=== PATIENT | female | born 1945 | race Caucasian/White ===

== ENCOUNTER → 2018-08-30 10:26 | Outpatient (BNVA) | payer MEDICARE, MEDICAID, SELFPAY | PROVIDERS: PCP Family Medicine; Referring Provider Family Medicine; Visit Provider Orthopaedic Surgery | DX: S92.352A Displaced fracture of fifth metatarsal bone, left foot, initial encounter for closed fracture (principal); X50.1XXA Overexertion from prolonged static or awkward postures, initial encounter | CPT/HCPCS: 99214 ==

== ENCOUNTER 2018-09-27 09:52 | Outpatient (CLI) | payer MEDICARE, MEDICAID, SELFPAY ==
--- NOTE | 2018-09-27 09:49 | DI.RAD_ITS ---
SYMPTOM/DIAGNOSIS: F/U FX LEFT FOOT: No previous images were available for review at the time of this dictation. There is soft tissue swelling over the distal aspect of the foot. There is post traumatic change involving the proximal metaphysis of the fifth metatarsal likely representing the residua of an old injury. There is no evidence of an acute fracture or dislocation. If prior images are extant, then an addendum report will follow if the study can be retrieved.
== END 2018-09-27 10:12 ==
PROVIDERS: PCP Family Medicine; Visit Provider Orthopaedic Surgery
DX: M79.672 Pain in left foot (principal); M79.89 Other specified soft tissue disorders; S92.352D Displaced fracture of fifth metatarsal bone, left foot, subsequent encounter for fracture with routine healing; X50.0XXD Overexertion from strenuous movement or load, subsequent encounter; I10 Essential (primary) hypertension; J44.9 Chronic obstructive pulmonary disease, unspecified
CPT/HCPCS: 99213; 73630

== ENCOUNTER 2019-03-08 13:56 | Outpatient (CLI) | payer MEDICARE, MEDICAID, SELFPAY ==
[2019-03-08 14:19] LABS: Abs Immature Grans 0.02 k/cumm (0.0-0.09); Absolute Basophil Count 0.05 k/cumm (0.0-0.2); Absolute Eosinophil Count 0.14 k/cumm (0.0-0.7); Absolute Lymphocyte Count 2.32 k/cumm (1.2-3.4); Absolute Monocyte Count 0.76 k/cumm (0.11-0.7); Absolute Neutrophil Count 5.12 k/cumm (1.2-6.7); Basophils % 0.6; Eosinophils % 1.7; HCT 40.4 % (36.0-46.0); HGB 12.9 g/dL (12.0-15.5); Immature Grans % 0.2; Lymphocytes % 27.6; Mean Corp. HGB Concentration 31.9 g/dL (32.0-36.0); Mean Corpuscular Hemoglobin 29.3 pg (27.0-33.0); Mean Corpuscular Volume 91.8 fL (80-95); Mean Platelet Volume 10.1 fL (8.0-11.0); Neutrophils % 60.9; Platelet Count 285 x1000/uL (130-400); RBC Distribution Width 13.5 % (11.7-14.6); White Blood Cell Count 8.41 k/cumm (4.4-10.8)
[2019-03-08 15:37] LABS: Iron 40 ug/dL (50-175); Total Iron Binding Capacity 306 ug/dL (250-450); Transferrin Sat 13 % (15-50)
== END 2019-03-08 14:16 ==
PROVIDERS: PCP Family Medicine; Visit Provider Family Medicine
DX: D50.0 Iron deficiency anemia secondary to blood loss (chronic) (principal)
CPT/HCPCS: 36415; 83540; 83550; 85025

== ENCOUNTER 2019-03-09 16:45 | Outpatient (REF) | payer MEDICARE, MEDICAID, SELFPAY | END 2019-03-09 17:05 | LOC: LBN 16:45 | PROVIDERS: PCP Family Medicine; Visit Provider Family Medicine | DX: N39.0 Urinary tract infection, site not specified (principal) | CPT/HCPCS: 87086 ==

== ENCOUNTER 2019-06-08 08:57 | Outpatient (REF) | payer MEDICARE, MEDICAID, SELFPAY ==
[2019-06-08 11:39] LABS: Abs Immature Grans 0.01 k/cumm (0.0-0.09); Absolute Basophil Count 0.07 k/cumm (0.0-0.2); Absolute Eosinophil Count 0.11 k/cumm (0.0-0.7); Absolute Lymphocyte Count 2.17 k/cumm (1.2-3.4); Absolute Monocyte Count 0.75 k/cumm (0.11-0.7); Absolute Neutrophil Count 5.18 k/cumm (1.2-6.7); Basophils % 0.8; Eosinophils % 1.3; HCT 40.6 % (36.0-46.0); HGB 13.5 g/dL (12.0-15.5); Immature Grans % 0.1; Lymphocytes % 26.2; Mean Corp. HGB Concentration 33.3 g/dL (32.0-36.0); Mean Corpuscular Hemoglobin 30.5 pg (27.0-33.0); Mean Corpuscular Volume 91.6 fL (80-95); Mean Platelet Volume 10.9 fL (8.0-11.0); Neutrophils % 62.6; Platelet Count 276 x1000/uL (130-400); RBC 4.43 m/cumm (4.00-5.20); RBC Distribution Width 12.2 % (11.7-14.6); White Blood Cell Count 8.29 k/cumm (4.4-10.8)
== END 2019-06-08 09:17 ==
LOC: LBN 08:57
PROVIDERS: PCP Family Medicine; Visit Provider Family Medicine
DX: N64.89 Other specified disorders of breast (principal); D50.0 Iron deficiency anemia secondary to blood loss (chronic); I10 Essential (primary) hypertension
CPT/HCPCS: 85025

== ENCOUNTER 2019-06-26 00:22 | Outpatient (CLI) | payer MEDICARE, MEDICAID, SELFPAY ==
--- NOTE | 2019-06-26 09:19 | DI.COMBO_ITS ---
SYMPTOM/DIAGNOSIS: DIAGNOSTIC, BRUISE, TEXTURE CHANGES LT BREAST, N64.89, RT BREAST PAIN MAMMOGRAMS AND RIGHT BREAST ULTRASOUND: Mammograms were interpreted according to the usual protocol including computer analysis with CAD system, tomosynthesis and C view imaging. The patient notes a palpable abnormality in the superior right breast. A marker was placed over this area. Comparison is made with mammograms from [id number]. The breasts are composed of scattered fibroglandular densities, breast density, Category B. No suspicious masses or suspicious microcalcifications are seen. No abnormality is seen in the superior right breast. Right breast ultrasound shows no evidence of a cyst or solid mass. IMPRESSION: Category 1, negative mammogram and right breast ultrasound. Yearly screening mammography is recommended. [facility] ASSESSMENT OF FINDINGS: Negative. Category 1. Patient will receive a letter notifying them of these results. BI-RADS category B. There are scattered areas of fibroglandular density.
== END 2019-06-26 00:42 ==
PROVIDERS: PCP Family Medicine; Visit Provider Family Medicine
DX: N64.4 Mastodynia (principal); N63.10 Unspecified lump in the right breast, unspecified quadrant; S20.01XA Contusion of right breast, initial encounter; N64.89 Other specified disorders of breast
CPT/HCPCS: 76642; 77062; 77066; G0279

== ENCOUNTER 2021-03-22 06:55 | Emergency (ER) | payer MEDICARE, MEDICAID, SELFPAY ==
[2021-03-22] VITALS (9 sets, daily range): BP systolic 150–157; BP diastolic 73–80; PULSE 74–96; RESP 14–26; TEMP 36.6; O2SAT 95–98
--- NOTE | 2021-03-22 06:47 | W.ED.GENAD ---
Discharge Plan Disposition Patient Disposition: HOME Condition: Stable Discharge Details Clinical Impression: Seizure, Hand laceration, Contusion of head Primary Care Provider: Ketan Tamez ED Provider: Consuelo Stone Home Meds and New Rx's Prescriptions: Continued melatonin 3 mg capsule 3 mg PO HS RF: 0 Hold Instructions: Home Medication placed on hold at Doctor's office acetaminophen [Tylenol] 325 MG tablet 650 mg PO Q4H PRN RF: 0 (DME) Undergarment Misc 1 ea Miscellaneous Q2H MDD 10 Qty: 300 RF: 12 ascorbic acid (vitamin C) [Vitamin C] 250 mg tablet 250 mg PO BID Qty: 60 RF: 6 calcium carbonate-vitamin D3 600 mg(1,500mg) -200 unit tablet 1 tab PO DAILY Qty: 30 RF: 6 cholestyramine (with sugar) 4 gram powder 8 g PO BID Qty: 378 RF: 11 multivitamin Tablet 2 tab PO DAILY Qty: 200 RF: 3 potassium chloride 10 mEq tablet,ER particles/crystals 20 meq PO DAILY Qty: 180 RF: 3 cholecalciferol (vitamin D3) [Vitamin D3] 50 mcg (2,000 unit) capsule 2,000 unit PO DAILY Qty: 90 RF: 3 levetiracetam [Keppra] 500 mg tablet 500 mg PO BID Qty: 180 RF: 3 mirtazapine 7.5 mg tablet 7.5 mg PO QHS Qty: 90 RF: 3 Discharge Instructions Instructions: Laceration (ED), Recurrent Seizures in Adults (ED) Additional Instructions: Your imaging and labs are reassuring here today. This does appear to be a breakthrough seizure. Please continue with your Keppra as previously prescribed. Please discuss your breakthrough seizure with your primary care this week. Call tomorrow to schedule appointment. You do have a significant wound to your left hand and I am concerned that it may have a risk of complication during healing. Please keep wound clean, dry, covered. Please keep current dressing on for the next 24 to 48 hours. After that time, you may wash with running water and reapply dressing. Please have this evaluated by primary care this week as well. If you develop fever/chills, redness, increased pain, severe headache or other new/worsening symptoms please seek care urgently once again. Referrals: Ketan Tamez DO [Primary Care Provider] - Discharge Data Discharge Date/Time-TO BE ENTERED AT DEPARTURE: 03/22/21 09:54 Medical Decision Making <Emanuel Garcia MD - Last Filed: 03/22/21 07:12> Patient presenting status post seizure at home. History of seizures in the past. Awake and alert now but confused. Significant degloving injury to the dorsum of the hand which will need attention. Fair amount of drug fiber and hair in the wound. IV established and laboratory studies obtained. Urinalysis ordered. CT head and neck as well as x-ray of left hand and left foot ordered. Last tetanus was 2008 and will be updated. <BONI Soto - Last Filed: 03/30/21 18:12> Care transition myself from Dr. Garcia. Please see his initial note regarding history, presentation and exam. In brief, patient is a pleasant 75-year-old female who came in today after having a witnessed seizure. Patient does have past medical history pertinent for seizure and is treated with Keppra. For the first breakthrough seizure per the report for several years. Patient was initially quite disoriented when evaluated by Dr. Garcia, the associated post ictal period. At the time I assume care and reevaluated patient, she just came back from imaging where she had x-rays of left hand, left foot, head and C-spine. Patient is alert and oriented at this time. Imaging reviewed by radiology: FINDINGS: There are bilateral craniotomies with encephalomalacia in the frontal lobes bilaterally and ex vacuo dilatation of the frontal horns bilaterally. There is a stable calcified focus in the midline measuring 2.1 cm and there are bilateral aneurysm clips with streak artifact. There are periventricular white matter lucencies compatible with chronic microvascular ischemic disease. No intracranial hemorrhage. No extra-axial collections. No acute calvarial fracture. There is frontal scalp swelling. IMPRESSION: No intracranial hemorrhage. Stable findings as above. FINDINGS: Normal alignment. No acute fracture or subluxation. There is degenerative disc disease at C6-C7. There is a chronic compression deformity of the superior endplate T3. No spinal stenosis. There are paraseptal emphysematous changes. IMPRESSION: No acute fracture. FINDINGS: Bones/joints: Osteopenia Bandages along the ulnar aspect of the hand and fingers Degenerative changes in the thumb carpometacarpal joint There is no evidence of acute fracture.There is no evidence of malalignment or dislocation. Soft tissues: Normal. IMPRESSION: There is no evidence of acute fracture.There is no evidence of malalignment or dislocation. FINDINGS: Bones/joints: Osteopenia Lucency in the distal aspect the distal phalanx of the great toe may represent healing fracture.. There is no evidence of acute fracture.There is no evidence of malalignment or dislocation. Soft tissues: Normal. IMPRESSION: 1. Lucency in the distal aspect the distal phalanx of the great toe may represent healing fracture.. 2. There is no evidence of acute fracture.There is no evidence of malalignment or dislocation. Patient does not have pain over this area. Evaluated the patient left hand wound. She has a laceration at the base of the third digit on the dorsal side as well as a degloving injury on the dorsal aspect of the hand. Patient does seem quite anxious regarding closure but has exquisite discomfort with gentle manipulation of the hand. Patient has history/benefits to help expected procedural efficacy with closure. She voiced understanding with these. She began anesthesia, lidocaine was dripped into the wound. Please see procedure note. Patient tolerated these well. Wound was explored to base in a bloodless field. There were few dark fibers consistent with rubbing on the carpet they are able to be extracted by myself. No remaining foreign bodies noted. Wound was copiously irrigated. Closed loosely as described. I am concerned regarding wound healing, particularly given how skin will be flap is in the viability of the tissue. I did discuss this with the patient. Also discussed this with the daughter. Spoke with the patient's daughter at length. I also had the daughter speak with her mother to ensure that she is at her baseline as she remained A&O x3 but did seem to have some difficulty with more short-term memory. She reports that her mother is at her baseline and this is unchanged. Discussed that both of them is the importance of good wound care we discussed wound care at length. Strict return precautions were discussed. She will continue on her prescribed medication. We will give her her morning dose of Keppra while here. Advise close follow-up with primary care provider. All other questions and concerns were addressed in agreement this plan. HPI <Emanuel Garcia MD - Last Filed: 03/22/21 07:12> General Mode of arrival: EMS. Date/Time Provider Initiated Documentation: 03/22/21 07:00. Information obtained by: patient and EMS. HPI Narrative: Patient presents to ED with EMS after seizure at home. Per EMS daughter reports that patient fell out of bed having a seizure. Left part of her body was on a rough rug with her arm up under her. Patient does have history of seizures. Patient awake and alert now but appears confused as she states she tripped and fell. She states that her left foot hurts but that everything else feels okay to her. Per EMS sustained significant skin injury to the left hand. IV was established but no medications given. Related Data Home Medications Medication Instructions Recorded Confirmed acetaminophen [Tylenol] 650 mg PO Q4H PRN tab 08/13/15 03/22/21 diaper,brief,adult,disposable #300 ea 04/01/20 03/22/21 ascorbic acid (vitamin C) 250 mg 250 mg PO BID #60 tab 09/11/20 03/22/21 tablet calcium carbonate 600 mg (1,500 1 tab PO DAILY #30 tab 09/11/20 03/22/21 mg)-vitamin D3 200 unit tablet cholestyramine (with sugar) 4 gram 8 g PO BID #378 gm 09/11/20 03/22/21 oral powder multivitamin 2 tab PO DAILY #200 tab 09/11/20 03/22/21 potassium chloride 10 mEq 20 meq PO DAILY #180 tab-cap 09/11/20 03/22/21 tablet,extended release(part/cryst) melatonin 3 mg capsule 3 mg PO HS 10/09/20 03/22/21 cholecalciferol (vitamin D3) 50 2,000 unit PO DAILY #90 cap 10/13/20 03/22/21 mcg (2,000 unit) capsule levetiracetam 500 mg tablet 500 mg PO BID #180 tab 11/10/20 03/22/21 mirtazapine 7.5 mg tablet 7.5 mg PO QHS #90 tab 02/19/21 03/22/21 Previous Rx's Medication Instructions Recorded diaper,brief,adult,disposable #300 ea 04/01/20 ascorbic acid (vitamin C) 250 mg 250 mg PO BID #60 tab 09/11/20 tablet calcium carbonate 600 mg (1,500 1 tab PO DAILY #30 tab 09/11/20 mg)-vitamin D3 200 unit tablet cholestyramine (with sugar) 4 gram 8 g PO BID #378 gm 09/11/20 oral powder multivitamin 2 tab PO DAILY #200 tab 09/11/20 potassium chloride 10 mEq 20 meq PO DAILY #180 tab-cap 09/11/20 tablet,extended release(part/cryst) cholecalciferol (vitamin D3) 50 2,000 unit PO DAILY #90 cap 10/13/20 mcg (2,000 unit) capsule levetiracetam 500 mg tablet 500 mg PO BID #180 tab 11/10/20 mirtazapine 7.5 mg tablet 7.5 mg PO QHS #90 tab 02/19/21 Allergies Allergy/AdvReac Type Severity Reaction Status Date / Time aspirin AdvReac Intermediate GI Bleed Verified 03/23/21 13:59 Review of Systems <Emanuel Garcia MD - Last Filed: 03/22/21 07:12> Narrative: As documented in HPI otherwise negative as below. Const: no fever Resp: no cough, SOB CV: no CP GI: no abdominal pain, nausea, vomiting Neuro: no headache, numbness, focal weakness PFSH <Emanuel Garcia MD - Last Filed: 03/22/21 07:12> Medical History Abnormal weight loss (01/28/14) recurrent; varied 1999 w/u; [id number] 113 to 138 labs; Aneurysm a. Positive for multiple aneurysms. As stated, she has had surgery for these aneurysms. She has been followed quite closely in the past, and now has been able to spread out her appointments with the neurologist as there has been no change in her scan since 1982, according to her and her caregiver. 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 Vague history as she was a previous smoker. Dyspnea on exertion (07/26/17) Essential hypertension (02/24/12) History of seizure a. Due to previous CVA. b. She has not had any in upwards of 13 to 15 years. 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) initial leak/procedure 1971; neurosurg [facility] [place]; elect further watchful waiting Clipping 07/2015 Osteoporosis, unspecified Pos DEXA 08/2003; alendronate therapy through 2010; Vit D def 2005, replaced; Dilantin therapy risk Ovarian cyst, right (07/19/16) on CT, US 07/2016; stable on US [facility] [place] 10/06/16 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 Wyatt Nazario MD. History of Surgical Procedure a. ORIF of the patella of her left knee. b. Appendectomy and tubal ligation in the same surgery, according to her. c. Tonsillectomy and adenoidectomy. d. Aneurysm repair on two occasions, 1971 and 1982. She gets repeat scans every so often for these. e. Bilateral cataract surgery. R nephrectomy & ovary (10/25/16) Dr Fong, [facility] [place], carcinoma kidney Family History Mother , CA at age 75. Neoplasm liver or kidney CA Father , fall at age 63. No problems noted. Brother , LUNG CA No problems noted. Brother , Stomach CA at age 85. No problems noted. Social History Smoking/Tobacco Use Status: Current every day Tobacco Type: cigarettes Smoking risk assessment performed?: Yes Alcohol Intake: never Drug use: Never Substance use type: does not use Caregiver/Support person: Yes Household members: family and other Details: lives with daughter Housing: house Number of Children: 2 Communication Needs: Corrective Lenses current occupation: retired from [employer], [employer], Dispatcher What is your relationship status?: Panel score (0-1 are the most socially isolated patients): 0 What type of physical activity do you participate in: none Seatbelt use: always Drive intox or ride w/intox steam train driver: No Working smoke detector in home: Yes Carbon monox detector in home: Yes Do you feel safe at home: Yes Do you feel safe in your relationship?: Yes Exam <Emanuel Garcia MD - Last Filed: 03/22/21 07:12> Narrative Exam Narrative: Const: Thin elderly female in NAD. HEENT: NC. Large hematoma on forehead. Abrasion to bridge of nose Neck: Supple. Trachea midline. No midline tenderness. Lungs: Normal respiratory effort. Lungs are clear. Cor: RRR without murmur/gallop. GI: Soft. NT/ND. Neuro: Awake and alert but confused. Normal speech. Cranial nerves II - XII grossly intact. No gross motor or sensory deficit. Ext: No deformity. Tenderness to the dorsum of left foot. Degloving involving dorsum of left hand as well as laceration just proximal to the third MCP joint. No obvious deformity. Skin: Warm and dry. <BONI Soto - Last Filed: 03/30/21 18:12> Laceration Laceration 1: Site: hand Side (If applicable): left Size (cm): 1.5 Description: flap and irregular Depth: simple, single layer Local Anesthetic: Lidocaine 1% Amount of anesthesia used (mL): 3 Pre-repair: wound explored, irrigated extensively and deep structures intact Skin layer closed with: nylon Size (cm): 6-0 Number of sutures: 3 Technique: simple, interrupted Laceration 2: Site: hand Side (If applicable): left Size (cm): 8 Description: flap Depth: simple, single layer (thin skin) Local Anesthetic: Lidocaine 1% Amount of anesthesia used (mL): 5 Pre-repair: wound explored, irrigated extensively and deep structures intact Skin layer closed with: nylon Size (cm): 6-0 Number of sutures: 5 Technique: simple, interrupted and horizontal mattress Sign Out <Emanuel Garcia MD - Last Filed: 03/22/21 07:12> Sign Out Data: Sign Out Comment: pending imaging results and laceration/degloving repair Last updated by Emanuel Garcia MD at 03/22/21 08:04
--- NOTE | 2021-03-22 07:00 | DI.RAD_ITS ---
Exam(s) XR FOOT LT COMPLETE EXAM: XR FOOT LT COMPLETE CLINICAL HISTORY: trauma. TECHNIQUE: 2D digital imaging was performed. COMPARISON: CR XR foot LT complete from 09/27/2018 FINDINGS: BONES: No acute fracture is present. No bony destructive lesion is seen. JOINTS: No dislocation present. SOFT TISSUE: Normal. IMPRESSION: No acute fracture or dislocation. DATA REPOSITORY: RADIATION DOSE DELIVERED:
--- NOTE | 2021-03-22 07:00 | DI.RAD_ITS ---
Exam(s) XR HAND LT COMPLETE EXAM: XR HAND LT COMPLETE CLINICAL HISTORY: trauma. TECHNIQUE: 2D digital imaging was performed. COMPARISON: CR LEFT HAND COMPLETE from 11/14/2013 FINDINGS: BONES: No acute fracture is present. No bony destructive lesion is seen. Osteopenia. JOINTS: No dislocation present. Degenerative changes are seen in the hand particularly at the 1st CMC joint. SOFT TISSUE: Normal. IMPRESSION: No acute fracture or dislocation. DATA REPOSITORY: RADIATION DOSE DELIVERED:
--- NOTE | 2021-03-22 07:00 | DI.CT_ITS ---
Exam(s) CT HEAD CERVICAL SPINE WO EXAM: CT HEAD CERVICAL SPINE WO CLINICAL HISTORY: seizure with fall. TECHNIQUE: Imaging Protocol: Axial computed tomography images with coronal and sagittal reformatted images were created and reviewed COMPARISON: CT CTA BRAIN from 06/27/2015 FINDINGS: CT Head: Ventricles and Extra axial spaces: Normal in size and morphology for the patient's age. Hemorrhage: None. Cerebral parenchyma: Encephalomalacia is seen in the frontal lobes bilaterally. No acute territorial infarct is seen. There are areas of decreased attenuation in the white matter most consistent with chronic microvascular ischemic disease. There is a stable calcified focus in the midline measuring 2 .1 cm. Bilateral aneurysm clips are noted again. Midline shift: None. Brainstem/Cerebellum: Normal. Calvarium: No acute fracture. Visualized Paranasal sinuses/Mastoids: Small mucous retention cysts or polyps are seen in the maxilla ry sinuses. There is mild mucosal thickening in the frontal sinus. The remaining visualized paranas al sinuses and mastoid air cells are clear. Soft Tissues: Mild soft tissue swelling of the frontal scalp. CT Cervical Spine: Bones: No acute fracture or subluxation. Degenerative changes are seen in the cervical spine. There is an old compression deformity in the superior endplate of T3. Soft Tissues: Unremarkable. Lung Apices: Paraseptal emphysematous changes are seen in the lung apices. IMPRESSION: 1. No acute intracranial process. 2. No acute fracture or subluxation in the cervical spine. RADIATION DOSE DELIVERED: 1,173.01mGy.cm Total DLP DATA REPOSITORY: All CT scans at this facility are submitted to the National Radiology Data Registry (NRDR) Dose Index Registry (DIR) with the [employer] (ACR). RADIATION OPTIMIZATION: All CT scans at this facility use at least one of these dose optimization te chniques: automated exposure control; mA and/or kV adjustment per patient size (includes targeted exa ms where dose is matched to clinical indication); or iterative reconstruction.
[2021-03-22] MEDS: Normal Saline Flush 10 ML SYR IVP (07:05)
[2021-03-22 07:19] LABS: Abs Immature Grans 0.04 10^3/uL (0.0-0.06); Absolute Basophil Count 0.06 10^3/uL (0.0-0.2); Absolute Eosinophil Count 0.15 10^3/uL (0.0-0.7); Absolute Lymphocyte Count 1.47 10^3/uL (1.2-3.4); Absolute Monocyte Count 0.52 10^3/uL (0.1-0.8); Absolute Neutrophil Count 6.44 10^3/uL (1.2-6.7); Basophils % 0.7; Eosinophils % 1.7; HCT 39.8 % (36.0-46.0); Immature Grans % 0.5; Lymphocytes % 16.9; MCHC 32.7 % (32.0-36.0); MCV 91.9 fL (80-95); MPV 10.8 fL (8.0-11.0); Neutrophils % 74.2; Nucleated RBC 0 %; Platelet Count 250 10^3/uL (130-400); RBC 4.33 10^6/uL (3.93-5.22); RDW 13.3 % (11.7-14.6); RDW-SD 45.4 fL; WBC 8.68 10^3/uL (4.4-10.8)
[2021-03-22 07:22] LABS: Anion Gap 9.3 mmol/L (3-11); BUN 18 mg/dL (7-18); CO2 27.7 mmol/L (21.0-32.0); CREATININE 1.1 mg/dL (0.55-1.02); Calcium 9.3 mg/dL (8.5-10.1); Chloride 108 mmol/L (98-107); Estimated GFR 48.29 (mL/min/1.73m2); Glucose 100 mg/dL (74-106); Magnesium 1.7 mg/dL (1.8-2.4); Potassium 3.8 mmol/L (3.5-5.1); Sodium 145 mmol/L (136-145)
[2021-03-22] MEDS: Tetanus & Diphtheria Tox,ADULT 0.5 ML VIAL IM (08:05)
[2021-03-22 08:11] LABS: Bilirubin Negative (Negative); Blood Negative (Negative); Clarity Clear (Clear); Glucose Negative (Negative); Ketones Negative (Negative); Leukocyte Esterase Negative (Negative); Nitrite Negative (Negative); Specific Gravity >= 1.030 (1.005-1.025); Urobilinogen 0.2 EU/dL (Up TO 0.2); pH 5.5 (5-8)
--- NOTE | 2021-03-22 08:14 | NUR.NOTE ---
seizure pads applied to bed rails
--- NOTE | 2021-03-22 08:31 | DI.VRAD_ITS ---
PROCEDURE INFORMATION: Exam: XR Left Hand Exam date and time: 03/22/2021 7:37 AM Age: 75 years old Clinical indication: Injury or trauma; Fall; Sprain or strain; Hand; Left TECHNIQUE: Imaging protocol: XR Left hand. Views: 3 or more views. COMPARISON: No relevant prior studies available. FINDINGS: Bones/joints: Osteopenia Bandages along the ulnar aspect of the hand and fingers Degenerative changes in the thumb carpometacarpal joint There is no evidence of acute fracture.There is no evidence of malalignment or dislocation. Soft tissues: Normal. IMPRESSION: There is no evidence of acute fracture.There is no evidence of malalignment or dislocation. Dictated and Authenticated by: Lynette Villasenor MD. Ordering:DUSTY Castellanos MD
--- NOTE | 2021-03-22 08:33 | DI.VRAD_ITS ---
PROCEDURE INFORMATION: Exam: XR Left Foot Exam date and time: 03/22/2021 7:37 AM Age: 75 years old Clinical indication: Injury or trauma; Fall; Sprain or strain; Foot; Left TECHNIQUE: Imaging protocol: XR Left foot. Views: 3 or more views. COMPARISON: No relevant prior studies available. FINDINGS: Bones/joints: Osteopenia Lucency in the distal aspect the distal phalanx of the great toe may represent healing fracture.. There is no evidence of acute fracture.There is no evidence of malalignment or dislocation. Soft tissues: Normal. IMPRESSION: 1. Lucency in the distal aspect the distal phalanx of the great toe may represent healing fracture.. 2. There is no evidence of acute fracture.There is no evidence of malalignment or dislocation. Dictated and Authenticated by: Lynette Villasenor MD. Ordering:DUSTY Castellanos MD
--- NOTE | 2021-03-22 08:45 | DI.VRAD_ITS ---
PROCEDURE INFORMATION: Exam: CT Head Without Contrast Exam date and time: 03/22/2021 7:43 AM Age: 75 years old Clinical indication: Injury or trauma; Fall; Swelling (edema); Sprain or strain, cervical ligaments TECHNIQUE: Imaging protocol: Computed tomography of the head without contrast. Radiation optimization: All CT scans at this facility use at least one of these dose optimization techniques: automated exposure control; mA and/or kV adjustment per patient size (includes targeted exams where dose is matched to clinical indication); or iterative reconstruction. COMPARISON: CT HEAD WITHOUT CONTRAST 06/27/2015 3:27 PM FINDINGS: There are bilateral craniotomies with encephalomalacia in the frontal lobes bilaterally and ex vacuo dilatation of the frontal horns bilaterally. There is a stable calcified focus in the midline measuring 2.1 cm and there are bilateral aneurysm clips with streak artifact. There are periventricular white matter lucencies compatible with chronic microvascular ischemic disease. No intracranial hemorrhage. No extra-axial collections. No acute calvarial fracture. There is frontal scalp swelling. IMPRESSION: No intracranial hemorrhage. Stable findings as above. PROCEDURE INFORMATION: Exam: CT Cervical Spine Without Contrast Exam date and time: 03/22/2021 7:43 AM Age: 75 years old Clinical indication: Injury or trauma; Fall; Swelling (edema); Sprain or strain, cervical ligaments TECHNIQUE: Imaging protocol: Computed tomography images of the cervical spine without contrast. COMPARISON: CT HEAD WITHOUT CONTRAST 06/27/2015 3:27 PM FINDINGS: Normal alignment. No acute fracture or subluxation. There is degenerative disc disease at C6-C7. There is a chronic compression deformity of the superior endplate T3. No spinal stenosis. There are paraseptal emphysematous changes. IMPRESSION: No acute fracture. Dictated and Authenticated by: Klever Hernandez MD. Ordering:DUSTY Castellanos MD
== END 2021-03-22 09:54 | disposition home or self-care (01) ==
PROVIDERS: Emergency Medicine; Emergency Provider Physician Assistant; PCP Family Medicine
DX: G40.409 Other generalized epilepsy and epileptic syndromes, not intractable, without status epilepticus (principal); S61.422A Laceration with foreign body of left hand, initial encounter; S00.83XA Contusion of other part of head, initial encounter; W08.XXXA Fall from other furniture, initial encounter
CPT/HCPCS: 12004; 36416; 80048; 82962; 90471; 99285; 70450; 72125; 73130; 73630; 81003; 83735; 85025; 99284

== ENCOUNTER 2021-05-13 11:41 | Outpatient (CLI) | payer MEDICARE, MEDICAID, SELFPAY ==
--- NOTE | 2021-05-13 10:30 | DI.RAD_ITS ---
Exam(s) XR ANKLE RT COMPLETE EXAM: XR ANKLE RT COMPLETE CLINICAL HISTORY: Pain, swelling and bruising after a fall, r/o frx,M25.571. TECHNIQUE: 2D digital imaging was performed. COMPARISON: CR XR foot LT complete from 09/27/2018 CR XR foot LT complete from 09/27/2018 FINDINGS: There is a transverse fracture at base of the 5th metatarsal. There is also a nondisplaced transverse fracture in the lateral malleolus. There is no widening of t he mortise. Medial malleolus and posterior malleoli are intact. IMPRESSION: Fractures as described above. DATA REPOSITORY: RADIATION DOSE DELIVERED:
== END 2021-05-13 12:01 ==
PROVIDERS: PCP Family Medicine; Visit Provider Family Medicine
DX: S82.64XA Nondisplaced fracture of lateral malleolus of right fibula, initial encounter for closed fracture (principal); S92.351A Displaced fracture of fifth metatarsal bone, right foot, initial encounter for closed fracture; W19.XXXA Unspecified fall, initial encounter
CPT/HCPCS: 73610

== ENCOUNTER → 2021-05-14 13:29 | Outpatient (BNVA) | payer MEDICARE, MEDICAID, SELFPAY | PROVIDERS: PCP Family Medicine; Referring Provider Family Medicine; Visit Provider Student in an Organized Health Care Education/Training Program | DX: S92.351A Displaced fracture of fifth metatarsal bone, right foot, initial encounter for closed fracture (principal); X50.9XXA Other and unspecified overexertion or strenuous movements or postures, initial encounter | CPT/HCPCS: 99213 ==

== ENCOUNTER 2021-06-18 11:21 | Outpatient (CLI) | payer MEDICARE, MEDICAID, SELFPAY ==
--- NOTE | 2021-06-18 09:45 | DI.RAD_ITS ---
Exam(s) XR FOOT RT COMPLETE EXAM: XR FOOT RT COMPLETE CLINICAL HISTORY: R foot fx. TECHNIQUE: 2D digital imaging was performed. COMPARISON: CR,XR XR FOOT LT COMPLETE from 03/22/2021 FINDINGS: No evidence of fracture nor diastasis of the Lisfranc joint. No osseous lesions. No radiopaque fore ign body. No significant degenerative changes. IMPRESSION: DATA REPOSITORY: RADIATION DOSE DELIVERED:
== END 2021-06-18 11:22 | disposition home or self-care (01) ==
LOC: DIORS 11:21
PROVIDERS: PCP Family Medicine; Referring Provider Family Medicine; Visit Provider Student in an Organized Health Care Education/Training Program
DX: S92.351D Displaced fracture of fifth metatarsal bone, right foot, subsequent encounter for fracture with routine healing; X58.XXXD Exposure to other specified factors, subsequent encounter
CPT/HCPCS: 99213; 73630

== ENCOUNTER 2022-06-17 15:27 | Emergency (ER) | payer MEDICARE, MEDICAID, SELFPAY ==
[2022-06-17 15:31] VITALS: BP 136/68; PULSE 98; RESP 20; TEMP 36.4; O2SAT 94
--- NOTE | 2022-06-17 16:00 | DI.RAD_ITS ---
Exam(s) XR FOREARM RT EXAM: XR FOREARM RT CLINICAL HISTORY: cat bite, cellulitis. TECHNIQUE: 2D digital imaging was performed of the left forearm. Two views were obtained. AP and l ateral views were obtained. COMPARISON: CR XR HAND RT COMPLETE from 06/17/2022 FINDINGS: BONES: No acute fracture is present. No bony destructive lesion is seen. Visualized portion of elbow and wrist joints are unremarkable. SOFT TISSUE: No radiopaque foreign bodies. IMPRESSION: No acute fracture, dislocation or radiopaque foreign body. DATA REPOSITORY: RADIATION DOSE DELIVERED:
--- NOTE | 2022-06-17 16:00 | DI.RAD_ITS ---
Exam(s) XR HAND RT COMPLETE EXAM: XR HAND RT COMPLETE CLINICAL HISTORY: cat bite, cellulitis. TECHNIQUE: 2D digital imaging was performed of the right hand. Three images were obtained. AP, late ral and oblique views were obtained. COMPARISON: No exams were available for comparison FINDINGS: BONES: No acute fracture is present. No bony destructive lesion is seen. JOINTS: No dislocation present. SOFT TISSUE: Normal. No radiopaque foreign bodies are identified. IMPRESSION: Unremarkable radiographs of the right hand. DATA REPOSITORY: RADIATION DOSE DELIVERED:
--- NOTE | 2022-06-17 16:04 | W.ED.GENAD ---
Discharge Plan Disposition Patient Disposition: HOME Condition: Stable Discharge Details Clinical Impression: Cat bite of right forearm, Cellulitis Primary Care Provider: Ketan Tamez ED Provider: Luke Marie Home Meds and New Rx's Prescriptions: New amoxicillin-pot clavulanate 875-125 mg tablet 1 tab PO BID Qty: 20 0RF Continued (DME) Undergarment Misc 1 ea Miscellaneous Q2H MDD 10 Qty: 300 12RF Rx Instructions: for hygiene and safety; Size S/M Dx: K52.9 ferrous gluconate 324 mg (37.5 mg iron) tablet 324 mg PO BID Qty: 180 3RF mirtazapine 7.5 mg tablet 7.5 mg PO QHS Qty: 90 3RF cholecalciferol (vitamin D3) 50 mcg (2,000 unit) capsule 50 mcg PO DAILY Qty: 90 3RF omeprazole 20 mg capsule,delayed release(DR/EC) 20 mg PO DAILY Qty: 90 3RF acetaminophen [Tylenol] 325 MG tablet 650 mg PO Q4H PRN cholestyramine (with sugar) 4 gram powder 8 g PO BID Qty: 378 11RF Rx Instructions: two scoops up to twice daily FOR CHRONIC DIARRHEA; multivitamin Tablet 2 tab PO DAILY Qty: 200 3RF potassium chloride 10 mEq tablet,ER particles/crystals 20 meq PO DAILY Qty: 180 3RF Rx Instructions: replace low potassium levetiracetam [Keppra] 500 mg tablet 500 mg PO BID Qty: 180 3RF Discharge Instructions Instructions: Cellulitis (ED), Animal Bite (ED) Additional Instructions: Augmentin as directed. Rest, elevate, warm compresses or soaks every 2 hours for 20 minutes. You may change the antibiotic dressing daily. Please watch for new or worsening symptoms and return immediately to the ER. Otherwise I recommend follow-up with your primary care provider in the next 24-36 hours for cellulitis recheck as this may expand rapidly, as we discussed this may worsen and require hospitalization and IV antibiotics. Medical Decision Making This is a 76-year-old female, past medical history that includes COPD, seizures, who is right-hand dominant and tetanus status is up-to-date presenting to the ER of a cat scratch and potential bite that occurred yesterday in a neighbor's house. Patient is unsure of the cat immunization status. We will remove the rings from her hand, file a cat bite report, at this time the cat is known and there is no clear indication to initiate rabies prophylaxis however this may change if animal control cannot identify the cat. Will obtain x-ray of the forearm and hand as well as routine screening laboratory values and initiate p.o. Augmentin. Laboratory values reveal leukocytosis of 17.47, will obtain blood cultures prior to oral Augmentin. X-ray is unremarkable. The wounds were cleaned and appropriately dressed. Discussed work-up with patient and family, localized noncircumferential cellulitis of the right forearm no foreign body or abscess. No evidence of lymphangitic streaking. We discussed how quickly this can decompensate and the importance of proper treatment. At this time I do not believe that she requires inpatient hospitalization but I do recommend that she return immediately for new or worsening symptoms otherwise get follow-up with her PCP in the next 24-36 hours. Strict discharge and return precautions were provided. Patient understands, is agreeable to this plan, and has no additional questions or concerns upon discharge. This documentation was generated using [employer] system, please disregard any oddities of phrase or misspellings. Medical Records Medical records reviewed: Yes I reviewed the patient's medical records. Imaging Data Radiologic Study: Attestation: I personally reviewed and interpreted this imaging study as follows: Imaging: X-Ray Radiologist's impression: Exam(s) XR FOREARM RT EXAM: XR FOREARM RT CLINICAL HISTORY: cat bite, cellulitis. TECHNIQUE: 2D digital imaging was performed of the left forearm. Two views were obtained. AP and lateral views were obtained. COMPARISON: CR XR HAND RT COMPLETE from 06/17/2022 FINDINGS: BONES: No acute fracture is present. No bony destructive lesion is seen. Visualized portion of elbow and wrist joints are unremarkable. SOFT TISSUE: No radiopaque foreign bodies. IMPRESSION: No acute fracture, dislocation or radiopaque foreign body. Radiologic Study #2: Attestation: I personally reviewed and interpreted this imaging study as follows: Imaging: X-Ray Radiologist's impression: Exam(s) XR HAND RT COMPLETE EXAM: XR HAND RT COMPLETE CLINICAL HISTORY: cat bite, cellulitis. TECHNIQUE: 2D digital imaging was performed of the right hand. Three images were obtained. AP, lateral and oblique views were obtained. COMPARISON: No exams were available for comparison FINDINGS: BONES: No acute fracture is present. No bony destructive lesion is seen. JOINTS: No dislocation present. SOFT TISSUE: Normal. No radiopaque foreign bodies are identified. IMPRESSION: Unremarkable radiographs of the right hand. Lab Data Lab results reviewed: Yes I reviewed the patient's lab results. Labs: 06/17/22 16:35 Blood Blood Culture - Pending 06/17/22 16:35 Blood Blood Culture - Pending Laboratory Tests Range/Units 06/17/22 06/17/22 16:10 16:10 WBC (4.4-10.8) 10^3/uL 17.47 H RBC (3.93-5.22) 10^6/uL 4.20 Hgb (11.2-15.7) g/dL 12.2 Hct (36.0-46.0) % 36.9 MCV (80-95) fL 88 MCH (27.0-33.0) pg 29.0 MCHC (32.0-36.0) % 33.1 RDW (11.7-14.6) % 13.5 Plt Count (130-400) 10^3/uL 258 MPV (8.0-11.0) fL 9.9 Immature Gran % 0.3 Neutrophils % 77.5 Lymphocytes % 13.0 Monocytes % 8.8 Eosinophils % 0.1 Basophils % 0.3 Nucleated RBC % (0.0-0.3) % 0.0 Absolute Neutrophils (1.2-6.7) 10^3/uL 13.54 H Absolute Lymphocytes (1.2-3.4) 10^3/uL 2.27 Absolute Monocytes (0.1-0.8) 10^3/uL 1.54 H Absolute Eosinophils (0.0-0.7) 10^3/uL 0.02 Absolute Basophils (0.0-0.2) 10^3/uL 0.05 RBC Morphology Normal Sodium (136-145) mmol/L 139 Potassium (3.5-5.1) mmol/L 3.6 Chloride (98-107) mmol/L 108 H Carbon Dioxide (21.0-32.0) mmol/L 24.0 Anion Gap (3-11) mmol/L 7.0 BUN (7-18) mg/dL 25 H Creatinine (0.55-1.02) mg/dL 1.0 Estimated GFR/1.73 m2 (mL/min/1.73m2) 53.76 Glucose (74-106) mg/dL 140 H Calcium (8.5-10.1) mg/dL 8.8 Total Bilirubin (0.2-1.0) mg/dL 0.2 AST (15-37) U/L 19 ALT (14-59) U/L 21 Alkaline Phosphatase (46-116) U/L 83 Total Protein (6.4-8.2) g/dL 7.0 Albumin (3.4-5.0) g/dL 3.3 L HPI General Mode of arrival: ambulatory. Date/Time Provider Initiated Documentation: 06/17/22 15:28. Limitations to Documentation: no limitations. Information obtained by: patient and family. History of Present Illness 76 year old F presents to the emergency department with the chief complaint of R arm cat bite/scratch, described as mild, with intensity rated at 3. Quality is described as aching, and is localized to the right and upper extremity. Patient reports no radiation. Patient started experiencing this day(s) (1) and it has been constant. No relieving factors improve symptom(s), Movement worsens symptoms . Patient notes no other symptoms.. Patient did receive the following treatments prior to arrival, none Related Data Home Medications Medication Instructions Recorded Confirmed acetaminophen 325 mg tablet 650 mg PO Q4H PRN 08/13/15 06/17/22 (Tylenol) cholestyramine (with sugar) 4 gram 8 g PO BID #378 grams 09/24/21 06/17/22 oral powder cholecalciferol (vitamin D3) 50 50 mcg PO DAILY #90 caps 03/02/22 06/17/22 mcg (2,000 unit) capsule diaper,brief,adult,disposable #300 ea 03/02/22 03/02/22 (Undergarment misc) ferrous gluconate 324 mg (37.5 mg 324 mg PO BID #180 tabs 03/02/22 06/17/22 iron) tablet mirtazapine 7.5 mg tablet 7.5 mg PO QHS #90 tabs 03/02/22 06/17/22 omeprazole 20 mg capsule,delayed 20 mg PO DAILY #90 caps 03/02/22 06/17/22 release multivitamin 2 tab PO DAILY #200 tabs 04/25/22 07/28/22 potassium chloride 10 mEq 20 meq PO DAILY #180 tab-caps 03/15/22 06/17/22 tablet,extended release(part/cryst) levetiracetam 500 mg tablet 500 mg PO BID #180 tabs 04/05/22 06/17/22 (Keppra) amoxicillin 875 mg-potassium 1 tab PO BID #20 tabs 06/17/22 clavulanate 125 mg tablet Previous Rx's Medication Instructions Recorded cholestyramine (with sugar) 4 gram 8 g PO BID #378 grams 09/24/21 oral powder cholecalciferol (vitamin D3) 50 50 mcg PO DAILY #90 caps 03/02/22 mcg (2,000 unit) capsule diaper,brief,adult,disposable #300 ea 03/02/22 (Undergarment misc) ferrous gluconate 324 mg (37.5 mg 324 mg PO BID #180 tabs 03/02/22 iron) tablet mirtazapine 7.5 mg tablet 7.5 mg PO QHS #90 tabs 03/02/22 omeprazole 20 mg capsule,delayed 20 mg PO DAILY #90 caps 03/02/22 release multivitamin 2 tab PO DAILY #200 tabs 03/15/22 potassium chloride 10 mEq 20 meq PO DAILY #180 tab-caps 03/15/22 tablet,extended release(part/cryst) levetiracetam 500 mg tablet 500 mg PO BID #180 tabs 04/05/22 (Keppra) amoxicillin 875 mg-potassium 1 tab PO BID #20 tabs 06/17/22 clavulanate 125 mg tablet Allergies Allergy/AdvReac Type Severity Reaction Status Date / Time aspirin AdvReac Intermediate GI Bleed Verified 06/17/22 15:37 General Stated Complaint: Cellulitis DANAY: 3 Review of Systems Constitutional Constitutional: Denies fever(s) and Denies weakness Cardiovascular Cardiovascular: Denies chest pain and Denies dyspnea Respiratory Respiratory: Denies dyspnea Musculoskeletal Musculoskeletal: Denies arthralgias, Denies numbness, Denies stiffness and Denies tingling Integumentary/Breasts Skin/Breast: Reports erythema Neurologic Neurologic: Denies numbness, Denies tingling and Denies weakness PFSH All Active Problems (Updated 06/17/22 @ 17:33 by [facility]) Cat bite of right forearm (Acute) Cellulitis (Acute) Urinary incontinence (Acute) Venous insufficiency (Acute) Fracture of base of fifth metatarsal bone of right foot (Acute) Right ankle pain (Acute) Seizure (Acute) Hand laceration (Acute) Contusion of head (Acute) Abnormal auditory perception (Acute) Bilateral sensorineural hearing loss (Acute) Vitamin D deficiency (Chronic) low level 2005; replacement, still marginal 08/2014 Seizure disorder (Chronic) most recent seizure 01/2015 Osteoporosis, unspecified (Chronic) Pos DEXA 08/2003; alendronate therapy through 2010; Vit D def 2005, replaced; Dilantin therapy risk 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 ORIF of the patella of her left knee. b. Appendectomy and tubal ligation in the same surgery, according to her. c. Tonsillectomy and adenoidectomy. d. Aneurysm repair on two occasions, 1971 and 1982. She gets repeat scans every so often for these. e. Bilateral cataract surgery. Aneurysm (Chronic) a. Positive for multiple aneurysms. As stated, she has had surgery for these aneurysms. She has been followed quite closely in the past, and now has been able to spread out her appointments with the neurologist as there has been no change in her scan since 1982, according to her and her caregiver. History of seizure (Chronic) a. Due to previous CVA. b. She has not had any in upwards of 13 to 15 years. COPD (chronic obstructive pulmonary disease) (Chronic) a. Vague history as she was a previous smoker. Surgical History cerebral aneurysm clipping (08/11/15) [facility] EGD and Colonoscopy (09/28/16) Extraction of cataract (12/18/15) Cataract extraction with lens implant, left eye. Wyatt Nazario MD. 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 Neoplasm liver or kidney CA Father , fall at age 63. No problems noted. Brother , LUNG CA No problems noted. Brother , Stomach CA at age 85. No problems noted. Social History Smoking/Tobacco Use Status: Former Tobacco Use Smoking risk assessment performed?: Yes Alcohol Intake: never Drug use: Never Substance use type: does not use Caregiver/Support person: Yes Household members: family and other Details: lives with daughter Housing: house Number of Children: 2 Communication Needs: Corrective Lenses current occupation: retired from [employer], [employer], Dispatcher What is your relationship status?: Panel score (0-1 are the most socially isolated patients): 0 What type of physical activity do you participate in: none Seatbelt use: always Drive intox or ride w/intox frontload driver: No Working smoke detector in home: Yes Carbon monox detector in home: Yes Do you feel safe at home: Yes Do you feel safe in your relationship?: Yes Additional Social history: lives with daughter Exam Const General: cooperative, healthy appearing, comfortable and no acute distress Orientation: alert and awake [facility] Head: normal to inspection, normocephalic and atraumatic Eyes Conjunctivae: conjunctivae normal Neck Neck: normal visual inspection, full ROM, trachea midline and supple Resp Effort & Inspection: normal respiratory effort and able to speak in complete sentences Auscultation: clear to auscultation bilaterally Cardio Rate: regular rate Rhythm: regular rhythm Back/Spine/Pelvis Back: No back tenderness Skin General skin exam: erythema Neuro General: patient alert, patient awake, moves all extremities and no focal motor deficits Cognition: normal cognition Speech: speech normal Gait: normal gait Motor: muscle tone normal throughout Sensory Exam: no sensory deficits noted Extrem General: full ROM and capillary refill normal Elbow/forearm/wrist images: 1. None circumferential erythema, warmth, swelling, with multiple abrasions between the wrist and elbow, does not extend proximally or distally. There are a couple of superficial abrasions to the hand but no erythema. Normal radial pulse. No fluctuance or pointing abscess. Neuro, vascular, tendon intact. Full range of motion, 5-5 strength, normal capillary refill and radial pulse. There is no lymphangitic streaking or axillary lymphadenopathy Psych Appearance: grossly normal Mental Status: mental status grossly normal Course Vital Signs Vital signs: Vital Signs Temperature 36.4 C L 06/17/22 15:31 Pulse 98 H 06/17/22 15:31 Respiratory Rate 20 06/17/22 15:31 Blood Pressure 136/68 06/17/22 15:31 Pulse Oximetry 94 06/17/22 15:31 Temperature 36.4 C L 06/17/22 15:31 Temperature Source Skin 06/17/22 15:31 Pulse 98 H 06/17/22 15:31 Respiratory Rate 20 06/17/22 15:31 Respiratory Effort 06/17/22 15:43 Blood Pressure 136/68 06/17/22 15:31 Blood Pressure Position Sitting 06/17/22 15:31 Pulse Oximetry 94 06/17/22 15:31 Oxygen Delivery Method Room Air 06/17/22 15:31 Oxygen Flow Rate 0 06/17/22 15:31 Comment 06/17/22 15:31
[2022-06-17 16:18] LABS: Abs Immature Grans 0.06 10^3/uL (0.0-0.06); Absolute Basophil Count 0.05 10^3/uL (0.0-0.2); Absolute Eosinophil Count 0.02 10^3/uL (0.0-0.7); Absolute Lymphocyte Count 2.27 10^3/uL (1.2-3.4); Absolute Monocyte Count 1.54 10^3/uL (0.1-0.8); Absolute Neutrophil Count 13.54 10^3/uL (1.2-6.7); Basophils % 0.3; Eosinophils % 0.1; HCT 36.9 % (36.0-46.0); HGB 12.2 g/dL (11.2-15.7); Immature Grans % 0.3; MCHC 33.1 % (32.0-36.0); MCV 88 fL (80-95); MPV 9.9 fL (8.0-11.0); Monocytes % 8.8; Neutrophils % 77.5; Platelet Count 258 10^3/uL (130-400); RDW 13.5 % (11.7-14.6); RDW-SD 42.5 fL; WBC 17.47 10^3/uL (4.4-10.8)
--- NOTE | 2022-06-17 16:22 | NUR.NOTE ---
Nursing Note:Pt to DI via w/c for ordered exam.
[2022-06-17 16:33] LABS: ALT 21 U/L (14-59); AST 19 U/L (15-37); Albumin 3.3 g/dL (3.4-5.0); Alkaline Phosphatase 83 U/L (46-116); BUN 25 mg/dL (7-18); Bilirubin, Total 0.2 mg/dL (0.2-1.0); Calcium 8.8 mg/dL (8.5-10.1); Chloride 108 mmol/L (98-107); Estimated GFR 53.76 (mL/min/1.73m2); Glucose 140 mg/dL (74-106); Potassium 3.6 mmol/L (3.5-5.1); Sodium 139 mmol/L (136-145)
--- NOTE | 2022-06-17 16:40 | NUR.NOTE ---
Nursing Note: Pt return from DI, BC drawn x2 as ordered, PO abx administered, pt tolerated w/o complaints.
[2022-06-17] MEDS: Amoxicillin 875/Clav. 125 TAB PO (16:41)
[2022-06-17 16:49] LABS: Diff Comment Agrees w/ Instrument; RBC Morphology Normal
== END 2022-06-17 17:43 | disposition home or self-care (01) ==
PROVIDERS: Emergency Provider Physician Assistant; PCP Family Medicine
DX: S51.851A Open bite of right forearm, initial encounter (principal); L03.113 Cellulitis of right upper limb; J44.9 Chronic obstructive pulmonary disease, unspecified; S60.511A Abrasion of right hand, initial encounter; D72.829 Elevated white blood cell count, unspecified; Z87.891 Personal history of nicotine dependence; W55.01XA Bitten by cat, initial encounter; Y92.009 Unspecified place in unspecified non-institutional (private) residence as the place of occurrence of the external cause
CPT/HCPCS: 80053; 87040; 99283; 73090; 73130; 85025; 99284

== ENCOUNTER 2023-07-20 01:49 | Outpatient (CLI) | payer MEDICARE, MEDICAID, SELFPAY ==
[2023-07-22 09:00] LABS: Prealbumin 18 mg/dL (20-40)
== END 2023-07-20 01:50 | disposition home or self-care (01) ==
LOC: LBO 01:49
PROVIDERS: PCP Family Medicine; Visit Provider Family Medicine
DX: R63.4 Abnormal weight loss (principal)
CPT/HCPCS: 36415; 84134

== ENCOUNTER 2023-08-05 09:47 | Emergency (ER) | payer MEDICARE, MEDICAID, SELFPAY ==
[2023-08-05 09:53] VITALS: BP 151/71; PULSE 70; RESP 18; TEMP 37; O2SAT 96
--- NOTE | 2023-08-05 10:00 | DI.RAD_ITS ---
Exam(s) XR LUMBAR SPINE COMPLETE EXAM: XR LUMBAR SPINE COMPLETE CLINICAL HISTORY: pain s/p fall. TECHNIQUE: 2D digital imaging was performed of the lumbar spine. Five images were obtained. AP, la teral, right oblique, left oblique and L5-S1 spot views were obtained. COMPARISON: CR CHEST 2 VIEWS PA,LAT from 07/14/2016 FINDINGS: BONES: There is a depression of the superior endplate of L1 which was not present on the most recent examination of this area which was in 2016. The acuity of this is indeterminate. No definite acute fracture or subluxation is seen in the lumbar spine. No facet hypertrophy identified. DISKS: There is mild narrowing of the T12-L1 disc space. ALIGNMENT: Lumbar spinal alignment is within normal limits. No spondylolysis or spondylolisthesis. SOFT TISSUE: Atherosclerosis is present. IMPRESSION: 1. Depression of the superior endplate of L1 of indeterminate age. 2. Atherosclerosis. DATA REPOSITORY: RADIATION DOSE DELIVERED:
--- NOTE | 2023-08-05 10:04 | ED.GENADUL_ITS ---
Discharge Plan Disposition Patient Disposition: Home Condition: Stable Discharge Details Clinical Impression: Closed L1 vertebral fracture Primary Care Provider: Ketan Tamez ED Provider: Juan Carlos Bethea Home Meds and New Rx's Prescriptions: Continued levetiracetam [Keppra] 500 mg tablet 500 mg PO BID Qty: 180 3RF (DME) Undergarment Misc 1 ea Miscellaneous Q2H MDD 10 Qty: 300 12RF Rx Instructions: for hygiene and safety; Size S/M Dx: K52.9 acetaminophen [Tylenol] 325 MG tablet 650 mg PO Q4H PRN cholestyramine (with sugar) 4 gram powder 8 g PO BID Qty: 378 11RF Rx Instructions: two scoops up to twice daily FOR CHRONIC DIARRHEA; ferrous gluconate 324 mg (37.5 mg iron) tablet 324 mg PO BID Qty: 180 3RF potassium chloride 10 mEq tablet,ER particles/crystals 20 meq PO DAILY Qty: 180 3RF Rx Instructions: replace low potassium cholecalciferol (vitamin D3) 50 mcg (2,000 unit) capsule 50 mcg PO DAILY Qty: 90 3RF omeprazole 20 mg capsule,delayed release(DR/EC) 20 mg PO DAILY Qty: 90 3RF multivitamin Tablet 2 tab PO DAILY Qty: 180 3RF mirtazapine 15 mg tablet 15 mg PO QHS Qty: 90 3RF Discharge Instructions Instructions: Thoracolumbar Fracture (ED) Additional Instructions: You have an age indeterminate broken bone in your lumbar spine that will heal with time follow up with your primary care provider within 1-2 weeks you can take tylenol, follow dosing instructions on packaging you can also use lidocaine patches which are over the counter if you feel more ill, have severe worsening pain or new pain such as chest pain return to the emergency department Medical Decision Making 77 yo female with hx of memory loss, copd, seizure, who comes in with her daughter who cares for her with lower back pain. On Tuesday she was walking and her pant leg got caught on a dog kennel door causing the patient to fall. No loc, has had lower back pain since so came here. No headache, neck pain, upper back, chest or abdomen pain. She is alert and oriented to name and place on arrival, not sure of the year. She has no signs of trauma to the head, no midline c or t spine tenderness, no chest or abdomen tenderness, moving all extremities with no pain. She has tenderness without palpable or visible deformity of L4/l5. Suspect contusion but will obtain xrays to evaluate for fracture. xray shows age indeterminate superior endplate fracture of L1, she is sitting up and states pain is now gone. Will d/c and have her f/u with pcp, return pre cautions given Differential Diagnosis Differential Diagnosis: contusion, fracture Imaging Data Radiologic Study: Attestation: I personally reviewed and interpreted this imaging study as follows: Imaging: X-Ray Radiologist's impression: Exam(s) XR LUMBAR SPINE COMPLETE EXAM:? XR LUMBAR SPINE COMPLETE CLINICAL HISTORY: ? pain s/p fall.? TECHNIQUE:? 2D digital imaging was performed of the lumbar spine.? Five images were obtained.? AP, lateral, right oblique, left oblique and L5-S1 spot views were obtained. COMPARISON:? CR CHEST 2 VIEWS PA,LAT from 07/14/2016 FINDINGS: BONES: There is a depression of the superior endplate of L1 which was not present on the most recent examination of this area which was in 2016.? The acuity of this is indeterminate.? No definite acute fracture or subluxation is seen in the lumbar spine.? No facet hypertrophy identified. DISKS: There is mild narrowing of the T12-L1 disc space.? ALIGNMENT: Lumbar spinal alignment is within normal limits. No spondylolysis or spondylolisthesis. SOFT TISSUE: Atherosclerosis is present.? IMPRESSION: 1. Depression of the superior endplate of L1 of indeterminate age. 2. Atherosclerosis.? HPI General Date/Time Provider Initiated Documentation: 08/05/23 09:55 . Information obtained by: patient and family . History of Present Illness 77 year old F presents to the emergency department with the chief complaint of lower back pain, described as moderate, Quality is described as aching, and is localized to the back. Patient reports no radiation. Patient started experiencing this day(s) (5) and it has been constant. No relieving factors improve symptom(s), No exacerbating factors reported . Patient notes no other symptoms.. Patient did receive the following treatments prior to arrival, none Related Data Home Medications Medication Instructions Recorded Confirmed acetaminophen 325 mg tablet 650 mg PO Q4H PRN 08/13/15 08/05/23 (Tylenol) cholestyramine (with sugar) 4 gram 8 g PO BID #378 grams 10/15/22 08/05/23 oral powder cholecalciferol (vitamin D3) 50 50 mcg PO DAILY #90 caps 03/11/23 08/05/23 mcg (2,000 unit) capsule ferrous gluconate 324 mg (37.5 mg 324 mg PO BID #180 tabs 03/11/23 08/05/23 iron) tablet omeprazole 20 mg capsule,delayed 20 mg PO DAILY #90 caps 03/11/23 08/05/23 release potassium chloride 10 mEq 20 meq PO DAILY #180 tab-caps 03/11/23 08/05/23 tablet,extended release(part/cryst) multivitamin 2 tab PO DAILY #180 tabs 03/25/23 08/05/23 diaper,brief,adult,disposable #300 ea 04/01/23 08/05/23 (Undergarment misc) levetiracetam 500 mg tablet 500 mg PO BID #180 tabs 04/01/23 08/05/23 (Keppra) mirtazapine 15 mg tablet 15 mg PO QHS #90 tabs 04/15/23 08/05/23 Previous Rx's Medication Instructions Recorded cholestyramine (with sugar) 4 gram 8 g PO BID #378 grams 10/15/22 oral powder cholecalciferol (vitamin D3) 50 50 mcg PO DAILY #90 caps 03/11/23 mcg (2,000 unit) capsule ferrous gluconate 324 mg (37.5 mg 324 mg PO BID #180 tabs 03/11/23 iron) tablet omeprazole 20 mg capsule,delayed 20 mg PO DAILY #90 caps 03/11/23 release potassium chloride 10 mEq 20 meq PO DAILY #180 tab-caps 03/11/23 tablet,extended release(part/cryst) multivitamin 2 tab PO DAILY #180 tabs 03/25/23 diaper,brief,adult,disposable #300 ea 04/01/23 (Undergarment misc) levetiracetam 500 mg tablet 500 mg PO BID #180 tabs 04/01/23 (Keppra) mirtazapine 15 mg tablet 15 mg PO QHS #90 tabs 04/15/23 Allergies Allergy/AdvReac Type Severity Reaction Status Date / Time aspirin AdvReac Intermediate GI Bleed Verified 04/01/23 10:46 General Stated Complaint: Fall/Non TraumaCriteria DANAY: 3 Review of Systems All systems reviewed & are unremarkable except as noted in HPI and below Constitutional Constitutional: Denies chills, Denies fever(s) and Denies weakness Eyes Eyes: Denies loss of vision Cardiovascular Cardiovascular: Denies chest pain and Denies dyspnea Respiratory Respiratory: Denies cough and Denies dyspnea Gastrointestinal Gastrointestinal: Denies abdominal pain, Denies nausea and Denies vomiting Genitourinary Genitourinary: Denies dysuria Musculoskeletal Musculoskeletal: Denies joint swelling Integumentary/Breasts Skin/Breast: Denies rash Neurologic Neurologic: Denies loss of vision and Denies weakness PFS All Active Problems (Updated 08/05/23 @ 11:23 by Juan Carlos Bethea MD) Closed L1 vertebral fracture (Acute) Sundowning (Acute) Pain, foot (Acute) Nail dystrophy (Acute) Urinary incontinence (Acute) Venous insufficiency (Acute) Fracture of base of fifth metatarsal bone of right foot (Acute) Right ankle pain (Acute) Seizure (Acute) Hand laceration (Acute) Contusion of head (Acute) Abnormal auditory perception (Acute) Bilateral sensorineural hearing loss (Acute) Vitamin D deficiency (Chronic) low level 2005; replacement, still marginal 08/2014 Seizure disorder (Chronic) most recent seizure 01/2015 Osteoporosis, unspecified (Chronic) Pos DEXA 08/2003; alendronate therapy through 2010; Vit D def 2005, replaced; Dilantin therapy risk 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 ORIF of the patella of her left knee. b. Appendectomy and tubal ligation in the same surgery, according to her. c. Tonsillectomy and adenoidectomy. d. Aneurysm repair on two occasions, 1971 and 1982. She gets repeat scans every so often for these. e. Bilateral cataract surgery. Aneurysm (Chronic) a. Positive for multiple aneurysms. As stated, she has had surgery for these aneurysms. She has been followed quite closely in the past, and now has been able to spread out her appointments with the neurologist as there has been no change in her scan since 1982, according to her and her caregiver. History of seizure (Chronic) a. Due to previous CVA. b. She has not had any in upwards of 13 to 15 years. COPD (chronic obstructive pulmonary disease) (Chronic) a. Vague history as she was a previous smoker. Surgical History cerebral aneurysm clipping (08/11/15) [facility] [place] EGD and Colonoscopy (09/28/16) Extraction of cataract (12/18/15) Cataract extraction with lens implant, left eye. Wyatt Nazario MD. 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 Neoplasm liver or kidney CA Father , fall at age 63. No problems noted. Brother , LUNG CA No problems noted. Brother , Stomach CA at age 85. No problems noted. Social History Smoking/Tobacco Use Status: Former Tobacco Use Smoking risk assessment performed?: Yes Alcohol Intake: never Drug use: Never Substance use type: does not use Caregiver/Support person: Yes Household members: family and other Details: lives with daughter Housing: house Number of Children: 2 Communication Needs: Corrective Lenses current occupation: retired from [employer], [employer] What is your relationship status?: Panel score (0-1 are the most socially isolated patients): 0 What type of physical activity do you participate in: none Seatbelt use: always Drive intox or ride w/intox after school driver: No Working smoke detector in home: Yes Carbon monox detector in home: Yes Do you feel safe at home: Yes Do you feel safe in your relationship?: Yes Additional Social history: lives with daughter Exam Const General: no acute distress Orientation: alert HENMT Head: normal to inspection Ears: external ears normal General nose exam: external nose normal Mouth: moist mucous membranes Eyes General: appearance normal, both eyes and all related structures Neck Neck: normal visual inspection, full ROM and nontender Chest Chest: no tenderness Resp Effort & Inspection: normal respiratory effort and able to speak in complete sentences Cardio Rate: regular rate GI Palpation: soft and nontender Back/Spine/Pelvis Back: no CVA tenderness Thoracic/Lumbar Spine: No thoracic spinal tenderness and lumbar spinal tenderness Skin General skin exam: no rashes or lesions noted Neuro General: patient alert and patient oriented x3 Extrem General: normal to inspection Psych Mental Status: mental status grossly normal Course Vital Signs Vital signs: Vital Signs Temperature 37 C 08/05/23 09:53 Pulse 70 08/05/23 09:53 Respiratory Rate 18 08/05/23 09:53 Blood Pressure 151/71 H 08/05/23 09:53 Pulse Oximetry 96 08/05/23 09:53 Temperature 37 C 08/05/23 09:53 Pulse 70 08/05/23 09:53 Respiratory Rate 18 08/05/23 09:53 Respiratory Effort Normal, Non-Labored 08/05/23 10:00 Blood Pressure 151/71 H 08/05/23 09:53 Blood Pressure Position Sitting 08/05/23 09:53 Pulse Oximetry 96 08/05/23 09:53 Oxygen Delivery Method Room Air 08/05/23 09:53 Oxygen Flow Rate 0 08/05/23 09:53 Pain Level 7 08/05/23 09:53
[2023-08-05] MEDS: Lidocaine 5% Patch 1 PATCH TP (10:20)
[2023-08-05] MEDS: Acetaminophen 500 MG TAB 1000 MG PO (10:20)
== END 2023-08-05 11:30 | disposition home or self-care (01) ==
PROVIDERS: Emergency Provider Emergency Medicine; PCP Family Medicine
DX: S32.019A Unspecified fracture of first lumbar vertebra, initial encounter for closed fracture (principal); Z87.891 Personal history of nicotine dependence; W01.0XXA Fall on same level from slipping, tripping and stumbling without subsequent striking against object, initial encounter; Y93.01 Activity, walking, marching and hiking; Y99.9 Unspecified external cause status
CPT/HCPCS: 99283; 72110

== ENCOUNTER 2023-12-08 11:46 | Emergency (ER) | payer MEDICARE, MEDICAID, SELFPAY ==
[2023-12-08 11:51] VITALS: BP 164/95; PULSE 76; RESP 14; TEMP 36.8; O2SAT 96
[2023-12-08 12:21] VITALS: BP 153/65
--- NOTE | 2023-12-08 12:30 | DI.RAD_ITS ---
Exam(s) XR PELVIS AP XR FEMUR LT EXAM: XR FEMUR LT CLINICAL HISTORY: Fall, thigh pain. TECHNIQUE: 2D digital imaging was performed. AP pelvis. AP and lateral views of the femur. COMPARISON: None. FINDINGS: BONES: Acute fracture left superior pubic ramus. Sacrum is mostly obscured by overlying stool, vascu lar calcifications and bowel gas. No fractures identified in the femur. Hardware noted in patella r elated to old fracture. No bony destructive lesion is seen. JOINTS: No dislocation present. Joint spaces are maintained. The SI joints and pubic symphysis are not widened. SOFT TISSUE: Vascular calcifications. IMPRESSION: Nondisplaced fracture left superior pubic ramus. No additional fractures are identified. DATA REPOSITORY: RADIATION DOSE DELIVERED:
--- NOTE | 2023-12-08 12:59 | ED.GENADUL_ITS ---
HPI General Mode of arrival: ambulatory . Date/Time Provider Initiated Documentation: 12/08/23 12:26 . Limitations to Documentation: no limitations . Information obtained by: patient, family (Son and Daughter in law), RN notes re viewed and old records reviewed . HPI Narrative: 78-year-old female presents to the ER coming by her family with a chief complaint of left thigh pain status post a mechanical fall yesterday around 1 PM. Reports posterior upper thigh pain. She does use bear weight with assistance. Did not take any medications prior to arrival. Denies any chest pain shortness of breath dizziness prior to fall. She is not on any blood thinners, did not hit her head denies any neck or back pain. She does have a past medical history of cerebral aneurysm, On exam she has no shortening rotation, distal pulses intact distal CMS intact. Pelvis is stable to compression no obvious deformity. She is alert and oriented x 3. No focal neurodeficits noted. Related Data Home Medications Medication Instructions Recorded Confirmed acetaminophen 325 mg tablet 650 mg PO Q4H PRN 08/13/15 12/08/23 (Tylenol) cholestyramine (with sugar) 4 gram 8 g PO BID #378 grams 10/15/22 12/08/23 oral powder cholecalciferol (vitamin D3) 50 50 mcg PO DAILY #90 caps 03/11/23 12/08/23 mcg (2,000 unit) capsule ferrous gluconate 324 mg (37.5 mg 324 mg PO BID #180 tabs 03/11/23 12/08/23 iron) tablet omeprazole 20 mg capsule,delayed 20 mg PO DAILY #90 caps 03/11/23 12/08/23 release potassium chloride 10 mEq 20 meq (2 x 10 mEq) PO DAILY #180 03/11/23 12/08/23 tablet,extended release(part/cryst) tab-caps multivitamin 2 tab PO DAILY #180 tabs 03/25/23 12/08/23 diaper,brief,adult,disposable #300 ea 04/01/23 12/08/23 (Undergarment misc) levetiracetam 500 mg tablet 500 mg PO BID #180 tabs 04/01/23 12/08/23 (Keppra) mirtazapine 15 mg tablet 15 mg PO QHS #90 tabs 04/15/23 12/08/23 Previous Rx's Medication Instructions Recorded cholestyramine (with sugar) 4 gram 8 g PO BID #378 grams 10/15/22 oral powder cholecalciferol (vitamin D3) 50 50 mcg PO DAILY #90 caps 03/11/23 mcg (2,000 unit) capsule ferrous gluconate 324 mg (37.5 mg 324 mg PO BID #180 tabs 03/11/23 iron) tablet omeprazole 20 mg capsule,delayed 20 mg PO DAILY #90 caps 03/11/23 release potassium chloride 10 mEq 20 meq (2 x 10 mEq) PO DAILY #180 03/11/23 tablet,extended release(part/cryst) tab-caps multivitamin 2 tab PO DAILY #180 tabs 03/25/23 diaper,brief,adult,disposable #300 ea 04/01/23 (Undergarment misc) levetiracetam 500 mg tablet 500 mg PO BID #180 tabs 04/01/23 (Keppra) mirtazapine 15 mg tablet 15 mg PO QHS #90 tabs 04/15/23 Allergies Allergy/AdvReac Type Severity Reaction Status Date / Time aspirin AdvReac Intermediate GI Bleed Verified 12/08/23 12:20 General Stated Complaint: Orthopedic DANAY: 4 Review of Systems ENT Ears, Nose, Mouth, and Throat: Denies neck pain Musculoskeletal Musculoskeletal: Reports as per HPI, Reports abnormal gait, Denies back pain, Reports arthralgias, Reports limited range of motion and Denies neck pain Neurologic Neurologic: Reports abnormal gait Exam Narrative Exam Narrative: General: Well Developed, Awake and Alert, conversant. Skin: Warm and Dry HEENT: Head: No palpable deformities, Normocephalic Eyes: Pupils PERRLA, EOM's intact. No periorbital eccymosis or step off Ears: Canal patent. Tympanic membranes are clear . No sutherland's sign, no hemptympanum. Nose/Face: Atraumatic. Facial bones nontender to palpation and stable with manipulation. Mouth/Throat: No intraoral trauma. Teeth and mandible are intact. Neck: No midline tenderness, no step off, no deformity to palpation of C-spine. Trachea midline. Chest: No surface trauma. Nontender without crepitus or deformity. Lungs clear to ausculatation bilaterally. Heart: RRR, no rubs, murmurs or gallop. Abdomen: No abrasions, ecchymosis, or surface trauma. Nondistended. Nontender to palpation no guarding, rebound, or rigidity. Pelvis: Nontender to palpation and stable to compression. Femoral pulses strong and equal patient does have tenderness with passive movement and active movement of bending her knee. Extremities: no surface trauma. Sensation intact. Peripheral pulses intact and equal. Neuro: ANO x4, GCS 15, cranial nerves II through XII intact. Motor and sensory exam nonfocal. Reflexes are symmetric. Course Vital Signs Vital signs: Vital Signs Temperature 36.8 C 12/08/23 11:51 Pulse 76 12/08/23 11:51 Respiratory Rate 14 12/08/23 11:51 Blood Pressure 164/95 H 12/08/23 11:51 Pulse Oximetry 96 12/08/23 11:51 Temperature 36.8 C 12/08/23 11:51 Temperature Source Skin 12/08/23 11:51 Pulse 76 12/08/23 11:51 Respiratory Rate 14 12/08/23 11:51 Respiratory Effort Normal, Non-Labored 12/08/23 12:14 Blood Pressure 153/65 H 12/08/23 12:21 Blood Pressure Position Sitting 12/08/23 11:51 Pulse Oximetry 96 12/08/23 11:51 Oxygen Delivery Method Room Air 12/08/23 11:51 Oxygen Flow Rate 0 12/08/23 11:51 Pain Level 5 12/08/23 12:15 Medical Decision Making 78-year-old female presents to the ER coming by her family with a chief complaint of left thigh pain status post a mechanical fall yesterday around 1 PM. Reports posterior upper thigh pain. She does use bear weight with assistance. Did not take any medications prior to arrival. Denies any chest pain shortness of breath dizziness prior to fall. She is not on any blood thinners, did not hit her head denies any neck or back pain. She does have a past medical history of cerebral aneurysm, On exam she has no shortening rotation, distal pulses intact distal CMS intact. Pelvis is stable to compression no obvious deformity. She is alert and oriented x 3. No focal neurodeficits noted. X-ray pelvis and femur ordered. Differential diagnoses include but not limited to occult fracture, hip fracture, femur fracture. 1441: Informed by intensive care unit nurse that patient was seen with her family placed in a wheelchair and escorted out of the department prior to my giving them the results of the x-ray images. Call made to the daughterRebecca Gould who is listed as her emergency contact. I did get in contact with her daughter and relayed the x-ray results and home care with follow-up care she verbalized understanding. They are going to get the patient a walker. I did instruct her to follow-up with PCP and/or orthopedics. She was placed on the care management list to follow-up with Ortho. I discussed pain control including [id number] lidocaine patches and/or Tylenol every 4-6 hours as needed. Patient eloped from the department prior to discharge instructions. However as noted in progress note and follow-up I did call the daughter and inform her of the x-ray results she verbalized understanding she was placed on orthopedic follow-up list. I did consult with orthopedics who recommended pain control, that this is a nonsurgical fracture. I did discuss strict return instructions with daughter on the phone. This text was generated using [employer] dictation system, please disregard any oddities of phrase or misspellings. Imaging Data Radiologic Study: Imaging: X-Ray Radiologist's impression: EXAM: XR FEMUR LT CLINICAL HISTORY: Fall, thigh pain. TECHNIQUE: 2D digital imaging was performed. AP pelvis. AP and lateral views of the femur. COMPARISON: None. FINDINGS: BONES: Acute fracture left superior pubic ramus. Sacrum is mostly obscured by overlying stool, vascular calcifications and bowel gas. No fractures identified in the femur. Hardware noted in patella related to old fracture. No bony destructive lesion is seen. JOINTS: No dislocation present. Joint spaces are maintained. The SI joints and pubic symphysis are not widened. SOFT TISSUE: Vascular calcifications. IMPRESSION: Nondisplaced fracture left superior pubic ramus. No additional fractures are identified. Lab Data Lab results reviewed: No I reviewed the patient's lab results. Quality:SDOH Health Related Social Needs: No Data to Display PFSH All Active Problems (Updated 12/08/23 @ 14:47 by Dorothy Haney NP) Fracture of left superior pubic ramus (Acute) Hearing loss (Acute) Sundowning (Acute) Pain, foot (Acute) Nail dystrophy (Acute) Urinary incontinence (Acute) Venous insufficiency (Acute) Fracture of base of fifth metatarsal bone of right foot (Acute) Right ankle pain (Acute) Seizure (Acute) Hand laceration (Acute) Contusion of head (Acute) Abnormal auditory perception (Acute) Bilateral sensorineural hearing loss (Acute) Vitamin D deficiency (Chronic) low level 2005; replacement, still marginal 08/2014 Seizure disorder (Chronic) most recent seizure 01/2015 Osteoporosis, unspecified (Chronic) Pos DEXA 08/2003; alendronate therapy through 2010; Vit D def 2005, replaced; Dilantin therapy risk 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 ORIF of the patella of her left knee. b. Appendectomy and tubal ligation in the same surgery, according to her. c. Tonsillectomy and adenoidectomy. d. Aneurysm repair on two occasions, 1971 and 1982. She gets repeat scans every so often for these. e. Bilateral cataract surgery. Aneurysm (Chronic) a. Positive for multiple aneurysms. As stated, she has had surgery for these aneurysms. She has been followed quite closely in the past, and now has been able to spread out her appointments with the neurologist as there has been no change in her scan since 1982, according to her and her caregiver. History of seizure (Chronic) a. Due to previous CVA. b. She has not had any in upwards of 13 to 15 years. COPD (chronic obstructive pulmonary disease) (Chronic) a. Vague history as she was a previous smoker. Surgical History cerebral aneurysm clipping (08/11/15) [facility] [place]rectomy & ovary (10/25/16) Dr Fong, [facility] [place], carcinoma kidney EGD and Colonoscopy (09/28/16) Extraction of cataract (12/18/15) Cataract extraction with lens implant, left eye. Wyatt Nazario MD. Family History Mother , CA at age 75. Neoplasm liver or kidney CA Father , fall at age 63. No problems noted. Brother , LUNG CA No problems noted. Brother , Stomach CA at age 85. No problems noted. Social History Smoking/Tobacco Use Status: Former Tobacco Use Smoking risk assessment performed?: Yes Alcohol Intake: never Drug use: Never Substance use type: does not use Caregiver/Support person: Yes Household members: family and other Details: lives with daughter Housing: house Number of Children: 2 Communication Needs: Corrective Lenses current occupation: retired from [employer], [employer], remoceaner What is your relationship status?: Panel score (0-1 are the most socially isolated patients): 0 What type of physical activity do you participate in: none Seatbelt use: always Drive intox or ride w/intox certified driver examiner: No Working smoke detector in home: Yes Carbon monox detector in home: Yes Do you feel safe at home: Yes Do you feel safe in your relationship?: Yes Additional Social history: lives with daughter Discharge Plan Disposition Patient Disposition: Eloped Condition: Stable Discharge Details Clinical Impression: Fracture of left superior pubic ramus Primary Care Provider: Ketan Tamez ED Provider: Dorothy Haney [place] Meds and New Rx's Prescriptions: No Action levetiracetam [Keppra] 500 mg tablet 500 mg PO BID Qty: 180 3RF (DME) Undergarment Misc 1 ea Miscellaneous Q2H MDD 10 Qty: 300 12RF Rx Instructions: for hygiene and safety; Size S/M Dx: K52.9 acetaminophen [Tylenol] 325 MG tablet 650 mg PO Q4H PRN cholestyramine (with sugar) 4 gram powder 8 g PO BID Qty: 378 11RF Rx Instructions: two scoops up to twice daily FOR CHRONIC DIARRHEA; ferrous gluconate 324 mg (37.5 mg iron) tablet 324 mg PO BID Qty: 180 3RF potassium chloride 10 mEq tablet,ER particles/crystals 20 meq PO DAILY Qty: 180 3RF Rx Instructions: replace low potassium cholecalciferol (vitamin D3) 50 mcg (2,000 unit) capsule 50 mcg PO DAILY Qty: 90 3RF omeprazole 20 mg capsule,delayed release(DR/EC) 20 mg PO DAILY Qty: 90 3RF multivitamin Tablet 2 tab PO DAILY Qty: 180 3RF mirtazapine 15 mg tablet 15 mg PO QHS Qty: 90 3RF Discharge Data Discharge Date/Time-TO BE ENTERED AT DEPARTURE: 12/08/23 14:56
[2023-12-08] MEDS: Acetaminophen 500 MG TAB PO (13:40)
== END 2023-12-08 14:56 | disposition left against medical advice (07) ==
PROVIDERS: Emergency Provider Registered Nurse Emergency; PCP Family Medicine
DX: S32.592A Other specified fracture of left pubis, initial encounter for closed fracture (principal); Z87.891 Personal history of nicotine dependence; Z53.20 Procedure and treatment not carried out because of patient's decision for unspecified reasons; W18.30XA Fall on same level, unspecified, initial encounter
CPT/HCPCS: 73552; 99283; 72170

== ENCOUNTER 2023-12-19 12:31 | Outpatient (CLI) | payer MEDICARE, MEDICAID, SELFPAY ==
--- NOTE | 2023-12-19 11:45 | DI.RAD_ITS ---
Exam(s) XR PELVIS AP EXAM: XR PELVIS AP CLINICAL HISTORY: F/U FRACTURE. TECHNIQUE: 2D digital imaging was performed.One images were obtained. COMPARISON: CR XR PELVIS AP from 12/08/2023 FINDINGS: BONES: There has been no change in alignment of the fracture seen in the superior pubic ramus on the left. There is some callus formation about the fracture consistent with interval healing. There is also now seen a healing nondisplaced left inferior pubic ramus fracture. No bony destructive lesion is seen. JOINTS: No dislocation present. There are degenerative changes seen at the sacroiliac joints. SOFT TISSUE: Normal. IMPRESSION: Stable healing left inferior and superior pubic rami fractures. DATA REPOSITORY: RADIATION DOSE DELIVERED:
== END 2023-12-19 12:32 | disposition home or self-care (01) ==
LOC: DIORS 12:32
PROVIDERS: PCP Family Medicine; Referring Provider Family Medicine; Visit Provider Student in an Organized Health Care Education/Training Program
DX: S32.512D Fracture of superior rim of left pubis, subsequent encounter for fracture with routine healing; W01.0XXD Fall on same level from slipping, tripping and stumbling without subsequent striking against object, subsequent encounter
CPT/HCPCS: 99213; 72170

== ENCOUNTER 2023-12-21 07:12 | Emergency (ER) | payer MEDICARE, MEDICAID, SELFPAY ==
[2023-12-21 07:14] VITALS: BP 159/108; PULSE 102; RESP 17; TEMP 36.5; O2SAT 97
--- NOTE | 2023-12-21 07:15 | DI.CT_ITS ---
Exam(s) CT HEAD CERV SPINE FACIAL WO EXAM: CT HEAD CERV SPINE FACIAL WO CLINICAL HISTORY: fall, hit face, hx brain bleed in distant past. TECHNIQUE: Imaging Protocol: Axial computed tomography images with coronal and sagittal reformatted images were created and reviewed COMPARISON: CT CTA BRAIN from 06/27/[address] HEAD CERVICAL SPINE WO from 03/22/2021 FINDINGS: CT Head: There has been no change in the appearance of the intracranial structures of the brain. There areas of encephalomalacia involving the frontal lobes bilaterally. There are areas of decreased attenuatio n in the white matter consistent with small vessel ischemic disease. Bilateral aneurysm clips are st ill again noted. There is a stable peripherally calcified midline mass anteriorly. There are postsu rgical changes of a right temporal craniotomy. No acute calvarial fracture is seen. The mastoid air cells are clear. CT Face: Facial Bones: In the right maxillary sinus, there are fractures involving the anterior medial and la teral jensen. There is depression of the anterior wall fracture. Hemorrhage is seen within the right maxillary sinus. In the left maxillary sinus, there is a nondisplaced fracture of the anterior wall and mildly depressed fracture of the medial wall. There is hemorrhage seen within the left maxillar y sinus. There are bilateral nasal bone deformities suspicious for fractures. There is fluid seen i n several ethmoid air cells. There is a small fluid level seen in the right sphenoid sinus. The fro ntal sinuses are clear. There is a deformity of the septum suspicious for fracture. There is angula tion of the septum to the right. Sinuses and Mastoids: Please see the above section under facial bones. Globes, extraocular muscles, optic nerves and retrobulbar fat: Normal. Upper aerodigestive tract: Normal. Mandible and bilateral temporomandibular joints: There are degenerative changes seen at the temporom andibular joints bilaterally. Soft tissues: There is marked soft tissue swelling over the right cheek. Subcutaneous air is seen in the infratemporal fossa and in the soft tissues of the cheek. There is soft tissue swelling around the nasal bones. CT Cervical Spine: Bones: No acute fracture or subluxation. Age-appropriate degenerative changes are present. Soft Tissues: Unremarkable. Lung Apices: Emphysematous changes are seen in the lung apices. IMPRESSION: 1. No acute intracranial process. 2. No acute fracture or subluxation in the cervical spine. 3. Facial fractures predominantly involving the maxillary sinuses bilaterally with associated right c heek soft tissue swelling and subcutaneous air. Findings also suggestive of nasal bone and nasal sep sharri fractures. 4. Findings were discussed with Dr. Wilhelm at 8:23 a.m. on 12/21/2023. RADIATION DOSE DELIVERED: 1,391.82mGy.cm Total DLP DATA REPOSITORY: All CT scans at this facility are submitted to the National Radiology Data Registry (NRDR) Dose Index Registry (DIR) with the [employer] (A[employer]). RADIATION OPTIMIZATION: All CT scans at this facility use at least one of these dose optimization te chniques: automated exposure control; mA and/or kV adjustment per patient size (includes targeted exa ms where dose is matched to clinical indication); or iterative reconstruction.
--- NOTE | 2023-12-21 07:15 | DI.RAD_ITS ---
Exam(s) XR HUMERUS RT EXAM: XR HUMERUS RT CLINICAL HISTORY: fall, midshaft humerus pain. TECHNIQUE: 2D digital imaging was performed of the right humerus. Two images were obtained. AP and lateral views were obtained. COMPARISON: CR XR FOREARM RT from 06/17/2022 FINDINGS: BONES: There is an acute transverse fracture through the surgical neck of the humerus. 2-3 mm latera l displacement of the distal fracture is noted. No bony destructive lesion is seen. Visualized porti on of elbow and shoulder joints are unremarkable. SOFT TISSUE: Normal. IMPRESSION: Minimally displaced fracture through the surgical neck of the right humerus. DATA REPOSITORY: RADIATION DOSE DELIVERED:
--- NOTE | 2023-12-21 07:23 | ED.GENADUL_ITS ---
HPI General Date/Time Provider Initiated Documentation: 12/21/23 07:14 . HPI Narrative: 78-year-old female with a past medical history of Alzheimer's dementia, hypertension, seizure disorder, previous brain aneurysm with brain bleed, previous craniotomy secondary to brain bleed (occurred over 55 years ago), who was just here this past week and sustained a mild pelvic fracture, who presents today for follow-up. Patient states that she was ambulating this morning when she tripped and fell forward into a wall which she had multiple objects on her. She hit her face and fell to the ground. Aside for pain in her face she also admits to pain in her right humerus. She denies any pain anywhere else. She denies any loss of consciousness and recalls the entire event. No other complaints at this time. No new hip or pelvic pain. No other complaints at this time. She denies any vision changes, new dizziness, chest pain, abdominal pain, numbness tingling or weakness. Related Data Home Medications Medication Instructions Recorded Confirmed acetaminophen 325 mg tablet 650 mg PO Q4H PRN 08/13/15 12/21/23 (Tylenol) cholestyramine (with sugar) 4 gram 8 g PO BID #378 grams 10/15/22 12/21/23 oral powder cholecalciferol (vitamin D3) 50 50 mcg PO DAILY #90 caps 03/11/23 12/21/23 mcg (2,000 unit) capsule ferrous gluconate 324 mg (37.5 mg 324 mg PO BID #180 tabs 03/11/23 12/21/23 iron) tablet omeprazole 20 mg capsule,delayed 20 mg PO DAILY #90 caps 03/11/23 12/21/23 release potassium chloride 10 mEq 20 meq (2 x 10 mEq) PO DAILY #180 03/11/23 12/21/23 tablet,extended release(part/cryst) tab-caps multivitamin 2 tab PO DAILY #180 tabs 03/25/23 12/21/23 diaper,brief,adult,disposable #300 ea 04/01/23 12/19/23 (Undergarment misc) levetiracetam 500 mg tablet 500 mg PO BID #180 tabs 04/01/23 12/21/23 (Keppra) mirtazapine 15 mg tablet 15 mg PO QHS #90 tabs 04/15/23 12/21/23 amoxicillin 875 mg-potassium 1 tab PO BID 10 days #20 tabs 12/21/23 clavulanate 125 mg tablet Previous Rx's Medication Instructions Recorded cholestyramine (with sugar) 4 gram 8 g PO BID #378 grams 10/15/22 oral powder cholecalciferol (vitamin D3) 50 50 mcg PO DAILY #90 caps 03/11/23 mcg (2,000 unit) capsule ferrous gluconate 324 mg (37.5 mg 324 mg PO BID #180 tabs 03/11/23 iron) tablet omeprazole 20 mg capsule,delayed 20 mg PO DAILY #90 caps 03/11/23 release potassium chloride 10 mEq 20 meq (2 x 10 mEq) PO DAILY #180 03/11/23 tablet,extended release(part/cryst) tab-caps multivitamin 2 tab PO DAILY #180 tabs 03/25/23 diaper,brief,adult,disposable #300 ea 04/01/23 (Undergarment misc) levetiracetam 500 mg tablet 500 mg PO BID #180 tabs 04/01/23 (Keppra) mirtazapine 15 mg tablet 15 mg PO QHS #90 tabs 04/15/23 amoxicillin 875 mg-potassium 1 tab PO BID 10 days #20 tabs 12/21/23 clavulanate 125 mg tablet Allergies Allergy/AdvReac Type Severity Reaction Status Date / Time aspirin AdvReac Intermediate GI Bleed Verified 12/19/23 11:40 General Stated Complaint: Fall/Non TraumaCriteria DANAY: 3 Review of Systems All systems reviewed & are unremarkable except as noted in HPI and below Exam Narrative Exam Narrative: 1.Const: Well-nourished, Well-developed, appearing stated age 2.Eyes: PERRL, no conjunctival injection, and symmetrical lids. 3.ENT: Patient does have bleeding from the nares bilaterally, no nasal septal hematoma, but there does appear to be slight deviation of the nasal septum towards the right. No active bleeding or hemorrhage. Patient has dentures, no baseline dentition. Mild tenderness around the face around the nose, no evidence of significant instability. No evidence of hemotympanums, raccoon eyes, mastoid tenderness, or other abnormalities. Pupils are equal round and reactive to light with no evidence of exophthalmos or hyphema or hemotympanums. Mild hematoma over the right temporal region. No large laceration or active bleeding. 4.CVS: +S1/S2, No murmurs or gallops. Peripheral pulses 2+ and equal in all extremities. Brisk capillary refill in all extremities. 5.RESP: Unlabored respiratory effort. Clear to auscultation bilaterally. No wheezes rales or rhonchi 6.GI: Soft, Nontender/Nondistended, No hepatosplenomegaly. No guarding or rebound. 7.MSK: Normocephalic/Atraumatic, Extremities w/o deformity or ttp No cyanosis or clubbing, Normal movement of all extremities. Patient does have minimal tenderness on palpation of the midshaft of the right humerus. Pelvis is stable to compression, no tenderness, no new tenderness either. Normal movements of the upper and lower extremities bilaterally. No midline tenderness to palpation over the CTLS spine. Normal ROM in flexion, extension, side bend, and rotation. Patient has +5 out of 5 strength in the lower extremities in dorsiflexion and plantarflexion, knee flexion and extension, hip flexion and extension. Normal strength for dorsiflexion and plantar flexion of the great toe bilaterally. There is +2 over 2 dorsalis pedis pulses bilaterally. There is normal sensation to the skin with light touch at the foot, knee, and hip. Normal saddle sensation. Good sensation over the deep sural nerve area bilaterally. Rectal exam demonstrates good rectal tone with excellent dexter-rectal sensation. Reflexes are +2 over 4 in the patellar reflex bilaterally. +5 out of 5 strength in the medial, ulnar, radial nerve distribution bilaterally in the hands as well as intact light touch sensation to these dermatomes on the hands 8.Skin: Warm, Dry. No rashes or lesions. 9.Neuro: underwriting analyst II-XII grossly intact. Sensation grossly intact, no focal neurologic deficits. 10.Psych: (AAO) x3. Appropriate mood and affect Course Vital Signs Vital signs: Vital Signs Temperature 36.5 C 12/21/23 07:14 Pulse 102 H 12/21/23 07:14 Respiratory Rate 17 12/21/23 07:14 Blood Pressure 159/108 H 12/21/23 07:14 Pulse Oximetry 97 12/21/23 07:14 Temperature 36.5 C 12/21/23 07:14 Temperature Source Temporal Artery Scan 12/21/23 07:14 Pulse 102 H 12/21/23 07:14 Respiratory Rate 17 12/21/23 07:14 Blood Pressure 159/108 H 12/21/23 07:14 Blood Pressure Position Supine 12/21/23 07:14 Pulse Oximetry 97 12/21/23 07:14 Oxygen Delivery Method Room Air 12/21/23 07:14 Oxygen Flow Rate 0 12/21/23 07:14 Medical Decision Making 78-year-old female with a past medical history of Alzheimer's dementia, hypertension, seizure disorder, previous brain aneurysm with brain bleed, previous craniotomy secondary to brain bleed (occurred over 55 years ago), who was just here this past week and sustained a mild pelvic fracture, who presents today for follow-up. Patient states that she was ambulating this m orning when she tripped and fell forward into a wall which she had multiple objects on her. She hit her face and fell to the ground. Aside for pain in her face she also admits to pain in her right humerus. She denies any pain anywhere else. She denies any loss of consciousness and recalls the entire event. No other complaints at this time. No new hip or pelvic pain. No other complaints at this time. She denies any vision changes, new dizziness, chest pain, abdominal pain, numbness tingling or weakness. Exam demonstrates mild bleeding from the nose, slight deviation of the nasal septum to the right, bleeding has been stabilized. Critical scar, but no evidence of significant new trauma. A small hematoma is noted over the right temporal region, but no large laceration or active bleeding. Minimal tenderness in the midshaft of the right humerus. Neurologic assessment otherwise unremarkable. She appears to be at baseline. She moves all extremities well otherwise, she has a stable pelvis. No other evidence of trauma acutely. Will get a CT scan of the head neck and face. Will get an x-ray of the right humerus. Will monitor closely and reassess. 8:34 AM X-ray shows evidence of a minimally displaced fracture through the surgical neck of the right humerus, although surprisingly she does not have significant tenderness here. Additionally patient does demonstrate facial fractures involving the maxillary sinuses bilaterally as well as a nasal fracture. Patient will be started on Augmentin for this. She will be given a dose here. She will be given a sling for mild humeral fracture. Physical therapy is already seeing the patient, as well as orthopedic referral. Patient otherwise appears well. Patient will be discharged home. Additional care services will be organized for patient through case management. I have extensively reviewed the treatment plan and discharge instructions with the patient and their family. I have addressed all patient concerns at this time. The patient and family was made aware of what symptoms to monitor for that would warrant a return to the emergency department. Discussed the plan with the patient and family, they demonstrate verbal understanding and agreement with our assessment and plan at this time. The documentation in this chart was dictated using [employer] dictation software. Please excuse any dictation errors. FINDINGS: BONES: There is an acute transverse fracture through the surgical neck of the humerus. 2-3 mm lateral displacement of the distal fracture is noted. No bony destructive lesion is seen. Visualized portion of elbow and shoulder joints are unremarkable. SOFT TISSUE: Normal. IMPRESSION: Minimally displaced fracture through the surgical neck of the right humerus. FINDINGS: CT Head: There has been no change in the appearance of the intracranial structures of the brain. There areas of encephalomalacia involving the frontal lobes bilaterally. There are areas of decreased attenuation in the white matter consistent with small vessel ischemic disease. Bilateral aneurysm clips are still again noted. There is a stable peripherally calcified midline mass anteriorly. There are postsurgical changes of a right temporal craniotomy. No acute calvarial fracture is seen. The mastoid air cells are clear. CT Face: Facial Bones: In the right maxillary sinus, there are fractures involving the anterior medial and lateral jensen. There is depression of the anterior wall fracture. Hemorrhage is seen within the right maxillary sinus. In the left maxillary sinus, there is a nondisplaced fracture of the anterior wall and mildly depressed fracture of the medial wall. There is hemorrhage seen within the left maxillary sinus. There are bilateral nasal bone deformities suspicious for fractures. There is fluid seen in several ethmoid air cells. There is a small fluid level seen in the right sphenoid sinus. The frontal sinuses are clear. There is a deformity of the septum suspicious for fracture. There is angulation of the septum to the right. Sinuses and Mastoids: Please see the above section under facial bones. Globes, extraocular muscles, optic nerves and retrobulbar fat: Normal. Upper aerodigestive tract: Normal. Mandible and bilateral temporomandibular joints: There are degenerative changes seen at the temporomandibular joints bilaterally. Soft tissues: There is marked soft tissue swelling over the right cheek. Subcutaneous air is seen in the infratemporal fossa and in the soft tissues of the cheek. There is soft tissue swelling around the nasal bones. CT Cervical Spine: Bones: No acute fracture or subluxation. Age-appropriate degenerative changes are present. Soft Tissues: Unremarkable. Lung Apices: Emphysematous changes are seen in the lung apices. IMPRESSION: 1. No acute intracranial process. 2. No acute fracture or subluxation in the cervical spine. 3. Facial fractures predominantly involving the maxillary sinuses bilaterally with associated right cheek soft tissue swelling and subcutaneous air. Findings also suggestive of nasal bone and nasal septal fractures. 4. Findings were discussed with Dr. Wilhelm at 8:23 a.m. on 12/21/2023. Quality:SDOH Health Related Social Needs: No Data to Display PFSH All Active Problems (Updated 12/21/23 @ 08:41 by Gustavo Wilhelm, DO) Closed right humeral fracture (Acute) Fracture of maxillary sinus (Acute) Fracture of nasal bone (Acute) Fracture of left superior pubic ramus (Acute 12/08/23) Hearing loss (Acute) Sundowning (Acute) Pain, foot (Acute) Nail dystrophy (Acute) Urinary incontinence (Acute) Venous insufficiency (Acute) Fracture of base of fifth metatarsal bone of right foot (Acute) Right ankle pain (Acute) Seizure (Acute) Hand laceration (Acute) Contusion of head (Acute) Abnormal auditory perception (Acute) Bilateral sensorineural hearing loss (Acute) Vitamin D deficiency (Chronic) low level 2005; replacement, still marginal 08/2014 Seizure disorder (Chronic) most recent seizure 01/2015 Osteoporosis, unspecified (Chronic) Pos DEXA 08/2003; alendronate therapy through 2010; Vit D def 2005, replaced; Dilantin therapy risk Nonruptured cerebral aneurysm (Chronic 11/22/71) initial leak/procedure 1971; [place] [facility] elect further watchful waiting Clipping 07/2015 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 ORIF of the patella of her left knee. b. Appendectomy and tubal ligation in the same surgery, according to her. c. Tonsillectomy and adenoidectomy. d. Aneurysm repair on two occasions, 1971 and 1982. She gets repeat scans every so often for these. e. Bilateral cataract surgery. Aneurysm (Chronic) a. Positive for multiple aneurysms. As stated, she has had surgery for these aneurysms. She has been followed quite closely in the past, and now has been able to spread out her appointments with the neurologist as there has been no change in her scan since 1982, according to her and her caregiver. History of seizure (Chronic) a. Due to previous CVA. b. She has not had any in upwards of 13 to 15 years. COPD (chronic obstructive pulmonary disease) (Chronic) a. Vague history as she was a previous smoker. Surgical History cerebral aneurysm clipping (08/11/15[place] [facility] [place] (10/25/16) Dr Fong, [facility] carcinoma kidney EGD and Colonoscopy (09/28/16) Extraction of cataract (12/18/15) Cataract extraction with lens implant, left eye. Wyatt Nazario MD. Family History Mother , CA at age 75. Neoplasm liver or kidney CA Father , fall at age 63. No problems noted. Brother , LUNG CA No problems noted. Brother , Stomach CA at age 85. No problems noted. Social History Smoking/Tobacco Use Status: Former Tobacco Use Smoking risk assessment performed?: Yes Alcohol Intake: never Drug use: Never Substance use type: does not use Caregiver/Support person: Yes Household members: family and other Details: lives with daughter Housing: house Number of Children: 2 Communication Needs: [employer]enses current occupation: retired from [employer], [employer], Dispatcher What is your relationship status?: Panel score (0-1 are the most socially isolated patients): 0 What type of physical activity do you participate in: none Seatbelt use: always Drive intox or ride w/intox contract driver: No Working smoke detector in home: Yes Carbon monox detector in home: Yes Do you feel safe at home: Yes Do you feel safe in your relationship?: Yes Additional Social history: lives with daughter Discharge Plan Disposition Patient Disposition: Home Discharge Details Clinical Impression: Fracture of nasal bone, Fracture of maxillary sinus, Closed right humeral fracture Primary Care Provider: Ketan Tamez ED Provider: Gustavo Wilhelm Home Meds and New Rx's Prescriptions: New amoxicillin-pot clavulanate 875-125 mg tablet 1 tab PO BID 10 Days Qty: 20 0RF No Action levetiracetam [Keppra] 500 mg tablet 500 mg PO BID Qty: 180 3RF (DME) Undergarment Misc 1 ea Miscellaneous Q2H MDD 10 Qty: 300 12RF Rx Instructions: for hygiene and safety; Size S/M Dx: K52.9 acetaminophen [Tylenol] 325 MG tablet 650 mg PO Q4H PRN cholestyramine (with sugar) 4 gram powder 8 g PO BID Qty: 378 11RF Rx Instructions: two scoops up to twice daily FOR CHRONIC DIARRHEA; ferrous gluconate 324 mg (37.5 mg iron) tablet 324 mg PO BID Qty: 180 3RF potassium chloride 10 mEq tablet,ER particles/crystals 20 meq PO DAILY Qty: 180 3RF Rx Instructions: replace low potassium cholecalciferol (vitamin D3) 50 mcg (2,000 unit) capsule 50 mcg PO DAILY Qty: 90 3RF omeprazole 20 mg capsule,delayed release(DR/EC) 20 mg PO DAILY Qty: 90 3RF multivitamin Tablet 2 tab PO DAILY Qty: 180 3RF mirtazapine 15 mg tablet 15 mg PO QHS Qty: 90 3RF Discharge Instructions Instructions: Arm Fracture in Adults (ED), Facial Fracture (ED) Additional Instructions: At this time you have fractured your nose and the maxillary sinus area. Please take the antibiotic Augmentin to prevent any infection. You do have a small scrape on the right side of your head, but thankfully this does not need any sutures at this time. Please keep the sling on to help your humeral fracture to heal. We have placed a referral with orthopedics. Our onsite case manager will follow-up with you for additional home assistance. Please continue to utilize assistance with any ambulation or transferring. If you notice any worsening of your symptoms, or any new symptoms such as vomiting, diarrhea, fever, chills, shortness of breath, chest pain, numbness, weakness, or fainting , please return immediately to the emergency department for reevaluation. Please follow up with your primary care provider as soon as possible for reassessment and reevaluation. As always, it was a pleasure participating in your medical care today. Referrals: Ketan Tamez DO [Primary Care Provider] - Micky Sampson MD [ [facility] STAFF PHYSICIAN] -
[2023-12-21] MEDS: Acetaminophen 500 MG TAB 1000 MG PO (07:34)
--- NOTE | 2023-12-21 08:43 | NUR.NOTE ---
Referral given to Care Management for them to call daughter Bryanna Phelps to talk to them about more resources. Home Health Face to Face signed by Dr. Wilhelm with the referral. Nursing Note:
[2023-12-21] MEDS: Amoxicillin 875/Clav. 125 TAB PO (08:51)
[2023-12-21 09:02] VITALS: BP 132/80; PULSE 85; RESP 17; TEMP 36.8; O2SAT 99
== END 2023-12-21 09:03 | disposition home or self-care (01) ==
PROVIDERS: Emergency Provider Student in an Organized Health Care Education/Training Program; PCP Family Medicine
DX: S02.40DA Maxillary fracture, left side, initial encounter for closed fracture (principal); S42.221A 2-part displaced fracture of surgical neck of right humerus, initial encounter for closed fracture; S02.2XXA Fracture of nasal bones, initial encounter for closed fracture; J44.9 Chronic obstructive pulmonary disease, unspecified; W22.01XA Walked into wall, initial encounter; Y93.89 Activity, other specified; Y92.018 Other place in single-family (private) house as the place of occurrence of the external cause
CPT/HCPCS: 99284; 70450; 70486; 72125; 73060

== ENCOUNTER 2024-01-06 09:12 | Outpatient (CLI) | payer MEDICARE, MEDICAID, SELFPAY ==
--- NOTE | 2024-01-06 09:02 | DI.RAD_ITS ---
Exam(s) XR SHOULDER RT COMPLETE 2+V EXAM: XR SHOULDER RT COMPLETE 2+V CLINICAL HISTORY: RIGHT HUMERUS FX. TECHNIQUE: 2D digital imaging was performed of the right shoulder. Two images were obtained. Grash ey and Y views were obtained. COMPARISON: CR XR HUMERUS RT from 12/21/2023 FINDINGS: BONES: There is again seen a fracture through the surgical neck of the proximal right humerus. Since the prior examination there has been increased impaction of the fracture. No new fracture is seen. No bony destructive lesion is seen. JOINTS: On the Y-view there is mild inferior subluxation of the humeral head relative to the glenoid. SOFT TISSUE: The visualized lungs are clear. IMPRESSION: 1. Further impaction of the surgical neck fracture of the right humerus. 2. On the Y-view there is inferior subluxation of the humeral head relative to the glenoid. DATA REPOSITORY: RADIATION DOSE DELIVERED:
== END 2024-01-06 09:13 | disposition home or self-care (01) ==
LOC: DIORS 09:12
PROVIDERS: PCP Family Medicine; Referring Provider Family Medicine; Visit Provider Physician Assistant
DX: S42.301A Unspecified fracture of shaft of humerus, right arm, initial encounter for closed fracture (principal); W19.XXXA Unspecified fall, initial encounter
CPT/HCPCS: 99213; 73030

== ENCOUNTER 2024-01-11 14:57 | Outpatient (REF) | payer MEDICARE, MEDICAID, SELFPAY ==
[2024-01-11 17:03] LABS: Abs Immature Grans 0.17 10^3/uL (0.0-0.06); Absolute Basophil Count 0.09 10^3/uL (0.0-0.2); Absolute Lymphocyte Count 1.61 10^3/uL (1.2-3.4); Absolute Monocyte Count 0.86 10^3/uL (0.1-0.8); Basophils % 0.8; Eosinophils % 0.8; HCT 37.9 % (36.0-46.0); HGB 12.1 g/dL (11.2-15.7); Immature Grans % 1.4; Lymphocytes % 13.7; MCH 30.2 pg (27.0-33.0); MCHC 31.9 % (32.0-36.0); MCV 95 fL (80-95); MPV 10.5 fL (8.0-11.0); Monocytes % 7.3; Platelet Count 341 10^3/uL (130-400); RBC 4.01 10^6/uL (3.93-5.22); RDW 14.1 % (11.7-14.6); WBC 11.77 10^3/uL (4.4-10.8)
[2024-01-11 17:04] LABS: Absolute Eosinophil Count 0.09 10^3/uL (0.0-0.7); Absolute Neutrophil Count 8.95 10^3/uL (1.2-6.7)
[2024-01-11 17:11] LABS: Iron 26 ug/dL (50-170); Total Iron Binding Capacity 209 ug/dL (250-450); Transferrin Sat 12 % (15-50)
[2024-01-11 17:15] LABS: Hemoglobin A1C 5.3 % (<5.7)
[2024-01-11 17:37] LABS: ALT 25 U/L (14-59); AST 20 U/L (15-37); Albumin 2.7 g/dL (3.4-5.0); Alkaline Phosphatase 164 U/L (46-116); Anion Gap 12.5 mmol/L (3-11); BUN 11 mg/dL (7-18); Bilirubin, Total 0.3 mg/dL (0.2-1.0); CO2 21.5 mmol/L (21.0-32.0); CREATININE 0.8 mg/dL (0.55-1.02); Calcium 9.1 mg/dL (8.5-10.1); Chloride 110 mmol/L (98-107); Ferritin 739 ng/mL (8-252); Folate 18.4 ng/mL (8.6-20.0); Glucose 84 mg/dL (74-106); Magnesium 1.8 mg/dL (1.8-2.4); Potassium 3.9 mmol/L (3.5-5.1); Sodium 144 mmol/L (136-145); TSH (W/Ref FT4) 1.15 uIU/mL (0.36-3.74); Total Protein 6.6 g/dL (6.4-8.2); Vitamin B12 593 pg/mL (193-986); Vitamin D 25 Total 54.8 ng/mL (30-100)
[2024-01-14 12:08] LABS: Levetiracetam 29.4 mcg/mL
== END 2024-01-11 14:58 | disposition home or self-care (01) ==
LOC: LBN 14:57
PROVIDERS: PCP Family Medicine; Visit Provider Nurse Practitioner Gerontology
DX: Z00.00 Encounter for general adult medical examination without abnormal findings (principal); R51.9 Headache, unspecified
CPT/HCPCS: 80053; 82306; 80177; 82607; 82728; 82746; 83036; 83540; 83550; 83735; 84443; 85025

== ENCOUNTER 2024-01-23 10:36 | Emergency (ER) | payer MEDICARE, MEDICAID, SELFPAY ==
[2024-01-23] VITALS (33 sets, daily range): BP systolic 113–150; BP diastolic 50–120; PULSE 85–107; RESP 15–17; TEMP 36.3; O2SAT 94–99
--- NOTE | 2024-01-23 11:00 | DI.US_ITS ---
Exam(s) US LOWER EXTREMITY VENOUS LT EXAM: US LOWER EXTREMITY VENOUS LT CLINICAL HISTORY: swelling to L leg, h/o frequent falls. TECHNIQUE: Lower extremity venous ultrasound performed using grayscale, color-flow, and spectral Do ppler analysis. COMPARISON: No exams were available for comparison FINDINGS: Stents occlusive thrombus is visible from the visualized portions of the external iliac vein through the femoral vein into the popliteal vein and calf veins. Thrombus also noted in profundus femoral ve in and saphenous veins. Edema noted in the subcutaneous tissue from the the distal thigh through the ankles. IMPRESSION: Extensive left lower extremity deep venous thrombosis. DATA REPOSITORY:
--- NOTE | 2024-01-23 11:14 | W.ED.GENAD ---
Discharge Plan Disposition Patient Disposition: Home Condition: Stable Discharge Details Clinical Impression: Deep vein thrombosis (DVT) of left lower extremity Primary Care Provider: Ketan Tamez ED Provider: Luz Conte Home Meds and New Rx's Prescriptions: New Winnie DVT-PE Treat 30D Start 5 mg (74 tabs) tablets,dose pack See Rx Instructions .ROUTE .COMPLEX Qty: 74 0RF Rx Instructions: orally per package directions Continued levetiracetam [Keppra] 500 mg tablet 500 mg PO BID Qty: 180 3RF (DME) Undergarment Misc 1 ea Miscellaneous Q2H MDD 10 Qty: 300 12RF Rx Instructions: for hygiene and safety; Size S/M Dx: K52.9 acetaminophen [Tylenol] 325 MG tablet 650 mg PO Q4H PRN cholestyramine (with sugar) 4 gram powder 8 g PO BID Qty: 378 11RF Rx Instructions: two scoops up to twice daily FOR CHRONIC DIARRHEA; ferrous gluconate 324 mg (37.5 mg iron) tablet 324 mg PO BID Qty: 180 3RF potassium chloride 10 mEq tablet,ER particles/crystals 20 meq PO DAILY Qty: 180 3RF Rx Instructions: replace low potassium cholecalciferol (vitamin D3) 50 mcg (2,000 unit) capsule 50 mcg PO DAILY Qty: 90 3RF omeprazole 20 mg capsule,delayed release(DR/EC) 20 mg PO DAILY Qty: 90 3RF mirtazapine 15 mg tablet 15 mg PO QHS Qty: 90 3RF Ensure Original Liquid 237 ml PO DAILY Qty: 7110 6RF multivitamin Tablet 1 tab PO DAILY Discharge Instructions Additional Instructions: [facility] will reach out to you for scheduling an appointment for to discuss options for treating the blood clots in the leg. I encourage you to follow-up with your primary care provider to schedule follow-up appointment for further evaluation into possible causes of your blood clot. Return to emergency care if develop any chest pains, dizziness, shortness of breath, or if you are very worried and need to be rechecked again immediately Please use great caution, if you fall on this anticoagulation, this past year dramatically increased risk of bleeding in your brain we have discussed risk benefit of this medication Referrals: Ketan Tamez DO [Primary Care Provider] - Discharge Data Discharge Date/Time-TO BE ENTERED AT DEPARTURE: 01/23/24 18:00 HPI <Christelle Lorenzo - Last Filed: 01/23/24 15:36> General Date/Time Provider Initiated Documentation: 01/23/24 11:13. 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 According to daughter, she was found sitting on the ground yesterday morning by staff at the [facility] where she is being treated for weakness/physical therapy. She was not found to have any injuries at that time, was not brought to the emergency department for evaluation. This morning they noticed that her left leg was swollen with pitting edema from the hip down to the foot. According to daughter patient has otherwise been well. Related Data Home Medications Medication Instructions Recorded Confirmed acetaminophen 325 mg tablet 650 mg PO Q4H PRN 08/13/15 01/23/24 (Tylenol) cholestyramine (with sugar) 4 gram 8 g PO BID #378 grams 10/15/22 01/23/24 oral powder cholecalciferol (vitamin D3) 50 50 mcg PO DAILY #90 caps 03/11/23 01/23/24 mcg (2,000 unit) capsule ferrous gluconate 324 mg (37.5 mg 324 mg PO BID #180 tabs 03/11/23 01/23/24 iron) tablet omeprazole 20 mg capsule,delayed 20 mg PO DAILY #90 caps 03/11/23 01/23/24 release potassium chloride 10 mEq 20 meq (2 x 10 mEq) PO DAILY #180 03/11/23 01/23/24 tablet,extended release(part/cryst) tab-caps diaper,brief,adult,disposable #300 ea 04/01/23 01/23/24 (Undergarment misc) levetiracetam 500 mg tablet 500 mg PO BID #180 tabs 04/01/23 01/23/24 (Keppra) mirtazapine 15 mg tablet 15 mg PO QHS #90 tabs 04/15/23 01/23/24 food supplemt, lactose-reduced 237 ml PO DAILY #7,110 mL 01/02/24 01/23/24 (Ensure Original oral liquid) apixaban 5 mg (74 tabs) tablets in See Rx Instructions PO .COMPLEX 01/23/24 a dose pack (Eliquis DVT-PE Treat #74 dose pk 30D Start) multivitamin 1 tab PO DAILY 01/23/24 01/23/24 Previous Rx's Medication Instructions Recorded cholestyramine (with sugar) 4 gram 8 g PO BID #378 grams 10/15/22 oral powder cholecalciferol (vitamin D3) 50 50 mcg PO DAILY #90 caps 03/11/23 mcg (2,000 unit) capsule ferrous gluconate 324 mg (37.5 mg 324 mg PO BID #180 tabs 03/11/23 iron) tablet omeprazole 20 mg capsule,delayed 20 mg PO DAILY #90 caps 03/11/23 release potassium chloride 10 mEq 20 meq (2 x 10 mEq) PO DAILY #180 03/11/23 tablet,extended release(part/cryst) tab-caps diaper,brief,adult,disposable #300 ea 04/01/23 (Undergarment misc) levetiracetam 500 mg tablet 500 mg PO BID #180 tabs 04/01/23 (Keppra) mirtazapine 15 mg tablet 15 mg PO QHS #90 tabs 04/15/23 food supplemt, lactose-reduced 237 ml PO DAILY #7,110 mL 01/02/24 (Ensure Original oral liquid) apixaban 5 mg (74 tabs) tablets in See Rx Instructions PO .COMPLEX 01/23/24 a dose pack (Eliquis DVT-PE Treat #74 dose pk 30D Start) Allergies Allergy/AdvReac Type Severity Reaction Status Date / Time aspirin AdvReac Intermediate GI Bleed Verified 01/06/24 08:49 General Stated Complaint: Fall/Non TraumaCriteria DANAY: 3 Review of Systems <Christelle M Adan Lorenzo - Last Filed: 01/23/24 15:36> Narrative: see HPI Exam <Christelle Lorenzo - Last Filed: 01/23/24 15:36> Const General: cooperative, healthy appearing, comfortable and no acute distress Orientation: alert and awake HENAK Head: normal to inspection and no palpable skull fracture Resp Effort & Inspection: normal respiratory effort and able to speak in complete sentences Back/Spine/Pelvis Cervical Spine: normal cervical lordosis Thoracic/Lumbar Spine: thoracic and lumbar spine normal to inspection Skin General skin exam: no rashes or lesions noted Extrem Left lower extremity: full ROM, edema Details: pitting and no joint enlargement Course <Christelle Lorenzo - Last Filed: 01/23/24 15:36> Vital Signs Vital signs: Vital Signs Temperature 36.3 C L 01/23/24 10:31 Pulse 105 H 01/23/24 10:31 Respiratory Rate 17 01/23/24 10:31 Blood Pressure 142/54 H 01/23/24 10:31 Pulse Oximetry 99 01/23/24 10:31 Temperature 36.3 C L 01/23/24 10:31 Temperature Source Temporal Artery Scan 01/23/24 10:31 Pulse 105 H 01/23/24 10:31 Respiratory Rate 17 01/23/24 10:31 Respiratory Effort Normal 01/23/24 10:52 Blood Pressure 142/54 H 01/23/24 10:31 Blood Pressure Position Supine 01/23/24 10:31 Pulse Oximetry 99 01/23/24 10:31 Oxygen Delivery Method Room Air 01/23/24 10:31 Oxygen Flow Rate 0 01/23/24 10:31 Lab/Test Results Lab/Test Results: Laboratory Tests Range/Units 01/23/24 11:24 WBC (4.4-10.8) 10^3/uL 10.25 RBC (3.93-5.22) 10^6/uL 3.83 L Hgb (11.2-15.7) g/dL 11.3 Hct (36.0-46.0) % 36.8 MCV (80-95) fL 96 H MCH (27.0-33.0) pg 29.5 MCHC (32.0-36.0) % 30.7 L RDW (11.7-14.6) % 14.8 H Plt Count (130-400) 10^3/uL 490 H MPV (8.0-11.0) fL 8.7 Sodium (136-145) mmol/L 145 Potassium (3.5-5.1) mmol/L 3.3 L Chloride (98-107) mmol/L 108 H Carbon Dioxide (21.0-32.0) mmol/L 28.8 Anion Gap (3-11) mmol/L 8.2 BUN (7-18) mg/dL 14 Creatinine (0.55-1.02) mg/dL 0.8 Est GFR (CKD-EPI 2020) (mL/min/1.73m2) 74.90 Glucose (74-106) mg/dL 98 Calcium (8.5-10.1) mg/dL 8.9 Total Bilirubin (0.2-1.0) mg/dL 0.2 AST (15-37) U/L 18 ALT (14-59) U/L 19 Alkaline Phosphatase (46-116) U/L 123 H Total Protein (6.4-8.2) g/dL 6.8 Albumin (3.4-5.0) g/dL 2.5 L Medical Decision Making <Christelle Lorenzo - Last Filed: 01/23/24 15:36> Mei is a 78-year-old female with 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 According to daughter, she was found sitting on the ground yesterday morning by staff at the [facility] where she is being treated for weakness/physical therapy. She was not found to have any injuries at that time, was not brought to the emergency department for evaluation. This morning they noticed that her left leg was swollen with pitting edema from the hip down to the foot. According to daughter patient has otherwise been well. I spoke with Rudolph, nurse at the [facility]. She reports that Mei had a fall around 6:30 am. She was found sitting beside her toilet, no concern for head injury at that time. Pt had no acute complaints, no change in behavior or change in ambulation (with PT; is nonweighthearing to R arm). Eating and drinking. Normal BM and urine output. Physical exam remarkable for pitting edema to left leg, worse in the foot. She does have some tenderness to palpation along posterior distal thigh. No obvious swelling to popliteal fossa. No change in color compared to contralateral leg. No overlying erythema or rashes/skin tears/abrasions noted. 5 out of 5 muscle strength to lower extremities. Sensation intact. No C-spine/T-spine/L-spine tenderness/step-off/deformity. No scalp bogginess/deformity/tenderness noted. DDx includes but is not limited to: DVT, Serrano's cyst, venous insufficiency, lymphangitis/lymph obstruction, muscle strain/tear, cellulitis less likely I independently interpreted the following tests: CBC, CMP both reassuring. Only mild hypokalemia noted, potassium 3.3. Patient is currently taking potassium supplementation daily. Ultrasound of left lower extremity performed, significant for extensive DVT of left lower leg. As patient has history of cerebral aneurysm and frequent falls, I do have significant concern about appropriate treatment for DVT. Discussed case with heme-onc at [facility], Dr. Krueger. She recommends outpatient workup to assess for hypercoagulability such as active malignancy, as well as weighing from vascular surgery and neurosurgery. I did speak with Dr. Rangel at vascular surgery at [facility]; as patient has extensive thrombus, she may be eligible for targeted thrombolysis. He has clinic available on , he will have his team reach out to patient and her daughter for scheduling. End of report given to IZABELA Campos. Awaiting neurosurgery consult. Imaging Data Radiologic Study: Radiologist's impression: Exam(s) US LOWER EXTREMITY VENOUS LT EXAM: US LOWER EXTREMITY VENOUS LT CLINICAL HISTORY: swelling to L leg, h/o frequent falls. TECHNIQUE: Lower extremity venous ultrasound performed using grayscale, color-flow, and spectral Doppler analysis. COMPARISON: No exams were available for comparison FINDINGS: Stents occlusive thrombus is visible from the visualized portions of the external iliac vein through the femoral vein into the popliteal vein and calf veins. Thrombus also noted in profundus femoral vein and saphenous veins. Edema noted in the subcutaneous tissue from the the distal thigh through the ankles. IMPRESSION: Extensive left lower extremity deep venous thrombosis. 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 According to daughter, she was found sitting on the ground yesterday morning by staff at the [facility] where she is being treated for weakness/physical therapy. She was not found to have any injuries at that time, was not brought to the emergency department for evaluation. This morning they noticed that her left leg was swollen with pitting edema from the hip down to the foot. According to daughter patient has otherwise been well. I spoke with Rudolph, nurse at the [facility]. She reports that Mei had a fall around 6:30 am. She was found sitting beside her toilet, no concern for head injury at that time. Pt had no acute complaints, no change in behavior or change in ambulation (with PT; is nonweighthearing to R arm). Eating and drinking. Normal BM and urine output. Physical exam remarkable for pitting edema to left leg, worse in the foot. She does have some tenderness to palpation along posterior distal thigh. No obvious swelling to popliteal fossa. No change in color compared to contralateral leg. No overlying erythema or rashes/skin tears/abrasions noted. 5 out of 5 muscle strength to lower extremities. Sensation intact. No C-spine/T-spine/L-spine tenderness/step-off/deformity. No scalp bogginess/deformity/tenderness noted. DDx includes but is not limited to: DVT, Serrano's cyst, venous insufficiency, lymphangitis/lymph obstruction, muscle strain/tear, cellulitis less likely I independently interpreted the following tests: CBC, CMP both reassuring. Only mild hypokalemia noted, potassium 3.3. Patient is currently taking potassium supplementation daily. Ultrasound of left lower extremity performed, significant for extensive DVT of left lower leg. As patient has history of cerebral aneurysm and frequent falls, I do have significant concern about appropriate treatment for DVT. Discussed case with heme-onc at [facility], Dr. Krueger. She recommends outpatient workup to assess for hypercoagulability such as active malignancy, as well as weighing from vascular surgery and neurosurgery. I did speak with Dr. Rangel at vascular surgery at [facility]; as patient has extensive thrombus, she may be eligible for targeted thrombolysis. He has clinic available on , he will have his team reach out to patient and her daughter for scheduling. End of report given to Luz Conte, IZABELA. Awaiting neurosurgery consult. Care accepted from [facility] pending neurosurgery consultation, Dr. Price who recommends risk benefit discussion, she states that her recommendation would be to anticoagulate for the DVT, however if patient were to injure her head, she is at great risk for bleeding with the aneurysm history while anticoagulation alone does not pose a risk is more traumatic event associated. I had a long discussion with daughter and patient regarding risk benefit of anticoagulation and we talked about potential of a Johnny filter, it sounds like patient does have consultation set up with vascular surgery for options, in the interim, family and patient prefer to initiate anticoagulation and understands the risks associated with this decision, both are alert, oriented, of decisional capacity and are discharged home with an Eliquis starter pack CT of brain does not show evidence of acute abnormality per radiology interpretation my review, patient remains at her neurological baseline per daughter PFSH <Christelle Lorenzo - Last Filed: 01/23/24 15:36> All Active Problems (Updated 01/23/24 @ 14:01 by Christelle Lorenzo) Deep vein thrombosis (DVT) of left lower extremity (Acute) Malnutrition, calorie (Acute) Hearing loss (Acute) Sundowning (Acute) Pain, foot (Acute) Nail dystrophy (Acute) Urinary incontinence (Acute) Venous insufficiency (Acute) Fracture of base of fifth metatarsal bone of right foot (Acute) Right ankle pain (Acute) Seizure (Acute) Hand laceration (Acute) Contusion of head (Acute) Abnormal auditory perception (Acute) Bilateral sensorineural hearing loss (Acute) Vitamin D deficiency (Chronic) low level 2005; replacement, still marginal 08/2014 Seizure disorder (Chronic) most recent seizure 01/2015 Osteoporosis, unspecified (Chronic) Pos DEXA 08/2003; alendronate therapy through 2010; Vit D def 2005, replaced; Dilantin therapy risk Nonruptured cerebral aneurysm (Chronic 11/22/71) initial leak/procedure 1971; neurosurg [facility]; elect further watchful waiting Clipping 07/2015 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 ORIF of the patella of her left knee. b. Appendectomy and tubal ligation in the same surgery, according to her. c. Tonsillectomy and adenoidectomy. d. Aneurysm repair on two occasions, 1971 and 1982. She gets repeat scans every so often for these. e. Bilateral cataract surgery. Aneurysm (Chronic) a. Positive for multiple aneurysms. As stated, she has had surgery for these aneurysms. She has been followed quite closely in the past, and now has been able to spread out her appointments with the neurologist as there has been no change in her scan since 1982, according to her and her caregiver. History of seizure (Chronic) a. Due to previous CVA. b. She has not had any in upwards of 13 to 15 years. COPD (chronic obstructive pulmonary disease) (Chronic) a. Vague history as she was a previous smoker. Surgical History cerebral aneurysm clipping (08/11/15) [facility] R nephrectomy & ovary (10/25/16) Dr Fong, [facility], carcinoma kidney EGD and Colonoscopy (09/28/16) Extraction of cataract (12/18/15) Cataract extraction with lens implant, left eye. Wyatt Nazario MD. Family History Mother , CA at age 75. Neoplasm liver or kidney CA Father , fall at age 63. No problems noted. Brother , LUNG CA No problems noted. Brother , Stomach CA at age 85. No problems noted. Social History Smoking/Tobacco Use Status: Former Tobacco Use Smoking risk assessment performed?: Yes Alcohol Intake: never Drug use: Never Substance use type: does not use Caregiver/Support person: Yes Household members: family and other Details: lives with daughter Housing: house Number of Children: 2 Communication Needs: Corrective Lenses current occupation: retired from [email or web address], [employer] Dispatcher What is your relationship status?: Panel score (0-1 are the most socially isolated patients): 0 What type of physical activity do you participate in: none Seatbelt use: always Drive intox or ride w/intox form setter/driver: No Working smoke detector in home: Yes Carbon monox detector in home: Yes Do you feel safe at home: Yes Do you feel safe in your relationship?: Yes Additional Social history: Lives at the [facility] temporarily Sign Out <Christelle Lorenzo - Last Filed: 01/23/24 15:36> Sign Out Data: Sign Out Comment: 78-year-old female with history of cerebral aneurysm diagnosed today with extensive DVT to left lower extremity. I have consulted with heme-onc and vascular surgery, currently awaiting neurosurgery consult for guidance on anticoagulation with patient's known history of aneurysm with bleed. Daughter Andreina has been at bedside. Last updated by Christelle Beyer at 01/23/24 15:35
[2024-01-23 11:30] LABS: HCT 36.8 % (36.0-46.0); HGB 11.3 g/dL (11.2-15.7); MCH 29.5 pg (27.0-33.0); MCHC 30.7 % (32.0-36.0); MCV 96 fL (80-95); MPV 8.7 fL (8.0-11.0); Platelet Count 490 10^3/uL (130-400); RBC 3.83 10^6/uL (3.93-5.22); RDW 14.8 % (11.7-14.6); RDW-SD 50.4 fL; WBC 10.25 10^3/uL (4.4-10.8)
[2024-01-23 12:05] LABS: ALT 19 U/L (14-59); AST 18 U/L (15-37); Albumin 2.5 g/dL (3.4-5.0); Alkaline Phosphatase 123 U/L (46-116); Anion Gap 8.2 mmol/L (3-11); BUN 14 mg/dL (7-18); Bilirubin, Total 0.2 mg/dL (0.2-1.0); CO2 28.8 mmol/L (21.0-32.0); CREATININE 0.8 mg/dL (0.55-1.02); Calcium 8.9 mg/dL (8.5-10.1); Chloride 108 mmol/L (98-107); Glucose 98 mg/dL (74-106); Potassium 3.3 mmol/L (3.5-5.1); Sodium 145 mmol/L (136-145); Total Protein 6.8 g/dL (6.4-8.2)
--- NOTE | 2024-01-23 14:02 | NUR.NOTE ---
Referral given to Care Management for [facility] to help her set up an appointment for follow up with DVT in the Left Leg as soon as possible
--- NOTE | 2024-01-23 15:30 | DI.CT_ITS ---
Exam(s) CT HEAD WO EXAM: CT HEAD WO CLINICAL HISTORY: evaluate known aneurysms prior to anticoag. TECHNIQUE: Imaging Protocol: Axial computed tomography images with coronal and sagittal reformatted images were created and reviewed COMPARISON: CT CT HEAD CERVICAL SPINE WO from 03/22/[address] HEAD CERV SPINE FACIAL WO from 12/21/2023 FINDINGS: Ventricles and Extra axial spaces: Normal in size and morphology for the patient's age. Hemorrhage: None. Cerebral parenchyma: There are large areas of encephalomalacia involving the frontal lobes bilaterall y. There are areas of decreased attenuation in the white matter consistent with small vessel ischemi c disease. There are several aneurysm clips again seen. There is a stable peripherally calcified mi dline mass anteriorly. Midline shift: None. Brainstem/Cerebellum: Normal. Calvarium: Prior craniotomy and right temporal craniectomy. Visualized Paranasal sinuses/Mastoids: Mucosal thickening in the maxillary sinuses. The remaining vi sualized paranasal sinuses are clear. Soft Tissues: Unremarkable. IMPRESSION: 1. No acute intracranial process. 2. Findings of prior aneurysm clippings, large areas of encephalomalacia in the frontal lobes bilater ally and chronic microvascular ischemic disease. 3. No acute intracranial hemorrhage. RADIATION DOSE DELIVERED: 591.1mGy.cm Total DLP DATA REPOSITORY: All CT scans at this facility are submitted to the National Radiology Data Registry (NRDR) Dose Index Registry (DIR) with the [employer] (ACR). RADIATION OPTIMIZATION: All CT scans at this facility use at least one of these dose optimization te chniques: automated exposure control; mA and/or kV adjustment per patient size (includes targeted exa ms where dose is matched to clinical indication); or iterative reconstruction.
[2024-01-23] MEDS: Apixaban 5 MG TAB 10 MG PO (17:48)
== END 2024-01-23 18:00 | disposition home or self-care (01) ==
PROVIDERS: Nurse Practitioner Family; Emergency Provider Physician Assistant; PCP Family Medicine
DX: I82.422 Acute embolism and thrombosis of left iliac vein (principal); I82.412 Acute embolism and thrombosis of left femoral vein; I82.432 Acute embolism and thrombosis of left popliteal vein; I82.4Z2 Acute embolism and thrombosis of unspecified deep veins of left distal lower extremity; E87.6 Hypokalemia; Z87.891 Personal history of nicotine dependence
CPT/HCPCS: 80053; 85027; 99285; 70450; 93971; 99284

== ENCOUNTER 2024-01-30 01:39 | Inpatient (IN) | payer MEDICARE, MEDICAID, SELFPAY ==
[2024-01-30] VITALS (18 sets, daily range): BP systolic 105–178; BP diastolic 45–82; PULSE 84–101; RESP 14–18; TEMP 35.1–36.9; O2SAT 92–98; BMI 19.8
--- NOTE | 2024-01-30 01:30 | DI.RAD_ITS ---
Exam(s) XR PELVIS AP XR FEMUR LT XR FEMUR RT EXAM: XR PELVIS AP CLINICAL HISTORY: fall, left hip pain, ext rotated shortened. TECHNIQUE: 2D digital imaging was performed.Ten images were obtained. COMPARISON: CR XR PELVIS AP from 12/08/2023 CR XR PELVIS AP from 12/19/2023 FINDINGS: BONES: There again seen healing left inferior superior pubic rami fractures. There is a new acute co mminuted intertrochanteric fracture with angulation. No bony destructive lesion is seen. There is in ternal fixation of an old healed left patellar fracture. No evidence of a right femoral fracture. JOINTS: No dislocation present. The hip joints are well maintained. Mild degenerative changes are se en at the sacroiliac joints. The symphysis pubis is intact. SOFT TISSUE: Vascular calcifications are present. IMPRESSION: 1. Acute angulated intertrochanteric fracture of the proximal left femur. 2. No evidence of a right femoral fracture. 3. Healing left superior and inferior pubic rami fractures. DATA REPOSITORY: RADIATION DOSE DELIVERED:
--- NOTE | 2024-01-30 01:30 | RT.EKG_ITS ---
APPROVED REPORT Exam: Resting ECG Reason for Exam: fall Patient Location: E HR:94 bpm ECG Measurements Heart Rate 94 AXIS IA 158 P 58 QRSd 114 QRS -55 QT 384 T 34 QTc 473 Conclusion Sinus rhythm...normal P axis, V-rate 60- 99 Atrial premature complexes...SV complexes w/ short R-R intvls Probable left atrial enlargement...P >50mS, <-0.10mV V1 no ST segment or T wave abnormalities to suggest occlusive AR Incomplete RBBB and LAFB...axis(240,-40), S>R II III aVF
--- NOTE | 2024-01-30 01:49 | ED.GENADUL_ITS ---
Discharge Plan Discharge Details Chief Complaint: Fall/Non TraumaCriteria Primary Care Provider: Ketan Tamez ED Provider: Nan Villavicencio Home Meds and New Rx's Prescriptions: No Action levetiracetam [Keppra] 500 mg tablet 500 mg PO BID Qty: 180 3RF (DME) Undergarment Misc 1 ea Miscellaneous Q2H MDD 10 Qty: 300 12RF Rx Instructions: for hygiene and safety; Size S/M Dx: K52.9 acetaminophen [Tylenol] 325 MG tablet 650 mg PO Q4H PRN cholestyramine (with sugar) 4 gram powder 8 g PO BID Qty: 378 11RF Rx Instructions: two scoops up to twice daily FOR CHRONIC DIARRHEA; ferrous gluconate 324 mg (37.5 mg iron) tablet 324 mg PO BID Qty: 180 3RF potassium chloride 10 mEq tablet,ER particles/crystals 20 meq PO DAILY Qty: 180 3RF Rx Instructions: replace low potassium cholecalciferol (vitamin D3) 50 mcg (2,000 unit) capsule 50 mcg PO DAILY Qty: 90 3RF omeprazole 20 mg capsule,delayed release(DR/EC) 20 mg PO DAILY Qty: 90 3RF mirtazapine 15 mg tablet 15 mg PO QHS Qty: 90 3RF Ensure Original Liquid 237 ml PO DAILY Qty: 7110 6RF multivitamin Tablet 1 tab PO DAILY Eliquis DVT-PE Treat 30D Start 5 mg (74 tabs) tablets,dose pack See Rx Instructions .ROUTE .COMPLEX Qty: 74 0RF Rx Instructions: orally per package directions HPI General Mode of arrival: EMS . Date/Time Provider Initiated Documentation: 01/30/24 01:44 . Limitations to Documentation: altered mental status . Information obtained by: patient, EMS and old records reviewed . HPI Narrative: 78yo F with hx frequent falls, cerebral aneurysm with leak ~50 years ago with subsequent memory difficulties, presenting after unwitnessed fall. Found on the ground by nursing facility staff on her left side, complaining of left hip pain. Seen in this ED on 01/20 for left leg swelling, found to have DVT at that time and started on eliquis. Patient does not recall the fall. Has not ambulated since the event. Denies pain elsewhere. No numbness or tingling in her left leg or foot. She is otherwise in her usual state of health with no fevers, chills, rash, headache, nausea, vomiting, chest pain, difficulty breathing, neck pain, abdominal pain, or other concerns. Related Data Home Medications Medication Instructions Recorded Confirmed acetaminophen 325 mg tablet 650 mg PO Q4H PRN 08/13/15 01/30/24 (Tylenol) cholestyramine (with sugar) 4 gram 8 g PO BID #378 grams 10/15/22 01/30/24 oral powder cholecalciferol (vitamin D3) 50 50 mcg PO DAILY #90 caps 03/11/23 01/30/24 mcg (2,000 unit) capsule ferrous gluconate 324 mg (37.5 mg 324 mg PO BID #180 tabs 03/11/23 01/30/24 iron) tablet omeprazole 20 mg capsule,delayed 20 mg PO DAILY #90 caps 03/11/23 01/30/24 release potassium chloride 10 mEq 20 meq (2 x 10 mEq) PO DAILY #180 03/11/23 01/30/24 tablet,extended release(part/cryst) tab-caps diaper,brief,adult,disposable #300 ea 04/01/23 01/30/24 (Undergarment misc) levetiracetam 500 mg tablet 500 mg PO BID #180 tabs 04/01/23 01/30/24 (Keppra) mirtazapine 15 mg tablet 15 mg PO QHS #90 tabs 04/15/23 01/30/24 food supplemt, lactose-reduced 237 ml PO DAILY #7,110 mL 01/02/24 01/30/24 (Ensure Original oral liquid) apixaban 5 mg (74 tabs) tablets in See Rx Instructions PO .COMPLEX 01/23/24 01/30/24 a dose pack (Alverix DVT-PE Treat #74 dose pk 30D Start) multivitamin 1 tab PO DAILY 01/23/24 01/30/24 Previous Rx's Medication Instructions Recorded cholestyramine (with sugar) 4 gram 8 g PO BID #378 grams 10/15/22 oral powder cholecalciferol (vitamin D3) 50 50 mcg PO DAILY #90 caps 03/11/23 mcg (2,000 unit) capsule ferrous gluconate 324 mg (37.5 mg 324 mg PO BID #180 tabs 03/11/23 iron) tablet omeprazole 20 mg capsule,delayed 20 mg PO DAILY #90 caps 03/11/23 release potassium chloride 10 mEq 20 meq (2 x 10 mEq) PO DAILY #180 03/11/23 tablet,extended release(part/cryst) tab-caps diaper,brief,adult,disposable #300 ea 04/01/23 (Undergarment misc) levetiracetam 500 mg tablet 500 mg PO BID #180 tabs 04/01/23 (Keppra) mirtazapine 15 mg tablet 15 mg PO QHS #90 tabs 04/15/23 food supplemt, lactose-reduced 237 ml PO DAILY #7,110 mL 01/02/24 (Ensure Original oral liquid) apixaban 5 mg (74 tabs) tablets in See Rx Instructions PO .COMPLEX 01/23/24 a dose pack (EliAvatrip DVT-PE Treat #74 dose pk 30D Start) Allergies Allergy/AdvReac Type Severity Reaction Status Date / Time aspirin AdvReac Intermediate GI Bleed Verified 01/30/24 01:34 General Stated Complaint: Fall/Non TraumaCriteria DANAY: 3 Review of Systems Narrative: see HPI Exam Narrative Exam Narrative: GENERAL: Alert, no acute distress. SKIN: Warm and well perfused. HEAD: Atraumatic, normocephalic without edema, discoloration or evidence of trauma. EYES: PERRL. No scleral icterus or conjunctival injection. Extraocular muscles intact without nystagmus or diplopia. No proptosis or enophthalmos. EARS: Normal appearing pinnae. No hemotympanum. NOSE: No discharge, tenderness, laxity. MOUTH: No malocclusion or trismus. Moist mucus membranes without blood. NECK: Trachea midline. No discolorations or edema. . CV: Regular rate and rhythm, Normal s1 and s2. No murmurs, rubs, or gallops. PV: Radial pulses 2+ bilaterally and symmetric. Dorsalis pedis pulses 2+ bilaterally and symmetric. 2+ capillary refill. CHEST: No abrasions or ecchymosis. Chest symmetric with respirations. No chest wall tenderness. Lungs are clear to auscultation bilaterally. ABDOMEN: No ecchymosis or abrasions. Soft, nondistended, nontender. BACK: No abrasions, skin openings, or ecchymosis. Spine without bony tenderness, no step offs. PELVIC: Pelvis stable, nontender to lateral compression. Pain with palpation of left hip. MSK: Left leg externally rotated, slightly foreshortened. No knee tenderness. Swelling, and warmth throughout left leg from thigh to foot. Distal pulses, sensation, and motion intact. Extremities otherwise nontender with no deformity, no pain with ROM. NEURO: Alert. PERRL. EOMI. Sensation intact and symmetric multiple dermatomes upper and lower extremities. 5/5 strength bilateral UE and RLE; LLE not fully tested 2/t to pain Course Vital Signs Vital signs: Vital Signs Temperature 36.9 C 01/30/24 01:25 Pulse 89 01/30/24 01:25 Respiratory Rate 16 01/30/24 01:25 Blood Pressure 160/82 H 01/30/24 01:25 Pulse Oximetry 92 01/30/24 01:25 Temperature 36.9 C 01/30/24 01:25 Temperature Source Oral 01/30/24 01:25 Pulse 89 01/30/24 01:25 Respiratory Rate 16 01/30/24 01:25 Respiratory Effort Normal, Non-Labored 01/30/24 01:39 Blood Pressure 160/82 H 01/30/24 01:25 Blood Pressure Position Supine 01/30/24 01:25 Pulse Oximetry 92 01/30/24 01:25 Oxygen Delivery Method Room Air 01/30/24 01:25 Oxygen Flow Rate 0 01/30/24 01:25 Pain Level 7 01/30/24 01:41 Medical Decision Making 78yo F with hx frequent falls, cerebral aneurysm with leak ~50 years ago with subsequent memory difficulties, presenting after unwitnessed fall. Found on the ground by nursing facility staff on her left side, complaining of left hip pain. Seen in this ED on 01/20 for left leg swelling, found to have DVT at that time and started on eliquis. Patient cannot describe the fall; does not think she hit her head. Has left hip pain, otherwise denies pain. Hypertensive on arrival, vital signs otherwise reassuring. Physical exam with external rotated, possibly slightly foreshortened LLE. LLE with warmth and swelling from thigh down consistent with known DVT. Sensation, pulse, and movement intact throughout LLE and patient denies any numbness or tingling. Not concerning for acute neurovascular injury. Trauma and neurologic exam otherwise reassuring however given unwitnessed fall and unreliable historian on anticoagulation, will get head CT to evaluate for acute bleed, as well as plain films pelvis/femurs. Tylenol/toradol for initial pain treatment. EKG on arrival sinus, no ST segment or T wave abnormalities to suggest occlusive [place]. CT head independently reviewed, interp limited 2/t to scatter (presumed from coi ls/clips) however no large intracranial bleed on my view, does have large ventricles which are grossly unchanged from prior CT 01/21/24. Agree with radiology read below. Plain films pelvis and femurs independently reviewed, left proximal femoral fracture on my view, agree with radiology reads below. Preop labs reviewed as below, no intervenable abnormalities. DVT study on 01/22 showed LLE DVT from external iliac down into calf veins. Case discussed with orthopedist monument stonecutter Dr. Sampson including presence of large DVT; okay to care for her at [facility], plan for likely operative intervention at [place] [facility] [place]. Discussed with hospitalist Dr. Arreola and accepted to medicine service; awaiting transfer to the floor. Medical Records Medical records reviewed: Yes I reviewed the patient's medical records. Medical records narrative: ED visit note 01/20 Imaging Data Radiologic Study: Imaging: CT Scan Radiologist's impression: IMPRESSION: 1. No acute hemorrhage, mass effect, or depressed skull fracture.. 2. Regions of encephalomalacia redemonstrated in the frontal lobes bilaterally. 3. Multiple bilateral craniotomy defects. Multiple aneurysm clips at the skull base. 10 mm peripherally calcified aneurysm at the left base redemonstrated, apparently clipped. 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 4. Additional findings, as above. Radiologic Study #2: Imaging: X-Ray Radiologist's impression: Pelvis: IMPRESSION: 1. Acute intertrochanteric fracture through the proximal left femur. 2. Left superior and inferior pubic ramus fractures, apparently subacute Left Femur: IMPRESSION: 1. Acute intertrochanteric fracture through the proximal left femur. 2. Left superior and inferior pubic ramus fractures, apparently subacute Right Femur: IMPRESSION: No acute fracture seen in the right femur Lab Data Lab results reviewed: Yes I reviewed the patient's lab results. Quality:SDOH Health Related Social Needs: No Data to Display PFSH All Active Problems (Updated 01/23/24 @ 14:01 by Christelle Lorenzo) Deep vein thrombosis (DVT) of left lower extremity (Acute) Malnutrition, calorie (Acute) Hearing loss (Acute) Sundowning (Acute) Pain, foot (Acute) Nail dystrophy (Acute) Urinary incontinence (Acute) Venous insufficiency (Acute) Fracture of base of fifth metatarsal bone of right foot (Acute) Right ankle pain (Acute) Seizure (Acute) Hand laceration (Acute) Contusion of head (Acute) Abnormal auditory perception (Acute) Bilateral sensorineural hearing loss (Acute) Vitamin D deficiency (Chronic) low level 2005; replacement, still marginal 08/2014 Seizure disorder (Chronic) most recent seizure 01/2015 Osteoporosis, unspecified (Chronic) Pos DEXA 08/2003; alendronate therapy through 2010; Vit D def 2005, replaced; Dilantin therapy risk 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 ORIF of the patella of her left knee. b. Appendectomy and tubal ligation in the same surgery, according to her. c. Tonsillectomy and adenoidectomy. d. Aneurysm repair on two occasions, 1971 and 1982. She gets repeat scans every so often for these. e. Bilateral cataract surgery. Aneurysm (Chronic) a. Positive for multiple aneurysms. As stated, she has had surgery for these aneurysms. She has been followed quite closely in the past, and now has been able to spread out her appointments with the neurologist as there has been no change in her scan since 1982, according to her and her caregiver. History of seizure (Chronic) a. Due to previous CVA. b. She has not had any in upwards of 13 to 15 years. COPD (chronic obstructive pulmonary disease) (Chronic) a. Vague history as she was a previous smoker. Surgical History cerebral aneurysm clipping (08/11/15) [facility] R nephrectomy & ovary (10/25/16) Dr Fong, [facility], carcinoma kidney EGD and Colonoscopy (09/28/16) Extraction of cataract (12/18/15) Cataract extraction with lens implant, left eye. Wyatt Nazario MD. Family History Mother , CA at age 75. Neoplasm liver or kidney CA Father , fall at age 63. No problems noted. Brother , LUNG CA No problems noted. Brother , Stomach CA at age 85. No problems noted. Social History Smoking/Tobacco Use Status: Former Tobacco Use Smoking risk assessment performed?: Yes Alcohol Intake: never Drug use: Never Substance use type: does not use Caregiver/Support person: Yes Household members: family and other Details: lives with daughter Housing: house Number of Children: 2 Communication Needs: Corrective Lenses current occupation: retired from [employer], [employer], Dispatcher What is your relationship status?: Panel score (0-1 are the most socially isolated patients): 0 What type of physical activity do you participate in: none Seatbelt use: always Drive intox or ride w/intox experienced truck driver: No Working smoke detector in home: Yes Carbon monox detector in home: Yes Do you feel safe at home: Yes Do you feel safe in your relationship?: Yes Additional Social history: Lives at the [facility] temporarily
[2024-01-30] MEDS: Ketorolac 15 MG/ML VIAL IVP (01:55)
[2024-01-30] MEDS: Acetaminophen 500 MG TAB 1000 MG PO (01:55)
--- NOTE | 2024-01-30 03:01 | DI.CT_ITS ---
Exam(s) CT HEAD WO EXAM: CT HEAD WO CLINICAL HISTORY: fall on eliquis, dementia, neurointact. TECHNIQUE: Imaging Protocol: Axial computed tomography images with coronal and sagittal reformatted images were created and reviewed COMPARISON: CT CT HEAD CERVICAL SPINE WO from 03/22/[address] HEAD CERV SPINE FACIAL WO from 12/21/[address] HEAD WO from 01/23/2024 FINDINGS: Ventricles and Extra axial spaces: There is stable ventriculomegaly particularly involving the fronta l horns of the lateral ventricles bilaterally. Hemorrhage: None. Cerebral parenchyma: There are stable areas of encephalomalacia involving the frontal lobes bilateral ly. There again seen findings of prior aneurysm clipping. There is a stable midline peripherally ca lcified lesion. This may represent a non clipped aneurysm. There are areas of decreased attenuation in the white matter consistent with chronic microvascular ischemic disease. Midline shift: None. Brainstem/Cerebellum: Normal. Calvarium: There are findings consistent with prior craniotomies. Visualized Paranasal sinuses/Mastoids: There is mucosal thickening again seen in the left maxillary s inus. The remaining visualized paranasal sinuses are clear as are the mastoid air cells. Soft Tissues: Unremarkable. IMPRESSION: 1. No acute intracranial process. 2. Stable intracranial findings as described above. RADIATION DOSE DELIVERED: Total DLP DATA REPOSITORY: All CT scans at this facility are submitted to the National Radiology Data Registry (NRDR) Dose Index Registry (DIR) with the [employer] (ACR). RADIATION OPTIMIZATION: All CT scans at this facility use at least one of these dose optimization te chniques: automated exposure control; mA and/or kV adjustment per patient size (includes targeted exa ms where dose is matched to clinical indication); or iterative reconstruction.
[2024-01-30 03:10] LABS: Abs Immature Grans 0.25 10^3/uL (0.0-0.06); Absolute Basophil Count 0.11 10^3/uL (0.0-0.2); Absolute Lymphocyte Count 2.01 10^3/uL (1.2-3.4); Basophils % 0.7; Eosinophils % 0.6; HCT 36.5 % (36.0-46.0); HGB 11.4 g/dL (11.2-15.7); Immature Grans % 1.6; MCH 30.4 pg (27.0-33.0); MCHC 31.2 % (32.0-36.0); MCV 97 fL (80-95); MPV 9.9 fL (8.0-11.0); Monocytes % 5.7; Neutrophils % 78.4; Platelet Count 489 10^3/uL (130-400); RBC 3.75 10^6/uL (3.93-5.22); RDW 14.8 % (11.7-14.6); RDW-SD 52.2 fL; WBC 15.48 10^3/uL (4.4-10.8)
--- NOTE | 2024-01-30 03:10 | DI.VRAD_ITS ---
PROCEDURE INFORMATION: Exam: CT Head Without Contrast Exam date and time: 01/30/2024 2:00 AM Age: 78 years old Clinical indication: Injury or trauma; Blunt trauma (contusions or hematomas); Consciousness not specified; Injury date: 01/30/24; Prior surgery; Surgery date: 6+ months; Patient HX: Fall on eqliquis, dementia, neurointact TECHNIQUE: Imaging protocol: Computed tomography of the head without contrast. Radiation optimization: All CT scans at this facility use at least one of these dose optimization techniques: automated exposure control; mA and/or kV adjustment per patient size (includes targeted exams where dose is matched to clinical indication); or iterative reconstruction. COMPARISON: CT HEAD WO 01/23/2024 4:42 PM FINDINGS: Brain: There are regions of bilateral frontal encephalomalacia. Otherwise, the west-white matter differentiation appears preserved. There is global parenchymal volume loss. Cerebral ventricles: There is ex vacuo dilatation of the anterior horns of the lateral ventricles bilaterally, as seen on the prior exam. There is no hydrocephalus. Paranasal sinuses: There is thick mucoperiosteal thickening in the left maxillary sinus. Otherwise, the paranasal sinuses appear clear. Mastoid air cells: The mastoid air cells appear well-aerated. Auditory system: The middle ear cavities appear clear. Orbital cavities: The globes and intraorbital structures appear grossly intact. Bones/joints: There are multiple old bilateral craniotomy defects. There is a craniectomy defect in the right temporal region. No acute skull fracture is seen. There are multiple aneurysm clips at the skull base which generate considerable streak artifact which obscures the adjacent brain. There is a 10 mm peripherally calcified aneurysm on the left on images 18-19 of series 2, apparently clipped. There is a 2.0 cm x 1.4 cm peripherally calcified mass in the midline at the level of the lateral ventricles, suspicious for a giant aneurysm but not well evaluated by the unenhanced CT exam. No acute intracranial hemorrhage, mass effect, midline shift, or extra-axial collection is seen. Soft tissues: No gross focal scalp hematoma is seen. IMPRESSION: 1. No acute hemorrhage, mass effect, or depressed skull fracture.. 2. Regions of encephalomalacia redemonstrated in the frontal lobes bilaterally. 3. Multiple bilateral craniotomy defects. Multiple aneurysm clips at the skull base. 10 mm peripherally calcified aneurysm at the left base redemonstrated, apparently clipped. 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 4. Additional findings, as above. Dictated and Authenticated by: Jarrett Guevara MD. Ordering:GREGOR Montana MD
[2024-01-30 03:11] LABS: Absolute Eosinophil Count 0.09 10^3/uL (0.0-0.7); Absolute Monocyte Count 0.88 10^3/uL (0.1-0.8); Absolute Neutrophil Count 12.14 10^3/uL (1.2-6.7)
[2024-01-30 03:16] LABS: PTT Activated 28.1 sec (23.6-32.8); Prothrombin Time 10.3 sec (9.1-11.1)
[2024-01-30 03:18] LABS: ALT 22 U/L (14-59); AST 22 U/L (15-37); Albumin 2.6 g/dL (3.4-5.0); Alkaline Phosphatase 113 U/L (46-116); Anion Gap 8.6 mmol/L (3-11); BUN 18 mg/dL (7-18); Bilirubin, Total 0.2 mg/dL (0.2-1.0); CO2 29.4 mmol/L (21.0-32.0); CREATININE 0.9 mg/dL (0.55-1.02); Calcium 8.9 mg/dL (8.5-10.1); Chloride 108 mmol/L (98-107); Estimated GFR 65.03 (mL/min/1.73m2); Glucose 120 mg/dL (74-106); Sodium 146 mmol/L (136-145); Total Protein 6.8 g/dL (6.4-8.2)
--- NOTE | 2024-01-30 03:18 | DI.VRAD_ITS ---
PROCEDURE INFORMATION: Exam: XR Left Femur Exam date and time: 01/30/2024 2:11 AM Age: 78 years old Clinical indication: Injury or trauma; Blunt trauma; Bilateral; Injury date: 01/30/24; Patient HX: Fall, left hip pain, ext rotated shortened TECHNIQUE: Imaging protocol: Radiologic exam of the left femur. Views: 2 views. COMPARISON: CR XR FEMUR LT 12/08/2023 1:21 PM FINDINGS: Bones/joints: There is an acute intertrochanteric fracture through the proximal left femur. There are fractures through the left superior and inferior pubic rami which appear subacute. These are also seen on a comparison exam from December 19, 2023. The superior pubic ramus fracture is seen on the comparison exam from December 08, 2023. The inferior pubic ramus fracture is less well demonstrated on that exam but possibly also present at that time. There is orthopedic hardware associated with the left patella. Soft tissues: No gross focal soft tissue abnormality is demonstrated. Vasculature: There is atherosclerotic calcification in the left superficial femoral artery. IMPRESSION: 1. Acute intertrochanteric fracture through the proximal left femur. 2. Left superior and inferior pubic ramus fractures, apparently subacute. Dictated and Authenticated by: Jarrett Guevara MD. Ordering:GREGOR Montana MD
--- NOTE | 2024-01-30 03:20 | DI.VRAD_ITS ---
PROCEDURE INFORMATION: Exam: XR Pelvis Exam date and time: 01/30/2024 2:10 AM Age: 78 years old Clinical indication: Injury or trauma; Blunt trauma (contusions or hematomas); Injury date: 01/30/24; Patient HX: Fall, left hip pain, ext rotated shortened TECHNIQUE: Imaging protocol: Radiologic exam of the pelvis. Views: 1 or 2 view. COMPARISON: CR XR PELVIS AP 12/19/2023 12:05 PM FINDINGS: Bones/joints: A single frontal view of the pelvis is submitted. There is an acute intertrochanteric fracture through the proximal left femur. There are fractures through the left superior and inferior pubic rami which appear subacute, also seen on the comparison exam from December 19, 2023. Soft tissues: No gross focal soft tissue abnormality is demonstrated. Gastrointestinal tract: There is moderate retained fecal material in the rectum. Vasculature: Atherosclerotic calcification is seen in the right common femoral and proximal right superficial femoral artery. IMPRESSION: 1. Acute intertrochanteric fracture through the proximal left femur. 2. Subacute superior and inferior pubic ramus fractures on the left. Dictated and Authenticated by: Jarrett Guevara MD. Ordering:GREGOR Montana MD
--- NOTE | 2024-01-30 03:22 | DI.VRAD_ITS ---
PROCEDURE INFORMATION: Exam: XR Right Femur Exam date and time: 01/30/2024 2:14 AM Age: 78 years old Clinical indication: Injury or trauma; Blunt trauma; Bilateral; Injury date: 01/30/24; Patient HX: Fall, left hip pain, ext rotated shortened TECHNIQUE: Imaging protocol: Radiologic exam of the right femur. Views: 2 views. COMPARISON: CR XR PELVIS AP 01/30/2024 2:10 AM FINDINGS: Bones/joints: Within the limits of the exam, no acute fracture is seen in the right femur. There is no dislocation at the right hip joint. Soft tissues: No gross focal soft tissue abnormality is seen. Vasculature: There is atherosclerotic calcification in the right common femoral and superficial femoral arteries. IMPRESSION: No acute fracture seen in the right femur. Dictated and Authenticated by: Jarrett Guevara MD. Ordering:GREGOR Montana MD
--- NOTE | 2024-01-30 04:10 | HPE_ITS ---
Date of service: 01/30/24 Time of Service: 04:10 Assessment and Plan Assessment and plan (1) Femur fracture, left: Status: Acute Assessment and plan: Likely to require operative repair per orthopedics. Perioperative anticoagulation will be a challenge and given the acuity of VTE, goal will be to minimize interruptions to anticoagulation. This will need to be discussed with anesthesiology as it may affect their approach, particularly if spinal anesthesia is considered. Placing on IV heparin as below. Would consider placing retrievable IVC filter, particularly if anticoagulation is to be interrupted for more than 24 hours in view of her extensive thrombus burden and high risk of thromboembolism. Continue with analgesic regimen, IV fluids while n.p.o., requested UA given leukocytosis. (2) Deep vein thrombosis (DVT) of left lower extremity: Status: Acute Assessment and plan: Appears that she has been on apixaban 5 mg twice daily since diagnosis about 6 days ago. Last dose was more than 8 hours ago and we will transition to IV heparin pending surgical plans. (3) Seizure disorder: Status: Chronic Assessment and plan: No recent seizure activity noted and will continue her usual Keppra. History of Present Illness History of Present Illness Chief Complaint: Fall Narrative: Nursing facility records indicate this patient had an unwitnessed fall earlier tonight and reported pain which prompted her evaluation at the hospital. She has been evaluated with imaging and laboratory studies as well as pain medication and currently has no complaints. She does not recall what caused her to fall and does not believe she lost consciousness. She has had multiple fractures in the past both operative and nonoperative. She currently denies any bleeding, chest pain, shortness of breath, or lower extremity discomfort after receiving morphine. She was seen here within the past 6 days with lower extremity edema. Imaging confirmed extensive left lower extremity DVT and she was placed on apixaban. She has a complex neurological history including cerebral aneurysm and seizure disorder. Nursing facility indicated that she has been on apixaban 5 mg twice daily with last dose at 8 PM yesterday. Review of Systems All systems reviewed & are unremarkable except as noted in HPI and below PFSH All Active Problems (Updated 01/30/24 @ 04:21 by Fredrick Arreola MD) Femur fracture, left (Acute) Deep vein thrombosis (DVT) of left lower extremity (Acute) Malnutrition, calorie (Acute) Hearing loss (Acute) own (Acute) Pain, foot (Acute) Nail dystrophy (Acute) Urinary incontinence (Acute) Venous insufficiency (Acute) Fracture of base of fifth metatarsal bone of right foot (Acute) Right ankle pain (Acute) Seizure (Acute) Hand laceration (Acute) Contusion of head (Acute) Abnormal auditory perception (Acute) Bilateral sensorineural hearing loss (Acute) Vitamin D deficiency (Chronic) low level 2005; replacement, still marginal 08/2014 Seizure disorder (Chronic) most recent seizure 01/2015 Osteoporosis, unspecified (Chronic) Pos DEXA 08/2003; alendronate therapy through 2010; Vit D def 2005, replaced; Dilantin therapy risk 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 ORIF of the patella of her left knee. b. Appendectomy and tubal ligation in the same surgery, according to her. c. Tonsillectomy and adenoidectomy. d. Aneurysm repair on two occasions, 1971 and 1982. She gets repeat scans every so often for these. e. Bilateral cataract surgery. Aneurysm (Chronic) a. Positive for multiple aneurysms. As stated, she has had surgery for these aneurysms. She has been followed quite closely in the past, and now has been able to spread out her appointments with the neurologist as there has been no change in her scan since 1982, according to her and her caregiver. History of seizure (Chronic) a. Due to previous CVA. b. She has not had any in upwards of 13 to 15 years. COPD (chronic obstructive pulmonary disease) (Chronic) a. Vague history as she was a previous smoker. Surgical History cerebral aneurysm clipping (08/11/15) [facility] [place] R nephrectomy & ovary (10/25/16) Dr Fong, [facility] [place], carcinoma kidney EGD and Colonoscopy (09/28/16) Extraction of cataract (12/18/15) Cataract extraction with lens implant, left eye. Wyatt Nazario MD. Family History Mother , CA at age 75. Neoplasm liver or kidney CA Father , fall at age 63. No problems noted. Brother , LUNG [place] No problems noted. Brother , Stomach CA at age 85. No problems noted. 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 Working smoke detector in home: Yes Carbon monox detector in home: Yes Do you feel safe at home: Yes Do you feel safe in your relationship?: Yes Additional Social history: Lives at the [facility] temporarily Meds Allergies and Home Medications Allergies Allergy/AdvReac Type Severity Reaction Status Date / Time aspirin AdvReac Intermediate GI Bleed Verified 01/30/24 01:34 Home Medications Medication Instructions Recorded Confirmed Type acetaminophen 325 mg tablet 650 mg PO Q4H PRN 08/13/15 01/30/24 History (Tylenol) cholestyramine (with sugar) 4 gram 8 g PO BID #378 grams 10/15/22 01/30/24 Rx oral powder cholecalciferol (vitamin D3) 50 50 mcg PO DAILY #90 caps 03/11/23 01/30/24 Rx mcg (2,000 unit) capsule ferrous gluconate 324 mg (37.5 mg 324 mg PO BID #180 tabs 03/11/23 01/30/24 Rx iron) tablet omeprazole 20 mg capsule,delayed 20 mg PO DAILY #90 caps 03/11/23 01/30/24 Rx release potassium chloride 10 mEq 20 meq (2 x 10 mEq) PO DAILY #180 03/11/23 01/30/24 Rx tablet,extended release(part/cryst) tab-caps diaper,brief,adult,disposable #300 ea 04/01/23 01/30/24 Rx (Undergarment misc) levetiracetam 500 mg tablet 500 mg PO BID #180 tabs 04/01/23 01/30/24 Rx (Keppra) mirtazapine 15 mg tablet 15 mg PO QHS #90 tabs 04/15/23 01/30/24 Rx food supplemt, lactose-reduced 237 ml PO DAILY #7,110 mL 01/02/24 01/30/24 Rx (Ensure Original oral liquid) apixaban 5 mg (74 tabs) tablets in See Rx Instructions PO .COMPLEX 01/23/24 01/30/24 Rx a dose pack (EliEbook Glue DVT-PE Treat #74 dose pk 30D Start) multivitamin 1 tab PO DAILY 01/23/24 01/30/24 History Exam Narrative Exam Narrative: General pleasant female, appears comfortable and in no acute distress HEENT no visible sequelae of trauma, pupils equal and reactive, no conjunctival pallor or scleral icterus, oral mucosa moist Neck supple, no lymphadenopathy or thyromegaly, carotid pulses normal CV regular, no murmur or gallop, no JVD Lungs clear Abdomen soft, nontender, bowel sounds present, no organomegaly or masses Extremities pitting edema noted to the left lower extremity with internal rotation noted, distal pulses are palpable, no discomfort with passive motion throughout the right lower extremity but there is discomfort with internal and external rotation at the left hip as well as with palpation over the proximal thigh Skin normal turgor, no rash Neurologic no resting tremor, does move all 4 extremities spontaneously although more limited LLE Results Imaging Imaging Studies: Reviewed EKG which shows sinus rhythm with PACs, no acute ST segment or T wave abnormalities, normal IL and QTc, incomplete RBBB Reviewed x-rays which confirm proximal left femur fracture CT head showed chronic changes but no acute hemorrhage Pertinent labs include sodium of 146 and white count of 15 Labs 01/30/24 02:35 01/30/24 02:35 Labs: Laboratory Results - last 24 hr 01/30/24 02:35 WBC 15.48 H RBC 3.75 L Hgb 11.4 Hct 36.5 MCV 97 H MCH 30.4 MCHC 31.2 L RDW 14.8 H Plt Count 489 H MPV 9.9 Immature Gran % 1.6 Neutrophils % 78.4 Lymphocytes % 13.0 Monocytes % 5.7 Eosinophils % 0.6 Basophils % 0.7 Nucleated RBC % 0.0 Absolute Neutrophils 12.14 H Absolute Lymphocytes 2.01 Absolute Monocytes 0.88 H Absolute Eosinophils 0.09 Absolute Basophils 0.11 PT 10.3 INR 1.0 APTT 28.1 Sodium 146 H Potassium 4.0 Chloride 108 H Carbon Dioxide 29.4 Anion Gap 8.6 BUN 18 Creatinine 0.9 Est GFR (CKD-EPI 2020) 65.03 Glucose 120 H Calcium 8.9 Total Bilirubin 0.2 AST 22 ALT 22 Alkaline Phosphatase 113 Total Protein 6.8 Albumin 2.6 L Last Vital Signs Temp 36.9 C 01/30/24 01:25 Pulse 100 H 01/30/24 03:45 Resp 16 01/30/24 01:25 BP 132/77 01/30/24 03:45 Pulse Ox 92 01/30/24 01:25 Time Spent Time spent with Patient: 55-74 minutes Time was spent: preparing to see the patient(eg.review tests), obtaining and/or reviewing separately otained hiistory, ordering medications,tests, procedures, referring, communicating with other health care transitions nurse, indepentently interpreting results, counseling the patient and care coordination
[2024-01-30] MEDS: MORPHine 4 MG/ML SYR 2 MG IVP (05:00)
[2024-01-30 05:36] LABS: MRSA PCR Positive (Negative)
[2024-01-30] MEDS: Heparin in 0.45% NaCl 25,000 UNIT/250 ML BAG 18 UNIT IV (06:15)
[2024-01-30 07:50] LABS: PTT Activated > 155.0 sec (23.6-32.8)
--- NOTE | 2024-01-30 07:53 | W.ORTHOCONSU ---
Date of service: 01/30/24 Time of Service: 07:53 History of Present Illness History of Present Illness Chief Complaint: Left Hip Pain Narrative: Mei is a 78-year-old female who unfortunately is been falling quite frequently. I seen her once in the office for the ramus fractures and she is subsequently had fractures of her proximal humerus due to falling. She is now residing at the [facility]. 6 days ago she was diagnosed with acute DVT about the left leg involving the external iliac through the femoral-popliteal vein system. She was started on Eliquis, although per report, at the subtherapeutic dose of only 5 mg twice daily. Unfortunately, last night she had an unwitnessed fall. She was found down. She had pain of left hip. She was seen in the emergency department and diagnosed with a comminuted and displaced intertrochanteric fracture about the left femur. She complains of pain within the entire left leg. She has swelling with the left leg. She has not been able to weight-bear since the injury. Consults Consult date: 01/30/24 Requesting physician: Nan Villavicencio Consult Reason Left intertrochanteric hip fracture Assessment and Plan Assessment and plan (1) Fracture, intertrochanteric, left femur: Status: Acute Assessment and plan: Mei is a 78-year-old who has had frequent falls. Unfortunately she has suffered another fracture, left intertrochanteric hip fracture. Given the displaced nature of the fracture and the fracture itself I do recommend proceeding with operative fixation. This would help stabilize the fracture, limit blood loss from the fracture, and allow mobilization which would be important to her overall outcome. Unfortunately, this is complicated by her recent, extensive blood clot within the left leg. This is a symptomatic clot involving the majority of the venous system of the left leg. Given that this fracture itself can be fixed with slightly percutaneous means with a short femoral nail, I do not think we need to fully delay any anticoagulation. She has been off Eliquis now for 2 full doses. She has been receiving therapeutic heparin. In discussion with orthopedic colleagues they agree to move forward with minimal pause in anticoagulation. Dr. Haley discussed this case also with colleagues at [facility] who also agreed with minimizing any pause in anticoagulation and proceed with surgery assuming he can be done in a quick and efficient method, despite being ipsilaterally located. I discussed the case with Mei and her daughter, PORTER. I reviewed the risk of the procedure to include bleeding, infection, pain, stiffness, malunion, nonunion, hardware prominence, however failure, clot propagation, cardiopulmonary demise. Despite these risk, they like to proceed. They both expressed understanding that this is a high risk situation given her clot. It is also likely that she may require transfusion given the need for continuation of anticoagulation in the setting of fracture and surgery. (2) Deep vein thrombosis (DVT) of left lower extremity: Status: Acute Assessment and plan: Continue with therapeutic heparin, stopping at 2 PM for a 2-hour pause prior to initiation of surgery at 4 PM. Resume following surgery without restriction. (3) Closed fracture of right proximal humerus: Status: Acute Assessment and plan: History of right proximal humerus fracture which she was to see him in the office for today. Will follow-up with x-ray after the hip fracture has been repaired. Review of Systems All systems reviewed & are unremarkable except as noted in HPI and below PFSH All Active Problems (Updated 01/30/24 @ 12:42 by Micky Sampson MD) Closed fracture of right proximal humerus (Acute) Fracture, intertrochanteric, left femur (Acute) Deep vein thrombosis (DVT) of left lower extremity (Acute) Malnutrition, calorie (Acute) Hearing loss (Acute) Sundowning (Acute) Pain, foot (Acute) Nail dystrophy (Acute) Urinary incontinence (Acute) Venous insufficiency (Acute) Fracture of base of fifth metatarsal bone of right foot (Acute) Right ankle pain (Acute) Seizure (Acute) Hand laceration (Acute) Contusion of head (Acute) Abnormal auditory perception (Acute) Bilateral sensorineural hearing loss (Acute) Vitamin D deficiency (Chronic) low level 2005; replacement, still marginal 08/2014 Seizure disorder (Chronic) most recent seizure 01/2015 Osteoporosis, unspecified (Chronic) Pos DEXA 08/2003; alendronate therapy through 2010; Vit D def 2005, replaced; Dilantin therapy risk Nonruptured cerebral aneurysm (Chronic 11/22/71) initial leak/procedure 1971[place] [facility] [place] elect further watchful waiting Clipping 07/2015 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 ORIF of the patella of her left knee. b. Appendectomy and tubal ligation in the same surgery, according to her. c. Tonsillectomy and adenoidectomy. d. Aneurysm repair on two occasions, 1971 and 1982. She gets repeat scans every so often for these. e. Bilateral cataract surgery. Aneurysm (Chronic) a. Positive for multiple aneurysms. As stated, she has had surgery for these aneurysms. She has been followed quite closely in the past, and now has been able to spread out her appointments with the neurologist as there has been no change in her scan since 1982, according to her and her caregiver. History of seizure (Chronic) a. Due to previous CVA. b. She has not had any in upwards of 13 to 15 years. COPD (chronic obstructive pulmonary disease) (Chronic) a. Vague history as she was a previous smoker. Surgical History cerebral aneurysm [place] (08/11/15[place] [facility] [place]10/25/16) [place] Fong[place] [facility] [place] kidney EGD and Colonoscopy (09/28/16) Extraction of cataract (12/18/15) Cataract extraction with lens implant, left eye. Wyatt Nazario MD. Family History Mother , CA at age 75. Neoplasm liver or kidney CA Father , fall at age 63. No problems noted. Brother , LUNG [place] No problems noted. Brother , Stomach CA at age 85. No problems noted. Social History Smoking/Tobacco Use Status: Former Tobacco Use Smoking risk assessment performed?: Yes Alcohol Intake: never Drug use: Never Substance use type: does not use Caregiver/Support person: Yes Household members: family and other Details: lives with daughter Housing: retirement Number of Children: 2 Communication Needs: Corrective Lenses current occupation: retired from [employer], [place], Dispatcher What is your relationship status?: Panel score (0-1 are the most socially isolated patients): 0 What type of physical activity do you participate in: none Seatbelt use: always Drive intox 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 No acute distress. Alert to person and place. Head is normocephalic and atraumatic. Breathing comfort without audible wheezing or distress. Evaluation left lower extremity shows a shortened externally rotated left leg. There is notable edema throughout the entirety of the left leg. No significant changes to the skin itself to suggest infection. There is tenderness to palpation throughout the leg, mostly over the posterior aspect of the thigh and throughout the lower leg from the knee down. She is able demonstrate some active ankle dorsiflexion and plantarflexion as well as great toe extension and flexion. Sensation intact to light touch over the deep and superficial peroneal nerve and tibial nerve. Pain with any manipulation of the left leg. No pain with manipulation of the right lower extremity. Brief evaluation of the right shoulder also shows no significant pain. She tolerates flexion of about 80 degrees, abduction of 60 degrees and external rotation of 45 degrees. Further range of motion was not pushed given the known fracture about the right upper extremity. Results Last Vital Signs Temp 35.1 C L 01/30/24 07:49 Pulse 87 01/30/24 07:49 Resp 18 01/30/24 07:49 BP 134/77 01/30/24 07:49 Pulse Ox 92 01/30/24 07:49 Labs 01/30/24 02:35 01/30/24 02:35 Labs: Laboratory Results - last 24 hr 01/30/24 01/30/24 01/30/24 02:35 04:18 06:50 WBC 15.48 H RBC 3.75 L Hgb 11.4 Hct 36.5 MCV 97 H MCH 30.4 MCHC 31.2 L RDW 14.8 H Plt Count 489 H MPV 9.9 Immature Gran % 1.6 Neutrophils % 78.4 Lymphocytes % 13.0 Monocytes % 5.7 Eosinophils % 0.6 Basophils % 0.7 Nucleated RBC % 0.0 Absolute Neutrophils 12.14 H Absolute Lymphocytes 2.01 Absolute Monocytes 0.88 H Absolute Eosinophils 0.09 Absolute Basophils 0.11 PT 10.3 INR 1.0 APTT 28.1 > 155.0 H* Sodium 146 H Potassium 4.0 Chloride 108 H Carbon Dioxide 29.4 Anion Gap 8.6 BUN 18 Creatinine 0.9 Est GFR (CKD-EPI 2020) 65.03 Glucose 120 H Calcium 8.9 Total Bilirubin 0.2 AST 22 ALT 22 Alkaline Phosphatase 113 Total Protein 6.8 Albumin 2.6 L MRSA (TEM-PCR) Positive A Imaging Imaging Studies: X-ray of the left hip and femur demonstrates a comminuted and displaced intertrochanteric fracture about the left hip. There is no distal propagation. Previous hardware fixation of the patella fracture is also seen with good alignment. Subacute fractures about the inferior and superior pubic ramus on the left side are also visualized show signs of healing. No significant signs of arthritis. No other suspicious lesions.
[2024-01-30] MEDS: levETIRAcetam 500 MG TAB PO ×2 (08:33→20:36)
[2024-01-30] MEDS: Omeprazole 20 MG CAPCR PO (08:33)
[2024-01-30 08:34] LABS: Bilirubin Negative (Negative); Blood Negative (Negative); Clarity Clear (Clear); Glucose Negative (Negative); Ketones Negative (Negative); Leukocyte Esterase Negative (Negative); Nitrite Negative (Negative); Urobilinogen 0.2 mg/dL (Up to 0.2); pH 5.5 (5-8)
[2024-01-30] MEDS: DEXTROSE 5%-LACTATED RINGERS 1,000 ML 75 ML IV ×2 (10:35→18:39)
--- NOTE | 2024-01-30 11:31 | PDOC.CMIN ---
Date of service: 01/30/24 Time of Service: 11:31 Care Management Initial Assmt Initial Assessment REASON FOR HOSPITALIZATION:: femur fracture, subacute DVT PREVIOUS FUNCTIONAL STATUS/SOCIAL/FAMILY SUPPORTS:: Mei is currently residing at [facility] in [place] for short term rehab, which may transition to mcc care. Mei's daughter, Bryanna has been her primary caregiver at Bryanna's home in the past, until she was recently placed at [facility] in December 2023. Bryanna has been Mei's state appointed guardian since 2002, per staff at the [facility]. Mei also has a son, Theo, who lives locally and is also supportive. Mei requires support with ADL's at baseline. CURRENT FUNCTIONAL STATUS:: Mei was lying in bed when CM met with her. Her daughter, Bryanna was in the room visiting. Mei stated that she is doing ok, and confirmed that her plan is to go to the OR later this afternoon to fix her hip fracture. Bryanna stated that she isn't too happy with [facility], as her mother has only been there for about a month and she has been to the ED twice, and fallen, which resulted in this hospital admission. Per chart review, Mei had been falling at home as well, which is why she went to [facility] for short term rehab. Bryanna asked that referrals are sent to [facility] and [facility]; CM agreed to send the referrals once PT has evaluated her and made a recommendation for short term rehab. CM also explained that if Mei does not have a bed offer once she is ready for discharge, she will return to the [facility] for continued short term rehab. Bryanna stated that she plans to bring her mother home after her rehab, as she has been her time recorder caregiver for many years. CM will continue to follow. ADVANCE DIRECTIVES:: On file; Bryanna listed as HCA; Theo listed as alternate HCA. Has patient been provided with info about the portal/API?: Yes Did the patient sign up for the portal?: Yes (active) CODE STATUS:: Full Code INSURANCE COVERAGE / FINANCIAL ISSUES:: MCR. termite control servicer KAUSHAL; [employer]. CURRENT HOME/COMMUNITY SERVICES/EQUIPMENT:: Mei currently resides at [facility], where she is receiving short term rehab. PRIMARY CARE PHYSICIAN:: Ketan Tamez POTENTIAL DISCHARGE NEEDS:: Coordinated return to [facility], follow up appointments. PATIENT/FAMILY EDUCATION NEEDS:: Review discharge instructions and limitations, discussion of self care needs including ask me three. ANTICIPATED BARRIERS TO DISCHARGE:: None identified. TRANSPORTATION:: To be determined by mobility; RCT w/c van vs private vehicle. PLAN:: Mei is scheduled to go to the OR this afternoon. PT will evaluate her to help determine her level of care post surgically. Once she is medically cleared, she will return to [facility] for continued rehab. Transportation will be determined by her mobility at the time of discharge; likely w/c van vs private vehicle. She will follow up with her PCP and discharge plan of care. CM will continue to follow. PFSH All Active Problems (Updated 01/30/24 @ 14:24 by Luke Haley MD) Closed fracture of right proximal humerus (Acute) Fracture, intertrochanteric, left femur (Acute) Deep vein thrombosis (DVT) of left lower extremity (Acute) Malnutrition, calorie (Acute) Hearing loss (Acute) Sundowning (Acute) Pain, foot (Acute) Nail dystrophy (Acute) Urinary incontinence (Acute) Venous insufficiency (Acute) Fracture of base of fifth metatarsal bone of right foot (Acute) Right ankle pain (Acute) Seizure (Acute) Hand laceration (Acute) Contusion of head (Acute) Abnormal auditory perception (Acute) Bilateral sensorineural hearing loss (Acute) Vitamin D deficiency (Chronic) low level 2005; replacement, still marginal 08/2014 Seizure disorder (Chronic) most recent seizure 01/2015 Osteoporosis, unspecified (Chronic) Pos DEXA 08/2003; alendronate therapy through 2010; Vit D def 2005, replaced; Dilantin therapy risk 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 ORIF of the patella of her left knee. b. Appendectomy and tubal ligation in the same surgery, according to her. c. Tonsillectomy and adenoidectomy. d. Aneurysm repair on two occasions, 1971 and 1982. She gets repeat scans every so often for these. e. Bilateral cataract surgery. Aneurysm (Chronic) a. Positive for multiple aneurysms. As stated, she has had surgery for these aneurysms. She has been followed quite closely in the past, and now has been able to spread out her appointments with the neurologist as there has been no change in her scan since 1982, according to her and her caregiver. History of seizure (Chronic) a. Due to previous CVA. b. She has not had any in upwards of 13 to 15 years. COPD (chronic obstructive pulmonary disease) (Chronic) a. Vague history as she was a previous smoker. Surgical History cerebral aneurysm clipping (08/11/15) [facility] R nephrectomy & ovary (10/25/16) Dr Fong, [facility], carcinoma kidney EGD and Colonoscopy (09/28/16) Extraction of cataract (12/18/15) Cataract extraction with lens implant, left eye. Wyatt Nazario MD. Family History Mother , CA at age 75. Neoplasm liver or kidney CA Father , fall at age 63. No problems noted. Brother , LUNG CA No problems noted. Brother , Stomach CA at age 85. No problems noted. Social History Smoking/Tobacco Use Status: Former Tobacco Use Smoking risk assessment performed?: Yes Alcohol Intake: never Drug use: Never Substance use type: does not use Caregiver/Support person: Yes Household members: family and other Details: lives with daughter Housing: group home Number of Children: 2 Communication Needs: Corrective Lenses current occupation: retired from [employer], Dispatcher What is your relationship status?: Panel score (0-1 are the most socially isolated patients): 0 What type of physical activity do you participate in: none Seatbelt use: always Drive intox or ride w/intox driver examiner: No Working smoke detector in home: Yes Carbon monox detector in home: Yes Do you feel safe at home: Yes Do you feel safe in your relationship?: Yes Additional Social history: Lives at the [facility] temporarily SDOH(Care Management) Screening Will the Patient Participate in the Screening?: Unable to obtain Social Determinants of Health Comments(SDOH Details): came from [facility].
--- NOTE | 2024-01-30 13:01 | ANES.PREOP_ITS ---
General Info Date of Service Date Performed: 01/30/24 Height: 5 ft Weight: 46.04 kg Body Mass Index (BMI): 19.8 Surgical Procedure: Operation Date: 01/30/24 16:30 Proposed Procedure Side Surgeon p Hip TFNA Left Micky Sampson MD Meds Allergies and Home Medications Allergies Allergy/AdvReac Type Severity Reaction Status Date / Time aspirin AdvReac Intermediate GI Bleed Verified 01/30/24 01:34 Home Medication Medication Instructions Recorded acetaminophen 325 mg tablet 650 mg PO Q4H PRN 08/13/15 (Tylenol) cholestyramine (with sugar) 4 gram 8 g PO BID #378 grams 10/15/22 oral powder cholecalciferol (vitamin D3) 50 50 mcg PO DAILY #90 caps 03/11/23 mcg (2,000 unit) capsule ferrous gluconate 324 mg (37.5 mg 324 mg PO BID #180 tabs 03/11/23 iron) tablet omeprazole 20 mg capsule,delayed 20 mg PO DAILY #90 caps 03/11/23 release potassium chloride 10 mEq 20 meq (2 x 10 mEq) PO DAILY #180 03/11/23 tablet,extended release(part/cryst) tab-caps diaper,brief,adult,disposable #300 ea 04/01/23 (Undergarment misc) levetiracetam 500 mg tablet 500 mg PO BID #180 tabs 04/01/23 (Keppra) mirtazapine 15 mg tablet 15 mg PO QHS #90 tabs 04/15/23 food supplemt, lactose-reduced 237 ml PO DAILY #7,110 mL 01/02/24 (Ensure Original oral liquid) apixaban 5 mg (74 tabs) tablets in See Rx Instructions PO .COMPLEX 01/23/24 a dose pack (Eliquis DVT-PE Treat #74 dose pk 30D Start) multivitamin 1 tab PO DAILY 01/23/24 Current Visit Medications: Current Medications Generic Name Dose Route Start Last Admin Trade Name Freq PRN Reason Stop Dose Admin Acetaminophen 0 mg 01/30/24 04:01 Acetaminophen 325 Mg Tab PO Q4H PRN PRN Heparin Sodium/Sodium Chloride 25,000 unit in 250 mls @ 0 mls/hr 01/30/24 04:00 01/30/24 06:15 IV 18 mls/hr INFUSION LINCOLN Administration Per Protocol Dextrose/Lactated Ringer's 1,000 mls @ 75 mls/hr 01/30/24 04:15 01/30/24 10:35 Dextrose 5%-Lr IV 75 mls/hr INFUSION LINCOLN Administration Vancomycin HCl 1,000 mg/ 250 mls @ 166.6666 mls/hr 01/30/24 15:00 Sodium Chloride IVPB 01/30/24 16:29 PREOP ONE Levetiracetam 500 mg 01/30/24 08:30 01/30/24 08:33 Levetiracetam 500 Mg Tab PO 500 mg BID LINCOLN Administration Mirtazapine 15 mg 01/30/24 22:00 Mirtazapine 15 Mg Tab PO HS LINCOLN Morphine Sulfate 2 mg 01/30/24 02:54 01/30/24 05:00 Morphine 4 Mg/Ml Syr IVP 2 mg Q1H PRN PRN Administration Mupirocin 0 gm 01/30/24 14:00 Mupirocin 2% Oint. 22 Gm Tube TP TID LINCOLN Omeprazole 20 mg 01/31/24 07:30 Omeprazole 20 Mg Capcr PO DAILY@0730 [facility] Ondansetron HCl 4 mg 01/30/24 04:06 Ondansetron 4 Mg/2 Ml Vial IVP Q6H PRN PRN Polyethylene Glycol 17 gm 01/30/24 04:01 Polyethylene Glycol 3350 17 Gm Packet PO DAILY PRN PRN Constipation Sodium Chloride 0 ml 01/30/24 10:50 Normal Saline Flush 10 Ml Syr IVP PRN PRN PFSH Active Problems Active Problems: Problem Status Onset Code Closed fracture of right proximal humerus S42.201A Fracture, intertrochanteric, left femur S72.142A Deep vein thrombosis (DVT) of left lower extremity I82.402 Malnutrition, calorie E46 Hearing loss H91.90 Sundowning F05 Pain, foot M79.673 Nail dystrophy L60.3 Urinary incontinence R32 Venous insufficiency I87.2 Fracture of base of fifth metatarsal bone of right foot S92.351A Right ankle pain M25.571 Seizure R56.9 Hand laceration S61.419A Contusion of head S00.93XA Abnormal auditory perception H93.299 Bilateral sensorineural hearing loss H90.3 Vitamin D deficiency E55.9 Tremor 03/22/14 R25.1 Seizure disorder G40.909 Renal mass, right 07/19/16 N28.89 Renal cell carcinoma of right kidney 08/30/16 C64.1 Ovarian cyst, right 07/19/16 N83.201 Osteoporosis, unspecified M81.0 Nonruptured cerebral aneurysm 11/22/71 I67.1 Memory loss due to medical condition 11/22/71 R41.3 Iron deficiency anemia due to chronic blood loss 10/19/16 D50.0 Essential hypertension 02/24/12 I10 Chronic diarrhea 02/24/12 K52.9 Abnormal weight loss 01/28/14 R63.4 History of Surgical Procedure Z98.89 Aneurysm I72.9 History of seizure Z87.898 COPD (chronic obstructive pulmonary disease) J44.9 Surgical History Surgical History cerebral aneurysm clipping (08/11/15) [facility] R nephrectomy & ovary (10/25/16) Dr Fong, [facility], carcinoma kidney EGD and Colonoscopy (09/28/16) Extraction of cataract (12/18/15) Cataract extraction with lens implant, left eye. Wyatt Nazario MD. Tobacco Smoking/Tobacco Use Status: Former Tobacco Use Alcohol Alcohol Intake: never Substance Use Substance use: Never Substance use type: does not use Vital Signs and Lab Results Vital Signs Most Recent Vital Signs in EMR: Most Recent Vital Signs Temp Pulse Resp BP Pulse Ox 35.1 C L 87 18 134/77 92 01/30/24 07:49 01/30/24 07:49 01/30/24 07:49 01/30/24 07:49 01/30/24 07:49 Lab Results 01/30/24 02:35 01/30/24 02:35 Blood Type / Crossmatch: 2 No Data to Display Complete Blood Count: 2 White Blood Count 15.48 10^3/uL (4.4-10.8) H 01/30/24 02:35 Red Blood Count 3.75 10^6/uL (3.93-5.22) L 01/30/24 02:35 Hemoglobin 11.4 g/dL (11.2-15.7) 01/30/24 02:35 Hematocrit 36.5 % (36.0-46.0) 01/30/24 02:35 Platelet Count 489 10^3/uL (130-400) H 01/30/24 02:35 Complete Metabolic Panel: 2 Sodium 146 mmol/L (136-145) H 01/30/24 02:35 Potassium 4.0 mmol/L (3.5-5.1) 01/30/24 02:35 Chloride 108 mmol/L (98-107) H 01/30/24 02:35 Carbon Dioxide 29.4 mmol/L (21.0-32.0) 01/30/24 02:35 BUN 18 mg/dL (7-18) 01/30/24 02:35 Creatinine 0.9 mg/dL (0.55-1.02) 01/30/24 02:35 Est GFR (CKD-EPI 2020) 65.03 (mL/min/1.73m2) 01/30/24 02:35 Magnesium 1.8 mg/dL (1.8-2.4) 01/11/24 09:45 Calcium 8.9 mg/dL (8.5-10.1) 01/30/24 02:35 Albumin 2.6 g/dL (3.4-5.0) L 01/30/24 02:35 Glucose 120 mg/dL (74-106) H 01/30/24 02:35 Hemoglobin A1c 5.3 % (<5.7) 01/11/24 09:45 Liver Function Panel: 2 Alanine Aminotransferase (ALT/SGPT) 22 U/L (14-59) 01/30/24 02: 35 Aspartate Amino Transf (AST/SGOT) 22 U/L (15-37) 01/30/24 02:35 Coagulation Panel: 2 INR International Normalized Ratio 1.0 (0.9-1.1) 01/30/24 02:3 5 Prothrombin Time 10.3 sec (9.1-11.1) 01/30/24 02:35 Activated Partial Thromboplast Time > 155.0 sec (23.6-32.8) H* 01/30/24 12:00 Cardiac Panel: 2 No Data to Display Arterial Blood Gas: 2 No Data to Display Venous Blood Gas: 2 No Data to Display Pancreas Panel: 2 No Data to Display Thyroid Panel: 2 Thyroid Stimulating Hormone (TSH) 1.15 uIU/mL (0.36-3.74) 01/11 09:45 Infectious Disease: 2 No Data to Display Blood Cultures: 2 No Data to Display Toxicology Panel: 2 No Data to Display Imaging and Studies Imaging and Studies Study information below may be from another EMR and interpreted by another provider. Please see original notes in EMR for more complete details. EKG Summary: 01/30/24 Conclusion Sinus rhythm...normal P axis, V-rate 60- 99 Atrial premature complexes...SV complexes w/ short R-R intvls Probable left atrial enlargement...P >50mS, <-0.10mV V1 no ST segment or T wave abnormalities to suggest occlusive [place] Incomplete RBBB and LAFB...axis(240,-40), S>R II III aVF Echocardiogram Summary: Date of study: 08/19/2017 Transthoracic Echocardiography M-mode, complete 2D, complete spectral Doppler, and color Doppler *STUDY CONCLUSIONS* Impressions: No cardiac source of emboli was identified. Summary: 1. Left ventricle: The cavity size was normal. Wall thickness was normal. Systolic function was at the lower limits of normal. The estimated ejection fraction was 50-55%. Wall motion was normal; there were no regional wall motion abnormalities. 2. Mitral valve: Systolic bowing without prolapse. 3. Right ventricle: The cavity size was normal. Wall thickness was normal. Systolic function was normal. Pulmonary Function Summary: DATE OF SERVICE: July 13, 2016 PRIMARY CARE PROVIDER: Nola Nguyen N.P. INTERPRETATION OF STUDY: Spirometry shows no evidence of obstructive airways disease. No bronchodilator response. LUNG VOLUMES: Lung volumes moderate restriction. DIFFUSION CAPACITY: Severe reduced, which is mildly reduced when corrected to alveolar volume and represents a somewhat suboptimal patient effort. AIRWAY RESISTANCE: Elevated. IMPRESSION: Moderately severe restrictive lung disease. This is associated with significant diffusion defect. The true extent of the diffusion defect is difficult to characterize as the efforts for diffusion capacity maneuver was somewhat poor therefore clinical correlation recommended. Anesthesia Assessment and Plan Anesthesia History Personal History: No History of Anesthesia Complications Family History: No Family History of Anesthesia Complications Exercise Tolerance Exercise Tolerance: Metabolic Equivalents<4 Pertinent Negatives Pertinent Negatives: No Symptoms of GERD, No Major Cardiovascular Symptoms or Complaints and No Major Pulmonary Symptoms or Complaints Cardiac & Pulmonary Exam Cardiac Exam: Normal S1/S2 Heart Sounds Pulmonary Exam: Clear Bilateral Breath Sounds Implantable Cardiac Device Does patient have a Pacemaker or an ICD?: No Airway Exam Known Difficult Airway: No Mallampati Class: 3 Mouth Opening: Normal (> 3cm) Thyromental Distance: Greater than 3 cm Neck Range of Motion: Full ROM Neck Circumference: Normal Teeth Condition: Edentulous ASA Classification ASA Score: ASA 3 Emergency Case?: No NPO Status NPO Status: NPO Clears >2 hours, Solids >8 hours Anesthesia Plan Resuscitation Status: Full Code Anesthesia Technique: General Anesthesia Airway Planned: Endotracheal Tube Monitors Used: Standard Monitors
--- NOTE | 2024-01-30 13:43 | W.PM.PROGNOT ---
Date of Service Date of service: 01/30/24 Time of Service: 13:43 Assessment and Plan Assessment and plan (1) Femur fracture, left: Status: Deleted Assessment and plan: s/p mechanical fall unwitnessed but w/out LOC . She is high risk for surgery d/t recent DVT, unknown as to whether or not she had concommittant P.E. at the time of her DVT, however, clinically she is not behaving as if she has a P.E. i.e. no tachyardia, dyspnea or hypoxemia. I do not think that preop investigating as to the presence or abscence of a P.E. would alter our treatment. She needs opeartive hip repair if she is to avoid the attending complications of unrepaired fracture, i.e. increased mortality, morbidity. We will hold her heparin for 2 hours preoperatively, and then resume her heparin immediately postoperatively checking her activated PTT immediately postoperatively and bolusing her heparin if needed. She will go back on her apixaban 12h after her surgery. She will need to go back on 10 mg bid x 7 days as she has had an interruption in her treatment. Of course this will increase her risks of perioperative bleeding but this can be treated w/ transfusion as needed. Professional time spent interviewing and examining patient, discussion of goals of care with hospital team (care management, nursing and consulting professionals) was 60 minutes. Qualifiers: Encounter type: initial encounter Femur location: intertrochanteric Fracture alignment: displaced Fracture type: closed Qualified Code(s): S72.142A - Displaced intertrochanteric fracture of left femur, initial encounter for closed fracture (2) Deep vein thrombosis (DVT) of left lower extremity: Status: Acute Assessment and plan: as above Qualifiers: Affected thrombotic vein of extremity: iliac Chronicity: acute Qualified Code(s): I82.422 - Acute embolism and thrombosis of left iliac vein (3) Seizure disorder: Status: Chronic Assessment and plan: No recent seizure activity noted and will continue her usual Keppra. Subjective Subjective Interval history since last seen: Patient presented to the hospital w/ displaced left IT femur fracture. This is the same leg she has an extensive DVT which was just diagnosed 3/ and put on apixaban. I have discussed her case extensively w/ both Dr. Sampson, orthopedic surgeon and Ermias Bal, nurse product manager medical device, both before and after I had discussed her case w/ the PERT team, specifically, Dr. Henrry Broussard, cardiology at [facility] who also spoke w/ vascular surgery. In summary, the risks of delaying her repair of her IT fracture out weigh the risks of brief temporary hold on her heparin drip for her DVT. I have explained this to her daughter and she agrees w/ proceeding w/ the hip repair. Apparently the patient has had hx of multiple falls at home as well as at [facility]. Exam Narrative Exam Narrative: Elderly white female lying in bed on the right side she is alert oriented to person and circumstance. Lungs are clear to auscultation Heart is regular rate and rhythm without appreciable murmur rub or gallop Abdomen soft nontender nondistended Lower extremities marked edema of her left leg from her hip down to her ankle when compared to her right leg which is not edematous. She has intact pedal pulses. Left leg is foreshortened and internally rotated. Objective Last Vital Signs Temp 35.1 C L 01/30/24 07:49 Pulse 87 01/30/24 07:49 Resp 18 01/30/24 07:49 BP 134/77 01/30/24 07:49 Pulse Ox 92 01/30/24 07:49 Laboratory Results - last 24 hr 01/30/24 01/30/24 01/30/24 02:35 04:18 06:50 WBC 15.48 H RBC 3.75 L Hgb 11.4 Hct 36.5 MCV 97 H MCH 30.4 MCHC 31.2 L RDW 14.8 H Plt Count 489 H MPV 9.9 Immature Gran % 1.6 Neutrophils % 78.4 Lymphocytes % 13.0 Monocytes % 5.7 Eosinophils % 0.6 Basophils % 0.7 Nucleated RBC % 0.0 Absolute Neutrophils 12.14 H Absolute Lymphocytes 2.01 Absolute Monocytes 0.88 H Absolute Eosinophils 0.09 Absolute Basophils 0.11 PT 10.3 INR 1.0 APTT 28.1 > 155.0 H* Sodium 146 H Potassium 4.0 Chloride 108 H Carbon Dioxide 29.4 Anion Gap 8.6 BUN 18 Creatinine 0.9 Est GFR (CKD-EPI 2020) 65.03 Glucose 120 H Calcium 8.9 Total Bilirubin 0.2 AST 22 ALT 22 Alkaline Phosphatase 113 Total Protein 6.8 Albumin 2.6 L Urine Color Urine Clarity Urine pH Ur Specific [place] Urine Protein Urine Ketones Urine Blood Urine Nitrite Urine Bilirubin Urine Urobilinogen Ur Leukocyte Esterase Urine Glucose MRSA (TEM-PCR) Positive A 01/30/24 07:10 WBC RBC Hgb Hct MCV MCH MCHC RDW Plt Count MPV Immature Gran % Neutrophils % Lymphocytes % Monocytes % Eosinophils % Basophils % Nucleated RBC % Absolute Neutrophils Absolute Lymphocytes Absolute Monocytes Absolute Eosinophils Absolute Basophils PT INR APTT Sodium Potassium Chloride Carbon Dioxide Anion Gap BUN Creatinine Est GFR (CKD-EPI 2020) Glucose Calcium Total Bilirubin AST ALT Alkaline Phosphatase Total Protein Albumin Urine Color Yellow Urine Clarity Clear Urine pH 5.5 Ur Specific [place] 1.020 Urine Protein Negative Urine Ketones Negative Urine Blood Negative Urine Nitrite Negative Urine Bilirubin Negative Urine Urobilinogen 0.2 Ur Leukocyte Esterase Negative Urine Glucose Negative MRSA (TEM-PCR) Time Spent with Patient Time Spent with Patient: >50 minutes Time was spent: preparing to see the patient(eg.review tests), ordering medications,tests, procedures, referring, communicating with other health home care liaison, indepentently interpreting results, counseling the patient and care coordination
[2024-01-30 14:33] LABS: PTT Activated > 155.0 sec (23.6-32.8)
[2024-01-30] MEDS: VANCOMYCIN/WATER (PEG) 1 GM/200 ML BAG IV (14:55)
[2024-01-30] MEDS: Normal Saline Flush 10 ML SYR IVP (14:56)
--- NOTE | 2024-01-30 16:00 | DI.RAD_ITS ---
Exam(s) XR HIP LT IN OR EXAM: XR HIP LT IN OR CLINICAL HISTORY: LEFT HIP FRACTURE. TECHNIQUE: 2D digital imaging was performed. COMPARISON: No exams were available for comparison FINDINGS: Fluoroscopy provided during ORIF left hip fracture. See procedure report for details Total fluoroscopy time 38.9 seconds IMPRESSION: Radiation exposure index/cumulative dose: richard Borja= 2.78 mGy DATA REPOSITORY: RADIATION DOSE DELIVERED:
[2024-01-30] MEDS: Mupirocin 2% Oint. 22 GM TUBE TP ×2 (16:05→20:36)
[2024-01-30] MEDS: Lactated Ringers 1,000 ML 30 ML IV (16:45)
--- NOTE | 2024-01-30 18:00 | W.ANESPOSTOP ---
Postoperative Evaluation Date, Time and Location Date Performed: 01/30/24 Time Performed: 17:25 Patient Location: PACU Vital Signs Most Recent Imported Vital Signs: Most Recent Vital Signs Temp Pulse Resp BP Pulse Ox 36.6 C 94 H 17 106/45 L 93 01/30/24 17:20 01/30/24 17:20 01/30/24 17:20 01/30/24 17:20 01/30/24 17:20 Pain Score Most Recent Pain Score: Most Recent Pain Score Pain Level [Generalized] 0 01/30/24 16:21 Pain Level [Left Hip] 7 01/30/24 01:41 Pain Level 0 01/30/24 17:20 Assessment Mental Status: Awake (Alert & Oriented to Patient Baseline) Airway and Respiratory Function: Patent airway with normal (patient baseline) respiratory exam Cardiovascular Function: Hemodynamically Stable Hydration Status: Adequately Hydrated Nausea & Vomiting: No Nausea or Vomiting Pain: Pt. Denies Any Pain Peripheral Nerve Block: Patient did not receive a nerve block
[2024-01-30 18:57] LABS: PTT Activated 44.2 sec (23.6-32.8)
[2024-01-30] MEDS: Heparin in 0.45% NaCl 25,000 UNIT/250 ML BAG 19 UNIT IV (19:23)
--- NOTE | 2024-01-30 20:59 | W.PM.OP ---
Date of service: 01/30/24 Time of Service: 16:00 Operative Note Operative Note DATE OF PROCEDURE: 01/30/24 PRE-OP DIAGNOSIS: Left Intertrochanteric Femur Fracture POST-OP DIAGNOSIS: same PROCEDURE: Intramedullary Fixation of Proximal Left Femur Fracture SURGEON: Micky Sampson ANESTHESIA TYPE: General LMA/ETT Refer to Anesthesia Record ESTIMATED BLOOD LOSS: 300 PATHOLOGY: none sent COMPLICATIONS: None Patient was transported to: PACU Patient's condition: stable Implants: Depuy-Synthes TFNA 11mm x 170mm Indications: Mei who presented to the Emergency Department after a fall. X-rays confirmed the diagnosis of a intertrochanteric fracture of the proximal femur. I reviewed the possible treatment options and given the fracture of the femur, I recommened operative fixation. I discussed the technical details of the surgery. I reviewed the risks such as bleeding, infection, pain, stiffness, malunion, nonunion, hardware prominence, hardware faiilure, malrotation, avascular necrosis, blood clot. Despite these risks, she and her daughter, power of contracts attorney, agreed to proceed. This case is complicated by a recently diagnosed and extensive clot about the left, ipsilateral, leg. After discussion with the medicine team and anesthesia as well as consultation with [facility], it was agreed that we would continue anticoagulation with only brief pause in her heparin and is quick restart of the Eliquis to minimize any downtime. Therefore, surgery was planned to start exactly 2 hours after cessation of the heparin drip. Findings: There was a fracture of the proximal femur which was able to be reduced with traction and internal rotation and external manipulation. Procedure Description: Mei was taken back to the operating room. A general anesthetic was administered. The feet were wrapped with cast padding and Coban and then placed into the boot liners and then into the boots. Care was taken to protect the skin and make sure the heels were fully down and the boots were stable. The patient was then positioned onto the HANA table. Both legs were held in a neutral position. SCDs were applied. The patient was then slid down onto a perineal post. The arm of the operative side was then placed across the chest and secured. The nonoperative leg was scissored. A gentle reduction was then performed with traction and internal rotation and gentle external manipulation. Prophylactic antibiotics in the form of Cefazolin were administered. The left leg was then prepped with Chloraprep and draped in a standard fashion with shower-curtain type drape with Iodine impregnated skin protection. A timeout to confirm correct identity, side and site, procedure, allergies, anesthesia, and medical concerns was performed. Using fluoroscopy, the starting point was marked over the lateral hip, proximal to the tip of the greater trochanter. A 3cm incision was made through skin and the fascia of the gluteus musculature until the tip of the trochanter was palpable. The starting wire was placed onto the tip, just slightly on the media aspect, and centered in the AP plane. Using a nicole, the starting guide wire was buried into the bone. A lateral x-ray confirmed appropriate position and the guidewire was advanced to the level of the lesser trochanter. With a tissue protector, the proximal femur was opened with the opening reamer. The short TFNA was chosen for this case and a Synthes TFNA [id number] nail was selected and opened on the back table. The nail was assembled to the aiming arm on the back table and confirmed to be aligned with the triple sleeve for blade insertion. Using manual force the nail was advanced into the femur. A few light mallet blows advanced the nail to its appropriate position. The triple sleeve was inserted through the targeting arm and the skin, soft tissue, and IT band was then incised. The triple sleeve was advanced down to the lateral femur. A guidewire was advanced into the femoral head where it was noted to be centered. A lateral x-ray was used to confirm centered positioning on the lateral. Happy with the length of the guidewire, this was measured. A 85mm helical blade was opened. The lateral cortex was opened and the path of the blade was reamed with a tapered reamer to appropriate depth. The helical blade was malletted into position and confirmed to be appropriately located on fluoroscopy. The set screw was advanced to a half turn shy of fully tightened, allowing for the helical blade to slide. The targeting device was removed. AP and lateral x-rays of the hip confirmed appropriate positioning within the femur and with good alignment of the fracture. Using the targeting arm, the skin was incised for placement of the distal locking screw. The trochar was inserted through the skin and IT band down onto the lateral cortex of the femur. The 4.2mm drill was advanced across the femur and through the nail. This was measured and an appropriately sized 5.0mm screw was placed. The targeting arm was removed. Final x-rays were obtained. The wounds were thoroughly irrigated. A cocktail consisting of 123mg of Ropivacaine, 0.25mg of Epinephrine, 0.04mg of Clonidine, and 15mg of Ketorolac, diluted to 50cc was injected throughout the wounds both deep and superficially. The deep fascia of the proximal two wounds was reapproximated with a 0 Vicryl. The deep tissues were closed with a 2-0 Vicryl and the skin was closed with a running subcuticular Monocryl. The wounds were dressed with a Mepilex silver dressing. At the end of the case, all counts were correct. Mei tolerated the procedure well without known complication and was taken to the PACU for recovery. Physical therapy will start post-operatively, weigh-bearing as tolerated with assistive devices. Anticoagulation will start within 12-24 hours. 3 doses of post-operative antibiotics for prophylaxis will be administered.
[2024-01-30] MEDS: ceFAZolin 1 GM/50 ML BAG IVPB (23:29)
[2024-01-31] VITALS (20 sets, daily range): BP systolic 92–127; BP diastolic 50–76; PULSE 76–115; RESP 12–20; TEMP 35.8–36.9; O2SAT 92–97
[2024-01-31 02:22] LABS: PTT Activated > 155.0 sec (23.6-32.8)
[2024-01-31 04:38] LABS: PTT Activated > 155.0 sec (23.6-32.8)
[2024-01-31 06:47] LABS: MCH 30.1 pg (27.0-33.0); MCHC 31.6 % (32.0-36.0); MCV 95 fL (80-95); MPV 9.8 fL (8.0-11.0); Platelet Count 386 10^3/uL (130-400); RBC 2.16 10^6/uL (3.93-5.22); RDW 15.1 % (11.7-14.6); RDW-SD 52.2 fL; WBC 20.63 10^3/uL (4.4-10.8)
[2024-01-31 06:56] LABS: HCT 20.6 % (36.0-46.0); HGB 6.5 g/dL (11.2-15.7)
[2024-01-31 06:58] LABS: PTT Activated 63.8 sec (23.6-32.8)
--- NOTE | 2024-01-31 07:00 | DI.RAD_ITS ---
Exam(s) XR SHOULDER RT COMPLETE 2+V EXAM: XR SHOULDER RT COMPLETE 2+V CLINICAL HISTORY: eval R proximal humerus fracture. TECHNIQUE: 2D digital imaging was performed. COMPARISON: CR XR SHOULDER RT COMPLETE 2+V from 01/06/2024 FINDINGS: There is relatively stable appearance of the humeral head-neck fracture site which is again noted be somewhat impacted. There is no dislocation of the glenohumeral joint. No osseous lesions. IMPRESSION: Relatively stable appearance at the femoral head-neck fracture site DATA REPOSITORY: RADIATION DOSE DELIVERED:
[2024-01-31] MEDS: levETIRAcetam 500 MG TAB PO ×2 (08:33→20:11)
[2024-01-31] MEDS: Omeprazole 20 MG CAPCR PO ×2 (08:34→20:11)
[2024-01-31] MEDS: Apixaban 5 MG TAB 10 MG PO ×2 (08:35→20:11)
--- NOTE | 2024-01-31 08:36 | PGE_ITS ---
Date of Service Date of service: 01/31/24 Time of Service: 08:36 Assessment and Plan Assessment and plan (1) Femur fracture, left: Status: Deleted Assessment and plan: Postop day #1 left IT intramedullary fixation of the proximal left femur fracture Encourage use of I-S, mobilization, physical therapy, leave Graham out as she is more likely to continue pulling this out. Transfuse 2 units of packed red cells with a goal of hemoglobin greater than 8 g. I have increased her Prilosec to 20 mg twice a day for increased GI protection. Check stool for occult blood however likely source of acute blood loss is combination of dilution and bleeding from the hip fracture. Should now stabilize now that IT fracture has been fixated with IM nailing. Discontinue heparin restart apixaban. As the patient had an interruption in her therapy and was never originally placed on starting dose of apixaban 10 mg twice daily x 7 days will restart her initial dose of 10 mg twice daily after 1 week dropped down to 5 mg twice daily. Professional time spent interviewing and examining patient, discussion of goals of care with hospital team (care management, nursing and consulting pro fessionals) was 45 minutes. Case discussed with Dr. Sampson as well as primary nursing Qualifiers: Encounter type: initial encounter Femur location: intertrochanteric Fracture type: closed Fracture alignment: displaced Qualified Code(s): S72.142A - Displaced intertrochanteric fracture of left femur, initial encounter for closed fracture (2) Acute blood loss anemia (ABLA): Status: Acute (3) Deep vein thrombosis (DVT) of left lower extremity: Status: Acute Qualifiers: Affected thrombotic vein of extremity: iliac Chronicity: acute Qualified Code(s): I82.422 - Acute embolism and thrombosis of left iliac vein (4) Seizure disorder: Status: Chronic Assessment and plan: No recent seizure activity noted and will continue her usual Keppra. Subjective Subjective Interval history since last seen: Patient denies any pain this morning. She did well w/ her surgery however, she is more anemic this morning Hb dropped to 6.5 gm. I suspect some bleeding from the hip w/ being on heparin right up to two hours before her surgery. Some may be dilutional as she did get some fluid boluses in the OR yesterday. Patient did pull out her Graham catheter during the night. She still has her midline in place. We will leave her Graham catheter out and place a pure wick. Exam Narrative Exam Narrative: Elderly female lying in bed no acute distress she is alert and oriented to person denies any current pain. Neck no JVD Lungs clear to auscultation Heart is regular rate and rhythm with a harsh grade 3 systolic murmur over the apex consistent with MR no thrill or heave Abdomen soft nondistended nontender normal bowel sounds Extremities left thigh is edematous although may down to her calf and ankle although it is less so than it was yesterday. Denies any bruising around the surgical site. Hip is nontender to palpation. Intact pedal pulses in both feet. Right leg is without edema. Neuroexam no focal motor or sensory deficits no focal cranial nerve deficits. Cognition appears to be at baseline with moderate dementia. She is alert and pleasant and conversant. Objective Last Vital Signs Temp 36.5 C 01/31/24 07:44 Pulse 109 H 01/31/24 07:44 Resp 20 01/31/24 07:44 BP 92/64 L 01/31/24 07:44 Pulse Ox 94 01/31/24 07:44 Laboratory Results - last 24 hr 01/30/24 01/30/24 01/30/24 07:10 12:00 17:50 WBC RBC Hgb Hct MCV MCH MCHC RDW Plt Count MPV APTT > 155.0 H* 44.2 H Urine Color Yellow Urine Clarity Clear Urine pH 5.5 Ur Specific Neola 1.020 Urine Protein Negative Urine Ketones Negative Urine Blood Negative Urine Nitrite Negative Urine Bilirubin Negative Urine Urobilinogen 0.2 Ur Leukocyte Esterase Negative Urine Glucose Negative Crossmatch 01/31/24 01/31/24 01/31/24 01:27 03:35 06:30 WBC 20.63 H RBC 2.16 L Hgb 6.5 L* D Hct 20.6 L* MCV 95 MCH 30.1 MCHC 31.6 L RDW 15.1 H Plt Count 386 MPV 9.8 APTT > 155.0 H* > 155.0 H* 63.8 H Urine Color Urine Clarity Urine pH Ur Specific Neola Urine Protein Urine Ketones Urine Blood Urine Nitrite Urine Bilirubin Urine Urobilinogen Ur Leukocyte Esterase Urine Glucose Crossmatch 01/31/24 08:20 WBC RBC Hgb Hct MCV MCH MCHC RDW Plt Count MPV APTT Urine Color Urine Clarity Urine pH Ur Specific Neola Urine Protein Urine Ketones Urine Blood Urine Nitrite Urine Bilirubin Urine Urobilinogen Ur Leukocyte Esterase Urine Glucose Crossmatch See Detail Time Spent with Patient Time Spent with Patient: 35-49 minutes Time was spent: preparing to see the patient(eg.review tests), ordering medications,tests, procedures, referring, communicating with other health nursing care attendant (Dr. Sampson and primary nursing), indepentently interpreting results and care coordination
[2024-01-31] MEDS: Normal Saline Flush 10 ML SYR IVP (08:37)
[2024-01-31] MEDS: DEXTROSE 5%-LACTATED RINGERS 1,000 ML 75 ML IV (08:38)
[2024-01-31] MEDS: ceFAZolin 1 GM/50 ML BAG IVPB ×2 (08:44→15:43)
[2024-01-31] MEDS: Mupirocin 2% Oint. 22 GM TUBE TP ×3 (10:50→20:22)
[2024-01-31] MEDS: Acetaminophen 325 MG TAB PO ×2 (11:49→20:10)
[2024-01-31] MEDS: Ondansetron 4 MG/2 ML VIAL IVP (11:50)
--- NOTE | 2024-01-31 11:59 | PDOC.CMPRO ---
Date of service: 01/31/24 Time of Service: 11:59 Care Management Progress Note Progress Note Text Progress Note Text: S/O: Mei was sitting up in bed when CM met with her. She stated that she is feeling better today. She was pleasantly confused, and did not recall going to the OR yesterday. Her RN was in the room, as she was receiving a unit of blood, due to her Hgb dropping to 6.5 this morning. CM reviewed her discharge plan, although she is not medically cleared for discharge today. She stated that she is happy to return to the [facility], as she enjoys it there. Her daughter requested that referrals are sent to [facility] and [facility]. Mei also stated that this would be ok, and agreed to have the referrals sent after she is evaluated by PT. CM will send referrals to [facility] and [facility], at her request, once the PT evaluation is available. CM will continue to follow. A: Mei is a 78 year old female admitted to [facility] on 01/30/24 with a left femur fracture. P: Mei will be evaluated by PT today to help determine her level of care post surgically. Once she is medically cleared, she will likely return to [facility] for continued rehab. Transportation will be determined by her mobility at the time of discharge; likely w/c van vs private vehicle. She will follow up with her PCP and discharge plan of care. CM will continue to follow. SDOH(Care Management) Screening Will the Patient Participate in the Screening?: Unable to obtain Social Determinants of Health Comments(SDOH Details): [facility]
--- NOTE | 2024-01-31 14:03 | IN_ITS ---
PT Notes Visit Reasons: femur fracture, subacute DVT Physical Therapy Inpatient Initial Evaluation Date: 01/31/2024 Referring Doctor: Micky Sampson MD PT Orders: PT CONSULT: S/P Ortho Surgery Precautions: Fall. Standard. WBAT on the L LE with AD. Patient Profile/Admitting Diagnosis: Mei is a 78-year-old female who presented to the ED on 01/30/2024 due to worsening report of left hip pain related to unwitnessed fall at the SNF where she has been residing. Patient is admitted for management of DVT of left LE, seizure disorder, and left intertrochanteric fracture and is status post intramedullary fixation on postoperative day . PMHX: All Active Problems (Updated 01/30/24 @ 04:21 by Fredrick Arreola MD) Femur fracture, left (Acute) Deep vein thrombosis (DVT) of left lower extremity (Acute) Malnutrition, calorie (Acute) Hearing loss (Acute) Sundowning (Acute) Pain, foot (Acute) Nail dystrophy (Acute) Urinary incontinence (Acute) Venous insufficiency (Acute) Fracture of base of fifth metatarsal bone of right foot (Acute) Right ankle pain (Acute) Seizure (Acute) Hand laceration (Acute) Contusion of head (Acute) Abnormal auditory perception (Acute) Bilateral sensorineural hearing loss (Acute) Vitamin D deficiency (Chronic) low level 2005; replacement, still marginal 08/2014 Seizure disorder (Chronic) most recent seizure 01/2015 Osteoporosis, unspecified (Chronic) Pos DEXA 08/2003; alendronate therapy through 2010; Vit D def 2005, replaced; Dilantin therapy risk 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 ORIF of the patella of her left knee. b. Appendectomy and tubal ligation in the same surgery, according to her. c. Tonsillectomy and adenoidectomy. d. Aneurysm repair on two occasions, 1971 and 1982. She gets repeat scans every so often for these. e. Bilateral cataract surgery. Aneurysm (Chronic) a. Positive for multiple aneurysms. As stated, she has had surgery for these aneurysms. She has been followed quite closely in the past, and now has been able to spread out her appointments with the neurologist as there has been no change in her scan since 1982, according to her and her caregiver. History of seizure (Chronic) a. Due to previous CVA. b. She has not had any in upwards of 13 to 15 years. COPD (chronic obstructive pulmonary disease) (Chronic) a. Vague history as she was a previous smoker. Surgical History Cerebral aneurysm [place] (08/11/15[place] [facility] [place] [place] (10/25/16) Dr Fong, [facility] [place], carcinoma kidney EGD and Colonoscopy (09/28/16) Extraction of cataract (12/18/15) Cataract extraction with lens implant, left eye. Wyatt Nazario MD. Social History/Home Situation: Impaired historian due to pre-existing pre-existing cognitive issue. SNF resident. Per NAY Schaffer's notes: Mei is currently residing at [facility] in [place] for short term rehab, which may transition to senior living care. Mei's daughter, Bryanna has been her primary caregiver at [facility] home in the past, until she was recently placed at [facility] in December 2023. Bryanna has been Mei's state appointed guardian since 2002, per staff at the [facility]. Mei also has a son, Theo, who lives locally and is also supportive. Mei requires support with ADL's at baseline. Equipment Owned/DME: SNF resident Subjective: What time do you get up? Is it the day after [place]. Stated that she feels better and agreeable to sit up at edge of bed. reported mild dizziness with about 3-4 minutes of standing at bedside. Objective: General Observation: IV through L UE, currently receiving one PRBC. Swelling in L LE, grade 1 pitting in leg area. Mepilex Ag over surgical incision. Mental Status: Alert and oriented only to self but not place and time. Able to follow single step commands. Pain: Minimal to moderate pain through R LE with weight bearing and movement Vital Signs: BP in sitting at 117/70s mmHg and in standing 108/47 mmHg ROM: Right Upper Extremity: Grossly WFL Left Upper Extremity: Grossly WFL Right Lower Extremity: Unwilling to fully and actively move L LE towards edge of bed, grossly lacks about 75% of active ROM due to pain Left Lower Extremity: Hip flexion WFL. Hip abduction WFL. Knee flexion WFL. Ankle dorsiflexion WFL. Ankle plantarflexion WFL. Strength: Right Upper Extremity: Grossly 3/5 Left Upper Extremity: Grossly 3/5 Right Lower Extremity: Grossly 2-/5 Left Lower Extremity: Grossly 4-/5 Bed Mobility/Transfers: Moderate to maximal verbal, tactile and visual cueing provided for use of B hands as needed for support, movement sequence, AD management, and posture to reduce fall risk and minimize pain report. Rolling moderate assist of 2 Supine to sit moderate assist of 2 Sit to supine moderate assist of 2 Sit to stand moderate assist of 2 Stand to sit minimal assist of 2 Gait: Deferred due to decreasing BP and report of beginning lightheadedness after statically standing for about 4 minutes. Did do a partial side step onto her right but needed to sit down immediately after. Student Nurse jessica assisted for safety. Balance: Static Sitting:Fair Dynamic Sitting: Fair Static Standing: Poor Dynamic Standing: Unable Special Tests: Mobility Limitations Standardized Measure [facility] AM-PAC 6 clicks Basic Mobility Inpatient Short Form: Raw Score: 9 CMS Score: 81% deficit Informed Consent/Education: Patient was instructed in purpose of PT consult and plan of care. Agreeable sitting up and standing up for this session. ASSESSENT: Assist of 2 for all stand pivot transfers using FWW. Ambulation with physical therapy only. Patient presents with clinical signs and symptoms consistent with current/admitting diagnoses that have resulted to mobility limitations, gait instability, generalized weakness, and overall ADL decline as demonstrated by the following impairment level findings: 1. Decreased strength to B UE/LE major muscle groups. L LE most affective due to post op pain status 2. Impaired sitting/standing balance 3. Impaired activity tolerance 4. Limitation of joint range of motion in L LE 5. Impaired cognition 6. Impaired safety awareness Impairments are contributing to the following functional limitations: 1. Decline in bed mobility skills 2. Decline in transfer skills 3. Difficulty with ambulation without assistive device and physical assistance 4. Increased completion time for mobility ADL performance 5. Increased risk for falls 6. Difficulty with managing steps alone safely Patient is assessed as a 39202 high complexity based on the following: History: 78-year-old female with past medical history as indicated above Examination: Demonstrable impairment in strength, balance, and mobility level with underlying impairments and functional limitations as exhibited above as well as deficit score of 81% utilizing the [facility] Mobility Inpatient Short Form Presentation: Evolving Decision Makin low complexity Goals: Goals X1 week 1. Supine-Sit CGA 2. Sit-Supine CGA 3. Sit-Stand CGA 4. Stand-Sit CGA with FWW 5. Bed-Chair CGA with FWW 6. Chair-Bed CGA with FWW 7. Min A gait on level surface with use of [] for at least [] feet without report of pain nor dyspnea 8. Fair static and dynamic standing balance/tolerance Plan of Care/Treatment Plan: 1-2x/day, 7 days/week x 1 week. Plan of care has been reviewed with the BEAM WORKER providing the service under Physical Therapy direction. Initiate Physical Therapy intervention for pain management as needed, strengthening, bed mobility, transfers, gait, stairs, balance training, and use of assistive device. PREMEDICATE for pain. DISCHARGE RECOMMENDATIONS: [] Home with no services [] [] Home with services [specify] [] Home with outpatient PT [] [X] SNF for continued rehabilitation. Patient will benefit from group home facility placement for continued skilled physical therapy services in order to progress mobility level, strength, and balance to reduce fall risk and minimiaze pain. [] Retirement Care [] [] SNF versus LTC based on ability to participate and progress [] TREATMENT CODE/TIME: 9716 2 x 25 minutes for 1 unit, 9753 0 x 13 minutes for 1 unit (14:03-14:41). Thank you for the opportunity to participate in the care of this patient. Arleen Lopez PT, DPT, CLT [facility] [place], [place]
[2024-01-31 16:09] LABS: HCT 29.6 % (36.0-46.0)
[2024-01-31 16:10] LABS: HGB 9.4 g/dL (11.2-15.7)
[2024-01-31 16:21] LABS: Anion Gap 7.5 mmol/L (3-11); BUN 22 mg/dL (7-18); CO2 26.5 mmol/L (21.0-32.0); CREATININE 0.9 mg/dL (0.55-1.02); Calcium 7.9 mg/dL (8.5-10.1); Chloride 107 mmol/L (98-107); Estimated GFR 65.03 (mL/min/1.73m2); Glucose 107 mg/dL (74-106); Potassium 4.1 mmol/L (3.5-5.1); Sodium 141 mmol/L (136-145)
[2024-01-31] MEDS: DEXTROSE 5%-LACTATED RINGERS 1,000 ML 125 ML IV (18:31)
[2024-01-31] MEDS: Mirtazapine 15 MG TAB PO (20:11)
--- NOTE | 2024-01-31 22:08 | PGE_ITS ---
Date of Service Date of service: 01/31/24 Time of Service: 07:10 Assessment and Plan Assessment and plan (1) Closed fracture of right proximal humerus: Status: Acute Assessment and plan: Subacute fracture of the right proximal humerus. This is an impacted fracture with some varus angulation. At this point this is a stable injury and nothing more needs to be done. However, she may use the arm for transfers and mobilization. Gentle motion at her side and up to shoulder height is acceptable and PT can start working with her on this right shoulder in addition to the left leg. Any reported acute pain with range of motion exercises should be used as a guide to acceptable range of motion. (2) Fracture, intertrochanteric, left femur: Status: Acute Assessment and plan: Postop day #1 status post intramedullary nail fixation of the left proximal femur. In general, she is doing well. There is been no signs of clot propagation with stable vital signs. Transition off the heparin to apixaban today. Begin physical therapy. She is weightbearing as tolerated. Reinforce or change dressings as needed although currently they appear to be not saturated or soiled at all Subjective Subjective Interval history since last seen: Mei reports to be doing okay. She was confused last night and pulled out her Graham catheter. Her vital signs have been stable. She denies any significant pain. Exam Narrative Exam Narrative: Resting in the hospital bed. No acute distress. Confused this morning. Left lower extremity has clean dry and intact dressings. Notable swelling about the whole left leg although subjectively seems to be slightly less than that has been. No significant ecchymosis. She is able to tolerate internal and external rotation of the left hip although resting the bed she had a flexed and internally rotated posture. She does not follow commands completely but does demonstrate active ankle dorsiflexion and plantarflexion as well as great toe extension and flexion on the left side. Objective Last Vital Signs Temp 36.6 C 01/31/24 20:23 Pulse 76 01/31/24 20:23 Resp 19 01/31/24 20:23 BP 127/71 01/31/24 20:23 Pulse Ox 97 01/31/24 20:23 Laboratory Results - last 24 hr 01/31/24 01/31/24 01/31/24 01:27 03:35 06:30 WBC 20.63 H RBC 2.16 L Hgb 6.5 L* D Hct 20.6 L* MCV 95 MCH 30.1 MCHC 31.6 L RDW 15.1 H Plt Count 386 MPV 9.8 APTT > 155.0 H* > 155.0 H* 63.8 H Sodium Potassium Chloride Carbon Dioxide Anion Gap BUN Creatinine Est GFR (CKD-EPI 2020) Glucose Calcium Patient ABO/Rh Antibody Screen Crossmatch 01/31/24 01/31/24 08:20 16:00 WBC RBC Hgb 9.4 L D Hct 29.6 L MCV MCH MCHC RDW Plt Count MPV APTT Sodium 141 Potassium 4.1 Chloride 107 Carbon Dioxide 26.5 Anion Gap 7.5 BUN 22 H Creatinine 0.9 Est GFR (CKD-EPI 2020) 65.03 Glucose 107 H Calcium 7.9 L Patient ABO/Rh O Positive Antibody Screen NEGATIVE Crossmatch See Detail Objective Narrative Objective Narrative: X-ray of the right humerus was performed which does show a impacted and varus deformed surgical neck fracture of the right proximal humerus. This is largely unchanged from the previous x-rays in December. Time Spent with Patient Time Spent with Patient: <25 minutes Time was spent: preparing to see the patient(eg.review tests), obtaining and/or reviewing separately otained hiistory, referring, communicating with other health laboratory animal care veterinarian and indepentently interpreting results
[2024-02-01] MEDS: DEXTROSE 5%-LACTATED RINGERS 1,000 ML 125 ML IV (03:00)
[2024-02-01 07:05] LABS: Abs Immature Grans 0.19 10^3/uL (0.0-0.06); Absolute Basophil Count 0.08 10^3/uL (0.0-0.2); Absolute Lymphocyte Count 2.39 10^3/uL (1.2-3.4); Absolute Neutrophil Count 7.26 10^3/uL (1.2-6.7); Basophils % 0.7; Eosinophils % 6.5; HCT 25.8 % (36.0-46.0); HGB 8.7 g/dL (11.2-15.7); Immature Grans % 1.6; Lymphocytes % 20.3; MCH 30.1 pg (27.0-33.0); MCHC 33.7 % (32.0-36.0); MCV 89 fL (80-95); MPV 9.9 fL (8.0-11.0); Monocytes % 9.3; Neutrophils % 61.6; Platelet Count 230 10^3/uL (130-400); RBC 2.89 10^6/uL (3.93-5.22); RDW 16.9 % (11.7-14.6); RDW-SD 54.3 fL; WBC 11.78 10^3/uL (4.4-10.8)
[2024-02-01 07:10] LABS: Absolute Eosinophil Count 0.77 10^3/uL (0.0-0.7)
[2024-02-01 07:47] LABS: Anion Gap 7.3 mmol/L (3-11); BUN 18 mg/dL (7-18); CO2 26.7 mmol/L (21.0-32.0); CREATININE 0.7 mg/dL (0.55-1.02); Calcium 7.8 mg/dL (8.5-10.1); Chloride 108 mmol/L (98-107); Estimated GFR 87.92 (mL/min/1.73m2); Glucose 117 mg/dL (74-106); Potassium 3.9 mmol/L (3.5-5.1); Sodium 142 mmol/L (136-145)
[2024-02-01] MEDS: Apixaban 5 MG TAB 10 MG PO ×2 (09:08→20:20)
[2024-02-01] MEDS: levETIRAcetam 500 MG TAB PO ×2 (09:09→20:20)
[2024-02-01] MEDS: Omeprazole 20 MG CAPCR PO (09:09)
[2024-02-01] MEDS: Mupirocin 2% Oint. 22 GM TUBE TP ×3 (09:09→20:21)
--- NOTE | 2024-02-01 09:45 | NUR.NOTE ---
Nursing Note: Left leg noted to be swollen, weeping serous fluid around surgical incision. Incision is well approximated. Mepilex was changed this am by night nurse and has saturated since change. CC notified.
--- NOTE | 2024-02-01 10:26 | PDOC.CMPRO ---
Date of service: 02/01/24 Care Management Progress Note Progress Note Text Progress Note Text: S/O: Mei was sitting up in her chair when meeting with CM. She says she is feeling good. There is a bed offer for Mei at [facility], to be discussed closer to discharge. Per request from the [facility] CM coordinated with MD to a run panel for hypercoagulability concerns such as Factor V leiden ?(hypercoagulable state or thrombophilia). CM following. A: Mei is a 78 year old female admitted to [facility] on 01/30/24 with a left femur fracture. P: Mei will be evaluated by PT today to help determine her level of care post surgically. Once she is medically cleared, she will likely return to a SNF. Transportation will be determined by her mobility at the time of discharge; likely w/c van vs private vehicle. She will follow up with her PCP and discharge plan of care. CM will continue to follow. SDOH(Care Management) Screening Will the Patient Participate in the Screening?: Unable to obtain Social Determinants of Health Comments(SDOH Details): came from [facility].
--- NOTE | 2024-02-01 10:39 | PTTR_ITS ---
PT Notes Visit Reasons: femur fracture, subacute DVT Physical Therapy Inpatient Treatment Note Date: 02/01/2024 Precautions: Fall. Standard. WBAT on the L LE with AD. Subjective: Agreeable to getting out of bed. Neede to use the toilet when PT came in. Objective: General Observation: Swelling in L LE, grade 1 pitting in leg area. Mepilex Ag over surgical incision. Daughter Bryanna present in room for this session. Mental Status: Alert and oriented only to self but not place and time. Able to follow single step commands. Pain: Minimal to moderate pain through R LE with weight bearing and movement Vital Signs: Closely monitored by nursing staff Bed Mobility/Transfers: Moderate to maximal verbal, tactile and visual cueing provided for use of B hands as needed for support, movement sequence, AD management, and posture to reduce fall risk and minimize pain report. Supine to sit minimal assist of 2 with HOB at 45 degrees Sit to supine moderate assist of 2 Sit to stand moderate assist of 2 Stand to sit minimal assist of 2 Gait: Tolerated slow and guided pivot from edge of bed to the bedside commode and then from bedside commode onto bedside chair. Heavy assistance was given moving L LE as patient was very anxious about weight bearing and about advancing either leg. Nurse student Kary and MYESHA Araujo assisted for safety and pericare after use of commode. Balance: Static Sitting:Fair Dynamic Sitting: Fair Static Standing: Poor Dynamic Standing: Unable ASSESSENT: No report of dizziness for this session. Required moderate to maximal cueing during transfer activities. Standing tolerance and weight bearing continue to be limited by pain. Assist of 2 for all stand pivot transfers using FWW. Ambulation with physical therapy only. Patient presents with clinical signs and symptoms consistent with current/admitting Plan of Care/Treatment Plan: 1-2x/day, 7 days/week x 1 week. Plan of care has been reviewed with the PACKAGE LINER providing the service under Physical Therapy direction. Initiate Physical Therapy intervention for pain management as needed, strengthening, bed mobility, transfers, gait, stairs, balance training, and use of assistive device. PREMEDICATE for pain. DISCHARGE RECOMMENDATIONS: [] Home with no services [] [] Home with services [specify] [] Home with outpatient PT [] [X] SNF for continued rehabilitation. Patient will benefit from long term facility placement for continued skilled physical therapy services in order to progress mobility level, strength, and balance to reduce fall risk and minimize pain. [] [facility] [] [] SNF versus LTC based on ability to participate and progress [] TREATMENT CODE/TIME: 34070 x 27 minutes for 2 units (10:39-11:06).
[2024-02-01] MEDS: Furosemide 20 MG/2 ML VIAL IVP (12:01)
[2024-02-01] MEDS: Normal Saline Flush 10 ML SYR IVP ×2 (12:02→22:15)
--- NOTE | 2024-02-01 13:00 | PGE_ITS ---
Date of Service Date of service: 02/01/24 Time of Service: 13:00 Assessment and Plan Assessment and plan (1) Femur fracture, left: Status: Deleted Assessment and plan: POD#2 left IT fracture IM nailing; pain is well controlled although I have put her on scheduled Tylenol since she does not always ask for her meds. TEDS applied to help w/ leg edema but SCD were avoided since she has extensive clot in left leg and I have already put her back on her apixaban at 10 mg bid. Professional time spent interviewing and examining patient, discussion of goals of care with hospital team (care management, nursing and consulting professionals) was 60 minutes. Qualifiers: Encounter type: initial encounter Femur location: intertrochanteric Fracture type: closed Fracture alignment: displaced Qualified Code(s): S72.142A - Displaced intertrochanteric fracture of left femur, initial encounter for closed fracture (2) Sinus tachycardia: Status: Acute Assessment and plan: unclear etiology. EKG did not show acute ischemic event, awaiting troponin I level, awaiting CTA chest. When I examined her while her daughter was in the room she did not seem that tachycardic on my exam but after I left her room to see other patient's nursing reported her HR was up to 119 bpm, and then it went to 132, I then began workup for ischemia, worsening anemia and PE. Pain does not seem to be an issue. Her tachycardia was not associated w/ exertion. She was sitting in her chair when her HR went to 119 bpm. (3) Acute blood loss anemia (ABLA): Status: Acute Assessment and plan: stable. I checked her iron levels and her finding are consistent w/ anemia of chronic disease rather than iron deficiency (low serum iron (low/borderline normal), low TIBC, high ferritin. Patient is s/p transfusion of 2 units of PRBC yesterday. She is on omeprazole 20 mg daily at home which I increased to bid yesterday but I have changed this to protonix 40 mg bid. I discussed this w/ her daughter. Her daughter does not recall patient ever having any PUD (4) Deep vein thrombosis (DVT) of left lower extremity: Status: Acute Assessment and plan: patient was on heparin perioperatively (except for about 3 hours around the time of her surgery; two hours preop and 1 hour during the surgery and in PACU). I then restarted her apixaban yesterday morning despite her having anemia needing transfusions. If she has a P.E. despite this then I will discuss further management w/ [facility] team. Qualifiers: Affected thrombotic vein of extremity: iliac Chronicity: acute Qualified Code(s): I82.422 - Acute embolism and thrombosis of left iliac vein (5) Seizure disorder: Status: Chronic Assessment and plan: No recent seizure activity noted and will continue her usual Keppra. Subjective Subjective Interval history since last seen: Patient states she has no pain. Patient is tolerating her diet well. She did not do well w/ breakfast according to her daughter but ate all of her lunch. She denies any dyspnea or chest pain Exam Narrative Exam Narrative: alert, oriented to self, pleasant, no distress, talkative Lungs: clear Heart: regular to slightly tachycardia Abdomen: soft, nontender Extremities: left thigh/calf still very swollen, she has compression stocking on her legs now but I was able to examine her left thigh, no bruising and nontender to palpation Good pedal pulses; no edema in right leg. Objective Last Vital Signs Temp 36.0 C L 01/31/24 22:46 Pulse 95 H 01/31/24 22:46 Resp 19 01/31/24 22:46 BP 124/72 01/31/24 22:46 Pulse Ox 94 01/31/24 22:46 Laboratory Results - last 24 hr 01/31/24 01/31/24 02/01/24 08:20 16:00 05:56 WBC 11.78 H RBC 2.89 L Hgb 9.4 L D 8.7 L Hct 29.6 L 25.8 L MCV 89 D MCH 30.1 MCHC 33.7 D RDW 16.9 H Plt Count 230 MPV 9.9 Immature Gran % 1.6 Neutrophils % 61.6 Lymphocytes % 20.3 Monocytes % 9.3 Eosinophils % 6.5 Basophils % 0.7 Nucleated RBC % 0.0 Absolute Neutrophils 7.26 H Absolute Lymphocytes 2.39 Absolute Monocytes 1.10 H Absolute Eosinophils 0.77 H Absolute Basophils 0.08 APTT 29.0 Sodium 141 142 Potassium 4.1 3.9 Chloride 107 108 H Carbon Dioxide 26.5 26.7 Anion Gap 7.5 7.3 BUN 22 H 18 Creatinine 0.9 0.7 Est GFR (CKD-EPI 2020) 65.03 87.92 Glucose 107 H 117 H Calcium 7.9 L 7.8 L Crossmatch See Detail Time Spent with Patient Time Spent with Patient: >50 minutes Time was spent: preparing to see the patient(eg.review tests), ordering medications,tests, procedures, referring, communicating with other health rn coronary care unit, indepentently interpreting results, counseling the patient and care coordination
--- NOTE | 2024-02-01 13:00 | W.PM.PROGNOT ---
Date of Service Date of service: 02/01/24 Time of Service: 13:00 Assessment and Plan Assessment and plan (1) Fracture, intertrochanteric, left femur: Status: Acute Assessment and plan: Postop day #2 status post interventional nail fixation of left proximal femur fracture. Overall doing well considering. She does have some serous drainage from the incision sites which is to be expected given the amount of swelling within the left leg from her clot. She has been able to mobilize with physical therapy and this is encouraging. She does have pain with mobilization although I think this is mostly related to the activation of the muscles in the setting of a leg with significant edema from her clot. No restrictions on anticoagulation. Weightbearing as tolerated. (2) Closed fracture of right proximal humerus: Status: Acute Assessment and plan: X-rays show a impacted, varus displaced proximal ramus fracture which is unchanged. At this point she may utilize the right arm as she so desires for activities. I would avoid any excessive passive range of motion but otherwise she may work with physical therapy to regain functional range of motion and strength. Subjective Subjective Interval history since last seen: Mei is doing well status post IM nail fixation of a left hip fracture. She does have pain in the left leg unfortunately mostly related to the swelling and the extensive DVT. She has been able to mobilize with physical therapy although with notable assistance. She did receive 2 units of blood yesterday and has responded appropriately. Her vital signs been stable. She has been breathing on room air. Exam Narrative Exam Narrative: She is currently sitting up in the chair. There is some serous discharge on the wounds of the left hip. There is notable swelling with the left thigh, leg and foot. Compression stockings are in place. She holds the leg slightly internally rotated. When she relaxes I am able to flex the left hip as well as internally and externally rotate with minimal pain. She is able to actively extend and flex the ankle and toes. Objective Last Vital Signs Temp 36.0 C L 01/31/24 22:46 Pulse 95 H 01/31/24 22:46 Resp 19 01/31/24 22:46 BP 124/72 01/31/24 22:46 Pulse Ox 94 01/31/24 22:46 Laboratory Results - last 24 hr 01/31/24 01/31/24 02/01/24 08:20 16:00 05:56 WBC 11.78 H RBC 2.89 L Hgb 9.4 L D 8.7 L Hct 29.6 L 25.8 L MCV 89 D MCH 30.1 MCHC 33.7 D RDW 16.9 H Plt Count 230 MPV 9.9 Immature Gran % 1.6 Neutrophils % 61.6 Lymphocytes % 20.3 Monocytes % 9.3 Eosinophils % 6.5 Basophils % 0.7 Nucleated RBC % 0.0 Absolute Neutrophils 7.26 H Absolute Lymphocytes 2.39 Absolute Monocytes 1.10 H Absolute Eosinophils 0.77 H Absolute Basophils 0.08 APTT 29.0 Sodium 141 142 Potassium 4.1 3.9 Chloride 107 108 H Carbon Dioxide 26.5 26.7 Anion Gap 7.5 7.3 BUN 22 H 18 Creatinine 0.9 0.7 Est GFR (CKD-EPI 2020) 65.03 87.92 Glucose 107 H 117 H Calcium 7.9 L 7.8 L Crossmatch See Detail Time Spent with Patient Time Spent with Patient: <25 minutes Time was spent: obtaining and/or reviewing separately otained hiistory, indepentently interpreting results, counseling the patient and care coordination
[2024-02-01 13:20] LABS: Lab Add On Test DONE
[2024-02-01] MEDS: Pantoprazole 40 MG TABCR PO ×2 (13:35→20:21)
[2024-02-01 13:58] VITALS: BP 119/70; PULSE 119; RESP 22; TEMP 36.7; O2SAT 98
--- NOTE | 2024-02-01 14:00 | RT.EKG_ITS ---
APPROVED REPORT Exam: Resting ECG Reason for Exam: tachycardia Patient Location: I HR:122 bpm ECG Measurements Heart Rate [address] 141 P 57 QRSd 118 QRS -72 QT 340 T 29 QTc 485 Conclusion Sinus tachycardia...rate> 99 Atrial premature complexes...SV complexes w/ short R-R intvls Probable left atrial enlargement...P >50mS, <-0.10mV V1 Right bundle branch block...QRSd>120, terminal axis(90,270) Inferior infarct, old...Q >35mS, II III aVF
--- NOTE | 2024-02-01 14:02 | PT.INNT ---
PT Notes Visit Reasons: femur fracture, subacute DVT Nursing was with pt and needed 15 min. Spoke with nursing again and her resting HR was 122 resting and he was going to speak with the doctor so I did not see pt this afternoon.
[2024-02-01 14:06] LABS: Iron 47 ug/dL (50-170); Total Iron Binding Capacity 197 ug/dL (250-450); Transferrin Sat 24 % (15-50)
[2024-02-01 14:34] LABS: HGB 8.8 g/dL (11.2-15.7)
--- NOTE | 2024-02-01 15:00 | DI.CT_ITS ---
Exam(s) CT CHEST PE CTA EXAM: CT CHEST PE CTA CLINICAL HISTORY: large DVT, acute tachycardia. TECHNIQUE: Imaging Protocol: CT angiography of the chest was performed using pulmonary embolus anette col. Multi planar reconstructions were performed. CONTRAST MATERIAL: Intravenous: Omnipaque 350 Contrast volume: 100 cc COMPARISON: CT ABD PELVIS WITH CONTRAST from 07/08/2016 FINDINGS: CHEST: PULMONARY ARTERIES: There are no central intraluminal filling defects to suggest acute central pulmon vignesh emboli.In the right lower lobe there are intraluminal filling defects noted within segmental vess els consistent with pulmonary emboli, age indeterminate. These may not be acute. There are no intralu ghulam filling defects on the left side. LUNGS: There are no infiltrates nor evidence of pulmonary infarction.. There are no pleural effusions . MEDIASTINUM: There is no hilar nor mediastinal adenopathy. Visualized thyroid unremarkable.Large retr ocardiac hiatal hernia is noted. Most of the stomach is in the chest. CARDIAC: Heart size is upper normal. There is no pericardial effusion.Caliber of the thoracic aorta is within normal limits. No evidence of dissection. There is no significant shift of the interventri cular septum. PARTIALLY VISUALIZED UPPERMOST ABDOMEN: No obvious findings OSSEOUS: No significant osseous lesions.Chronic appearing T7 wedge compression fracture noted-mild mo derate. IMPRESSION: 1. There is subtle intraluminal filling defects in segmental arteries in the right lower lobe which m ay represent pulmonary emboli. These may or may not be acute.Similar findings are not seen on the opp osite-left side. 2. No evidence of pulmonary infarction nor pleural effusions. No confluent infiltrates. No ominous pu lmonary nodules. 3. No evidence of aortic dissection nor pericardial effusion Report called by myself to the hospitalist. RADIATION DOSE DELIVERED: Total DLP DATA REPOSITORY: All CT scans at this facility are submitted to the National Radiology Data Registry (NRDR) Dose Index Registry (DIR) with the [employer] (ACR). RADIATION OPTIMIZATION: All CT scans at this facility use at least one of these dose optimization te chniques: automated exposure control; mA and/or kV adjustment per patient size (includes targeted exa ms where dose is matched to clinical indication); or iterative reconstruction.
[2024-02-01 15:09] LABS: Ferritin 1333 ng/mL (8-252)
[2024-02-01 15:27] VITALS: BP 117/73; PULSE 126; RESP 24; TEMP 36.8; O2SAT 98
[2024-02-01] MEDS: Acetaminophen 500 MG TAB 1000 MG PO ×2 (15:46→20:21)
[2024-02-01 16:37] LABS: Troponin I < 50 ng/L (< or =60)
[2024-02-01] MEDS: Normal Saline - Diluent 50 ML VIAL IJ (16:42)
[2024-02-01] MEDS: Omnipaque 350 MG/ML 100 ML BTL IJ (16:43)
--- NOTE | 2024-02-01 17:29 | NUR.NOTE ---
Dr. Stas Sadler called to give results of a study on this patient to the ED. I looked her to transfer him to the correct unit. Nursing Note:
[2024-02-01 19:31] VITALS: BP 105/63; PULSE 128; RESP 17; TEMP 36.8; O2SAT 96
[2024-02-01 19:51] LABS: HCT 24.4 % (36.0-46.0); HGB 8.1 g/dL (11.2-15.7)
[2024-02-01 20:16] LABS: Troponin I < 50 ng/L (< or =60)
[2024-02-01] MEDS: Mirtazapine 15 MG TAB PO (22:12)
[2024-02-02] VITALS (7 sets, daily range): BP systolic 105–142; BP diastolic 63–84; PULSE 113–126; RESP 15–18; TEMP 36–37.5; O2SAT 91–97
--- NOTE | 2024-02-02 00:02 | DI.RAD_ITS ---
Exam(s) XR FOREARM LT EXAM: XR FOREARM LT CLINICAL HISTORY: previous fall, hematoma, ? fx. TECHNIQUE: 2D digital imaging was performed. COMPARISON: CR XR HUMERUS RT from 12/21/2023 FINDINGS: Two views. There is prominent soft tissue swelling in the proximal and mid forearm, more so laterally than media lly. There is no gas in the soft tissues. No radiopaque foreign body. No fractures evident. IMPRESSION: Prominent soft tissue swelling which is probably hematoma given the trauma history here. No fracture s evident in the forearm bones. DATA REPOSITORY: RADIATION DOSE DELIVERED:
--- NOTE | 2024-02-02 01:52 | DI.VRAD_ITS ---
PROCEDURE INFORMATION: Exam: XR Left Forearm Exam date and time: 02/02/2024 12:16 AM Age: 78 years old Clinical indication: Injury or trauma; Blunt trauma (contusions or hematomas); Arm, lower; Left; Injury details: Previous fall, hematoma, ? FX TECHNIQUE: Imaging protocol: Radiologic exam of the left forearm. Views: 2 views. COMPARISON: CR XR HAND LT COMPLETE 03/22/2021 8:37 AM FINDINGS: Bones/joints: Bones appear osteopenic. Osseous alignment is normal. No acute fracture. Soft tissues: Significant soft tissue swelling of the mid to proximal forearm. IMPRESSION: No acute fracture. Prominent soft tissue swelling, likely hematoma. Dictated and Authenticated by: Julio Kang MD. Ordering:ZHEN Myers MD
[2024-02-02] MEDS: Normal Saline Flush 10 ML SYR IVP ×2 (06:00→20:19)
[2024-02-02] MEDS: Polyethylene Glycol 3350 17 GM PACKET PO (06:00)
[2024-02-02] MEDS: Apixaban 5 MG TAB 10 MG PO ×2 (07:45→20:18)
[2024-02-02] MEDS: Acetaminophen 500 MG TAB 1000 MG PO ×3 (07:45→20:19)
[2024-02-02] MEDS: levETIRAcetam 500 MG TAB PO ×2 (07:45→20:19)
[2024-02-02] MEDS: Pantoprazole 40 MG TABCR PO ×2 (07:45→20:19)
[2024-02-02] MEDS: Mupirocin 2% Oint. 22 GM TUBE TP ×3 (07:45→20:15)
[2024-02-02 08:47] LABS: Transferrin 144 mg/dL (201-352)
[2024-02-02 09:32] LABS: ALT 17 U/L (14-59); AST 24 U/L (15-37); Albumin 1.8 g/dL (3.4-5.0); Alkaline Phosphatase 75 U/L (46-116); BUN 19 mg/dL (7-18); Bilirubin, Total 0.6 mg/dL (0.2-1.0); CREATININE 0.8 mg/dL (0.55-1.02); Calcium 7.8 mg/dL (8.5-10.1); Chloride 109 mmol/L (98-107); Glucose 97 mg/dL (74-106); Magnesium 1.7 mg/dL (1.8-2.4); PHOSPHORUS 2.7 mg/dL (2.6-4.7); Potassium 3.8 mmol/L (3.5-5.1); Sodium 143 mmol/L (136-145); Total Protein 4.7 g/dL (6.4-8.2)
[2024-02-02 09:52] LABS: PTT Activated 31.1 sec (23.6-32.8)
[2024-02-02 10:11] LABS: HCT 29.6 % (36.0-46.0); HGB 9.8 g/dL (11.2-15.7); MCH 29.7 pg (27.0-33.0); MCHC 33.1 % (32.0-36.0); MCV 90 fL (80-95); MPV 10.3 fL (8.0-11.0); Platelet Count 186 10^3/uL (130-400); RDW 16.9 % (11.7-14.6); RDW-SD 53.7 fL
[2024-02-02 10:12] LABS: Abs Immature Grans 0.17 10^3/uL (0.0-0.06); Absolute Basophil Count 0.08 10^3/uL (0.0-0.2); Absolute Eosinophil Count 0.42 10^3/uL (0.0-0.7); Absolute Lymphocyte Count 2.49 10^3/uL (1.2-3.4); Absolute Monocyte Count 0.94 10^3/uL (0.1-0.8); Basophils % 0.7; Eosinophils % 3.9; Immature Grans % 1.6; Lymphocytes % 23.1; Monocytes % 8.7
--- NOTE | 2024-02-02 10:13 | PDOC.CMPRO ---
Date of service: 02/02/24 Care Management Progress Note Progress Note Text Progress Note Text: S/O: Mei was sitting up in her chair when meeting with CM. CM discussed discharge options of returning to the [facility] or going to [facility] and Mei said she would like to go to [facility]. CM let Hospitalist know as well as [facility]. CM following. A: Mei is a 78 year old female admitted to [facility] on 01/30/24 with a left femur fracture. P: Mei will be evaluated by PT today to help determine her level of care post surgically. Once she is medically cleared, she will likely return to a SNF. Transportation will be determined by her mobility at the time of discharge; likely w/c van.vs The facility will manage her further care needs. CM will continue to follow. SDOH(Care Management) Screening Will the Patient Participate in the Screening?: Unable to obtain Social Determinants of Health Comments(SDOH Details[facility]
--- NOTE | 2024-02-02 10:21 | PT.INTREAT ---
PT Notes Visit Reasons: femur fracture, subacute DVT Date: 02/02/24 PRECAUTIONS: Fall. Standard. WBAT on the L LE with AD. SUBJECTIVE: Pt in bed awake when approached for therapy this morning, pt able to appropriately response verbally, pleasantly confused but is easily redirected. Pt agreed to participating for the second time later in the morning, OBJECTIVE: ? PAIN: denies pain VITALS: monitored by nursing Therapeutic Activities [id number]: Direct one-on-one instruction in dynamic activities to improve functional performance. ?? BED MOBILITY/TRANSFERS? Rolling L/R: mod A Supine-sit: ?mod A? Sit-supine: ?mod A? Sit-stand: ? mod A? Stand-sit: ??mod A ? Bed-Chair:? ?max A ? Chair-bed: max A Provided skilled cues and instruction on performance and technique throughout. ? Therapeutic Exercises [id number]: Direct one-on-one instruction in therapeutic exercises to develop strength, endurance, range of motion and flexibility. Exercises ? Seated marching AROM RLE, AAROM LLE [id number] Seated SAQ AROM RLE, AAROM LLE [id number] Seated LAQ AROM RLE, AAROM LLE [id number] Seated hip Abduction AROM RLE, AAROM LLE [id number] Seated Knee flexion extension AROM RLE, AAROM LLE [id number] Seated heel [id number] Seated toe raise [id number]? Sit to stand mod A 5x1set? Provided skilled instruction in proper exercise performance Provided skilled manual cues to facilitate proper muscle recruitment and/or form: ASSESSMENT:?Pt able to participate with static weight shifting activity, dynamic standing activity doing stand pivot transfer going from EOB to recliner and vice versa, pt denies pain but is very apprehensive and was not able to take a step forward. pt able to perform all seated activity with pt denying pain during movement. PLAN: Continue with balance training, global strengthening and general conditioning for improved safety, mobility and activity tolerance until pt is ready for DC. TREATMENT CODE/TIME: 1st [id number] 20mins (8:50-9:10am) 2nd [id number] 15mins (10:42-10:57am)
--- NOTE | 2024-02-02 13:45 | RT.EKG_ITS ---
APPROVED REPORT Exam: Resting ECG Reason for Exam: tachycardia Patient Location: I HR:122 bpm ECG Measurements Heart Rate 122 AXIS CA 143 P 56 QRSd 113 QRS 246 QT 333 T 10 QTc 475 Conclusion Sinus tachycardia...rate> 99 LAD, consider left anterior fascicular block...axis(240,-40), S>R II III aVF Low voltage, precordial leads...precordial leads <1.0mV
--- NOTE | 2024-02-02 13:50 | PGE_ITS ---
Date of Service Date of service: 02/02/24 Time of Service: 13:50 Assessment and Plan Assessment and plan (1) Femur fracture, left: Status: Deleted Assessment and plan: POD#3 left IT fracture IM nailing; pain is well controlled. Continue scheduled Tylenol 1000 mg p.o. 3 times daily. I have added low-dose oxycodone 2.5 mg p.o. every 6 hours and have discontinued her IV morphine. Professional time spent interviewing and examining patient, discussion of goals of care with hospital team (care management, nursing and consulting professionals) was 30 minutes. Qualifiers: Encounter type: initial encounter Femur location: intertrochanteric Fracture alignment: displaced Fracture type: closed Qualified Code(s): S72.142A - Displaced intertrochanteric fracture of left femur, initial encounter for closed fracture (2) Sinus tachycardia: Status: Acute Assessment and plan: Workup for tachycardia revealed probable cause was new development of a pulmonary embolus. However the pulm embolus does not appear to be hemodynamically significant and not causing her any respiratory embarrassment or hypotension. Been waiting for this to resolve. We did follow-up with repeat H&H's and troponin levels. There is been no rise in her troponin and no evidence of acute bleeding. For now she will continue with apixaban. She seems to be relatively asymptomatic from the tachycardia although it does seem to be more concerning for the nurses. I did review some of her rhythm strips there are periods where her tachycardia gets up into the 130s and almost looks like PSVT. I will start her on low-dose diltiazem 30 mg TID for better rate control. I am rechecking an EKG today. (3) Pulmonary embolus, right: Status: Acute Assessment and plan: RLL segmental luminal filling defects on CTA c/w pulmonary emboli, no central filling defects. Continue apixaban 10 mg bid x 7 days then 5 mg bid. (4) Acute blood loss anemia (ABLA): Status: Acute Assessment and plan: Repeat H&H today is improved hemoglobin is up to 9.8 g hematocrit 29%. Continue GI protection with Protonix. Begin iron sulfate. (5) Deep vein thrombosis (DVT) of left lower extremity: Status: Acute Assessment and plan: patient now back on apixaban 10 mg bid x 1 week then decrease t o 5 mg bid Qualifiers: Affected thrombotic vein of extremity: iliac Chronicity: acute Qualified Code(s): I82.422 - Acute embolism and thrombosis of left iliac vein (6) Seizure disorder: Status: Chronic Assessment and plan: No recent seizure activity noted and will continue her usual Keppra. Subjective Subjective Interval history since last seen: Mei denies any chest pain or pressure or palpitations. This in spite of the fact that she has sinus tachycardia. We did a workup for this and found that she did have a PE associated with her left leg DVT. However she has no symptoms of dyspnea and no hypoxemia. CT of the chest did in fact show subtle intraluminal filling defect in segmental arteries in the right lower lower lobe suggestive of pulmonary emboli. Exam Narrative Exam Narrative: Mei is sitting up in a chair no acute distress denies any pain does not appear to be dyspneic Lungs are clear to auscultation Heart is regular but tachycardic Abdomen soft nondistended nontender normal bowel sounds Left hip is nontender to palpation she has marked edema of her left thigh and lower leg although the left leg has improved since application of her PARVEZ stockings Objective Last Vital Signs Temp 36.0 C L 02/02/24 11:11 Pulse 113 H 02/02/24 11:11 Resp 16 02/02/24 11:11 BP 105/63 02/02/24 11:11 Pulse Ox 96 02/02/24 11:11 Laboratory Results - last 24 hr 02/01/24 02/01/24 02/01/24 05:56 14:24 16:13 WBC RBC Hgb 8.8 L Hct 27.0 L MCV MCH MCHC RDW Plt Count MPV Immature Gran % Neutrophils % Lymphocytes % Monocytes % Eosinophils % Basophils % Nucleated RBC % Absolute Neutrophils Absolute Lymphocytes Absolute Monocytes Absolute Eosinophils Absolute Basophils APTT Sodium Potassium Chloride Carbon Dioxide Anion Gap BUN Creatinine Est GFR (CKD-EPI 2020) Glucose Calcium Phosphorus Magnesium Iron 47 L TIBC 197 L Transferrin 144 L Transferrin % Sat 24 Ferritin 1333 H Total Bilirubin AST ALT Alkaline Phosphatase Troponin I < 50 Total Protein Albumin Stl Occult Bld Clinic 02/01/24 02/01/24 02/02/24 19:38 22:46 06:05 WBC 10.80 RBC 3.30 L Hgb 8.1 L 9.8 L Hct 24.4 L 29.6 L MCV 90 MCH 29.7 MCHC 33.1 RDW 16.9 H Plt Count 186 MPV 10.3 Immature Gran % 1.6 Neutrophils % 62.0 Lymphocytes % 23.1 Monocytes % 8.7 Eosinophils % 3.9 Basophils % 0.7 Nucleated RBC % 0.0 Absolute Neutrophils 6.70 Absolute Lymphocytes 2.49 Absolute Monocytes 0.94 H Absolute Eosinophils 0.42 Absolute Basophils 0.08 APTT Sodium 143 Potassium 3.8 Chloride 109 H Carbon Dioxide 29.0 Anion Gap 5.0 BUN 19 H Creatinine 0.8 Est GFR (CKD-EPI 2020) 74.90 Glucose 97 Calcium 7.8 L Phosphorus 2.7 Magnesium 1.7 L Iron TIBC Transferrin Transferrin % Sat Ferritin Total Bilirubin 0.6 AST 24 ALT 17 Alkaline Phosphatase 75 Troponin I < 50 Total Protein 4.7 L Albumin 1.8 L Stl Occult Bld Clinic Cancelled 02/02/24 06:31 WBC RBC Hgb Hct MCV MCH MCHC RDW Plt Count MPV Immature Gran % Neutrophils % Lymphocytes % Monocytes % Eosinophils % Basophils % Nucleated RBC % Absolute Neutrophils Absolute Lymphocytes Absolute Monocytes Absolute Eosinophils Absolute Basophils APTT 31.1 Sodium Potassium Chloride Carbon Dioxide Anion Gap BUN Creatinine Est GFR (CKD-EPI 2020) Glucose Calcium Phosphorus Magnesium Iron TIBC Transferrin Transferrin % Sat Ferritin Total Bilirubin AST ALT Alkaline Phosphatase Troponin I Total Protein Albumin Stl Occult Bld Clinic Time Spent with Patient Time Spent with Patient: 25-34 minutes Time was spent: preparing to see the patient(eg.review tests), ordering medications,tests, procedures, referring, communicating with other health critical care nurse practitioner, indepentently interpreting results and care coordination
[2024-02-02] MEDS: dilTIAZem 30 MG TAB PO ×2 (14:08→20:18)
[2024-02-02] MEDS: Ferrous Sulfate 325 MG TAB PO (15:49)
[2024-02-02] MEDS: Bisacodyl 10 MG SUPP PR (17:40)
[2024-02-02] MEDS: Magnesium Chloride 64 MG TABCR PO (20:19)
[2024-02-02] MEDS: Mirtazapine 15 MG TAB PO (20:19)
[2024-02-03] VITALS (16 sets, daily range): BP systolic 95–131; BP diastolic 52–74; PULSE 92–125; RESP 16–20; TEMP 36.3–37.5; O2SAT 93–98
[2024-02-03 06:25] LABS: HCT 22.2 % (36.0-46.0); HGB 7.1 g/dL (11.2-15.7); MCH 30.1 pg (27.0-33.0); MCV 94 fL (80-95); MPV 10.2 fL (8.0-11.0); Platelet Count 229 10^3/uL (130-400); RBC 2.36 10^6/uL (3.93-5.22); RDW 17.1 % (11.7-14.6); RDW-SD 54.8 fL; WBC 12.05 10^3/uL (4.4-10.8)
[2024-02-03 06:45] LABS: PTT Activated 32.5 sec (23.6-32.8)
[2024-02-03] MEDS: Acetaminophen 500 MG TAB 1000 MG PO ×3 (07:49→19:40)
[2024-02-03] MEDS: Ferrous Sulfate 325 MG TAB PO (07:50)
[2024-02-03] MEDS: dilTIAZem 30 MG TAB PO ×3 (07:50→19:40)
[2024-02-03] MEDS: Magnesium Chloride 64 MG TABCR PO ×2 (07:50→19:40)
[2024-02-03] MEDS: levETIRAcetam 500 MG TAB PO ×2 (07:50→19:39)
[2024-02-03] MEDS: Pantoprazole 40 MG TABCR PO ×2 (07:50→19:39)
[2024-02-03] MEDS: Mupirocin 2% Oint. 22 GM TUBE TP ×3 (07:51→19:49)
[2024-02-03] MEDS: Normal Saline Flush 10 ML SYR IVP ×3 (08:40→19:41)
[2024-02-03] MEDS: Apixaban 5 MG TAB 10 MG PO ×2 (08:53→19:40)
--- NOTE | 2024-02-03 09:10 | PGE_ITS ---
Date of Service Date of service: 02/03/24 Time of Service: 09:10 Assessment and Plan Assessment and plan (1) Femur fracture, left: Status: Deleted Assessment and plan: POD#4 left IT fracture IM nailing; pain is well controlled. Continue scheduled Tylenol 1000 mg p.o. 3 times daily. Oxycodone 2.5 mg po q6h prn pain not controlled by the Tylenol Professional time spent interviewing and examining patient, discussion of goals of care with hospital team (care management, nursing and consulting professionals) was 40 minutes. Qualifiers: Encounter type: initial encounter Femur location: intertrochanteric Fracture type: closed Fracture alignment: displaced Qualified Code(s): S72.142A - Displaced intertrochanteric fracture of left femur, initial encounter for closed fracture (2) Sinus tachycardia: Status: Acute Assessment and plan: Likely combination from her PE and her anemia. Will transfuse 2 units of PRBC but continue her apixaban as she has recent large dvt left leg and now has recent P.E. (3) Pulmonary embolus, right: Status: Acute Assessment and plan: RLL segmental luminal filling defects on CTA c/w pulmonary emboli, no central filling defects. Continue apixaban 10 mg bid x 7 days (day #4), then 5 mg bid. (4) Acute blood loss anemia (ABLA): Status: Acute Assessment and plan: Hb down to 7.1 gm today. will transfuse 2 units of PRBC today. (5) Deep vein thrombosis (DVT) of left lower extremity: Status: Acute Assessment and plan: patient now back on apixaban 10 mg bid x 1 week then decrease t o 5 mg bid Qualifiers: Affected thrombotic vein of extremity: iliac Chronicity: acute Qualifi ed Code(s): I82.422 - Acute embolism and thrombosis of left iliac vein (6) Seizure disorder: Status: Chronic Assessment and plan: No recent seizure activity noted and will continue her usual Keppra. (7) Urinary retention: Status: Acute Assessment and plan: patient had to have flaherty placed last night d/t high urinary residuals. I will send UA and urine cultures off. continue flaherty as long as she will leave this in for now but can try voiding trial before discharge to SNF. Subjective Subjective Interval history since last seen: Patient denies any pain. Her Hb dropped overnight to 7.1 gm from 9.8 gm. Stool is negative for occult blood per nursing report. She has a good appetite and ate all of her breakfast. Exam Narrative Exam Narrative: Mei is sitting up in bed finishing her breakfast. She is not any distress She is conversant, she is a little confused but oriented to person Lungs: clear Heart: regular but tachycardica (tele shows sinus tachycardia_ Abdomen: soft, nontender, nondistended Left hip edematous, nursing reports the proximal site dressing draining just serous fluid but the distal dressing more serosanguinous Left forearm w/ spreading echymosis but I do not think the hematoma is any larger Objective Last Vital Signs Temp 37.5 C 02/03/24 08:42 Pulse 109 H 02/03/24 08:42 Resp 20 02/03/24 08:42 BP 115/71 02/03/24 08:42 Pulse Ox 96 02/03/24 08:42 Laboratory Results - last 24 hr 01/31/24 02/01/24 02/02/24 08:20 05:56 06:05 WBC 10.80 RBC 3.30 L Hgb 9.8 L Hct 29.6 L MCV 90 MCH 29.7 MCHC 33.1 RDW 16.9 H Plt Count 186 MPV 10.3 Immature Gran % 1.6 Neutrophils % 62.0 Lymphocytes % 23.1 Monocytes % 8.7 Eosinophils % 3.9 Basophils % 0.7 Nucleated RBC % 0.0 Absolute Neutrophils 6.70 Absolute Lymphocytes 2.49 Absolute Monocytes 0.94 H Absolute Eosinophils 0.42 Absolute Basophils 0.08 APTT Sodium 143 Potassium 3.8 Chloride 109 H Carbon Dioxide 29.0 Anion Gap 5.0 BUN 19 H Creatinine 0.8 Est GFR (CKD-EPI 2020) 74.90 Glucose 97 Calcium 7.8 L Phosphorus 2.7 Magnesium 1.7 L Transferrin 144 L Total Bilirubin 0.6 AST 24 ALT 17 Alkaline Phosphatase 75 Total Protein 4.7 L Albumin 1.8 L Crossmatch See Detail 02/02/24 02/03/24 06:31 05:55 WBC 12.05 H RBC 2.36 L Hgb 7.1 L D Hct 22.2 L MCV 94 D MCH 30.1 MCHC 32.0 RDW 17.1 H Plt Count 229 MPV 10.2 Immature Gran % Neutrophils % Lymphocytes % Monocytes % Eosinophils % Basophils % Nucleated RBC % Absolute Neutrophils Absolute Lymphocytes Absolute Monocytes Absolute Eosinophils Absolute Basophils APTT 31.1 32.5 Sodium Potassium Chloride Carbon Dioxide Anion Gap BUN Creatinine Est GFR (CKD-EPI 2020) Glucose Calcium Phosphorus Magnesium Transferrin Total Bilirubin AST ALT Alkaline Phosphatase Total Protein Albumin Crossmatch Time Spent with Patient Time Spent with Patient: 35-49 minutes Time was spent: preparing to see the patient(eg.review tests), ordering medications,tests, procedures, referring, communicating with other health childcare center administrator, indepentently interpreting results, counseling the patient (Daughter) and care coordination
--- NOTE | 2024-02-03 10:42 | NUR.NOTE ---
Warm moist compress applied to left arm and elevated on pillow. Nursing Note:
--- NOTE | 2024-02-03 11:00 | DI.US_ITS ---
APPROVED REPORT EXAM: Comprehensive 2D, Doppler, and color-flow Echocardiogram Patient Location: In-Patient Room/Bed: 225 Advisor Consultant: Nette Oshea RDCS (AE) Indications: PE, evaluate LV and RV Other Information Study Quality: Fair. Technically limited study due to body habitus, inability to position patient exa m done bedside supine. Conclusion Normal left ventricular wall thickness and chamber size. Ejection fraction is 60 to 70%. Wall motio n is hyperdynamic Normal right ventricular size and function Both atria are normal in size There are no structural or hemodynamically significant valvular abnormalities Estimated right ventricular systolic pressure is 33 mmHg Wall motion Left Ventricle The left ventricle is normal size. Left ventricle is hyperdynamic Echo findings are consistent with a left ventricular outflow tract obstruction. There is normal LV segmental wall motion. There is no ve ntricular septal defect visualized. LVEF is 60% biplane. Visually appears greater than 70%. Right Ventricle The right ventricle is normal size. The right ventricular systolic function is normal.d. Atria The left atrium size is normal. The right atrium size is normal. Aortic Valve The aortic valve is normal in structure. Aortic valve is trileaflet. No hemodynamically significant v alvular aortic stenosis. No aortic regurgitation is present. Mitral Valve The mitral valve is normal in structure. No evidence of mitral valve stenosis. Trace to mild mitral regurgitation. Tricuspid Valve The tricuspid valve is normal in structure. There is no tricuspid valve stenosis. Trace tricuspid reg urgitation. The RVSP is 33.4 mmHg. Pulmonic Valve The pulmonary valve is normal in structure. There is no pulmonic valvular stenosis. Trace pulmonic re gurgitation. Great Vessels The aortic root is normal in size. The ascending aorta is normal in size. Aortic arch is normal in ca liber. IVC is normal in size and collapses >50% with inspiration. Pericardium Mild circumferential pericardial effusion. 2D Dimensions IVSD d PLAX 0.99 cm F: 0.6-1.0 Ao Root d 2.60 cm F: 2.7 - 3.3 LVPW d PLAX 0.99 cm F: 0.6 - 1.0 Ao Asc Diam d 2.70 cm F: 2.3 - 3.1 LVID d PLAX 3.65 cm F: 3.8 - 5.2 LVDs 2.58 cm F: 2.2 - 3.5 LV EF Teichholz 57.3 % FS 29.45 % LV EDV (Teich) 56.3 mL LV ESV (Teich) 24.0 mL M-Mode TAPSE 2.04 cm (M/F) >1.7 Auto EF LV EDV A4C 55.9 mL LV EDV A2C 53.0 mL LV EDV BP 53.8 mL LV ESV A4C 22.3 mL LV ESV A2C 21.6 mL LV ESV BP 21.9 mL LVEF(%) A4C 60.0 % LVEF(%) A2C 59.3 % LVEF(%) BP 59.3 % LV SV A4C 33.6 ml LV SV A2C 31.5 ml LV SV BP 31.9 ml LV CO A4C 4.0 L/min LV CO A2C 3.7 L/min LV CO BP 3.9 L/min HR A4C 119.21 BPM HR A2C 119.21 BPM LV EDV Index (BP) LA Volume LA Length A4C 5.2 cm LA Length A2C 4.5 cm LA Area A4C s 16.27 cm2 LA Area A2C s 11.71 cm2 LA Vol A4C A-L 43.08 mL LA Vol A2C A-L 25.79 mL LA Vol Biplane A-L 35.9 mL LA Vol/BSA A4C A-L LA Vol/BSA A2C A-L LA Vol/BSA BP A-L 25.6 mL/m2 LA Vol A4C MOD 40.5 mL LA Vol A2C MOD 23.5 mL LA Vol BP MOD 33.1 mL RA Volume RA Area A4C 9.3 cm2 RA ESV A4C (A-L) 18.1mL RA Vol/BSA A4C A-L RA Length A4C 4.0 cm RA ESV A4C (MOD) 17.5mL Aortic Valve AoV Vmax 2.29 m/s LVOT Diam s 1.95 cm AoV Peak Grad 20.9 mmHg AoV VTI 0.403 m AoV Mean Sang. 1.79 m/s AoV Mean Grad 14.3 mmHg Pulmonary Valve PV Vmax 1.28 (0.5-1.5 m/s) RVOT Vmax 1.15 m/s PV Peak Grad 6.6 mmHg RVOT Peak Gr. 5.3 mmHg PV Mean Sang 1.09 m/s RVOT VTI 0.167 m PV Mean Grad 5.0 mmHg RVOT Mean Gr. 2.9 mmHg Tricuspid Valve RA Pressure 3.00 mmHg TR Vmax 2.76 m/s TV S' 0.19 m/s TR Peak Grad 30.4 mmHg RVSP (TR) 33.4 mmHg
--- NOTE | 2024-02-03 11:39 | PT.INNT ---
PT Notes Visit Reasons: femur fracture, subacute DVT pt in testing when approached for therapy this morning, 11:37am
--- NOTE | 2024-02-03 12:37 | PHA.REVIEW2 ---
Pharmacy Admission Review Admission Clinical Review Admission Pharmacy Review: Urinary retention (Acute) Pulmonary embolus, right (Acute) Sinus tachycardia (Acute) Acute blood loss anemia (ABLA) (Acute) Closed fracture of right proximal humerus (Acute) Fracture, intertrochanteric, left femur (Acute) Deep vein thrombosis (DVT) of left lower extremity (Acute) aspirin Adverse Reaction (Intermediate, Verified 01/30/24 01:34) GI Bleed Resuscitation Status Full Code Height 5 ft Weight 46.04 kg Pharmacy Admission Review Renal Dosing Renal Dosing: BUN 19 mg/dL (7-18) H 02/02/24 06:05 Creatinine 0.8 mg/dL (0.55-1.02) 02/02/24 06:05 Medications needing adjustments: Reviewed (CrCl 33.15 mL/min) List of meds needing interventions: Current medications okay Anticoagulation Anticoagulation: Hgb 7.1 g/dL (11.2-15.7) L D 02/03/24 05:55 Hct 22.2 % (36.0-46.0) L 02/03/24 05:55 Plt Count 229 10^3/uL (130-400) 02/03/24 05:55 INR 1.0 (0.9-1.1) 01/30/24 02:35 Creatinine 0.8 mg/dL (0.55-1.02) 02/02/24 06:05 Therapeutic Anticoagulation: Reviewed Medications: Apixaban (10mg PO BID for PE) Opiate Usage Evaluate Pain Scale/Pains Meds: Reviewed (Oxycodone PRN) Scheduled Bowel Reg ordered if on Opiates?: No (PRN Miralax/bisacodyl) Relevant Labs Relevant Labs: Sodium 143 mmol/L (136-145) 02/02/24 06:05 Potassium 3.8 mmol/L (3.5-5.1) 02/02/24 06:05 Chloride 109 mmol/L (98-107) H 02/02/24 06:05 Phosphorus 2.7 mg/dL (2.6-4.7) 02/02/24 06:05 Magnesium 1.7 mg/dL (1.8-2.4) L 02/02/24 06:05 Electrolytes, C-Reactive P, ESR: Reviewed (WBC increased from 10.8 to 12.05, Hgb decreased from 9.8 to 7.1 (received a couple units of blood today - MD would like to continue the Eliquis)) Cardiac Review Cardiac Review: Troponin I < 50 ng/L (< or =60) 02/01/24 19:38 BP, HR, EF%: Reviewed (BP WNL and HR 109) QTc Review QTc: Reviewed (475 from 02/02/24) IV to PO Switch IV Medications: Reviewed Home Meds Home Med List reviewed: Reviewed Relevent Home Meds Not ordered & why?: Vitamin D3, cholestyramine, multivitamin and omeprazole (has order for pantoprazole) Current Meds Current Medication Order Review: Reviewed Comments: Patients Hgb decreased to 7.1 today and patient received a few units of blood. Per morning meeting provider would like to continue the Eliquis for PE treatment and to monitor the patient over the weekend.
--- NOTE | 2024-02-03 13:10 | W.PM.PROGNOT ---
Date of Service Date of service: 02/03/24 Time of Service: 13:10 Assessment and Plan Assessment and plan (1) Fracture, intertrochanteric, left femur: Status: Acute Assessment and plan: Mei is doing well postop day #4 of IM nail fixation of a left hip fracture. No further drainage from the incision on most recent dressing. She seems to be in less pain today than previously. She does relate that she is weightbearing some with physical therapy. She may continue to weight-bear as tolerated. Subjective Subjective Interval history since last seen: Mei is doing well postoperative day 4 from an IM nail fixation of a left hip fracture. She is sitting comfortably in bed and states that she was able to ambulate a short distance with her walker. She does not have any complaints about the hip today. She seems good spirits. Denies any issues with her dressing or drainage from the incision. Exam Narrative Exam Narrative: She is currently sitting up in bed eating lunch. There is no discharge noted on the dressings over the incisions. There is swelling throughout the left leg. Gentle flexion, internal and external rotation of the hip elicits no pain. She actively dorsiflexes and plantar flexes her ankle and flexes and extends her toes. Objective Last Vital Signs Temp 98.8 F 02/03/24 12:51 Pulse 118 H 02/03/24 12:51 Resp 17 02/03/24 12:51 BP 116/62 02/03/24 12:51 Pulse Ox 96 02/03/24 12:51 Laboratory Results - last 24 hr 01/31/24 02/03/24 02/03/24 08:20 05:55 09:50 WBC 12.05 H RBC 2.36 L Hgb 7.1 L D Hct 22.2 L MCV 94 D MCH 30.1 MCHC 32.0 RDW 17.1 H Plt Count 229 MPV 10.2 APTT 32.5 Patient ABO/Rh O Positive Antibody Screen NEGATIVE Crossmatch See Detail See Detail Time Spent with Patient Time Spent with Patient: <25 minutes Time was spent: preparing to see the patient(eg.review tests) and counseling the patient
--- NOTE | 2024-02-03 13:35 | PT.INTREAT ---
PT Notes Visit Reasons: femur fracture, subacute DVT Date: 02/03/24 PRECAUTIONS: Fall. Standard. WBAT on the L LE with AD. SUBJECTIVE: Pt in bed receiving blood transfusion to address Low Hemoglobin count, pt agreeable to participating with bed level activity. OBJECTIVE: ? Blood transfusion left antecubital line, left arm swelling? PAIN: denies pain VITALS: monitored by nursing ? Therapeutic Exercises [id number] 15mins: Direct one-on-one instruction in therapeutic exercises to develop strength, endurance, range of motion and flexibility. Exercises ? Supine left LE AAROM all planes [id number] each Supine right LE AROM all planes [id number] each ? Provided skilled instruction in proper exercise performance Provided skilled manual cues to facilitate proper muscle recruitment and/or form: ASSESSMENT:?Pt denied pain on all movement performed today, will resume previous level of activity as soon as blood levels are WNL. PLAN: Continue with balance training, global strengthening and general conditioning for improved safety, mobility and activity tolerance until pt is ready for DC. TREATMENT CODE/TIME: [id number] 15mins (1:15-1:30pm)
[2024-02-03 14:11] LABS: Bilirubin Negative (Negative); Blood Trace-intact (Negative); Clarity Sl Cloudy (Clear); Glucose Negative (Negative); Ketones Negative (Negative); Leukocyte Esterase Negative (Negative); Nitrite Negative (Negative); Urobilinogen 0.2 mg/dL (Up to 0.2); pH 6.5 (5-8)
[2024-02-03 14:20] LABS: Bacteria Rare HPF (Negative); C & S Indicated? No; Casts Negative LPF (Negative); Crystals Negative HPF (Negative); Epithelial Cells Rare HPF (Negative); Mucus Negative (Negative); WBC 0-2 HPF (0-5)
--- NOTE | 2024-02-03 14:23 | CMPROGNOTE_ITS ---
Date of service: 02/03/24 Time of Service: 14:23 Care Management Progress Note Progress Note Text Progress Note Text: S/O: Mei was lying in bed when CM met with her. She stated that things are going well and she is feeling better today. She was receiving a unit of blood due to a drop in her Hgb from 9.8 to 7.1 overnight. CM reviewed her discharge plan, which will be for her to go to [facility] once she is medically cleared. She agreed and is looking forward to this plan. CM provided an update to admissions at [facility], stating that she will continue to be monitored over the weekend, with a plan to transition her to rehab early next week. CM will continue to follow. A: Mei is a 78 year old female admitted to [facility] on 01/30/24 with a left femur fracture. P: Mei will transfer to SNF once she is medically cleared. She has accepted a bed offer at [facility], and will likely transport via facility w/c van, depending on her mobility at the time of discharge. The facility will manage her further care needs. CM will continue to follow. SDOH(Care Management) Screening Will the Patient Participate in the Screening?: Unable to obtain Social Determinants of Health Comments(SDOH Details): came from [facility].
[2024-02-03] MEDS: Mirtazapine 15 MG TAB PO (19:40)
[2024-02-03 22:01] LABS: HCT 33.2 % (36.0-46.0); HGB 10.9 g/dL (11.2-15.7)
[2024-02-04 04:21] VITALS: BP 162/85; PULSE 89; RESP 20; TEMP 36; O2SAT 98
[2024-02-04 06:30] LABS: Abs Immature Grans 0.22 10^3/uL (0.0-0.06); Absolute Eosinophil Count 0.59 10^3/uL (0.0-0.7); Absolute Lymphocyte Count 2.46 10^3/uL (1.2-3.4); Absolute Monocyte Count 1.18 10^3/uL (0.1-0.8); Basophils % 0.8; HCT 33.9 % (36.0-46.0); Immature Grans % 1.9; Lymphocytes % 20.8; MCH 30.3 pg (27.0-33.0); MCHC 32.4 % (32.0-36.0); MCV 93 fL (80-95); MPV 9.8 fL (8.0-11.0); Neutrophils % 61.5; Nucleated RBC 0.2 % (0.0-0.3); Platelet Count 239 10^3/uL (130-400); RBC 3.63 10^6/uL (3.93-5.22); RDW 16.3 % (11.7-14.6); RDW-SD 51.3 fL; WBC 11.84 10^3/uL (4.4-10.8)
[2024-02-04 06:32] LABS: Absolute Basophil Count 0.09 10^3/uL (0.0-0.2); Absolute Neutrophil Count 7.28 10^3/uL (1.2-6.7)
[2024-02-04 06:41] LABS: Anion Gap 5.4 mmol/L (3-11); BUN 18 mg/dL (7-18); CO2 30.6 mmol/L (21.0-32.0); CREATININE 0.9 mg/dL (0.55-1.02); Calcium 8.2 mg/dL (8.5-10.1); Chloride 110 mmol/L (98-107); Estimated GFR 65.03 (mL/min/1.73m2); Glucose 92 mg/dL (74-106); Potassium 3.8 mmol/L (3.5-5.1); Sodium 146 mmol/L (136-145)
[2024-02-04 06:42] LABS: Magnesium 2.1 mg/dL (1.8-2.4)
[2024-02-04 06:46] LABS: PTT Activated 30.6 sec (23.6-32.8)
[2024-02-04 07:43] VITALS: BP 155/76; PULSE 100; RESP 18; TEMP 36.8; O2SAT 93
[2024-02-04] MEDS: Magnesium Chloride 64 MG TABCR PO ×2 (08:00→19:43)
[2024-02-04] MEDS: Apixaban 5 MG TAB 10 MG PO ×2 (08:01→19:43)
[2024-02-04] MEDS: Ferrous Sulfate 325 MG TAB PO (08:01)
[2024-02-04] MEDS: Acetaminophen 500 MG TAB 1000 MG PO ×3 (08:01→19:42)
[2024-02-04] MEDS: dilTIAZem 30 MG TAB PO ×3 (08:01→19:43)
[2024-02-04] MEDS: levETIRAcetam 500 MG TAB PO ×2 (08:01→19:43)
[2024-02-04] MEDS: Normal Saline Flush 10 ML SYR IVP (08:02)
[2024-02-04] MEDS: Mupirocin 2% Oint. 22 GM TUBE TP ×3 (08:03→21:17)
[2024-02-04] MEDS: Pantoprazole 40 MG TABCR PO ×2 (08:09→19:43)
--- NOTE | 2024-02-04 08:48 | PT.INTREAT ---
PT Notes Visit Reasons: femur fracture, subacute DVT Date: 02/04/24 PRECAUTIONS: Fall. Standard. WBAT on the L LE with AD. SUBJECTIVE: Pt in bed when approached for therapy this morning, no updates yet for blood levels, pt denies pain gestures zero with fingers when ask is she is in pain. OBJECTIVE: ? PAIN: denies pain VITALS: monitored by nursing ? Therapeutic Exercises [id number] 15mins: Direct one-on-one instruction in therapeutic exercises to develop strength, endurance, range of motion and flexibility. Exercises ? Supine left LE AAROM all planes [id number] each Supine right LE AROM all planes [id number] each ? Provided skilled instruction in proper exercise performance Provided skilled manual cues to facilitate proper muscle recruitment and/or form: ASSESSMENT:?Pt denied pain on all movement performed today, stuck with bed level exercise until blood result confirms increased hemoglobin levels. PLAN: Continue with balance training, global strengthening and general conditioning for improved safety, mobility and activity tolerance until pt is ready for DC. TREATMENT CODE/TIME: [id number] 15mins (8:30-8:45am)
[2024-02-04 11:13] VITALS: BP 155/76; PULSE 103; RESP 18; TEMP 37.3; O2SAT 95
--- NOTE | 2024-02-04 13:15 | PGE_ITS ---
Date of Service Date of service: 02/04/24 Time of Service: 13:15 Assessment and Plan Assessment and plan (1) Femur fracture, left: Status: Deleted Assessment and plan: POD#5 left IT fracture IM nailing; pain is well controlled. Continue scheduled Tylenol 1000 mg p.o. 3 times daily. Oxycodone 2.5 mg po q6h prn pain not controlled by the Tylenol Professional time spent interviewing and examining patient, discussion of goals of care with hospital team (care management, nursing and consulting professionals) was 30 minutes. Qualifiers: Encounter type: initial encounter Femur location: intertrochanteric Fracture type: closed Fracture alignment: displaced Qualified Code(s): S72.142A - Displaced intertrochanteric fracture of left femur, initial encounter for closed fracture (2) Sinus tachycardia: Status: Acute Assessment and plan: Likely combination from her PE and her anemia. repeat Hb now up to 11 gm. Her echocardiogram demonstrated hyperdynamic LV wall, LVEF 60 to 70% w/ normal LV size and thickness and normal RV size and thickness, no significant valvular abnormalities however she has LVOT obstruction. As the tachycardia can worsen her LVOT obstruction, I will add lopressor to her regimen; goal is resting HR under 90 bpm. (3) Pulmonary embolus, right: Status: Acute Assessment and plan: RLL segmental luminal filling defects on CTA c/w pulmonary emboli, no central filling defects. Continue apixaban 10 mg bid x 7 days (day #5), then 5 mg bid. (4) Acute blood loss anemia (ABLA): Status: Acute Assessment and plan: improved to 11 gm, monitor, stool negative for occult blood. likely source is bleeding into left hip from fracture and being on anticoagulants. (5) Deep vein thrombosis (DVT) of left lower extremity: Status: Acute Assessment and plan: patient now back on apixaban 10 mg bid x 1 week then decrease t o 5 mg bid Qualifiers: Affected thrombotic vein of extremity: iliac Chronicity: acute Qualified Code(s): I82.422 - Acute embolism and thrombosis of left iliac vein (6) Seizure disorder: Status: Chronic Assessment and plan: No recent seizure activity noted and will continue her usual Keppra. (7) Urinary retention: Status: Acute Assessment and plan: flaherty replaced two nights ago. urine appears somewhat concentrated but urine culture no growth. consider voiding trial before going to correction but if unable to then will send w/ flaherty and urology follow up. Subjective Subjective Interval history since last seen: Mei states that she has no pain. Eating is fair to good at times. Nursing reports serosanguinous fluid drainage from her left hip surgical wounds, enough to soak a 5x5 mepilex. Exam Narrative Exam Narrative: Mei is alert, oriented to self and others, no acute distress, answers questions appropriately Lungs: clear Heart: tachycardia, regular, soft systolic murmur Abdomen: soft, nontender, nondistended Extremities: marked edema of her left thigh, some bruising over posterior aspect but she seems to be nontender to palpation over the surgical site Objective Last Vital Signs Temp 37.3 C 02/04/24 11:13 Pulse 103 H 02/04/24 11:13 Resp 18 02/04/24 11:13 BP 155/76 H 02/04/24 11:13 Pulse Ox 95 02/04/24 11:13 Laboratory Results - last 24 hr 02/03/24 02/03/24 02/03/24 09:50 13:56 21:53 WBC RBC Hgb 10.9 L D Hct 33.2 L MCV MCH MCHC RDW Plt Count MPV Immature Gran % Neutrophils % Lymphocytes % Monocytes % Eosinophils % Basophils % Nucleated RBC % Absolute Neutrophils Absolute Lymphocytes Absolute Monocytes Absolute Eosinophils Absolute Basophils APTT Sodium Potassium Chloride Carbon Dioxide Anion Gap BUN Creatinine Est GFR (CKD-EPI 2020) Glucose Calcium Magnesium Urine Color Yellow Urine Clarity Sl Cloudy Urine pH 6.5 Ur Specific [place] 1.010 Urine Protein Negative Urine Ketones Negative Urine Blood Trace-intact H Urine Nitrite Negative Urine Bilirubin Negative Urine Urobilinogen 0.2 Ur Leukocyte Esterase Negative Urine RBC 3-5 H Urine WBC 0-2 Ur Epithelial Cells Rare Urine Crystals Negative Urine Bacteria Rare Urine Casts Negative Urine Mucus Negative Ur Culture Indicated? No Urine Glucose Negative Patient ABO/Rh O Positive Antibody Screen NEGATIVE Crossmatch See Detail 02/04/24 06:00 WBC 11.84 H RBC 3.63 L Hgb 11.0 L Hct 33.9 L MCV 93 MCH 30.3 MCHC 32.4 RDW 16.3 H Plt Count 239 MPV 9.8 Immature Gran % 1.9 Neutrophils % 61.5 Lymphocytes % 20.8 Monocytes % 10.0 Eosinophils % 5.0 Basophils % 0.8 Nucleated RBC % 0.2 Absolute Neutrophils 7.28 H Absolute Lymphocytes 2.46 Absolute Monocytes 1.18 H Absolute Eosinophils 0.59 Absolute Basophils 0.09 APTT 30.6 Sodium 146 H Potassium 3.8 Chloride 110 H Carbon Dioxide 30.6 Anion Gap 5.4 BUN 18 Creatinine 0.9 Est GFR (CKD-EPI 2020) 65.03 Glucose 92 Calcium 8.2 L Magnesium 2.1 Urine Color Urine Clarity Urine pH Ur Specific [place] Urine Protein Urine Ketones Urine Blood Urine Nitrite Urine Bilirubin Urine Urobilinogen Ur Leukocyte Esterase Urine RBC Urine WBC Ur Epithelial Cells Urine Crystals Urine Bacteria Urine Casts Urine Mucus Ur Culture Indicated? Urine Glucose Patient ABO/Rh Antibody Screen Crossmatch Time Spent with Patient Time Spent with Patient: 25-34 minutes Time was spent: preparing to see the patient(eg.review tests), ordering medications,tests, procedures, referring, communicating with other health child care supervisor, indepentently interpreting results and care coordination
[2024-02-04] MEDS: Metoprolol 12.5 MG TAB PO ×2 (14:19→21:17)
[2024-02-04 15:29] VITALS: BP 145/71; PULSE 115; RESP 19; TEMP 36.7; O2SAT 95
[2024-02-04] MEDS: Mirtazapine 15 MG TAB PO (19:43)
[2024-02-04 19:45] VITALS: BP 130/81; PULSE 95; RESP 19; TEMP 36; O2SAT 95
[2024-02-04] MEDS: Tamsulosin 0.4 MG CAPCR PO (21:17)
[2024-02-04 23:31] VITALS: BP 133/75; PULSE 89; RESP 19; TEMP 36; O2SAT 93
[2024-02-05 04:21] VITALS: BP 163/71; PULSE 103; RESP 19; TEMP 35.9; O2SAT 97
[2024-02-05] MEDS: Normal Saline Flush 10 ML SYR IVP ×3 (06:06→19:39)
[2024-02-05] MEDS: Metoprolol 12.5 MG TAB PO ×2 (06:06→07:50)
[2024-02-05 06:21] LABS: Abs Immature Grans 0.26 10^3/uL (0.0-0.06); Absolute Basophil Count 0.11 10^3/uL (0.0-0.2); Absolute Eosinophil Count 0.65 10^3/uL (0.0-0.7); Absolute Monocyte Count 1.25 10^3/uL (0.1-0.8); Basophils % 0.8; Eosinophils % 4.9; HCT 34.3 % (36.0-46.0); HGB 11.1 g/dL (11.2-15.7); Lymphocytes % 15.9; MCH 30.8 pg (27.0-33.0); MCHC 32.4 % (32.0-36.0); MCV 95 fL (80-95); MPV 9.6 fL (8.0-11.0); Monocytes % 9.4; Platelet Count 282 10^3/uL (130-400); RDW 17.1 % (11.7-14.6); RDW-SD 54.1 fL; WBC 13.31 10^3/uL (4.4-10.8)
[2024-02-05 06:24] LABS: Absolute Lymphocyte Count 2.12 10^3/uL (1.2-3.4); Absolute Neutrophil Count 8.92 10^3/uL (1.2-6.7)
[2024-02-05 06:59] LABS: Anion Gap 6.1 mmol/L (3-11); BUN 21 mg/dL (7-18); CO2 28.9 mmol/L (21.0-32.0); CREATININE 0.8 mg/dL (0.55-1.02); Calcium 8.2 mg/dL (8.5-10.1); Chloride 109 mmol/L (98-107); Glucose 105 mg/dL (74-106); Potassium 3.9 mmol/L (3.5-5.1); Sodium 144 mmol/L (136-145)
[2024-02-05] MEDS: Magnesium Chloride 64 MG TABCR PO ×2 (07:49→19:37)
[2024-02-05] MEDS: Acetaminophen 500 MG TAB 1000 MG PO ×3 (07:49→19:37)
[2024-02-05] MEDS: Apixaban 5 MG TAB 10 MG PO ×2 (07:50→19:37)
[2024-02-05] MEDS: Pantoprazole 40 MG TABCR PO ×2 (07:53→19:38)
[2024-02-05] MEDS: Ferrous Sulfate 325 MG TAB PO (07:53)
[2024-02-05] MEDS: levETIRAcetam 500 MG TAB PO ×2 (07:53→19:38)
[2024-02-05] MEDS: Mupirocin 2% Oint. 22 GM TUBE TP ×3 (07:54→19:39)
[2024-02-05 08:00] VITALS: BP 149/83; PULSE 92; RESP 18; TEMP 36; O2SAT 95
[2024-02-05 08:20] LABS: Bilirubin Negative (Negative); Blood Moderate (Negative); Clarity Clear (Clear); Glucose Negative (Negative); Ketones Negative (Negative); Leukocyte Esterase Negative (Negative); Nitrite Negative (Negative)
[2024-02-05 08:27] LABS: Bacteria Negative HPF (Negative); C & S Indicated? No; Casts Negative LPF (Negative); Crystals Negative HPF (Negative); Epithelial Cells Rare HPF (Negative); Mucus Negative (Negative); RBC 20-50 HPF (0-2); WBC 0-2 HPF (0-5)
[2024-02-05] MEDS: oxyCODONE 5 MG TAB 2.5 MG PO ×2 (09:10→19:38)
--- NOTE | 2024-02-05 10:19 | PT.INTREAT ---
PT Notes Visit Reasons: femur fracture, subacute DVT Date: 02/05/24 PRECAUTIONS: Fall. Standard. WBAT on the L LE with AD. SUBJECTIVE: Pt in recliner when approached for therapy this morning, received update from nurse Diaz that pt hemoglobin levels are WNL, pt agreed to participating with standing activity. OBJECTIVE: ? PAIN: yes unable to grade VITALS: closely monitored by nursing Therapeutic Activities [id number]: Direct one-on-one instruction in dynamic activities to improve functional performance. ?? BED MOBILITY/TRANSFERS? Rolling L/R: not performed Supine-sit: ?not performed? Sit-supine: ? not performed? Sit-stand: ?CGA ? Stand-sit: ??CGA ? Bed-Chair:? ?CGA ? Chair-bed: CGA Provided skilled cues and instruction on performance and technique throughout. Gait Training: Direct one-on-one instruction and skilled instruction in: Employing an assistive device Modified weight-bearing status Movement sequencing Turning and movement with proper form Provided verbal cues for equipment management and technique Provided instruction in gait pattern Patient education regarding pacing and breathing techniques to maximize activity tolerance? GAIT? Assistive Device: ??FWW ? Weight bearing: WBAT for the LLE Assist: ? mod A? Distance:?? 40' with standing rest break at 20' ? Deviation: antalgic gait? ASSESSMENT:?Pt with hesitation with RLE advancement requiring tactile cue to progress, pt able to tolerate activity without signs of distress, pt denies dizziness and pain post session. PLAN: Continue with balance training, global strengthening and general conditioning for improved safety, mobility and activity tolerance until pt is ready for DC. TREATMENT CODE/TIME: 57394a5 20mins (10:05-10:25am)
--- NOTE | 2024-02-05 11:22 | PGE_ITS ---
Date of Service Date of service: 02/05/24 Time of Service: 11:23 Assessment and Plan Assessment and plan (1) Femur fracture, left: Status: Deleted Assessment and plan: POD#6 left IT fracture IM nailing (01/30/24); pain is well controlled. Continue scheduled Tylenol 1000 mg p.o. 3 times daily. Oxycodone 2.5 mg po q6h prn pain not controlled by the Tylenol; continue P.T., probably will discharge tomorrow as long as hemoglobin level is stable. Professional time spent interviewing and examining patient, discussion of goals of care with hospital team (care management, nursing and consulting professionals) was 30 minutes. Qualifiers: Encounter type: initial encounter Femur location: intertrochanteric Fracture type: closed Fracture alignment: displaced Qualified Code(s): S72.142A - Displaced intertrochanteric fracture of left femur, initial encounter for closed fracture (2) Sinus tachycardia: Status: Acute Assessment and plan: likely combo of her anemia and recent P.E., improving although w/ her elevated bp and tachycardia I have had to add metoprolol and increase the dose. She has not had any afib. Will dc her tele as she has been pulling it off.. (3) Pulmonary embolus, right: Status: Acute Assessment and plan: RLL segmental luminal filling defects on CTA c/w pulmonary emboli, no central filling defects. Continue apixaban 10 mg bid x 7 days (day #6), then 5 mg bid. (4) Acute blood loss anemia (ABLA): Status: Acute Assessment and plan: improved post transfusions (4 units total: 2 units 01/30 after her surgery for Hb 6.5 gm of and 2 units on 02/02 for Hb 7.1 gm. She is currently at 11.1 gm and was at 11 gm yesterday. continue to montor daily, continue iron supplements. (5) Deep vein thrombosis (DVT) of left lower extremity: Status: Acute Assessment and plan: patient now back on apixaban 10 mg bid x 1 week then decrease to 5 mg bid beginning on 02/06 Qualifiers: Affected thrombotic vein of extremity: iliac Chronicity: acute Qualified Code(s): I82.422 - Acute embolism and thrombosis of left iliac vein (6) Seizure disorder: Status: Chronic Assessment and plan: No recent seizure activity noted and will continue her usual Keppra. (7) Urinary retention: Status: Acute Assessment and plan: flaherty replaced two nights ago. urine appears somewhat concentrated but urine culture no growth. consider voiding trial before going to long term but if unable to then will send w/ flaherty and urology follow up. trial of voiding today. flaherty removed. will ask nursing to monitor w/ post void bladder scanning. (8) Discharge planning issues: Status: Acute Assessment and plan: patient will likely discharge to [facility] tomorrow (a switch from [facility] where she had been). Subjective Subjective Interval history since last seen: Mei denies any pain. She seems to be eating well. She is not dyspneic despite her P.E. Tachycardia seem to be improving. Exam Narrative Exam Narrative: Mei is alert, oriented to self and others, no acute distress, answers questions appropriately Lungs: clear Heart: tachycardia, regular, soft systolic murmur Abdomen: soft, nontender, nondistended Extremities: marked edema of her left thigh, some bruising over posterior aspect but she seems to be nontender to palpation over the surgical site, pedal pulses intact Objective Last Vital Signs Temp 36.0 C L 02/05/24 08:00 Pulse 92 H 02/05/24 08:00 Resp 18 02/05/24 08:00 BP 149/83 H 02/05/24 08:00 Pulse Ox 95 02/05/24 08:00 Laboratory Results - last 24 hr 02/05/24 02/05/24 05:45 08:07 WBC 13.31 H RBC 3.60 L Hgb 11.1 L Hct 34.3 L MCV 95 MCH 30.8 MCHC 32.4 RDW 17.1 H Plt Count 282 MPV 9.6 Immature Gran % 2.0 Neutrophils % 67.0 Lymphocytes % 15.9 Monocytes % 9.4 Eosinophils % 4.9 Basophils % 0.8 Nucleated RBC % 0.0 Absolute Neutrophils 8.92 H Absolute Lymphocytes 2.12 Absolute Monocytes 1.25 H Absolute Eosinophils 0.65 Absolute Basophils 0.11 Sodium 144 Potassium 3.9 Chloride 109 H Carbon Dioxide 28.9 Anion Gap 6.1 BUN 21 H Creatinine 0.8 Est GFR (CKD-EPI 2020) 74.90 Glucose 105 Calcium 8.2 L Urine Color Yellow Urine Clarity Clear Urine pH 8.0 Ur Specific [place] 1.020 Urine Protein Negative Urine Ketones Negative Urine Blood Moderate H Urine Nitrite Negative Urine Bilirubin Negative Urine Urobilinogen 1.0 H Ur Leukocyte Esterase Negative Urine RBC 20-50 H Urine WBC 0-2 Ur Epithelial Cells Rare Urine Crystals Negative Urine Bacteria Negative Urine Casts Negative Urine Mucus Negative Ur Culture Indicated? No Urine Glucose Negative Time Spent with Patient Time Spent with Patient: 25-34 minutes Time was spent: preparing to see the patient(eg.review tests), ordering medications,tests, procedures, referring, communicating with other health farm or ranch animal caretaker, counseling the patient and care coordination
[2024-02-05] MEDS: Metoprolol 25 MG TAB PO ×2 (14:09→21:58)
[2024-02-05 16:02] VITALS: BP 135/85; PULSE 102; RESP 18; TEMP 35.7; O2SAT 96
[2024-02-05 19:30] VITALS: BP 132/79; PULSE 99; RESP 16; TEMP 35.9; O2SAT 98
[2024-02-05] MEDS: Tamsulosin 0.4 MG CAPCR PO (21:58)
[2024-02-05] MEDS: Mirtazapine 15 MG TAB PO (21:59)
[2024-02-05 22:00] VITALS: BP 132/74; PULSE 89; RESP 16; O2SAT 95
[2024-02-06 05:32] VITALS: BP 152/76; PULSE 96; RESP 16; TEMP 36.2; O2SAT 92
[2024-02-06] MEDS: Metoprolol 25 MG TAB PO ×2 (05:48→13:12)
[2024-02-06] MEDS: Normal Saline Flush 10 ML SYR IVP ×2 (05:49→07:48)
[2024-02-06 06:22] LABS: Abs Immature Grans 0.32 10^3/uL (0.0-0.06); Absolute Basophil Count 0.09 10^3/uL (0.0-0.2); Absolute Lymphocyte Count 1.85 10^3/uL (1.2-3.4); Absolute Monocyte Count 1.17 10^3/uL (0.1-0.8); Basophils % 0.8; Eosinophils % 3.5; HGB 10.2 g/dL (11.2-15.7); Immature Grans % 2.8; MCH 30.9 pg (27.0-33.0); MCHC 31.9 % (32.0-36.0); MCV 97 fL (80-95); MPV 9.7 fL (8.0-11.0); Monocytes % 10.1; Neutrophils % 66.8; Platelet Count 300 10^3/uL (130-400); RDW 17.5 % (11.7-14.6); RDW-SD 55.8 fL; WBC 11.58 10^3/uL (4.4-10.8)
[2024-02-06 06:29] LABS: Absolute Eosinophil Count 0.41 10^3/uL (0.0-0.7); Absolute Neutrophil Count 7.74 10^3/uL (1.2-6.7)
[2024-02-06 06:32] LABS: Anion Gap 6.2 mmol/L (3-11); BUN 23 mg/dL (7-18); CO2 28.8 mmol/L (21.0-32.0); Calcium 8.3 mg/dL (8.5-10.1); Chloride 108 mmol/L (98-107); Estimated GFR 57.31 (mL/min/1.73m2); Glucose 93 mg/dL (74-106); Potassium 3.9 mmol/L (3.5-5.1); Sodium 143 mmol/L (136-145)
[2024-02-06 07:28] VITALS: BP 131/71; PULSE 112; RESP 17; TEMP 36; O2SAT 93
[2024-02-06] MEDS: Acetaminophen 500 MG TAB 1000 MG PO ×2 (07:48→13:12)
[2024-02-06] MEDS: Pantoprazole 40 MG TABCR PO (07:49)
[2024-02-06] MEDS: Ferrous Sulfate 325 MG TAB PO (07:49)
[2024-02-06] MEDS: Apixaban 5 MG TAB 10 MG PO (07:49)
[2024-02-06] MEDS: levETIRAcetam 500 MG TAB PO (07:50)
[2024-02-06] MEDS: Magnesium Chloride 64 MG TABCR PO (07:50)
[2024-02-06] MEDS: Mupirocin 2% Oint. 22 GM TUBE TP (07:56)
--- NOTE | 2024-02-06 08:47 | PT.INTREAT ---
PT Notes Visit Reasons: femur fracture, subacute DVT Date: 02/06/24 PRECAUTIONS: Fall. Standard. WBAT on the L LE with AD. SUBJECTIVE: Pt in bed when approached for therapy this morning. Pt pleasantly confused but agreeable to participating with therapy. OBJECTIVE: ? PAIN: yes did not provide pain grade VITALS: closely monitored by nursing Therapeutic Activities [id number]: Direct one-on-one instruction in dynamic activities to improve functional performance. ?? BED MOBILITY/TRANSFERS? Rolling L/R: mod A Supine-sit: ?min A? Sit-supine: ? CGA? Sit-stand: ?mod A ? Stand-sit: ??mod A? Bed-Chair:? mod A? Chair-bed: mod A Provided skilled cues and instruction on performance and technique throughout. Gait Training: Direct one-on-one instruction and skilled instruction in: Employing an assistive device Modified weight-bearing status Movement sequencing Turning and movement with proper form Provided verbal cues for equipment management and technique Provided instruction in gait pattern Patient education regarding pacing and breathing techniques to maximize activity tolerance? GAIT? Assistive Device: ??FWW ? Weight bearing: WBAT for the LLE Assist: ? mod A ? Distance:?? 5' EOB to recliner ? Deviation: antalgic gait? ASSESSMENT:?Static standing, weight shifting L/R, front/back, Pt hesitating with stepping forward requiring tactile cue for foot to slide forward this morning, pt able to tolerate transition given enough tactile cue and time to execute activity. PLAN: Continue with balance training, global strengthening and general conditioning for improved safety, mobility and activity tolerance until pt is ready for DC. TREATMENT CODE/TIME: [id number] 20mins (8:30-8:50am)
--- NOTE | 2024-02-06 09:17 | PTTR_ITS ---
PT Notes Visit Reasons: femur fracture, subacute DVT Date: 02/06/24 PRECAUTIONS: Fall. Standard. WBAT on the L LE with AD. SUBJECTIVE: Pt in commode when approached for therapy this afternoon, pt also getting ready for transport to [facility] after. OBJECTIVE: ? PAIN: yes did not provide pain grade VITALS: closely monitored by nursing Therapeutic Activities [id number]: Direct one-on-one instruction in dynamic activities to improve functional performance. ?? Sit to stand from commode, static standing for perineal care, stand pivot transfer going from commode to recliner mod A, sit to stand from recliner to FWW mod A, stand pivot transfer going from recliner to WC to get pt situated for transport to SNF. ASSESSMENT/Plan: Assistance with pt transfer/ pt will continue PT services at SNF. TREATMENT CODE/TIME: [id number] 10mins (1:10-1:20pm)
[2024-02-06 09:55] LABS: HCT 33.2 % (36.0-46.0); HGB 10.5 g/dL (11.2-15.7)
--- NOTE | 2024-02-06 10:27 | W.PM.DS.N ---
Date of service: 02/06/24 Time of Service: 11:19 DS: Diagnosis Discharge Diagnosis (1) Femur fracture, left: Status: Deleted Asessment and Plan: -POD#7 left IT fracture IM nailing (01/30/24); pain is well controlled. -Continue scheduled Tylenol 1000 mg p.o. 3 times daily. -Oxycodone 2.5 mg po q6h prn pain not controlled by the Tylenol (2) Sinus tachycardia: Status: Acute Asessment and Plan: -likely combo of her anemia and recent P.E., improving -continue lopressor TID at discharge (3) Pulmonary embolus, right: Status: Acute Asessment and Plan: RLL segmental luminal filling defects on CTA c/w pulmonary emboli, no central filling defects. Continue apixaban 10 mg bid x 7 days (day #7), then 5 mg bid. (4) Acute blood loss anemia (ABLA): Status: Acute Asessment and Plan: -improved post transfusions (4 units total: 2 units 312 after her surgery for Hb 6.5 gm of and 2 units on 02/02 for Hb 7.1 gm. -Stable prior to discharge (5) Deep vein thrombosis (DVT) of left lower extremity: Status: Acute Asessment and Plan: -patient now back on apixaban 10 mg bid x 1 week then decrease to 5 mg bid beginning on 02/06 (6) Seizure disorder: Status: Chronic Asessment and Plan: -continue continue home Keppra (7) Urinary retention: Status: Acute Asessment and Plan: -flaherty replaced two nights ago. urine appears somewhat concentrated but urine culture no growth. consider voiding trial before going to skilled nursing but if unable to then will send w/ flaherty and urology follow up. Discharge Plan Disposition Patient Disposition: Half-Way Facility(SNF) Condition: Good Discharge Details Reason For Visit: femur fracture, subacute DVT Admit Date/Time: 01/30/24 04:01 Admit Provider: Luke Haley Attending Provider: Luke Haley Primary Care Provider: Ketan Tamez [facility] Course Hospital Course: Patient initially presented with a femur fracture is now postop day 6 of left fracture and nailing with good pain control. She also experiences some sinus tachycardia likely due to a combination of anemia and a recent PE. Patient also has right lower lobe subsegmental pulmonary embolus was started on Eliquis 10 mg twice daily of which day 7 was on day of discharge and will be discharged with additional 5 mg twice daily. She also had acute blood loss anemia likely secondary to fracture and surgery for which she received total of 4 units PRBCs and has had stable hemoglobin over the last 2 days prior to discharge. Home Meds and New Rx's Prescriptions: New oxycodone 5 mg Tablet 2.5 mg PO Q6H PRN PRNQty: 12 0RF metoprolol tartrate 25 mg Tablet 25 mg PO TID Qty: 90 0RF Continued levetiracetam [Keppra] 500 mg tablet 500 mg PO BID Qty: 180 3RF acetaminophen [Tylenol] 325 MG tablet 650 mg PO Q4H PRN cholestyramine (with sugar) 4 gram powder 8 g PO BID Qty: 378 11RF Rx Instructions: two scoops up to twice daily FOR CHRONIC DIARRHEA; ferrous gluconate 324 mg (37.5 mg iron) tablet 324 mg PO BID Qty: 180 3RF potassium chloride 10 mEq tablet,ER particles/crystals 20 meq PO DAILY Qty: 180 3RF Rx Instructions: replace low potassium cholecalciferol (vitamin D3) 50 mcg (2,000 unit) capsule 50 mcg PO DAILY Qty: 90 3RF omeprazole 20 mg capsule,delayed release(DR/EC) 20 mg PO DAILY Qty: 90 3RF mirtazapine 15 mg tablet 15 mg PO QHS Qty: 90 3RF Ensure Original Liquid 237 ml PO DAILY Qty: 7110 6RF multivitamin Tablet 1 tab PO DAILY Eliquis DVT-PE Treat 30D Start 5 mg (74 tabs) tablets,dose pack See Rx Instructions .ROUTE .COMPLEX Qty: 74 0RF Rx Instructions: orally per package directions No Action (DME) Undergarment Misc 1 ea Miscellaneous Q2H MDD 10 Qty: 300 12RF Rx Instructions: for hygiene and safety; Size S/M Dx: K52.9 Discharge Instructions Stand Alone Forms: Nursing Discharge Form Referrals: Ketan Tamez DO [Primary Care Provider] - Micky Sampson MD [ [facility] STAFF PHYSICIAN] - Activity:: Activity as Tolerated Equipment/Supplies:: No Equipment Needed Diet:: As Tolerated Discharge Orders Discharge Orders: Discharge Order (Routine); Ordered 02/06/24 Ordered By: Jad Cueva DS: Summary Time Spent with Patient providing and/or coordinating discharge services: Greater than 30 minutes Status at Discharge Functional status at discharge: independent ambulation Overall status at discharge: patient is back to baseline Mental Status: mental status grossly normal Speech and Movement: speech and movement normal Mood: congruent mood Affect: normal affect Quality:SDOH Health Related Social Needs: No Data to Display Exam Narrative Exam Narrative: Older female sitting up in the chair no acute distress, ANO x 4, heart regular rhythm, lungs clear to auscultation bilaterally, left lower extremity decreased range of motion secondary to pain, surgical wound bandaged without surrounding erythema or drainage Psych Mental Status: mental status grossly normal Speech and Movement: speech and movement normal Mood: congruent mood Affect: normal affect DS: Data Vitals/I&O Vitals and I&O: Vital Signs Temperature 96.8 F L 02/06/24 07:28 Temperature Source Tympanic 02/06/24 07:28 Pulse 112 H 02/06/24 07:28 Pulse Rhythm Irregular 02/06/24 09:58 Respiratory Rate 17 02/06/24 07:28 Respiratory Effort Normal 02/06/24 09:58 Respiratory Depth Normal 02/06/24 09:58 Respiratory Pattern Normal 02/06/24 09:58 Blood Pressure 131/71 02/06/24 07:28 Blood Pressure Mean 90 01/30/24 03:45 Blood Pressure Position Supine 01/30/24 01:25 Pulse Oximetry 93 02/06/24 07:28 Respiratory End-tidal CO2 28 01/30/24 17:20 Oxygen Delivery Method Room Air 02/06/24 07:28 Oxygen Flow Rate 0 02/06/24 07:28 Pain Level 0 02/06/24 07:28 Comment VS monitored; pt hypertensive and borderline tachycardic. Pt denied pain. Provided PRN oxycodone before ambulation; appeared partially effective. Pt hesitant to mobilize and bear weight on LLE. Pt compliant with scheduled medications, administered per JAN. Pt remained safe on the unit; appeared to rest with naps for majority of shift. Call corrales within reach; pt did not ring this shift. 02/06/24 05:32 Intake & Output 02/05/24 02/06/24 02/06/24 17:59 05:59 17:59 Intake Total 280 / 280 Output Total 1750 / 1750 100 / 1850 Balance -1470 / -1470 -100 / -1570 Intake: IV 40 / 40 Oral 240 / 240 Output: Urine 1250 / 1250 100 / 1350 Stool 500 / 500 Other: Urine Color Pale Yellow Yellow Yellow Urine Appearance Clear Clear Clear Urine Odor Normal Normal Comment pt was continent and incontinent of urine incontinent, pt was a full bed change Stool Size Small Smear Smear Stool Characteristics Formed Soft Soft Brown Black Black Voiding Methods Bedside Commode Diaper Bedside Commode Incontinent Data Completed and Pending Labs on day of discharge: Labs from last 24 hours 02/06/24 02/06/24 09:35 06:00 WBC 11.58 H RBC 3.30 L Hgb 10.5 L 10.2 L Hct 33.2 L 32.0 L MCV 97 H MCH 30.9 MCHC 31.9 L RDW 17.5 H Plt Count 300 MPV 9.7 Immature Gran % 2.8 Neutrophils % 66.8 Lymphocytes % 16.0 Monocytes % 10.1 Eosinophils % 3.5 Basophils % 0.8 Nucleated RBC % 0.0 Absolute Neutrophils 7.74 H Absolute Lymphocytes 1.85 Absolute Monocytes 1.17 H Absolute Eosinophils 0.41 Absolute Basophils 0.09 Sodium 143 Potassium 3.9 Chloride 108 H Carbon Dioxide 28.8 Anion Gap 6.2 BUN 23 H Creatinine 1.0 Est GFR (CKD-EPI 2020) 57.31 Glucose 93 Calcium 8.3 L PFSH All Active Problems (Updated 02/05/24 @ 20:32 by Luke Haley MD) Discharge planning issues (Acute) Urinary retention with incomplete bladder emptying (Acute) Urinary retention (Acute) Pulmonary embolus, right (Acute) Sinus tachycardia (Acute) Acute blood loss anemia (ABLA) (Acute) Closed fracture of right proximal humerus (Acute) Fracture, intertrochanteric, left femur (Acute) Deep vein thrombosis (DVT) of left lower extremity (Acute) Malnutrition, calorie (Acute) Hearing loss (Acute) Sundowning (Acute) Pain, foot (Acute) Nail dystrophy (Acute) Urinary incontinence (Acute) Venous insufficiency (Acute) Fracture of base of fifth metatarsal bone of right foot (Acute) Right ankle pain (Acute) Seizure (Acute) Hand laceration (Acute) Contusion of head (Acute) Abnormal auditory perception (Acute) Bilateral sensorineural hearing loss (Acute) Vitamin D deficiency (Chronic) low level 2005; replacement, still marginal 08/2014 Seizure disorder (Chronic) most recent seizure 01/2015 Osteoporosis, unspecified (Chronic) Pos DEXA 08/2003; alendronate therapy through 2010; Vit D def 2005, replaced; Dilantin therapy risk 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 ORIF of the patella of her left knee. b. Appendectomy and tubal ligation in the same surgery, according to her. c. Tonsillectomy and adenoidectomy. d. Aneurysm repair on two occasions, 1971 and 1982. She gets repeat scans every so often for these. e. Bilateral cataract surgery. Aneurysm (Chronic) a. Positive for multiple aneurysms. As stated, she has had surgery for these aneurysms. She has been followed quite closely in the past, and now has been able to spread out her appointments with the neurologist as there has been no change in her scan since 1982, according to her and her caregiver. History of seizure (Chronic) a. Due to previous CVA. b. She has not had any in upwards of 13 to 15 years. COPD (chronic obstructive pulmonary disease) (Chronic) a. Vague history as she was a previous smoker. Surgical History cerebral aneurysm clipping (08/11/15) [facility] [place] nephrectomy & ovary (10/25/16) Dr Fong, [facility], carcinoma kidney EGD and Colonoscopy (09/28/16) Extraction of cataract (12/18/15) Cataract extraction with lens implant, left eye. Wyatt Nazario MD. Family History Mother , CA at age 75. Neoplasm liver or kidney CA Father , fall at age 63. No problems noted. Brother , LUNG CA No problems noted. Brother , Stomach CA at age 85. No problems noted. Social History Smoking/Tobacco Use Status: Former Tobacco Use Smoking risk assessment performed?: Yes Alcohol Intake: never Drug use: Never Substance use type: does not use Caregiver/Support person: Yes Household members: family and other Details: lives with daughter Housing: skilled nursing Number of Children: 2 Communication Needs: Corrective Lenses current occupation: retired from [employer], [employer], [employer] What is your relationship status?: Panel score (0-1 are the most socially isolated patients): 0 What type of physical activity do you participate in: none Seatbelt use: always Drive intox or ride w/intox snaker tractor driver: No Working smoke detector in home: Yes Carbon monox detector in home: Yes Do you feel safe at home: Yes Do you feel safe in your relationship?: Yes Additional Social history: Lives at the [facility] temporarily Time Spent with Patient Time Spent with Patient: <45 minutes Time was spent: preparing to see the patient(eg.review tests), obtaining and/or reviewing separately otained hiistory, ordering medications,tests, procedures, referring, communicating with other health certified social workers in health care, indepentently interpreting results, counseling the patient and care coordination
--- NOTE | 2024-02-06 11:26 | PDOC.CMDIS ---
Date of service: 02/06/24 Time of Service: 11:26 LACE Index Scoring Tool Questions: Length of Stay (in days): 7 - 13 Was the patient admitted via the E.D.?: Yes Comorbidities: Cerebrovascular Disease and Chronic Pulmonary Disease E.D. Visits: 4 Answers: Total Score: 15 Risk of Readmission: High Risk Care Management Discharge Plan Reason for Hospitalization: femur fracture, subacute DVT Discharge Plan: Mei was discharged to [facility] today for short term rehab prior to returning home into the care of her daughter. She will transport via facility w/c van, coordinated by ANY. She will follow up with her PCP and discharge plan of care. CM spoke to her daughter, Bryanna, and informed her of the discharge; she is happy that her mother is going to [facility]. Patient/Family Education Needs: Review discharge instructions and limitations, discussion of self care needs including ask me three. Services Needed at Discharge: Shelter Facility ([facility]) and Transportation (facility w/c van) [place] Health Related Social Needs: No Data to Display
== END 2024-02-06 13:20 | disposition skilled nursing facility (03) | DRG 480 ==
LOC: ER 04:54 → MS 05:01
PROVIDERS: Family Medicine; Hospitalist; Student in an Organized Health Care Education/Training Program; Admitting Provider Internal Medicine; Emergency Provider Student in an Organized Health Care Education/Training Program; PCP Family Medicine; Visit Provider Internal Medicine
PROC: 0QS706Z Reposition Left Upper Femur with Intramedullary Internal Fixation Device, Open Approach (ICD-10-PCS; CPT 27245; principal; 2024-01-30 16:00)
DX: I26.99 Other pulmonary embolism without acute cor pulmonale; I82.422 Acute embolism and thrombosis of left iliac vein; S72.142A Displaced intertrochanteric fracture of left femur, initial encounter for closed fracture; D62 Acute posthemorrhagic anemia; E46 Unspecified protein-calorie malnutrition; I82.412 Acute embolism and thrombosis of left femoral vein; I82.432 Acute embolism and thrombosis of left popliteal vein; Z68.1 Body mass index [BMI] 19.9 or less, adult; G40.909 Epilepsy, unspecified, not intractable, without status epilepticus; R00.0 Tachycardia, unspecified; R33.9 Retention of urine, unspecified; S42.201D Unspecified fracture of upper end of right humerus, subsequent encounter for fracture with routine healing; R29.6 Repeated falls; W19.XXXA Unspecified fall, initial encounter; Z79.01 Long term (current) use of anticoagulants; I87.8 Other specified disorders of veins; H90.3 Sensorineural hearing loss, bilateral; E55.9 Vitamin D deficiency, unspecified; Z87.891 Personal history of nicotine dependence; J44.9 Chronic obstructive pulmonary disease, unspecified; K52.9 Noninfective gastroenteritis and colitis, unspecified; I69.811 Memory deficit following other cerebrovascular disease; M81.0 Age-related osteoporosis without current pathological fracture; I67.1 Cerebral aneurysm, nonruptured; I69.398 Other sequelae of cerebral infarction
CPT/HCPCS: 27245; 00123; 36410; 36415; 71275; 73552; 80048; 80053; 85027; 86850; 86900; 86901; 86920; 87641; 93005; 93306; 96374; 96375; 97110; 97163; 97530; 99223; 99285; 70450; 72170; 73030; 73090; 73501; 81003; 81015; 82270; 82728; 83540; 83550; 83735; 84100; 84466; 84484; 85014; 85018; 85025; 85610; 85730; 87086; 93010; 99231; 99232; 99233; 99238; J0690; J1100; J1644; J1805; J1885; J1941; J2001; J2270; J2371; J2405; J2704; J3372; J3490; P9016

== ENCOUNTER 2024-02-27 13:52 | Outpatient (CLI) | payer MEDICARE, MEDICAID, SELFPAY ==
--- NOTE | 2024-02-27 13:15 | DI.RAD_ITS ---
Exam(s) XR HIP LT AP LAT ONLY EXAM: XR HIP LT AP LAT ONLY INDICATION: f/u fracture. COMPARISON: XA XR HIP LT IN OR from 01/30/2024 TECHNIQUE: 2D digital imaging was performed. Two views. FINDINGS: There has been no change in fracture or hardware alignment. No new abnormalities are seen. DATA REPOSITORY: RADIATION DOSE DELIVERED:
== END 2024-02-27 13:53 | disposition home or self-care (01) ==
LOC: DIORS 13:52
PROVIDERS: PCP Family Medicine; Referring Provider Family Medicine; Visit Provider Student in an Organized Health Care Education/Training Program
DX: S72.142D Displaced intertrochanteric fracture of left femur, subsequent encounter for closed fracture with routine healing; X58.XXXD Exposure to other specified factors, subsequent encounter
CPT/HCPCS: 73502

== ENCOUNTER 2024-04-09 14:45 | Outpatient (CLI) | payer MEDICARE, MEDICAID, SELFPAY ==
--- NOTE | 2024-04-09 14:15 | DI.RAD_ITS ---
Exam(s) XR HIP LT AP LAT ONLY EXAM: XR HIP LT AP LAT ONLY CLINICAL HISTORY: F/U IM NAIL. TECHNIQUE: 2D digital imaging was performed. Two views. COMPARISON: CR XR HIP LT AP LAT ONLY from 02/27/2024 FINDINGS: BONES: There has been no change in fracture or hardware alignment there has been some increased heali ng at the proximal femoral fracture site. There are old fractures of the left superior and inferior pubic rami. No acute fracture is present. No bony destructive lesion is seen. JOINTS: No dislocation present. SOFT TISSUE: Normal. IMPRESSION: Stable fracture and hardware alignment. DATA REPOSITORY: RADIATION DOSE DELIVERED:
== END 2024-04-09 14:46 | disposition home or self-care (01) ==
LOC: DIORS 14:45
PROVIDERS: PCP Family Medicine; Referring Provider Family Medicine; Visit Provider Student in an Organized Health Care Education/Training Program
DX: S72.142D Displaced intertrochanteric fracture of left femur, subsequent encounter for closed fracture with routine healing (principal); X58.XXXD Exposure to other specified factors, subsequent encounter
CPT/HCPCS: 73502

== ENCOUNTER 2024-04-24 17:58 | Emergency (ER) | payer MEDICARE, MEDICAID, SELFPAY ==
[2024-04-24] VITALS (28 sets, daily range): BP systolic 125–178; BP diastolic 55–133; PULSE 85–106; RESP 16; TEMP 36.7; O2SAT 92–97
--- NOTE | 2024-04-24 17:47 | ED.GENADUL_ITS ---
Discharge Plan Disposition Patient Disposition: Long Term Facility(SNF) Condition: Stable Discharge Details Clinical Impression: Closed avulsion fracture of left calcaneus Primary Care Provider: Ketan Tamez ED Provider: Emanuel Garcia Meds and New Rx's Prescriptions: Continued levetiracetam [Keppra] 500 mg tablet 500 mg PO BID Qty: 180 3RF (DME) Undergarment Misc 1 ea Miscellaneous Q2H MDD 10 Qty: 300 12RF Rx Instructions: for hygiene and safety; Size S/M Dx: K52.9 acetaminophen [Tylenol] 325 MG tablet 650 mg PO Q4H PRN cholestyramine (with sugar) 4 gram powder 8 g PO BID Qty: 378 11RF Rx Instructions: two scoops up to twice daily FOR CHRONIC DIARRHEA; ferrous gluconate 324 mg (37.5 mg iron) tablet 324 mg PO BID Qty: 180 3RF potassium chloride 10 mEq tablet,ER particles/crystals 20 meq PO DAILY Qty: 180 3RF Rx Instructions: replace low potassium cholecalciferol (vitamin D3) 50 mcg (2,000 unit) capsule 50 mcg PO DAILY Qty: 90 3RF omeprazole 20 mg capsule,delayed release(DR/EC) 20 mg PO DAILY Qty: 90 3RF mirtazapine 15 mg tablet 15 mg PO QHS Qty: 90 3RF Ensure Original Liquid 237 ml PO DAILY Qty: 7110 6RF multivitamin Tablet 1 tab PO DAILY Eliquis DVT-PE Treat 30D Start 5 mg (74 tabs) tablets,dose pack See Rx Instructions .ROUTE .COMPLEX Qty: 74 0RF Rx Instructions: orally per package directions metoprolol tartrate 25 mg Tablet 25 mg PO TID Qty: 90 0RF Discharge Instructions Additional Instructions: You were seen for an abnormal ankle x-ray suggesting an avulsion fracture of the calcaneus. This was reviewed with Dr. Sampson and a CT scan of the ankle and foot was obtained. The fracture was confirmed but given your lack of pain at this time with seemingly good flexion of your ankle this is felt to quite possibly be chronic. After discussion with Dr. Sampson recommendation is no splinting and follow-up with him as outpatient. Continue treatment and management of DVT. Return to ED for any significantly worsening swelling, redness, fever, pain, other concerns. HPI General Mode of arrival: EMS . Date/Time Provider Initiated Documentation: 04/24/24 18:13 . Limitations to Documentation: other (Dementia, confusion) . Information obtained by: family, EMS and RN notes reviewed . HPI Narrative: Patient sent to us from [facility] with concern for an avulsion fracture on the left calcaneus. Patient is unable to provide any type of history. Nurse to nurse report was that patient injured herself in the wheelchair yesterday. X-rays were obtained last evening. She is being sent here for possible splinting. Related Data Home Medications Medication Instructions Recorded Confirmed acetaminophen 325 mg tablet 650 mg PO Q4H PRN 08/13/15 04/24/24 (Tylenol) cholestyramine (with sugar) 4 gram 8 g PO BID #378 grams 10/15/22 04/24/24 oral powder cholecalciferol (vitamin D3) 50 50 mcg PO DAILY #90 caps 03/11/23 04/24/24 mcg (2,000 unit) capsule ferrous gluconate 324 mg (37.5 mg 324 mg PO BID #180 tabs 03/11/23 04/24/24 iron) tablet omeprazole 20 mg capsule,delayed 20 mg PO DAILY #90 caps 03/11/23 04/24/24 release potassium chloride 10 mEq 20 meq (2 x 10 mEq) PO DAILY #180 03/11/23 04/24/24 tablet,extended release(part/cryst) tab-caps diaper,brief,adult,disposable #300 ea 04/01/23 04/24/24 (Undergarment misc) levetiracetam 500 mg tablet 500 mg PO BID #180 tabs 04/01/23 04/24/24 (Keppra) mirtazapine 15 mg tablet 15 mg PO QHS #90 tabs 04/15/23 04/24/24 food supplemt, lactose-reduced 237 ml PO DAILY #7,110 mL 01/02/24 04/24/24 (Ensure Original oral liquid) apixaban 5 mg (74 tabs) tablets in See Rx Instructions PO .COMPLEX 01/23/24 04/24/24 a dose pack (Eliquis DVT-PE Treat #74 dose pk 30D Start) multivitamin 1 tab PO DAILY 01/23/24 04/24/24 metoprolol tartrate 25 mg tablet 25 mg PO TID #90 tabs 02/06/24 04/24/24 Previous Rx's Medication Instructions Recorded cholestyramine (with sugar) 4 gram 8 g PO BID #378 grams 10/15/22 oral powder cholecalciferol (vitamin D3) 50 50 mcg PO DAILY #90 caps 03/11/23 mcg (2,000 unit) capsule ferrous gluconate 324 mg (37.5 mg 324 mg PO BID #180 tabs 03/11/23 iron) tablet omeprazole 20 mg capsule,delayed 20 mg PO DAILY #90 caps 03/11/23 release potassium chloride 10 mEq 20 meq (2 x 10 mEq) PO DAILY #180 03/11/23 tablet,extended release(part/cryst) tab-caps diaper,brief,adult,disposable #300 ea 04/01/23 (Undergarment misc) levetiracetam 500 mg tablet 500 mg PO BID #180 tabs 04/01/23 (Keppra) mirtazapine 15 mg tablet 15 mg PO QHS #90 tabs 04/15/23 food supplemt, lactose-reduced 237 ml PO DAILY #7,110 mL 01/02/24 (Ensure Original oral liquid) apixaban 5 mg (74 tabs) tablets in See Rx Instructions PO .COMPLEX 01/23/24 a dose pack (Phase Vision DVT-PE Treat #74 dose pk 30D Start) metoprolol tartrate 25 mg tablet 25 mg PO TID #90 tabs 02/06/24 Allergies Allergy/AdvReac Type Severity Reaction Status Date / Time aspirin AdvReac Intermediate GI Bleed Verified 04/24/24 18:14 General DANAY: 3 Review of Systems Unobtainable due to mental status Exam Narrative Exam Narrative: Const: Thin elderly female in NAD. VS per triage. HEENT: NC/AT. Normal facial exam. Neck: Supple. Trachea midline. Lungs: Normal respiratory effort. Neuro: A+O x 1. Normal speech. Cranial nerves II - XII grossly intact. No gross motor or sensory deficit. Ext: No C/C. Left lower extremity with mild erythema, warmth, swelling/edema. Appears to have good passive range of motion of the left ankle without pain. Is able to dorsiflex and plantarflex against resistance without pain. Skin: Small superficial ulcer left posterior heel. Medical Decision Making Patient sent to ED with report of avulsion fracture on x-ray obtained yesterday. Discussed and reviewed x-ray with Dr. Sampson who knows the patient. Recommend CT scan to further evaluate, does not think this is likely acute. Initially patient unable to provide any history. Left lower extremity is swollen, warm, erythematous. Nursing unable to reach nurse had called in report. IV placed and basic labs obtained. CT ordered per discussion with Dr. Sampson. Daughter eventually arrived and states that left lower extremity has been swollen, warm, erythematous like this for couple months now since her diagnosis of DVT. Laboratory studies with a normal white count, sed rate and C-reactive protein little bit up. Kidney function is normal. CT scan does confirm avulsion fracture. Patient's daughter reports that she is essentially nonweightbearing and nonambulatory. Discussed further with Dr. Sampson after CT obtained. Recommendation is no splinting at this time as she is nonambulatory. I will follow her up in their clinic and will call ECF to make arrangements. Return precautions provided. Lab Data Lab results reviewed: Yes I reviewed the patient's lab results. Quality:SDOH Health Related Social Needs: No Data to Display [facility] All Active Problems Closed avulsion fracture of left calcaneus (Acute) Urinary retention with incomplete bladder emptying (Acute) Closed fracture of right proximal humerus (Acute) Malnutrition, calorie (Acute) Hearing loss (Acute) (Acute) Pain, foot (Acute) Nail dystrophy (Acute) Urinary incontinence (Acute) Venous insufficiency (Acute) Fracture of base of fifth metatarsal bone of right foot (Acute) Right ankle pain (Acute) Seizure (Acute) Hand laceration (Acute) Contusion of head (Acute) Abnormal auditory perception (Acute) Bilateral sensorineural hearing loss (Acute) Vitamin D deficiency (Chronic) low level 2006; replacement, still marginal 08/2014 Osteoporosis, unspecified (Chronic) Pos DEXA 08/2003; alendronate therapy through 2010; Vit D def 2005, replaced; Dilantin therapy risk 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 ORIF of the patella of her left knee. b. Appendectomy and tubal ligation in the same surgery, according to her. c. Tonsillectomy and adenoidectomy. d. Aneurysm repair on two occasions, 1971 and 1982. She gets repeat scans every so often for these. e. Bilateral cataract surgery. Aneurysm (Chronic) a. Positive for multiple aneurysms. As stated, she has had surgery for these aneurysms. She has been followed quite closely in the past, and now has been able to spread out her appointments with the neurologist as there has been no change in her scan since 1982, according to her and her caregiver. History of seizure (Chronic) a. Due to previous CVA. b. She has not had any in upwards of 13 to 15 years. COPD (chronic obstructive pulmonary disease) (Chronic) a. Vague history as she was a previous smoker. 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) initial leak/procedure 1971; neurosurg [facility] [place]; elect further watchful waiting Clipping 07/2015 Renal cell carcinoma of right kidney (08/30/16) Core needle bx, Dr Gottlieb, Clear cell, Lauren nuclear grade 2; cxr neg for pulmonary nodules Seizure disorder most recent seizure 01/2015 Deep vein thrombosis (DVT) of left lower extremity Pulmonary embolus, right Surgical History Fracture, intertrochanteric, left femur S/P IM nail fixation: 01/30/2024 cerebral aneurysm clipping (08/11/15) [facility] [place] R nephrectomy & ovary (10/25/16) Dr Fong, [facility] [place], carcinoma kidney EGD and Colonoscopy (09/28/16) Extraction of cataract (12/18/15) Cataract extraction with lens implant, left eye. Wyatt Nazario MD. Family History Mother , CA at age 75. Neoplasm liver or kidney CA Father , fall at age 63. No problems noted. Brother , LUNG CA No problems noted. Brother , Stomach CA at age 85. No problems noted. Social History Smoking/Tobacco Use Status: Former Tobacco Use Smoking risk assessment performed?: Yes Alcohol Intake: never Drug use: Never Substance use type: does not use Caregiver/Support person: Yes Household members: family and other Details: lives with daughter Housing: jail Number of Children: 2 Communication Needs: Corrective Lenses current occupation: retired from [employer], Dispatcher What is your relationship status?: Panel score (0-1 are the most socially isolated patients): 0 What type of physical activity do you participate in: none Seatbelt use: always Drive intox or ride w/intox frontload driver: No Working smoke detector in home: Yes Carbon monox detector in home: Yes Do you feel safe at home: Yes Do you feel safe in your relationship?: Yes Additional Social history: Lives at the [facility] temporarily
[2024-04-24] MEDS: Normal Saline 250 ML 500 ML IV (18:51)
[2024-04-24 18:53] LABS: Abs Immature Grans 0.03 10^3/uL (0.0-0.06); Absolute Basophil Count 0.06 10^3/uL (0.0-0.2); Absolute Eosinophil Count 0.11 10^3/uL (0.0-0.7); Absolute Lymphocyte Count 2.12 10^3/uL (1.2-3.4); Absolute Monocyte Count 1.01 10^3/uL (0.1-0.8); Absolute Neutrophil Count 5.36 10^3/uL (1.2-6.7); Basophils % 0.7 %; Eosinophils % 1.3 %; HGB 13.4 g/dL (11.2-15.7); Immature Grans % 0.3 %; Lymphocytes % 24.4 %; MCH 29.5 pg (27.0-33.0); MCHC 31.9 % (32.0-36.0); MCV 93 fL (80-95); MPV 9.6 fL (8.0-11.0); Monocytes % 11.6 %; Neutrophils % 61.7 %; Platelet Count 308 10^3/uL (130-400); RBC 4.54 10^6/uL (3.93-5.22); RDW 13.1 % (11.7-14.6); RDW-SD 44.2 fL; WBC 8.69 10^3/uL (4.4-10.8)
[2024-04-24 18:55] LABS: ESR 35 mm/hr (0-30)
[2024-04-24 19:04] LABS: Anion Gap 8.1 mmol/L (3-11); BUN 17 mg/dL (7-18); CO2 26.9 mmol/L (21.0-32.0); CREATININE 0.9 mg/dL (0.55-1.02); Chloride 109 mmol/L (98-107); Estimated GFR 65.03 (mL/min/1.73m2); Glucose 104 mg/dL (74-106); Sodium 144 mmol/L (136-145)
[2024-04-24 19:07] LABS: C-Reactive Protein 2.65 mg/dL (<or=0.5)
[2024-04-24] MEDS: Normal Saline Flush 10 ML SYR IVP (21:08)
[2024-04-24] MEDS: Omnipaque 350 MG/ML 100 ML BTL IJ (21:09)
[2024-04-24] MEDS: Normal Saline - Diluent 50 ML VIAL IJ (21:10)
--- NOTE | 2024-04-24 21:29 | DI.CT_ITS ---
Exam(s) CT LOWER EXTREMITY LT W EXAM: CT LOWER EXTREMITY LT W CLINICAL HISTORY: abnormal L ankle x-ray, swelling, warmth, reddness. TECHNIQUE: Imaging Protocol: Axial computed tomography images with coronal and sagittal reformatted images were created and reviewed. CONTRAST MATERIAL: Intravenous: Omnipaque 350. Contrast Volume: 100 ML COMPARISON: CR,XR XR ANKLE LT COMPLETE from 04/23/2024 FINDINGS: Bones: There is a fracture of the posterior superior aspect of the calcaneus with distraction of the fracture fragment 1.5 cm proximally. There does appear to be a hematoma interposed between the frac ture fragment in the parent bone. No cellulitic or osteomyelitic changes are identified. The joint spaces appear well maintained. No lytic or sclerotic lesions are identified. Soft Tissues: There is edema seen in the soft tissues in the lower extremity. Enhancement: No abnormal enhancement is identified. IMPRESSION: 1. Displaced avulsion fracture of the posterior superior aspect of the calcaneus. 2. Edema seen in the lower extremity but no evidence of an abscess. RADIATION DOSE DELIVERED: 295.93mGy.cm Total DLP 295.93mGy.cm Total DLP DATA REPOSITORY: All CT scans at this facility are submitted to the National Radiology Data Registry (NRDR) Dose Index Registry (DIR) with the [employer] (ACR). RADIATION OPTIMIZATION: All CT scans at this facility use at least one of these dose optimization te chniques: automated exposure control; mA and/or kV adjustment per patient size (includes targeted exa ms where dose is matched to clinical indication); or iterative reconstruction.
--- NOTE | 2024-04-24 22:27 | DI.VRAD_ITS ---
PROCEDURE INFORMATION: Exam: CT Left Lower Extremity With Contrast, Ankle Exam date and time: 04/24/2024 9:14 PM Age: 78 years old Clinical indication: Other: Abnormal L ankle x-ray, swelling, warmth, redness. Patient fell 2 days ago. TECHNIQUE: Imaging protocol: CT of the left lower extremity with intravenous contrast was performed. Exam focused on the ankle. Contrast material: OMNIPAQUE 350; Contrast volume: 100 ml; Contrast route: INTRAVENOUS (IV); COMPARISON: CR XR ANKLE LT COMPLETE 04/23/2024 4:28 PM FINDINGS: Bones/joints: No joint space collection or malalignment. There is an avulsion fracture of the posterosuperior calcaneus with fragment distracted superiorly by 1.4 cm. A 1.3 x 0.8 x 1.4 cm low-attenuation collection suspicious for hematoma seen interposed between the calcaneus and fracture fragment. Soft tissues: Subcutaneous edema is seen throughout the anterior, medial and lateral aspects of the lower leg extending into the foot. No drainable abscess. Vasculature: Vasculature is unremarkable. IMPRESSION: Avulsion fracture off the posterosuperior calcaneus with craniad displacement. No dislocation. Subcutaneous edema around the lower leg and foot which may be secondary to cellulitis. No drainable abscess seen. Dictated and Authenticated by: Nan Leal MD. Ordering:DUSTY Castellanos MD
== END 2024-04-24 23:16 | disposition skilled nursing facility (03) ==
PROVIDERS: Emergency Provider Emergency Medicine; PCP Family Medicine
DX: S92.032A Displaced avulsion fracture of tuberosity of left calcaneus, initial encounter for closed fracture (principal); W19.XXXA Unspecified fall, initial encounter
CPT/HCPCS: 36415; 80048; 85652; 96361; 99285; 73701; 85025; 86140; 99283; J3490

== ENCOUNTER 2024-05-22 09:41 | Outpatient (REF) | payer MEDICARE, MEDICAID, SELFPAY ==
[2024-05-22 18:48] LABS: Abs Immature Grans 0.04 10^3/uL (0.0-0.06); Absolute Lymphocyte Count 2.04 10^3/uL (1.2-3.4); Absolute Monocyte Count 0.94 10^3/uL (0.1-0.8); Absolute Neutrophil Count 4.45 10^3/uL (1.2-6.7); Basophils % 1.3 %; Eosinophils % 2.6 %; HCT 38.9 % (36.0-46.0); HGB 12.8 g/dL (11.2-15.7); Immature Grans % 0.5 %; Lymphocytes % 26.3 %; MCH 29.8 pg (27.0-33.0); MCHC 32.9 % (32.0-36.0); MCV 91 fL (80-95); MPV 10.9 fL (8.0-11.0); Monocytes % 12.1 %; Neutrophils % 57.2 %; Platelet Count 300 10^3/uL (130-400); RDW 13.2 % (11.7-14.6); RDW-SD 43.1 fL; WBC 7.77 10^3/uL (4.4-10.8)
[2024-05-22 18:56] LABS: Anion Gap 7.3 mmol/L (3-11); BUN 17 mg/dL (7-18); CO2 27.7 mmol/L (21.0-32.0); CREATININE 0.7 mg/dL (0.55-1.02); Calcium 8.6 mg/dL (8.5-10.1); Chloride 106 mmol/L (98-107); Estimated GFR 87.92 (mL/min/1.73m2); Glucose 101 mg/dL (74-106); Potassium 4.9 mmol/L (3.5-5.1); Sodium 141 mmol/L (136-145)
== END 2024-05-22 09:42 | disposition home or self-care (01) ==
LOC: LBN 09:41
PROVIDERS: PCP Family Medicine; Visit Provider Family Medicine
DX: D62 Acute posthemorrhagic anemia (principal); E87.6 Hypokalemia
CPT/HCPCS: 80048; 85025

== ENCOUNTER 2024-07-03 20:33 | Outpatient (REF) | payer MEDICARE, MEDICAID, SELFPAY ==
[2024-07-03 19:15] LABS: Abs Immature Grans 0.07 10^3/uL (0.0-0.06); Absolute Basophil Count 0.08 10^3/uL (0.0-0.2); Absolute Eosinophil Count 0.03 10^3/uL (0.0-0.7); Absolute Lymphocyte Count 1.58 10^3/uL (1.2-3.4); Absolute Monocyte Count 0.52 10^3/uL (0.1-0.8); Absolute Neutrophil Count 10.29 10^3/uL (1.2-6.7); Basophils % 0.6 %; Eosinophils % 0.2 %; HCT 41.2 % (36.0-46.0); HGB 13.1 g/dL (11.2-15.7); Immature Grans % 0.6 %; Lymphocytes % 12.6 %; MCH 29.9 pg (27.0-33.0); MCHC 31.8 % (32.0-36.0); MCV 94 fL (80-95); MPV 11.2 fL (8.0-11.0); Monocytes % 4.1 %; Neutrophils % 81.9 %; Platelet Count 315 10^3/uL (130-400); RBC 4.38 10^6/uL (3.93-5.22); RDW 13.4 % (11.7-14.6); RDW-SD 46.7 fL; WBC 12.57 10^3/uL (4.4-10.8)
[2024-07-03 19:20] LABS: Anion Gap 11.4 mmol/L (3-11); BUN 14 mg/dL (7-18); CO2 25.6 mmol/L (21.0-32.0); CREATININE 0.9 mg/dL (0.55-1.02); Calcium 9.5 mg/dL (8.5-10.1); Chloride 108 mmol/L (98-107); Estimated GFR 65.03 (mL/min/1.73m2); Glucose 121 mg/dL (74-106); Potassium 4.4 mmol/L (3.5-5.1); Sodium 145 mmol/L (136-145)
[2024-07-03 19:26] LABS: Bilirubin Negative (Negative); Blood Negative (Negative); Clarity Sl Cloudy (Clear); Glucose Negative (Negative); Ketones Negative (Negative); Leukocyte Esterase Negative (Negative); Nitrite Positive (Negative); Urobilinogen 0.2 mg/dL (Up to 0.2); pH 7.5 (5-8)
[2024-07-03 19:35] LABS: Bacteria Many HPF (Negative); Epithelial Cells Negative HPF (Negative); RBC Negative HPF (0-2); WBC 0-2 HPF (0-5)
[2024-07-03 19:36] LABS: C & S Indicated? C&S Done As Ordered; Crystals Rare Calcium Oxalate HPF (Negative); Mucus Negative (Negative)
== END 2024-07-03 20:34 | disposition home or self-care (01) ==
LOC: LBN 20:33
PROVIDERS: PCP Family Medicine; Visit Provider Nurse Practitioner Family
DX: N39.0 Urinary tract infection, site not specified (principal); M62.81 Muscle weakness (generalized); R82.89 Other abnormal findings on cytological and histological examination of urine
CPT/HCPCS: 80048; 87077; 81003; 81015; 85025; 87086; 87186

== ENCOUNTER 2024-07-04 09:27 | Emergency (ER) | payer MEDICARE, MEDICAID, SELFPAY ==
[2024-07-04] VITALS (66 sets, daily range): BP systolic 126–179; BP diastolic 52–115; PULSE 61–78; RESP 13–25; TEMP 36.2–36.6; O2SAT 89–98
--- NOTE | 2024-07-04 09:15 | RT.EKG_ITS ---
APPROVED REPORT Exam: Resting ECG Reason for Exam: ams Patient Location: E HR:62 bpm ECG Measurements Heart Rate 62 AXIS NC 192 P 62 QRSd 129 QRS -49 QT 469 T 15 QTc 477 Conclusion Sinus rhythm 62 NORMAL AXIS NO STEMI
--- NOTE | 2024-07-04 09:30 | DI.CT_ITS ---
Exam(s) CT HEAD WO EXAM: CT HEAD WO CLINICAL HISTORY: ams. TECHNIQUE: Imaging Protocol: Axial computed tomography images with coronal and sagittal reformatted images were created and reviewed COMPARISON: CT CT HEAD CERV SPINE FACIAL WO from 12/21/[address] HEAD WO from 01/23/[address] HEAD WO from 01/30/2024 FINDINGS: The examination is limited due to patient motion artifact. Ventricles and Extra axial spaces: Normal in size and morphology for the patient's age. There is agai n seen a 2.1 x 1.4 cm peripherally calcified mass in the midline. 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 It appears stable. On the left, there is again seen an aneurysm which appears to have in creased in size compared to the prior examination. It appears to have previously been clipped. The visualized portion on the coronal images measures 1.2 x 0.5 cm. (Series 4, image 34). It can also b e seen on series 2, image 112. This compares to 0.6 x 0.3 cm on the prior examination from 01/30/2024 . Hemorrhage: None. Cerebral parenchyma: There again seen areas of encephalomalacia in the frontal lobes bilaterally. Th ere are areas of decreased attenuation in the white matter consistent with chronic microvascular isch emic disease. There are bilateral aneurysm clippings. Midline shift: None. Brainstem/Cerebellum: Normal. Calvarium: There again seen prior bilateral craniotomies and a right temporal craniectomy. Visualized Paranasal sinuses/Mastoids: Clear. Soft Tissues: Unremarkable. IMPRESSION: 1. Interval increase in size of a left-sided aneurysm (series 4, image 34) since 01/30/2024. No evide nce of intracranial hemorrhage. 2. Multiple aneurysm clippings, craniotomies and craniectomy. 3. No acute territorial infarct is identified. 4. Stable areas of encephalomalacia involving the frontal lobes bilaterally. 5. Findings were discussed with Dr. Coleman at 11:15 a.m. on 07/04/2024. RADIATION DOSE DELIVERED: Total DLP DATA REPOSITORY: All CT scans at this facility are submitted to the National Radiology Data Registry (NRDR) Dose Index Registry (DIR) with the [employer] (ACR). RADIATION OPTIMIZATION: All CT scans at this facility use at least one of these dose optimization te chniques: automated exposure control; mA and/or kV adjustment per patient size (includes targeted exa ms where dose is matched to clinical indication); or iterative reconstruction.
--- NOTE | 2024-07-04 09:43 | W.ED.GENAD ---
Discharge Plan Disposition Patient Disposition: Transfer-Acute Inpatient Care Specific Acute Inpt Facility: [facility] Condition: Fair Discharge Details Chief Complaint: AMS/LOC Clinical Impression: Aneurysm, Hypertension, Acute UTI, Acute alteration in mental status, RUE weakness Primary Care Provider: Ketan Tamez ED Provider: Ricci Coleman Home Meds and New Rx's Prescriptions: No Action levetiracetam [Keppra] 500 mg tablet 500 mg PO BID Qty: 180 3RF (DME) Undergarment Misc 1 ea Miscellaneous Q2H MDD 10 Qty: 300 12RF Rx Instructions: for hygiene and safety; Size S/M Dx: K52.9 acetaminophen [Tylenol] 325 MG tablet 650 mg PO Q4H PRN cholestyramine (with sugar) 4 gram powder 8 g PO BID Qty: 378 11RF Rx Instructions: two scoops up to twice daily FOR CHRONIC DIARRHEA; ferrous gluconate 324 mg (37.5 mg iron) tablet 324 mg PO BID Qty: 180 3RF potassium chloride 10 mEq tablet,ER particles/crystals 20 meq PO DAILY Qty: 180 3RF Rx Instructions: replace low potassium cholecalciferol (vitamin D3) 50 mcg (2,000 unit) capsule 50 mcg PO DAILY Qty: 90 3RF omeprazole 20 mg capsule,delayed release(DR/EC) 20 mg PO DAILY Qty: 90 3RF mirtazapine 15 mg tablet 15 mg PO QHS Qty: 90 3RF Ensure Original Liquid 237 ml PO DAILY Qty: 7110 6RF multivitamin Tablet 1 tab PO DAILY Eliquis DVT-PE Treat 30D Start 5 mg (74 tabs) tablets,dose pack See Rx Instructions .ROUTE .COMPLEX Qty: 74 0RF Rx Instructions: orally per package directions metoprolol tartrate 25 mg Tablet 25 mg PO TID Qty: 90 0RF HPI General Date/Time Provider Initiated Documentation: 07/04/24 09:36. Limitations to Documentation: altered mental status and physical limitation. Information obtained by: EMS. HPI Narrative: 78-year-old female with past medical history of dementia, COPD, seizure history presents for evaluation of altered mental status. The [facility] Per extremely limited report, the patient was altered had difficulty speaking and right-sided weakness yesterday. It is unclear when this started or how long it lasted, but eventually it did resolve. Then today they noticed it again. It is unclear if she is more confused from her baseline or what her change in symptoms is today but they did contact EMS to bring her here. Her daughter presented to the emergency department and reports that she is confused at baseline does have some difficulty understanding her speech because of her teeth, but otherwise uses her arms and legs normally, but does not get out of bed independently Related Data Home Medications ?Medication ?Instructions ?Recorded ?Confirmed acetaminophen 325 mg tablet 650 mg PO Q4H PRN 08/13/15 07/04/24 (Tylenol) cholestyramine (with sugar) 4 gram 8 g PO BID #378 grams 10/15/22 07/04/24 oral powder cholecalciferol (vitamin D3) 50 50 mcg PO DAILY #90 caps 03/11/23 07/04/24 mcg (2,000 unit) capsule ferrous gluconate 324 mg (37.5 mg 324 mg PO BID #180 tabs 03/11/23 07/04/24 iron) tablet omeprazole 20 mg capsule,delayed 20 mg PO DAILY #90 caps 03/11/23 07/04/24 release potassium chloride 10 mEq 20 meq (2 x 10 mEq) PO DAILY #180 03/11/23 07/04/24 tablet,extended release(part/cryst) tab-caps diaper,brief,adult,disposable #300 ea 04/01/23 07/04/24 (Undergarment misc) levetiracetam 500 mg tablet 500 mg PO BID #180 tabs 04/01/23 07/04/24 (Keppra) mirtazapine 15 mg tablet 15 mg PO QHS #90 tabs 04/15/23 07/04/24 food supplemt, lactose-reduced 237 ml PO DAILY #7,110 mL 01/02/24 07/04/24 (Ensure Original oral liquid) apixaban 5 mg (74 tabs) tablets in See Rx Instructions PO .COMPLEX 01/23/24 07/04/24 a dose pack (Eliquis DVT-PE Treat #74 dose pk 30D Start) multivitamin 1 tab PO DAILY 01/23/24 07/04/24 metoprolol tartrate 25 mg tablet 25 mg PO TID #90 tabs 02/06/24 07/04/24 Previous Rx's ?Medication ?Instructions ?Recorded cholestyramine (with sugar) 4 gram 8 g PO BID #378 grams 10/15/22 oral powder cholecalciferol (vitamin D3) 50 50 mcg PO DAILY #90 caps 03/11/23 mcg (2,000 unit) capsule ferrous gluconate 324 mg (37.5 mg 324 mg PO BID #180 tabs 03/11/23 iron) tablet omeprazole 20 mg capsule,delayed 20 mg PO DAILY #90 caps 03/11/23 release potassium chloride 10 mEq 20 meq (2 x 10 mEq) PO DAILY #180 03/11/23 tablet,extended release(part/cryst) tab-caps diaper,brief,adult,disposable #300 ea 04/01/23 (Undergarment misc) levetiracetam 500 mg tablet 500 mg PO BID #180 tabs 04/01/23 (Keppra) mirtazapine 15 mg tablet 15 mg PO QHS #90 tabs 04/15/23 food supplemt, lactose-reduced 237 ml PO DAILY #7,110 mL 01/02/24 (Ensure Original oral liquid) apixaban 5 mg (74 tabs) tablets in See Rx Instructions PO .COMPLEX 01/23/24 a dose pack (Vita Coco DVT-PE Treat #74 dose pk 30D Start) metoprolol tartrate 25 mg tablet 25 mg PO TID #90 tabs 02/06/24 Allergies Allergy/AdvReac Type Severity Reaction Status Date / Time aspirin AdvReac Intermediate GI Bleed Verified 04/24/24 18:14 General Stated Complaint: AMS/LOC DANAY: 2 Exam Narrative Exam Narrative: Review of Systems: All systems reviewed & are unremarkable except as noted in HPI and below Well-developed, no acute distress Alert smiling NCAT PERRL, normal conjunctiva no gaze deficits appreciated RRR Hypertensive Unlabored respiratory effort clear bilaterally Nondistended abdomen soft nontender Skin tear noted on the left elbow Alert, speech is very quiet and difficult to understand, oriented to person, recognizes family member Will not follow commands to move legs or withdraw to painful stimulus on the lower extremities Has pronator drift of the right upper extremity, but generally able to hold against gravity No appreciable facial droop Course Vital Signs Vital signs: Vital Signs Temperature 36.2 C L 07/04/24 09:27 Pulse 64 07/04/24 09:27 Respiratory Rate 18 07/04/24 09:27 Blood Pressure 170/71 H 07/04/24 09:27 Temperature 36.2 C L 07/04/24 09:27 Pulse 64 07/04/24 09:27 Respiratory Rate 18 07/04/24 09:27 Blood Pressure 170/71 H 07/04/24 09:27 Medical Decision Making Emergent evaluation of altered mental status. Initial differential includes CVA, TIA, seizure. Also consider metabolic derangement or infectious etiology. [facility] which currently does have a high prevalence of COVID. No reported seizure activity, will send drug level. Patient is outside of the window for any code stroke. She we will get head CT and lab work to evaluate possible etiologies of altered mental status. EKG reviewed and independently interpreted, sinus 62, normal axis, no acute ischemic change. Lab work reviewed, there is no elevated white blood cell count or significant anemia. The electrolytes do not have significant derangement and renal function is at baseline. The troponin is not elevated. Thyroid function within normal limits. The patient does have a nitrite positive urinary tract infection. Culture has been sent. And the patient will be treated with IV antibiotics. Her drugs and alcohol screen is negative. Chest x-ray does not demonstrate focal consolidation. Patient does seem to be having some intermittent episodes where she seems to be unresponsive, she does not have change in heart rate or blood pressure but will not respond to voice or stimulus. She is just sitting staring with her eyes open not blinking. She does not have increase in tone. This makes me have a low suspicion for nonconvulsive status or subclinical seizure. Unlikely to be focal seizure but I have loaded her with Keppra. [address] was discussed with the radiologist. There is concern for the known aneurysms having an increase in size of the aneurysm. Unclear if this is clinically contributing to the symptoms. I have contacted neurosurgery to review imaging and provide recommendations. 1300 Neurosurgery has reviewed imaging is concerned that there is possibly a hyperdense lesion associated with the coiled aneurysm. They are recommending blood pressure control of less than 140 systolic, and are requesting ED to ED transfer for their emergent evaluation of this patient. The patient has been accepted by ED physician at [facility], Dr. Gamble. Patient's family updated on treatment plan. Given her elevated blood pressures, she is requiring a nicardipine drip to maintain appropriate blood pressure guidelines. Medical Records Medical records reviewed: Yes I reviewed the patient's medical records. Lab Data Lab results reviewed: Yes I reviewed the patient's lab results. Quality:SDOH Health Related Social Needs: No Data to Display Critical Care Time Critical Care Time Critical Care Time: Yes Total Critical Care Time: 36 Attestation: CRITICAL CARE Upon my evaluation, this patient had a high probability of imminent or life-threatening deterioration due to altered mental status, aneurysm, hypertension which required my direct attention, intervention, and personal management. I have personally provided 36 minutes of critical care time exclusive of time spent on separately billable procedures. Time includes review of laboratory data, radiology results, discussion with consultants, and monitoring for potential decompensation. Interventions were performed as documented above [facility] All Active Problems (Updated 07/04/24 @ 13:53 by Ricci Coleman MD) RUE weakness (Acute) Acute alteration in mental status (Acute) Acute UTI (Acute) Hypertension (Chronic) Urinary retention with incomplete bladder emptying (Acute) Closed fracture of right proximal humerus (Acute) Malnutrition, calorie (Acute) Hearing loss (Acute) Sundowning (Acute) Pain, foot (Acute) Nail dystrophy (Acute) Urinary incontinence (Acute) Venous insufficiency (Acute) Fracture of base of fifth metatarsal bone of right foot (Acute) Right ankle pain (Acute) Seizure (Acute) Hand laceration (Acute) Contusion of head (Acute) Abnormal auditory perception (Acute) Bilateral sensorineural hearing loss (Acute) Vitamin D deficiency (Chronic) low level 2005; replacement, still marginal 08/2014 Osteoporosis, unspecified (Chronic) Pos DEXA 08/2003; alendronate therapy through 2010; Vit D def 2005, replaced; Dilantin therapy risk 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 ORIF of the patella of her left knee. b. Appendectomy and tubal ligation in the same surgery, according to her. c. Tonsillectomy and adenoidectomy. d. Aneurysm repair on two occasions, 1971 and 1982. She gets repeat scans every so often for these. e. Bilateral cataract surgery. Aneurysm (Chronic) a. Positive for multiple aneurysms. As stated, she has had surgery for these aneurysms. She has been followed quite closely in the past, and now has been able to spread out her appointments with the neurologist as there has been no change in her scan since 1982, according to her and her caregiver. History of seizure (Chronic) a. Due to previous CVA. b. She has not had any in upwards of 13 to 15 years. COPD (chronic obstructive pulmonary disease) (Chronic) a. Vague history as she was a previous smoker. 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/30/16) Core needle bx, Dr Gottlieb, Clear cell, Lauren nuclear grade 2; cxr neg for pulmonary nodules Seizure disorder most recent seizure 01/2015 Deep vein thrombosis (DVT) of left lower extremity Pulmonary embolus, right Surgical History Fracture, intertrochanteric, left femur S/P IM nail fixation: 01/30/2024 cerebral aneurysm clipping (08/11/15) [facility] R nephrectomy & ovary (10/25/16) Dr Fong, [facility], carcinoma kidney EGD and Colonoscopy (09/28/16) Extraction of cataract (12/18/15) Cataract extraction with lens implant, left eye. Wyatt Nazario MD. Family History Mother , CA at age 75. Neoplasm liver or kidney CA Father , fall at age 63. No problems noted. Brother , LUNG CA No problems noted. Brother , Stomach CA at age 85. No problems noted. Social History Smoking/Tobacco Use Status: Former Tobacco Use Smoking risk assessment performed?: Yes Alcohol Intake: never Drug use: Never Substance use type: does not use Caregiver/Support person: Yes Household members: family and other Details: lives with daughter Housing: senior living Number of Children: 2 Communication Needs: Corrective Lenses current occupation: retired from [employer], [employer], Dispatcher What is your relationship status?: Panel score (0-1 are the most socially isolated patients): 0 What type of physical activity do you participate in: none Seatbelt use: always Drive intox or ride w/intox cross country truck driver: No Working smoke detector in home: Yes Carbon monox detector in home: Yes Do you feel safe at home: Yes Do you feel safe in your relationship?: Yes Additional Social history: [facility]
[2024-07-04 10:06] LABS: Abs Immature Grans 0.04 10^3/uL (0.0-0.06); Absolute Basophil Count 0.06 10^3/uL (0.0-0.2); Absolute Eosinophil Count 0.07 10^3/uL (0.0-0.7); Absolute Lymphocyte Count 2.11 10^3/uL (1.2-3.4); Absolute Monocyte Count 0.69 10^3/uL (0.1-0.8); Absolute Neutrophil Count 6.42 10^3/uL (1.2-6.7); Basophils % 0.6 %; Eosinophils % 0.7 %; HCT 42.6 % (36.0-46.0); HGB 13.6 g/dL (11.2-15.7); Immature Grans % 0.4 %; Lymphocytes % 22.5 %; MCHC 31.9 % (32.0-36.0); MCV 94 fL (80-95); MPV 9.9 fL (8.0-11.0); Monocytes % 7.3 %; Neutrophils % 68.5 %; Platelet Count 282 10^3/uL (130-400); RBC 4.54 10^6/uL (3.93-5.22); RDW 13.2 % (11.7-14.6); RDW-SD 45.5 fL; WBC 9.39 10^3/uL (4.4-10.8)
[2024-07-04 10:30] LABS: ALT 12 U/L (14-59); AST 17 U/L (15-37); Albumin 3.1 g/dL (3.4-5.0); Alkaline Phosphatase 115 U/L (46-116); Anion Gap 8.5 mmol/L (3-11); BUN 15 mg/dL (7-18); Bilirubin, Total 0.31 mg/dL (0.2-1.0); CO2 27.5 mmol/L (21.0-32.0); Calcium 9.6 mg/dL (8.5-10.1); Chloride 108 mmol/L (98-107); Estimated GFR 57.31 (mL/min/1.73m2); Glucose 90 mg/dL (74-106); Magnesium 2.3 mg/dL (1.8-2.4); Potassium 3.9 mmol/L (3.5-5.1); Sodium 144 mmol/L (136-145); TSH (W/Ref FT4) 0.56 uIU/mL (0.36-3.74); Total Protein 6.9 g/dL (6.4-8.2); Troponin I < 50 ng/L (< or =60)
[2024-07-04 10:36] LABS: ETHANOL BLOOD < 3.0 mg/dL (<10)
--- NOTE | 2024-07-04 10:41 | DI.RAD_ITS ---
Exam(s) XR CHEST 1V IN DI DEPT EXAM: XR CHEST 1V IN DI DEPT CLINICAL HISTORY: AMS TECHNIQUE: 2D digital imaging was performed of the chest. One image was obtained. An AP view was ob tained. COMPARISON: CR CHEST 2 VIEWS PA,LAT from 07/14/2016 CR XR SHOULDER RT COMPLETE 2+V from 01/31/[address] CHEST PE CTA from 02/01/2024 FINDINGS: MEDIASTINUM: There is again seen a large hiatal hernia . HEART: Normal. PULMONARY VASCULATURE: Atherosclerotic calcification and tortuosity of the thoracic aorta is noted. LUNGS: Clear. PLEURAL SPACE: No pleural effusion or pneumothorax. BONE:Within normal limits for the patient's age. There is again seen a sideplate and screws in the pr oximal left humerus. OTHER FINDINGS:Normal. IMPRESSION: No acute pulmonary findings. DATA REPOSITORY: RADIATION DOSE DELIVERED:
[2024-07-04 11:08] LABS: Bilirubin Negative (Negative); Blood Trace-intact (Negative); Clarity Clear (Clear); Glucose Negative (Negative); Ketones Negative (Negative); Leukocyte Esterase Small (Negative); Nitrite Positive (Negative); Urobilinogen 0.2 mg/dL (Up to 0.2); pH 7.5 (5-8)
[2024-07-04 11:20] LABS: Bacteria Packed HPF (Negative); Crystals Negative HPF (Negative); Epithelial Cells Rare HPF (Negative); Mucus Trace (Negative); Other Cells Negative (Negative)
[2024-07-04 11:21] LABS: C & S Indicated? Yes; Casts Negative LPF (Negative)
[2024-07-04 11:31] LABS: *AMPHETAMINES SCREEN URINE Negative (Negative); *BARBITURATES SCREEN URINE Negative (Negative); *BENZODIAZEPINES SCREEN URINE Negative (Negative); Cannabinoids THC Negative (Negative); Cocaine Screen,Urine Negative (Negative); METHADONE URINE SCREEN Negative (Negative); OPIATES URINE SCREEN Negative (Negative)
[2024-07-04 11:36] LABS: Tricyclic Antidepressants Negative (Negative)
[2024-07-04] MEDS: cefTRIAXone 1 GM/50 ML BAG IVPB (11:39)
--- NOTE | 2024-07-04 12:15 | DI.CT_ITS ---
Exam(s) CT BRAIN CTA EXAM: CT BRAIN CTA CLINICAL HISTORY: evl for aneurysm. TECHNIQUE: Imaging Protocol: Axial CT angiography was performed with multi-slice acquisition and mu lti-planar and/or 3D reconstructions. CONTRAST MATERIAL: Intravenous: Omnipaque 350 Contrast volume:70 COMPARISON: CT CT HEAD WO from 07/04/2024 FINDINGS: The examination is limited due to artifact from the patient's multiple aneurysm clippings. Ventricles and Extra axial spaces: Normal in size and morphology for the patient's age. Hemorrhage: None. Cerebral parenchyma: There is again seen encephalomalacia involving the frontal lobes bilaterally wit h compensatory enlargement of the anterior horns of both lateral ventricles. There are areas of decr eased attenuation in the white matter consistent with small vessel ischemic disease. No intraparench ymal enhancing masses are seen. Enhancement: The hyperdense area adjacent to the aneurysm clip to the left of midline is stable. Thi s has shown interval increase in size compared to examinations from 02/11. The peripherally calcifie d central mass also is unchanged. These may represent aneurysms. [place] of [place]: Evaluation of the [id number] is limited secondary to the numerous aneurysm cl ippings. No new aneurysm is identified. Midline shift: None. Brainstem/Cerebellum: Normal. Calvarium: There again seen bilateral craniotomies and craniectomy. Visualized Paranasal sinuses/Mastoids: Clear. Internal Carotid Arteries: This area is suboptimally evaluated secondary to artifact from the patient 's multiple aneurysm clippings. Petrous: Normal. Cavernous: Normal. Cerebral: Normal. Anterior Cerebral Arteries: The large peripherally calcified lesion is adjacent to the anterior commu nicating artery and may represent a giant aneurysm. Middle Cerebral Arteries: The distal M1 segments are visualized and are unremarkable. No distal aneu rysms are seen. Posterial Cerebral Arteries: The P1 segments are poorly visualized due to artifact. No distal programming internship ior cerebral artery aneurysms are seen. Vertebral Arteries: Right: No aneurysm, occlusion or significant stenosis. Left: No aneurysm, occlusion or significant stenosis. Basilar Artery: No aneurysm, occlusion or significant stenosis. IMPRESSION: 1. Exam limited by artifact from the patient's multiple aneurysm clippings. 2. Findings suggestive of a increase in size of an aneurysm to the left of midline since January 2024. 3. Stable large peripherally calcified mass near the anterior communicating artery suspicious for an giant aneurysm. 4. Findings were discussed with Dr. Coleman at 2 p.m. on 07/04/2024. RADIATION DOSE DELIVERED: Total DLP Total DLP DATA REPOSITORY: All CT scans at this facility are submitted to the National Radiology Data Registry (NRDR) Dose Index Registry (DIR) with the [employer] (ACR). RADIATION OPTIMIZATION: All CT scans at this facility use at least one of these dose optimization te chniques: automated exposure control; mA and/or kV adjustment per patient size (includes targeted exa ms where dose is matched to clinical indication); or iterative reconstruction.
[2024-07-04] MEDS: Metoprolol 5 MG/5 ML VIAL IVP (12:45)
[2024-07-04] MEDS: Normal Saline - Diluent 50 ML VIAL IJ (13:15)
[2024-07-04] MEDS: Omnipaque 350 MG/ML 500 ML BTL-Imaging package 70 ML IJ (13:16)
[2024-07-04] MEDS: niCARdipine 25 MG in Normal Saline 240 ML IV (13:36)
[2024-07-04 14:08] LABS: MRSA PCR Negative (Negative)
[2024-07-06 10:27] LABS: Levetiracetam 6.6 mcg/mL
== END 2024-07-04 14:55 | disposition short-term general hospital (02) ==
PROVIDERS: Emergency Provider Emergency Medicine; PCP Family Medicine
DX: R41.82 Altered mental status, unspecified (principal); R53.1 Weakness; I10 Essential (primary) hypertension; N39.0 Urinary tract infection, site not specified; I72.9 Aneurysm of unspecified site
CPT/HCPCS: 36416; 70496; 80053; 80307; 82962; 87641; 93005; 96365; 96367; 96375; 99291; 70450; 71045; 80177; 80320; 81003; 81015; 83735; 84443; 84484; 85025; 87086; 93010; J0696; J1953; J2404

== ENCOUNTER 2024-10-28 12:51 | Outpatient (REF) | payer MEDICARE, MEDICAID, SELFPAY ==
[2024-10-28 15:37] LABS: Bilirubin Negative (Negative); Blood Negative (Negative); Clarity Sl Cloudy (Clear); Glucose Negative (Negative); Ketones Negative (Negative); Leukocyte Esterase Negative (Negative); Nitrite Positive (Negative); Urobilinogen 0.2 mg/dL (Up to 0.2)
[2024-10-28 17:52] LABS: Bacteria Many HPF (Negative); C & S Indicated? C&S Done As Ordered; Crystals Few Amorphous HPF (Negative); Epithelial Cells Few HPF (Negative); RBC 0-2 HPF (0-2)
== END 2024-10-28 12:52 | disposition home or self-care (01) ==
LOC: LBN 12:51
PROVIDERS: PCP Family Medicine; Visit Provider Family Medicine
DX: N39.0 Urinary tract infection, site not specified (principal); R33.9 Retention of urine, unspecified
CPT/HCPCS: 87077; 81003; 81015; 87086; 87186

== ENCOUNTER 2025-06-03 07:49 | Emergency (ER) | payer MEDICARE, MEDICAID, SELFPAY ==
[2025-06-03] VITALS (93 sets, daily range): BP systolic 140–202; BP diastolic 53–151; PULSE 63–93; RESP 13–31; TEMP 36.9; O2SAT 95–97
--- NOTE | 2025-06-03 08:04 | W.ED.GENAD ---
Discharge Plan Discharge Details Chief Complaint: CVA/TIA Primary Care Provider: Ketan Tamez ED Provider: Justo Piedra Home Meds and New Rx's Prescriptions: No Action levetiracetam [Keppra] 500 mg tablet 500 mg PO BID Qty: 180 3RF Patient Comments: Pt now takes in liquid form- 500/5ML- Take 5ML BID 06/03/25 (DME) Undergarment Misc 1 ea Miscellaneous Q2H MDD 10 Qty: 300 12RF Rx Instructions: for hygiene and safety; Size S/M Dx: K52.9 acetaminophen [Tylenol] 325 MG tablet 650 mg PO Q4H PRN cholecalciferol (vitamin D3) 50 mcg (2,000 unit) capsule 50 mcg PO DAILY Qty: 90 3RF mirtazapine 15 mg tablet 15 mg PO QHS Qty: 90 3RF Ensure Original Liquid 237 ml PO DAILY Qty: 7110 6RF multivitamin Tablet 1 tab PO DAILY metoprolol tartrate 25 mg Tablet 25 mg PO TID Qty: 90 0RF aspirin [Aspirin Childrens] 81 mg tablet,chewable 81 mg PO DAILY atorvastatin 40 mg tablet 40 mg PO DAILY calcium carbonate 200 mg calcium (500 mg) tablet,chewable 500 mg PO DAILY HPI General Date/Time Provider Initiated Documentation: 06/03/25 07:58. HPI Narrative: MDM This is an altered normothermic and not tachycardic 79-year-old female with history of aneurysms and seizure concerning for the possibility of seizure versus CVA for which patient will undergo CT scan of her head with angiogram. Unclear timeframe so patient is not a tPA candidate. UTI certainly on the differential so we will obtain a straight cath urinalysis. Given found down we will also obtain CK to assess for rhabdomyolysis. Will obtain chest x-ray. Will send salicylate, acetaminophen, and ethanol levels. No obvious tongue biting to suggest seizure. No nuchal rigidity to suggest meningitis. Soft nontender abdomen so I am not suspicious for intra-abdominal infection. Patient does appear mildly pale so anemia certainly in the differential. Will obtain screening twelve-lead ECG and some troponin to assess for ACS. 11:36 AM Patient had negative acetaminophen levels, 2 reassuring troponins. Undetectable ethanol level. Basic metabolic panel with no PONCE and no acute electrolyte abnormalities. Reassuring CK. Undetectable ammonia. Normal magnesium. Undetectable salicylate level. Reassuring TSH. 2:30 PM I met with the patient and her daughter. Patient was at baseline per daughter. Her CT scan showed no large vessel occlusion or significant stenosis. She did have an interval increase size of the hyperdense lesion to the left of midline. Postcontrast images per radiology suggest feeling of an aneurysm. The contrast filling was not present last year. There is also increased mass effect at the third ventricle. I met with the patient and her daughter. We discussed these findings. Will complete teleneuro consult. 3:25 PM I was in touch with Dr. Acosta and from neurology at [facility] [place]. He requested brain MRI with and without contrast which I ordered. He also requested Keppra load which had already been completed. 4:18 PM Patient had remote history of aneurysms that have been clipped. Is unclear whether or not these are MRI compatible. MRI will attempt to determine this information. If we cannot determine this patient may require boarding overnight in the emergency department versus hospitalization for ongoing monitoring and MRI tomorrow. 5 PM Patient fortunately is not able to have an MRI at the moment. It is unclear whether or not her aneurysm clips are MRI compatible. I signed patient out to Dr. Bethea pending neurology consultation. Given patient is at baseline it would be ideal if patient could be discharged following neurological consultation and have outpatient MRI. HPI This patient was reportedly found unresponsive this morning on the floor. When EMS arrived the patient was back in bed. Patient subsequently became more responsive. She answers questions appropriately. She offers no complaints. She denies chest pain nausea and vomiting. Exam General: Elderly-appearing in no acute distress speaking in complete sentences. Head: Normocephalic, atraumatic. Eye:[Pupils equal, round reactive to light.] Extraocular eye movements intact. No conjunctival injection. No scleral icterus. Ear, nose, mouth, throat: Grossly normal inspection. Normal voice, handling secretions normally. Neck: Trachea midline. No midline cervical spinal tenderness Cardiovascular: Well-perfused distal extremities. Regular rate and rhythm Respiratory: Nonlabored respiration. Clear lungs Gastrointestinal: Nondistended abdomen. Soft nontender. Musculoskeletal: No edema. Moving all 4 extremities spontaneously. Nontender bilateral upper and lower extremities. Skin: Normal for age and race, grossly normal temperature and turgor. No acute rash. Neurologic: Alert to person and place but not time. No focal cranial nerve deficits. Related Data Home Medications ?Medication ?Instructions ?Recorded ?Confirmed acetaminophen 325 mg tablet 650 mg PO Q4H PRN 08/13/15 06/03/25 (Tylenol) cholecalciferol (vitamin D3) 50 50 mcg PO DAILY #90 caps 03/11/23 06/03/25 mcg (2,000 unit) capsule diaper,brief,adult,disposable #300 ea 04/01/23 06/03/25 (Undergarment misc) levetiracetam 500 mg tablet 500 mg PO BID #180 tabs 04/01/23 06/03/25 (Keppra) mirtazapine 15 mg tablet 15 mg PO QHS #90 tabs 04/15/23 06/03/25 food supplemt, lactose-reduced 237 ml PO DAILY #7,110 mL 01/02/24 06/03/25 (Ensure Original oral liquid) multivitamin 1 tab PO DAILY 01/23/24 06/03/25 metoprolol tartrate 25 mg tablet 25 mg PO TID #90 tabs 02/06/24 06/03/25 aspirin 81 mg chewable tablet 81 mg PO DAILY 06/03/25 06/03/25 (Aspirin Childrens) atorvastatin 40 mg tablet 40 mg PO DAILY 06/03/25 06/03/25 calcium carbonate 500 mg PO DAILY 06/03/25 06/03/25 Previous Rx's ?Medication ?Instructions ?Recorded cholecalciferol (vitamin D3) 50 50 mcg PO DAILY #90 caps 03/11/23 mcg (2,000 unit) capsule diaper,brief,adult,disposable #300 ea 04/01/23 (Undergarment misc) levetiracetam 500 mg tablet 500 mg PO BID #180 tabs 04/01/23 (Keppra) mirtazapine 15 mg tablet 15 mg PO QHS #90 tabs 04/15/23 food supplemt, lactose-reduced 237 ml PO DAILY #7,110 mL 01/02/24 (Ensure Original oral liquid) metoprolol tartrate 25 mg tablet 25 mg PO TID #90 tabs 02/06/24 Allergies Allergy/AdvReac Type Severity Reaction Status Date / Time No Known Allergies Allergy Unverified 06/03/25 10:10 General Stated Complaint: CVA/TIA DANAY: 3 Course Vital Signs Vital signs: Vital Signs Temperature 36.9 C 06/03/25 07:50 Pulse 66 06/03/25 07:50 Respiratory Rate 25 H 06/03/25 07:50 Blood Pressure 168/83 H 06/03/25 07:50 Pulse Oximetry 95 06/03/25 07:50 Temperature 36.9 C 06/03/25 07:50 Temperature Source Oral 06/03/25 07:50 Pulse 66 06/03/25 07:50 Respiratory Rate 25 H 06/03/25 07:50 Blood Pressure 168/83 H 06/03/25 07:50 Blood Pressure Position Supine 06/03/25 07:50 Pulse Oximetry 95 06/03/25 07:50 Oxygen Delivery Method Room Air 06/03/25 07:50 Oxygen Flow Rate 0 06/03/25 07:50 Pain Level 0 06/03/25 07:50 PFSH All Active Problems (Updated 08/04/24 @ 00:01 by MINISTERIO DAS) Urinary retention with incomplete bladder emptying (Acute) Closed fracture of right proximal humerus (Acute) Malnutrition, calorie (Acute) Hearing loss (Acute) Sundowning (Acute) Pain, foot (Acute) Nail dystrophy (Acute) Urinary incontinence (Acute) Venous insufficiency (Acute) Fracture of base of fifth metatarsal bone of right foot (Acute) Right ankle pain (Acute) Seizure (Acute) Hand laceration (Acute) Contusion of head (Acute) Abnormal auditory perception (Acute) Bilateral sensorineural hearing loss (Acute) Vitamin D deficiency (Chronic) low level 2005; replacement, still marginal 08/2014 Osteoporosis, unspecified (Chronic) Pos DEXA 08/2003; alendronate therapy through 2010; Vit D def 2005, replaced; Dilantin therapy risk 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 ORIF of the patella of her left knee. b. Appendectomy and tubal ligation in the same surgery, according to her. c. Tonsillectomy and adenoidectomy. d. Aneurysm repair on two occasions, 1971 and 1982. She gets repeat scans every so often for these. e. Bilateral cataract surgery. Aneurysm (Chronic) a. Positive for multiple aneurysms. As stated, she has had surgery for these aneurysms. She has been followed quite closely in the past, and now has been able to spread out her appointments with the neurologist as there has been no change in her scan since 1982, according to her and her caregiver. History of seizure (Chronic) a. Due to previous CVA. b. She has not had any in upwards of 13 to 15 years. COPD (chronic obstructive pulmonary disease) (Chronic) a. Vague history as she was a previous smoker. 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) initial leak/procedure 1971; neurosurg [facility] [place]; elect further watchful waiting Clipping 07/2015 Renal cell carcinoma of right kidney (08/30/16) Core needle bx, Dr Gottlieb, Clear cell, Lauren nuclear grade 2; cxr neg for pulmonary nodules Seizure disorder most recent seizure 01/2015 Deep vein thrombosis (DVT) of left lower extremity Pulmonary embolus, right Surgical History Fracture, intertrochanteric, left femur S/P IM nail fixation: 01/30/2024 cerebral aneurysm clipping (08/11/15) [facility] [place] R nephrectomy & ovary (10/25/16) Dr Fong, [facility] [place], carcinoma kidney EGD and Colonoscopy (09/28/16) Extraction of cataract (12/18/15) Cataract extraction with lens implant, left eye. Wyatt Nazario MD. Family History Mother , CA at age 75. Neoplasm liver or kidney CA Father , fall at age 63. No problems noted. Brother , LUNG CA No problems noted. Brother , Stomach CA at age 85. No problems noted. Social History Smoking/Tobacco Use Status: Former Tobacco Use Smoking risk assessment performed?: Yes Alcohol Intake: never Drug use: Never Substance use type: does not use Caregiver/Support person: Yes Household members: family and other Details: lives with daughter Housing: intermediate Number of Children: 2 Communication Needs: Corrective Lenses current occupation: retired from [employer] What is your relationship status?: Panel score (0-1 are the most socially isolated patients): 0 What type of physical activity do you participate in: none Seatbelt use: always Drive intox or ride w/intox 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
--- NOTE | 2025-06-03 08:05 | DI.RAD_ITS ---
Exam(s) XR CHEST 1V IN DI DEPT EXAM: XR CHEST 1V IN DI DEPT CLINICAL HISTORY: Unresponsive TECHNIQUE: 2D digital imaging was performed of the chest. One image was obtained. An AP view was obtained. COMPARISON: CT CT CHEST PE CTA from 02/01/2024 CR XR CHEST 1V IN DI DEPT from 07/04/2024 FINDINGS: MEDIASTINUM: There is again seen a large hiatal hernia. HEART: Normal. PULMONARY VASCULATURE: Normal. LUNGS: Clear. PLEURAL SPACE: No pleural effusion or pneumothorax. BONE:Within normal limits for the patient's age. There is again seen a sideplate and screws in the proximal left humerus. OTHER FINDINGS:Normal. IMPRESSION: No acute pulmonary findings. DATA REPOSITORY: RADIATION DOSE DELIVERED:
--- NOTE | 2025-06-03 08:11 | DI.CT_ITS ---
Exam(s) CT BRAIN NECK CTA EXAM: CT BRAIN NECK CTA CLINICAL HISTORY: Altered history of aneurysm. TECHNIQUE: Imaging Protocol: Axial CT angiography was performed with multi- slice acquisition and multi-planar and/or 3D reconstructions. CONTRAST MATERIAL: Intravenous: Omnipaque 350 contrast volume:70 mL COMPARISON: CT CT HEAD CERVICAL SPINE WO from 03/22/[address] HEAD CERV SPINE FACIAL WO from 12/21/[address] HEAD WO from 01/30/[address] CHEST PE CTA from 02/01/[address] HEAD WO from 07/04/[address] BRAIN CTA from 07/04/2024 FINDINGS: CT Head W/O and W: Ventricles and Extra axial spaces: There is again seen encephalomalacia involving the frontal lobes bilaterally with resultant increase in size of the anterior horns of the ventricles. This is all stable. Hemorrhage: None. Cerebral parenchyma: There are areas of decreased attenuation in the white matter most consistent with chronic microvascular ischemic disease. There is no evidence of an acute territorial infarct. There has been interval increase in size of the hyperdense lesion in the area of the left thalamus. It measures 2.3 cm in transverse diameter (series 36, image 32). This compares to 1.7 cm on the prior examination. There is some contrast seen associated with this lesion (series 10, image 115). This was not present on the prior examination and suggests some filling of this aneurysm. There is mild increase in the mass effect on the adjacent 3rd ventricle. There is a [id number] shift of the midline at this level. The partially calcified mass in the midline is unchanged. Midline shift: None. Brainstem/Cerebellum: Normal. Calvarium: There is a right temporal craniotomy and bilateral frontal craniotomies present. Visualized Paranasal sinuses/Mastoids: Clear. Soft Tissues: Unremarkable. Enhancement: Unremarkable. CTA Neck W: Common Carotid: Atherosclerotic calcification is seen in the carotid bulbs bilaterally without significant stenosis. Right: No dissection, occlusion or significant stenosis. Left: No dissection, occlusion or significant stenosis. External Carotid: Right: No occlusion or significant stenosis. Left: No occlusion or significant stenosis. Internal Carotid: Right: No dissection, occlusion or significant stenosis. Left: No dissection, occlusion or significant stenosis. Vertebral Artery: Right: No dissection, occlusion or significant stenosis. Left: No dissection, occlusion or significant stenosis. Lung Apices: Moderate emphysematous changes are present in the lungs. There is an 8 mm nodule associated with the right major fissure posteriorly. Bones: Within normal limits for the patient's age. Soft Tissues: Normal. Thyroid gland: There are few tiny hypodensities in the thyroid gland (less than 5 mm). No follow-up is recommended. CTA Brain W: Internal Carotid Arteries: Atherosclerotic calcification is seen in the cavernous portions of the internal carotid arteries bilaterally. Anterior Cerebral Arteries: Right: No aneurysm, occlusion or significant stenosis. Left: No aneurysm, occlusion or significant stenosis. Middle Cerebral Arteries: Right: No aneurysm, occlusion or significant stenosis. Left: No aneurysm, occlusion or significant stenosis. Posterior Cerebral Arteries: Right: No aneurysm, occlusion or significant stenosis. Left: No aneurysm, occlusion or significant stenosis. Vertebral Arteries: Right: No aneurysm, occlusion or significant stenosis. Left: No aneurysm, occlusion or significant stenosis. Basilar Artery: No aneurysm, occlusion or significant stenosis. IMPRESSION: 1. No large vessel occlusion or significant stenosis on the CT angiography of the head. 2. Stable peripherally calcified midline mass. 3. Interval increase in size of the hyperdense lesion to the left of midline. The postcontrast images show some filling of the lesion suggesting filling of an aneurysm. This contrast filling was not present on the examination from 07/04/2024. There is also slight increase in the mass effect with a left to right shift of the midline at the level of the 3rd ventricle. 4. Old areas of encephalomalacia involving the frontal lobes bilaterally. 5. No occlusion or significant stenosis on the CT angiography of the neck. RADIATION DOSE DELIVERED: 1,944.71mGy.cm Total DLP DATA REPOSITORY: All CT scans at this facility are submitted to the National Radiology Data Registry (NRDR) Dose Index Registry (DIR) with the [employer] (A[employer]). RADIATION OPTIMIZATION: All CT scans at this facility use at least one of these dose optimization techniques: automated exposure control; mA and/or kV adjustment per patient size (includes targeted exams where dose is matched to clinical indication); or iterative reconstruction.
--- NOTE | 2025-06-03 08:15 | RT.EKG_ITS ---
APPROVED REPORT Exam: Resting ECG Reason for Exam: Altered Patient Location: E HR:63 bpm ECG Measurements Heart Rate 63 AXIS MA 194 P 63 QRSd 123 QRS -52 QT 442 T 45 QTc 454 Conclusion Sinus rhythm...normal P axis, V-rate 60- 99 Right bundle branch block...QRSd>120, terminal axis(90,270) No Occlusion MD
[2025-06-03 09:48] LABS: Abs Immature Grans 0.02 10^3/uL (0.0-0.06); HCT 44.3 % (36.0-46.0); HGB 14.0 g/dL (11.2-15.7); Immature Grans % 0.3 %; MCH 29.6 pg (27.0-33.0); MCHC 31.6 % (32.0-36.0); MCV 94 fL (80-95); MPV 10.1 fL (8.0-11.0); Platelet Count 282 10^3/uL (130-400); RBC 4.73 10^6/uL (3.93-5.22); RDW 13.1 % (11.7-14.6); RDW-SD 44.7 fL; WBC 7.35 10^3/uL (4.4-10.8)
[2025-06-03 10:18] LABS: Salicylate < 2.8 mg/dL (<2.8)
[2025-06-03 10:21] LABS: Anion Gap 7.7 mmol/L (3-11); BUN 16 mg/dL (7-18); CO2 30.3 mmol/L (21.0-32.0); Calcium 9.2 mg/dL (8.5-10.1); Chloride 106 mmol/L (98-107); Creatine Kinase 71 U/L (26-192); Estimated GFR 74.44 (mL/min/1.73m2); Glucose 81 mg/dL (74-106); Potassium 4.2 mmol/L (3.5-5.1); Sodium 144 mmol/L (136-145)
[2025-06-03 10:22] LABS: Acetaminophen < 2 ug/mL (10-30)
[2025-06-03 10:31] LABS: Magnesium 2.1 mg/dL (1.8-2.4); TSH (W/Ref FT4) 0.69 uIU/mL (0.36-3.74); Troponin I 7 ng/L (<or=51)
[2025-06-03 10:59] LABS: Ammonia < 10 umol/L (11-32)
[2025-06-03 11:12] LABS: Troponin I 8 ng/L (<or=51)
[2025-06-03] MEDS: levETIRAcetam 1,000 MG in Normal Saline 100 ML 400 MG IVPB (11:43)
[2025-06-03] MEDS: Normal Saline - Diluent 50 ML VIAL IJ (11:45)
[2025-06-03] MEDS: Omnipaque 350 MG/ML 500 ML BTL-Imaging package 70 ML IJ (11:47)
[2025-06-03 13:45] LABS: Glucose Negative (Negative)
--- NOTE | 2025-06-03 19:02 | ED.PROG_ITS ---
Date of service: 06/03/25 Time of Service: 19:02 Medical Decision Making Patient unable to get an MRI and unclear if the clips are compatible but unlikely given she never had an MRI before. Patient is stable and has no complaints currently. Discussed with neurologist Dr. Van who compared it to the old CT and does not feel significantly changed and was given hide with neurointerventional list evaluated. He does recommend increasing his Keppra to 750 mg twice daily. Patient stable and given the reassuring workup I feel she can be [facility], return precautions given. Discharge Plan Disposition Patient Disposition: Home Condition: Stable Discharge Details Clinical Impression: AMS (altered mental status), Seizure disorder Primary Care Provider: Ketan Tamez ED Provider: Juan Carlos Bethea Home Meds and New Rx's Prescriptions: New levetiracetam [Keppra] 750 mg tablet 750 mg PO BID Qty: 30 0RF Continued (DME) Undergarment Misc 1 ea Miscellaneous Q2H MDD 10 Qty: 300 12RF Rx Instructions: for hygiene and safety; Size S/M Dx: K52.9 acetaminophen [Tylenol] 325 MG tablet 650 mg PO Q4H PRN cholecalciferol (vitamin D3) 50 mcg (2,000 unit) capsule 50 mcg PO DAILY Qty: 90 3RF mirtazapine 15 mg tablet 15 mg PO QHS Qty: 90 3RF Ensure Original Liquid 237 ml PO DAILY Qty: 7110 6RF multivitamin Tablet 1 tab PO DAILY metoprolol tartrate 25 mg Tablet 25 mg PO TID Qty: 90 0RF aspirin [Aspirin Childrens] 81 mg tablet,chewable 81 mg PO DAILY atorvastatin 40 mg tablet 40 mg PO DAILY calcium carbonate 200 mg calcium (500 mg) tablet,chewable 500 mg PO DAILY No Action levetiracetam [Keppra] 500 mg tablet 500 mg PO BID Qty: 180 3RF Patient Comments: Pt now takes in liquid form- 500/5ML- Take 5ML BID 06/03/25 Discharge Instructions Additional Instructions: Your imaging did not show any significant changes from your prior imaging. After discussion with the neurologist we can increase your Keppra from 500 mg twice a day to 750 mg twice a day. Follow-up with your primary care provider within 1 to 2 weeks. If you feel significantly more ill or have new symptoms such as difficulty breathing or high fevers return to emergency department for evaluation
== END 2025-06-03 19:46 | disposition home or self-care (01) ==
PROVIDERS: Emergency Medicine; Emergency Provider Emergency Medicine; PCP Family Medicine
DX: R41.82 Altered mental status, unspecified (principal)
CPT/HCPCS: 99285 ×2; 36415; 00123; 70496; 70498; 80048; 82550; 86850; 86900; 86901; 93005; 96365; 71045; 80320; 80329; 81003; 82140; 83735; 84443; 84484; 85025; 93010; J1953

== ENCOUNTER 2025-06-06 14:02 | Outpatient (REF) | payer MEDICARE, MEDICAID, SELFPAY ==
[2025-06-06 15:54] LABS: Abs Immature Grans 0.03 10^3/uL (0.0-0.06); HCT 42.3 % (36.0-46.0); HGB 13.0 g/dL (11.2-15.7); Immature Grans % 0.3 %; MCH 29.2 pg (27.0-33.0); MCHC 30.7 % (32.0-36.0); MCV 95 fL (80-95); MPV 11.3 fL (8.0-11.0); Platelet Count 284 10^3/uL (130-400); RBC 4.45 10^6/uL (3.93-5.22); RDW 13.3 % (11.7-14.6); RDW-SD 46.9 fL; WBC 8.85 10^3/uL (4.4-10.8)
[2025-06-06 16:05] LABS: ALT 24 U/L (14-59); AST 22 U/L (15-37); Albumin 3.3 g/dL (3.4-5.0); Alkaline Phosphatase 139 U/L (46-116); Anion Gap 12.1 mmol/L (3-11); BUN 24 mg/dL (7-18); Bilirubin, Total 0.2 mg/dL (0.2-1.0); CO2 23.9 mmol/L (21.0-32.0); Calcium 9.1 mg/dL (8.5-10.1); Calculated LDL 46 mg/dL (<100); Chloride 107 mmol/L (98-107); Cholesterol 132 mg/dL (<200); Estimated GFR 74.44 (mL/min/1.73m2); Glucose 125 mg/dL (74-106); HDL Cholesterol 64 mg/dL (>or=50); Potassium 4.1 mmol/L (3.5-5.1); Sodium 143 mmol/L (136-145); Total Protein 6.7 g/dL (6.4-8.2); Triglyceride 111 mg/dL (<150)
== END 2025-06-06 14:03 | disposition home or self-care (01) ==
LOC: LBN 14:02
PROVIDERS: PCP Family Medicine; Visit Provider Nurse Practitioner Adult Health
DX: I10 Essential (primary) hypertension (principal); I73.9 Peripheral vascular disease, unspecified
CPT/HCPCS: 80053; 80061; 85025

== ENCOUNTER 2025-09-08 11:13 | Emergency (ER) | payer MEDICARE, MEDICAID, SELFPAY ==
[2025-09-08] VITALS (7 sets, daily range): BP systolic 111–118; BP diastolic 69–73; PULSE 74–90; RESP 16; TEMP 37.2; O2SAT 92–95
--- NOTE | 2025-09-08 11:30 | DI.CT_ITS ---
Exam(s) CT ORBITS W EXAM: CT ORBITS W CLINICAL HISTORY: b/l periorbital swelling redness. TECHNIQUE: Imaging Protocol: Axial computed tomography images with coronal and sagittal reformatted images were created and reviewed CONTRAST MATERIAL: Intravenous: Omnipaque 350 Contrast volume:100 ml Contrast route:IV - COMPARISON: CT CT BRAIN NECK CTA from 06/03/2025 FINDINGS: Globes: The anterior and posterior chambers are intact. Optic Nerves: Normal. Extraocular muscles: Normal. Retrobulbar fat: Normal. Orbital jensen: No fracture is noted. Superior ophthalmic veins: Normal. Sinuses: Unremarkable. Soft Tissues: Bilateral periorbital swelling. No visible fluid collection or abscess. Skull: Bilateral craniotomy defects. Brain: Multiple metallic clips related to multiple aneurysms. This creates artifact. Severe ventricular dilatation again noted. Grossly stable appearance of previously noted aneurysms. Stable appearance of peripherally calcified density in the left thalamic region. IMPRESSION: Mild soft tissue swelling around the orbits.. Grossly stable appearance previously noted anterior and posterior communicating artery aneurysm ventricular dilatation. The preliminary [facility] report was reviewed. RADIATION DOSE DELIVERED: Total DLP DATA REPOSITORY: All CT scans at this facility are submitted to the National Radiology Data Registry (NRDR) Dose Index Registry (DIR) with the [employer] (ACR). RADIATION OPTIMIZATION: All CT scans at this facility use at least one of these dose optimization techniques: automated exposure control; mA and/or kV adjustment per patient size (includes targeted exams where dose is matched to clinical indication); or iterative reconstruction.
[2025-09-08 11:40] LABS: Abs Immature Grans 0.02 10^3/uL (0.0-0.06); HCT 36.0 % (36.0-46.0); HGB 11.4 g/dL (11.2-15.7); Immature Grans % 0.2 %; MCH 29.2 pg (27.0-33.0); MCHC 31.7 % (32.0-36.0); MCV 92 fL (80-95); MPV 9.7 fL (8.0-11.0); Platelet Count 283 10^3/uL (130-400); RBC 3.90 10^6/uL (3.93-5.22); RDW 13.5 % (11.7-14.6); RDW-SD 45.6 fL; WBC 10.54 10^3/uL (4.4-10.8)
[2025-09-08 11:51] LABS: ALT 17 U/L (14-59); AST 19 U/L (15-37); Albumin 2.7 g/dL (3.4-5.0); Alkaline Phosphatase 117 U/L (46-116); Anion Gap 7.8 mmol/L (3-11); BUN 14 mg/dL (7-18); Bilirubin, Total 0.3 mg/dL (0.2-1.0); C-Reactive Protein 1.25 mg/dL (<or=0.5); CO2 29.2 mmol/L (21.0-32.0); Calcium 8.5 mg/dL (8.5-10.1); Chloride 106 mmol/L (98-107); Estimated GFR 73.98 (mL/min/1.73m2); Glucose 95 mg/dL (74-106); Potassium 4.2 mmol/L (3.5-5.1); Sodium 143 mmol/L (136-145); Total Protein 6.3 g/dL (6.4-8.2)
[2025-09-08] MEDS: Normal Saline - Diluent 50 ML VIAL IJ (12:24)
[2025-09-08] MEDS: Normal Saline Flush 10 ML SYR IVP (12:25)
[2025-09-08] MEDS: Omnipaque 350 MG/ML 100 ML BTL IJ (12:25)
[2025-09-08] MEDS: Nystatin POWDER 60 GM JAR TP (13:39)
[2025-09-08] MEDS: AMPICILLIN/SULBACTAM 3 GM in Normal Saline 100 ML IVPB (14:03)
--- NOTE | 2025-09-08 14:41 | W.ED.GENAD ---
Discharge Plan Disposition Patient Disposition: Care Home Facility(SNF) Discharge Details Clinical Impression: Cellulitis of periorbital region of both eyes, Acute conjunctivitis of both eyes Primary Care Provider: Ketan Tamez ED Provider: Chris Kelly [place] Meds and New Rx's Prescriptions: New amoxicillin-pot clavulanate 875-125 mg tablet 1 tab PO BID Qty: 14 0RF erythromycin 5 mg/gram (0.5 %) ointment 1 applic ophthalmic (eye) QID 7 Days Qty: 3.5 0RF nystatin 100,000 unit/gram powder 1 applic topical TID Qty: 15 0RF amoxicillin-pot clavulanate 875-125 mg tablet 1 tab PO BID Qty: 14 0RF erythromycin 5 mg/gram (0.5 %) ointment 1 applic ophthalmic (eye) QID Qty: 3.5 0RF nystatin 100,000 unit/gram powder 1 applic topical TID Qty: 15 0RF Continued (DME) Undergarment Misc 1 ea Miscellaneous Q2H MDD 10 Qty: 300 12RF Rx Instructions: for hygiene and safety; Size S/M Dx: K52.9 acetaminophen [Tylenol] 325 MG tablet 650 mg PO Q4H PRN cholecalciferol (vitamin D3) 50 mcg (2,000 unit) capsule 50 mcg PO DAILY Qty: 90 3RF mirtazapine 15 mg tablet 15 mg PO QHS Qty: 90 3RF Ensure Original Liquid 237 ml PO DAILY Qty: 7110 6RF multivitamin Tablet 1 tab PO DAILY metoprolol tartrate 25 mg Tablet 25 mg PO TID Qty: 90 0RF aspirin [Aspirin Childrens] 81 mg tablet,chewable 81 mg PO DAILY atorvastatin 40 mg tablet 40 mg PO DAILY calcium carbonate 200 mg calcium (500 mg) tablet,chewable 500 mg PO DAILY levetiracetam [Keppra] 750 mg tablet 750 mg PO BID Qty: 30 0RF ropinirole 0.25 mg tablet 0.25 mg PO DAILY polyethylene glycol 3350 [Miralax] 17 gram/dose powder 17 g PO DAILY PRN nystatin 100,000 unit/gram powder 1 applic TOPICAL DAILY albuterol sulfate [Ventolin HFA] 90 mcg/actuation HFA aerosol inhaler 2 inh inhalation Q4H PRN sennosides [Martina-mary] 8.6 mg tablet 8.6 mg PO DAILY polymyxin B sulf-trimethoprim 10,000 unit- 1 mg/mL drops 1 drp ophthalmic (eye) TID Discharge Instructions Instructions: Conjunctivitis (pink eye), Fungal Skin Rash, Preseptal Cellulitis ED Additional Instructions: Please follow-up with your primary care provider regarding your visit to the emergency department today. Be sure to discuss results of all test performed here today to include radiology, and laboratory testing as well as results for any pending cultures. Should your symptoms worsen, or if you develop new concerning symptoms, please return immediately emergency department for further evaluation. HPI General Date/Time Provider Initiated Documentation: 09/08/25 11:17. HPI Narrative: MDM/Narrative: 80-year-old female with past history of dementia currently living at a residential facility, presents for evaluation of bilateral eye swelling and redness with exudative discharge. Also noted to have right axillary rash today. Given history of spreading conjunctivitis, high suspicion for bacterial conjunctivitis or viral conjunctivitis, and I suspect that patient has now developed a secondary periorbital cellulitis due to excoriation of the eyes. However given patient is a poor historian will opt to scan for possible orbital cellulitis although she does not appear toxic. Suspect the right axillary rash is due to the patient's chronic right hemiparesis and likely providing excellent environment for fungal infection and grow. Rashes consistent with fungal infection, is nontender, however will screen with blood work for signs of significant metabolic dysfunction or signs of sepsis. ED course: Lab results show no leukocytosis, no other significant derangements. CT scan shows no evidence of orbital cellulitis. As such we will treat patient with 1 dose of IV Unasyn, upgrade patient's conjunctivitis therapy to erythromycin 4 times daily, and start patient on nystatin powder of the right axilla. Plan of care discussed with the daughter, prescriptions were forwarded to the patient's residential facility and patient was discharged in stable condition. Clinical impression: Bilateral bacterial conjunctivitis Bilateral periorbital conjunctivitis Fungal rash of right axilla Disposition: [facility] facility HPI: 80-year-old female with past medical history of prior CVA, dementia, right hemiparesis which is now chronic, presents evaluation of bilateral eye redness, swelling, with exudative discharge. As per patient's daughter who is primary historian, she notes that the patient developed left-sided conjunctivitis, several days ago which is then followed by right sided conjunctivitis. Beginning 2 days ago however patient developed a periorbital rash on the left side now, now on the right side as well. She notes that the patient is unable to really express pain at her baseline, but she is concerned that she has a significant infection. Denying vomiting, new focal neurologic deficits or any other concerning symptoms. They do notice that there is a right axillary rash which was noted on transport today described as red and warm to touch but not clearly tender. ROS: Negative besides as mentioned above Exam: Gen: A&O NAD HEENT: NCAT, EOMI, not icteric. Bilateral conjunctivitis with purulent discharge. Significant periorbital erythema and edema no significant fluctuance or tenderness on examination. Vision grossly intact. External ears normal. No rhinorrhea. Moist mucous membranes. Neck: Supple, full range of motion, no observable masses, No meningeal sign. Lungs: No Respiratory distress. CV: RRR, no edema. Abdomen: Soft, nondistended, No rebound tenderness. MSK: No joint swelling, no redness. Skin: Erythema, with scaling and moistness to the right axilla. No fluctuance no tenderness. Neuro: Normal Gait, Grossly intact. Psych: Appropriate for situation. Labs: Laboratory Tests Range/Units 09/08/25 11:30 WBC (4.4-10.8) 10^3/uL 10.54 RBC (3.93-5.22) 10^6/uL 3.90 L Hgb (11.2-15.7) g/dL 11.4 Hct (36.0-46.0) % 36.0 MCV (80-95) fL 92 MCH (27.0-33.0) pg 29.2 MCHC (32.0-36.0) % 31.7 L RDW (11.7-14.6) % 13.5 Plt Count (130-400) 10^3/uL 283 MPV (8.0-11.0) fL 9.7 Immature Gran % % 0.2 Neutrophils % % 67.1 Lymphocytes % % 20.6 Monocytes % % 9.2 Eosinophils % % 2.1 Basophils % % 0.8 Nucleated RBC % (0.0-0.3) % 0.0 Absolute Neutrophils (1.2-6.7) 10^3/uL 7.08 H Absolute Lymphocytes (1.2-3.4) 10^3/uL 2.17 Absolute Monocytes (0.1-0.8) 10^3/uL 0.97 H Absolute Eosinophils (0.0-0.7) 10^3/uL 0.22 Absolute Basophils (0.0-0.2) 10^3/uL 0.08 VBG Lactate (<or=2.0) mmol/L 1.0 Sodium (136-145) mmol/L 143 Potassium (3.5-5.1) mmol/L 4.2 Chloride (98-107) mmol/L 106 Carbon Dioxide (21.0-32.0) mmol/L 29.2 Anion Gap (3-11) mmol/L 7.8 BUN (7-18) mg/dL 14 Creatinine (0.55-1.02) mg/dL 0.8 Est GFR (CKD-EPI 2020) (mL/min/1.73m2) 73.98 Glucose (74-106) mg/dL 95 Calcium (8.5-10.1) mg/dL 8.5 Total Bilirubin (0.2-1.0) mg/dL 0.3 AST (15-37) U/L 19 ALT (14-59) U/L 17 Alkaline Phosphatase (46-116) U/L 117 H C-Reactive Protein (<or=0.5) mg/dL 1.25 H Total Protein (6.4-8.2) g/dL 6.3 L Albumin (3.4-5.0) g/dL 2.7 L Radiology: PROCEDURE INFORMATION: Exam: CT Orbits With Contrast Exam date and time: 09/08/2025 12:20 PM Age: 80 years old Clinical indication: Other: B/l periorbital swelling redness TECHNIQUE: Imaging protocol: Computed tomography of the orbits with contrast. Radiation optimization: All CT scans at this facility use at least one of these dose optimization techniques: automated exposure control; mA and/or kV adjustment per patient size (includes targeted exams where dose is matched to clinical indication); or iterative reconstruction. Contrast material: OMNI 350; Contrast volume: 100 ml; Contrast route: INTRAVENOUS (IV); COMPARISON: CT BRAIN NECK CTA 06/03/2025 11:43 AM FINDINGS: Paranasal sinuses: Normal. No air-fluid levels. Orbital cavities: Orbits are normal. Globes are unremarkable. Bones/joints: No acute fracture. Frontal craniotomies partially visualized Soft tissues: Bilateral periorbital swelling. Frontal encephalomalacia and gliosis with ex vacuo dilatation of the frontal horns of the lateral ventricles. Partially rim calcified lesions/aneurysm in the expected location of the anterior communicating artery measuring up to 2.5 cm. Surgical clips in the supraclinoid regions adjacent to the distal internal carotid arteries. There is an aneurysm measuring 1.1 cm on the left in the expected location of the posterior communicating artery. Rim calcified density in the left thalamus/internal capsule is grossly stable IMPRESSION: No CT evidence for orbital cellulitis. Periorbital swelling/periorbital cellulitis noted ROBERT MANCERA Preliminary Radiology Report [employer] (QA) DISCREPANCY? If there is a discrepancy between the preliminary and final interpretation, please notify [facility] via [email or web address]. 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 Dictated and Authenticated by: Henrry Shin MD 09/08/2025 2:44 PM Eastern Time ([place] & [place] Related Data Home Medications ?Medication ?Instructions ?Recorded ?Confirmed acetaminophen 325 mg tablet 650 mg PO Q4H PRN 08/13/15 09/08/25 (Tylenol) cholecalciferol (vitamin D3) 50 50 mcg PO DAILY #90 caps 03/11/23 09/08/25 mcg (2,000 unit) capsule diaper,brief,adult,disposable #300 ea 04/01/23 09/08/25 (Undergarment mis) mirtazapine 15 mg tablet 15 mg PO QHS #90 tabs 04/15/23 09/08/25 food supplemt, lactose-reduced 237 ml PO DAILY #7,110 mL 01/02/24 06/03/25 (Ensure Original oral liquid) multivitamin 1 tab PO DAILY 01/23/24 09/08/25 metoprolol tartrate 25 mg tablet 25 mg PO TID #90 tabs 02/06/24 09/08/25 aspirin 81 mg chewable tablet 81 mg PO DAILY 06/03/25 09/08/25 (Aspirin Childrens) atorvastatin 40 mg tablet 40 mg PO DAILY 06/03/25 09/08/25 calcium carbonate 500 mg PO DAILY 06/03/25 09/08/25 levetiracetam 750 mg tablet 750 mg PO BID #30 tabs 06/03/25 09/08/25 (Keppra) albuterol sulfate 90 mcg/actuation 2 inh inhalation Q4H PRN 09/08/25 09/08/25 aerosol inhaler (Ventolin HFA) amoxicillin 875 mg-potassium 1 tab PO BID #14 tabs 09/08/25 clavulanate 125 mg tablet amoxicillin 875 mg-potassium 1 tab PO BID #14 tabs 09/08/25 clavulanate 125 mg tablet erythromycin 5 mg/gram (0.5 %) eye 1 applic ophthalmic (eye) QID #3.5 09/08/25 ointment grams erythromycin 5 mg/gram (0.5 %) eye 1 applic ophthalmic (eye) QID 7 09/08/25 ointment days #3.5 grams nystatin 100,000 unit/gram topical 1 applic topical DAILY 09/08/25 09/08/25 powder nystatin 100,000 unit/gram topical 1 applic topical TID #15 grams 09/08/25 powder nystatin 100,000 unit/gram topical 1 applic topical TID Right axilla 09/08/25 powder rash #15 grams polyethylene glycol 3350 17 17 g PO DAILY PRN 09/08/25 09/08/25 gram/dose oral powder (Miralax) polymyxin B sulfate 10,000 1 drp ophthalmic (eye) TID 09/08/25 09/08/25 unit-trimethoprim 1 mg/mL eye drops ropinirole 0.25 mg tablet 0.25 mg PO DAILY 09/08/25 09/08/25 sennosides 8.6 mg tablet (Martina-mary) 8.6 mg PO DAILY 09/08/25 09/08/25 Previous Rx's ?Medication ?Instructions ?Recorded cholecalciferol (vitamin D3) 50 50 mcg PO DAILY #90 caps 03/11/23 mcg (2,000 unit) capsule diaper,brief,adult,disposable #300 ea 04/01/23 (Undergarment misc) mirtazapine 15 mg tablet 15 mg PO QHS #90 tabs 04/15/23 food supplemt, lactose-reduced 237 ml PO DAILY #7,110 mL 01/02/24 (Ensure Original oral liquid) metoprolol tartrate 25 mg tablet 25 mg PO TID #90 tabs 02/06/24 levetiracetam 750 mg tablet 750 mg PO BID #30 tabs 06/03/25 (Keppra) amoxicillin 875 mg-potassium 1 tab PO BID #14 tabs 09/08/25 clavulanate 125 mg tablet amoxicillin 875 mg-potassium 1 tab PO BID #14 tabs 09/08/25 clavulanate 125 mg tablet erythromycin 5 mg/gram (0.5 %) eye 1 applic ophthalmic (eye) QID #3.5 09/08/25 ointment grams erythromycin 5 mg/gram (0.5 %) eye 1 applic ophthalmic (eye) QID 7 09/08/25 ointment days #3.5 grams nystatin 100,000 unit/gram topical 1 applic topical TID #15 grams 09/08/25 powder nystatin 100,000 unit/gram topical 1 applic topical TID Right axilla 09/08/25 powder rash #15 grams Allergies Allergy/AdvReac Type Severity Reaction Status Date / Time No Known Allergies Allergy Unverified 09/08/25 11:33 General Stated Complaint: Cellulitis DANAY: 3 Course Vital Signs Vital signs: Vital Signs Pulse 85 09/08/25 11:18 Pulse Oximetry 93 09/08/25 11:18 Temperature 37.2 C 09/08/25 11:29 Pulse 74 09/08/25 12:40 Respiratory Rate 16 09/08/25 11:29 Blood Pressure 118/73 09/08/25 12:40 Pulse Oximetry 92 09/08/25 12:40 Oxygen Delivery Method Room Air 09/08/25 11:29 Oxygen Flow Rate 0 09/08/25 11:29 Pain Level 0 09/08/25 11:29 Lab/Test Results Lab/Test Results: Laboratory Tests Range/Units 09/08/25 11:30 WBC (4.4-10.8) 10^3/uL 10.54 RBC (3.93-5.22) 10^6/uL 3.90 L Hgb (11.2-15.7) g/dL 11.4 Hct (36.0-46.0) % 36.0 MCV (80-95) fL 92 MCH (27.0-33.0) pg 29.2 MCHC (32.0-36.0) % 31.7 L RDW (11.7-14.6) % 13.5 Plt Count (130-400) 10^3/uL 283 MPV (8.0-11.0) fL 9.7 Immature Gran % % 0.2 Neutrophils % % 67.1 Lymphocytes % % 20.6 Monocytes % % 9.2 Eosinophils % % 2.1 Basophils % % 0.8 Nucleated RBC % (0.0-0.3) % 0.0 Absolute Neutrophils (1.2-6.7) 10^3/uL 7.08 H Absolute Lymphocytes (1.2-3.4) 10^3/uL 2.17 Absolute Monocytes (0.1-0.8) 10^3/uL 0.97 H Absolute Eosinophils (0.0-0.7) 10^3/uL 0.22 Absolute Basophils (0.0-0.2) 10^3/uL 0.08 VBG Lactate (<or=2.0) mmol/L 1.0 Sodium (136-145) mmol/L 143 Potassium (3.5-5.1) mmol/L 4.2 Chloride (98-107) mmol/L 106 Carbon Dioxide (21.0-32.0) mmol/L 29.2 Anion Gap (3-11) mmol/L 7.8 BUN (7-18) mg/dL 14 Creatinine (0.55-1.02) mg/dL 0.8 Est GFR (CKD-EPI 2020) (mL/min/1.73m2) 73.98 Glucose (74-106) mg/dL 95 Calcium (8.5-10.1) mg/dL 8.5 Total Bilirubin (0.2-1.0) mg/dL 0.3 AST (15-37) U/L 19 ALT (14-59) U/L 17 Alkaline Phosphatase (46-116) U/L 117 H C-Reactive Protein (<or=0.5) mg/dL 1.25 H Total Protein (6.4-8.2) g/dL 6.3 L Albumin (3.4-5.0) g/dL 2.7 L PFSH All Active Problems (Updated 09/08/25 @ 15:11 by Chris Kelly MD) Acute conjunctivitis of both eyes (Acute) Cellulitis of periorbital region of both eyes (Acute) Urinary retention with incomplete bladder emptying (Acute) Closed fracture of right proximal humerus (Acute) Malnutrition, calorie (Acute) Hearing loss (Acute) Sundowning (Acute) Pain, foot (Acute) Nail dystrophy (Acute) Urinary incontinence (Acute) Venous insufficiency (Acute) Fracture of base of fifth metatarsal bone of right foot (Acute) Right ankle pain (Acute) Seizure (Acute) Hand laceration (Acute) Contusion of head (Acute) Abnormal auditory perception (Acute) Bilateral sensorineural hearing loss (Acute) Vitamin D deficiency (Chronic) low level 2005; replacement, still marginal 08/2014 Osteoporosis, unspecified (Chronic) Pos DEXA 08/2003; alendronate therapy through 2010; Vit D def 2005, replaced; Dilantin therapy risk 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 ORIF of the patella of her left knee. b. Appendectomy and tubal ligation in the same surgery, according to her. c. Tonsillectomy and adenoidectomy. d. Aneurysm repair on two occasions, 1971 and 1982. She gets repeat scans every so often for these. e. Bilateral cataract surgery. Aneurysm (Chronic) a. Positive for multiple aneurysms. As stated, she has had surgery for these aneurysms. She has been followed quite closely in the past, and now has been able to spread out her appointments with the neurologist as there has been no change in her scan since 1982, according to her and her caregiver. History of seizure (Chronic) a. Due to previous CVA. b. She has not had any in upwards of 13 to 15 years. COPD (chronic obstructive pulmonary disease) (Chronic) a. Vague history as she was a previous smoker. 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) [place]/procedure 1971[place] [facility] [place] watchful waiting Clipping 07/2015 Renal cell carcinoma of right kidney (08/30/16) Core needle bx, Dr Gottlieb, Clear cell, Lauren nuclear grade 2; cxr neg for pulmonary nodules Seizure disorder most recent seizure 01/2015 Deep vein thrombosis (DVT) of left lower extremity Pulmonary embolus, right Surgical History Fracture, intertrochanteric, left femur S/P IM nail fixation: 01/30/2024 cerebral aneurysm clipping (08/11/15[place] [facility] [place] (10/25/16) Dr Fong[place] [facility] [place] kidney EGD and Colonoscopy (09/28/16) Extraction of cataract (12/18/15) Cataract extraction with lens implant, left eye. Wyatt Nazario MD. Family History Mother , CA at age 75. Neoplasm liver or kidney CA Father , fall at age 63. No problems noted. Brother , LUNG CA No problems noted. Brother , Stomach CA at age 85. No problems noted. Social History Smoking/Tobacco Use Status: Former Tobacco Use Smoking risk assessment performed?: Yes Alcohol Intake: never Drug use: Never Substance use type: does not use Caregiver/Support person: Yes Household members: family and other Details: lives with daughter Housing: [facility] Number of Children: 2 Communication Needs: Corrective Lenses current occupation: retired from [employer], [employer] - [employer], Dispatcher What is your relationship status?: Panel score (0-1 are the most socially isolated patients): 0 What type of physical activity do you participate in: none Seatbelt use: always Drive intox or ride w/intox fuel truck driver: No Working smoke detector in home: Yes Carbon monox detector in home: Yes Do you feel safe at home: Yes Do you feel safe in your relationship?: Yes Additional Social history: [facility]
--- NOTE | 2025-09-08 14:45 | DI.VRAD_ITS ---
PROCEDURE INFORMATION: Exam: CT Orbits With Contrast Exam date and time: 09/08/2025 12:20 PM Age: 80 years old Clinical indication: Other: B/l periorbital swelling redness TECHNIQUE: Imaging protocol: Computed tomography of the orbits with contrast. Radiation optimization: All CT scans at this facility use at least one of these dose optimization techniques: automated exposure control; mA and/or kV adjustment per patient size (includes targeted exams where dose is matched to clinical indication); or iterative reconstruction. Contrast material: OMNI 350; Contrast volume: 100 ml; Contrast route: INTRAVENOUS (IV); COMPARISON: CT BRAIN NECK CTA 06/03/2025 11:43 AM FINDINGS: Paranasal sinuses: Normal. No air-fluid levels. Orbital cavities: Orbits are normal. Globes are unremarkable. Bones/joints: No acute fracture. Frontal craniotomies partially visualized Soft tissues: Bilateral periorbital swelling. Frontal encephalomalacia and gliosis with ex vacuo dilatation of the frontal horns of the lateral ventricles. Partially rim calcified lesions/aneurysm in the expected location of the anterior communicating artery measuring up to 2.5 cm. Surgical clips in the supraclinoid regions adjacent to the distal internal carotid arteries. There is an aneurysm measuring 1.1 cm on the left in the expected location of the posterior communicating artery. Rim calcified density in the left thalamus/internal capsule is grossly stable IMPRESSION: No CT evidence for orbital cellulitis. 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 Orderin Robin Perez MD
== END 2025-09-08 15:29 | disposition skilled nursing facility (03) ==
PROVIDERS: Emergency Provider General Practice; PCP Family Medicine
DX: H10.33 Unspecified acute conjunctivitis, bilateral (principal); L03.213 Periorbital cellulitis
CPT/HCPCS: 36415; 80053; 96365; 99285; 70481; 83605; 85025; 86140; 99284; J0295; J3490

== ENCOUNTER 2025-09-29 12:50 | Outpatient (REF) | payer MEDICARE, MEDICAID, SELFPAY ==
[2025-09-29 13:38] LABS: COVID-19 PCR Negative (Negative); RSV PCR Negative (Negative)
== END 2025-09-29 12:51 | disposition home or self-care (01) ==
LOC: LBN 12:50
PROVIDERS: PCP Family Medicine; Visit Provider Nurse Practitioner Adult Health
DX: J06.9 Acute upper respiratory infection, unspecified (principal)
CPT/HCPCS: 87637

== ENCOUNTER 2025-09-29 22:59 | Inpatient (IN) | payer MEDICARE, MEDICAID, SELFPAY ==
[2025-09-29] VITALS (48 sets, daily range): BP systolic 100–114; BP diastolic 31–107; PULSE 75–197; RESP 11–57; TEMP 37.2; O2SAT 90–97
--- NOTE | 2025-09-29 23:00 | DI.RAD_ITS ---
Exam(s) XR PORTABLE CHEST AP EXAM: XR PORTABLE CHEST AP CLINICAL HISTORY: chest pain, STEMI. TECHNIQUE: 2D digital imaging was performed. COMPARISON: CR XR CHEST 1V IN DI DEPT from 07/04/2024 FINDINGS: Single AP portable view. Mild cardiomegaly. Large hiatal hernia again noted. Pulmonary venous hypertension pattern but without airspace pulmonary edema and there are no obvious pleural effusions. In addition, there is a semi lunar density the in the lower left lung field, not previously present in either representing vertical atelectasis or element of infiltrate. There is pos sibility of this also representing part of the stomach. Healed fracture deformity of the right humeral neck. IMPRESSION: Large hiatal hernia with additional finding as above in the left lower lobe. Pulmonary venous hypertension pattern. DATA REPOSITORY: RADIATION DOSE DELIVERED:
--- NOTE | 2025-09-29 23:00 | RT.EKG_ITS ---
APPROVED REPORT Exam: Resting ECG Reason for Exam: stemi Patient Location: E HR:144 bpm ECG Measurements Heart Rate 144 AXIS AR 91 P 269 QRSd 114 QRS 232 QT 297 T 41 QTc 460 Conclusion Supraventricular tachycardia...V-rate>(220-age), QRSd<120 Consider dextrocardia...P, QRS axis rightward Physician: STEMI (anterior)
[2025-09-29] MEDS: Levalbuterol 1.25 MG/3 ML UPD VIAL UPD (23:30)
[2025-09-29] MEDS: Aspirin 300 MG SUPP PR (23:31)
[2025-09-29 23:46] LABS: Abs Immature Grans 0.10 10^3/uL (0.0-0.06); HCT 38.9 % (36.0-46.0); HGB 12.5 g/dL (11.2-15.7); MCH 28.9 pg (27.0-33.0); MCHC 32.1 % (32.0-36.0); MCV 90 fL (80-95); MPV 10.2 fL (8.0-11.0); Platelet Count 361 10^3/uL (130-400); RBC 4.33 10^6/uL (3.93-5.22); RDW 13.3 % (11.7-14.6); RDW-SD 43.8 fL; WBC 21.79 10^3/uL (4.4-10.8)
[2025-09-29] MEDS: MORPHine 4 MG/ML SYR IVP (23:47)
[2025-09-29] MEDS: Lactated Ringers 1,000 ML 1000 ML IV (23:48)
[2025-09-30] VITALS (11 sets, daily range): BP systolic 80; BP diastolic 58; PULSE 119; RESP 20–27
[2025-09-30] LABS: INR 1.1 (0.9-1.1); PTT Activated 27.0 sec (20.6-30.2); Prothrombin Time 10.7 sec (9.1-11.1)
[2025-09-30 00:01] LABS: Immature Grans % 0.0 %; RBC Morphology Normal
--- NOTE | 2025-09-30 00:11 | DI.VRAD_ITS ---
Addendum created by Lul Brar MD on 09/30/2025 12:27:55 AM EST: Correction: Incompletely visualized internal fixation hardware in the proximal left humerus. Initial report created on 09/30/2025 12:10:51 AM EST: PROCEDURE INFORMATION: Exam: XR Chest Exam date and time: 09/29/2025 11:57 PM Age: 80 years old Clinical indication: Other: Cp, stemi TECHNIQUE: Imaging protocol: Radiologic exam of the chest. Views: 1 view. COMPARISON: CR XR CHEST 1V IN DI DEPT 06/03/2025 12:00 PM FINDINGS: Lungs: Diffuse prominence of the pulmonary vascular interstitium and right minor fissure subpleural edema/fluid compatible with hydrostatic interstitial pulmonary edema/CHF. No focal airspace opacity. Pleural spaces: See Lungs finding. Heart/Mediastinum: Large hiatal hernia or chronic intrathoracic gastric volvulus. Bones/joints: Incompletely visualized internal fixation hardware in the proximal left femur. IMPRESSION: Diffuse prominence of the pulmonary vascular interstitium and right minor fissure subpleural edema/fluid compatible with hydrostatic interstitial pulmonary edema/CHF. Dictated and Authenticated by: Lul Brar MD. Orderin Choco Chen MD
--- NOTE | 2025-09-30 00:12 | NUR.NOTE ---
0012: Pt son & daughter at bedside after being updated on pt condition by MD Wilhelm. Per , OK to turn off monitor. Awaiting arrival of hospitalist at bedside. Pt appears comfortable.
[2025-09-30 00:13] LABS: ALT 27 U/L (14-59); AST 80 U/L (15-37); Albumin 3.1 g/dL (3.4-5.0); Alkaline Phosphatase 119 U/L (46-116); Anion Gap 18.5 mmol/L (3-11); BUN 26 mg/dL (7-18); Bilirubin, Total 0.6 mg/dL (0.2-1.0); CO2 17.5 mmol/L (21.0-32.0); Calcium 9.2 mg/dL (8.5-10.1); Chloride 104 mmol/L (98-107); Glucose 222 mg/dL (74-106); Potassium 4.4 mmol/L (3.5-5.1); Sodium 140 mmol/L (136-145); TSH (W/Ref FT4) 1.74 uIU/mL (0.36-3.74); Total Protein 7.5 g/dL (6.4-8.2)
[2025-09-30 00:16] LABS: Troponin I 10876 ng/L (<or=51)
--- NOTE | 2025-09-30 00:20 | W.ED.GENAD ---
Discharge Plan Disposition Patient Disposition: Admit to [facility] Condition: Deteriorating Discharge Details Clinical Impression: ST elevation CO (STEMI) Primary Care Provider: Ketan Tamez ED Provider: Gustavo Wilhelm Home Meds and New Rx's Prescriptions: No Action (DME) Undergarment Misc 1 ea Miscellaneous Q2H MDD 10 Qty: 300 12RF Rx Instructions: for hygiene and safety; Size S/M Dx: K52.9 acetaminophen [Tylenol] 325 MG tablet 650 mg PO Q4H PRN cholecalciferol (vitamin D3) 50 mcg (2,000 unit) capsule 50 mcg PO DAILY Qty: 90 3RF mirtazapine 15 mg tablet 15 mg PO QHS Qty: 90 3RF Ensure Original Liquid 237 ml PO DAILY Qty: 7110 6RF multivitamin Tablet 1 tab PO DAILY metoprolol tartrate 25 mg Tablet 25 mg PO TID Qty: 90 0RF aspirin [Aspirin Childrens] 81 mg tablet,chewable 81 mg PO DAILY atorvastatin 40 mg tablet 40 mg PO DAILY calcium carbonate 200 mg calcium (500 mg) tablet,chewable 500 mg PO DAILY levetiracetam [Keppra] 750 mg tablet 750 mg PO BID Qty: 30 0RF ropinirole 0.25 mg tablet 0.25 mg PO DAILY polyethylene glycol 3350 [Miralax] 17 gram/dose powder 17 g PO DAILY PRN nystatin 100,000 unit/gram powder 1 applic TOPICAL DAILY albuterol sulfate [Ventolin HFA] 90 mcg/actuation HFA aerosol inhaler 2 inh inhalation Q4H PRN sennosides [Martina-mary] 8.6 mg tablet 8.6 mg PO DAILY polymyxin B sulf-trimethoprim 10,000 unit- 1 mg/mL drops 1 drp ophthalmic (eye) TID amoxicillin-pot clavulanate 875-125 mg tablet 1 tab PO BID Qty: 14 0RF nystatin 100,000 unit/gram powder 1 applic topical TID Qty: 15 0RF amoxicillin-pot clavulanate 875-125 mg tablet 1 tab PO BID Qty: 14 0RF erythromycin 5 mg/gram (0.5 %) ointment 1 applic ophthalmic (eye) QID Qty: 3.5 0RF nystatin 100,000 unit/gram powder 1 applic topical TID Qty: 15 0RF HPI General Date/Time Provider Initiated Documentation: 09/29/25 23:05. HPI Narrative: This is an 80-year-old female who resides at [facility] re[facility] who is DNR/DNI by CODE STATUS, with an extensive past medical history of ruptured intracranial aneurysm, severe Alzheimer's dementia, blood clot and pulmonary embolism, seizures, who presents tonight difficulty breathing per [facility] re[facility]. It was noted this evening that the patient had some mild to moderate difficulty breathing. When her heart rate was noted to be in the 170s EMS was called. Upon EMSs arrival EKG was performed and the patient was found to be having a massive STEMI. STEMI alert was called and the patient was transition to the ED. Patient has severe Alzheimer's, and adds no components to history. Related Data Home Medications Medication Instructions Recorded Confirmed acetaminophen 325 mg tablet 650 mg PO Q4H PRN 08/13/15 09/08/25 (Tylenol) cholecalciferol (vitamin D3) 50 50 mcg PO DAILY #90 caps 03/11/23 09/08/25 mcg (2,000 unit) capsule diaper,brief,adult,disposable #300 ea 04/01/23 09/08/25 (Undergarment misc) mirtazapine 15 mg tablet 15 mg PO QHS #90 tabs 04/15/23 09/08/25 food supplemt, lactose-reduced 237 ml PO DAILY #7,110 mL 01/02/24 06/03/25 (Ensure Original oral liquid) multivitamin 1 tab PO DAILY 01/23/24 09/08/25 metoprolol tartrate 25 mg tablet 25 mg PO TID #90 tabs 02/06/24 09/08/25 aspirin 81 mg chewable tablet 81 mg PO DAILY 06/03/25 09/08/25 (Aspirin Childrens) atorvastatin 40 mg tablet 40 mg PO DAILY 06/03/25 09/08/25 calcium carbonate 500 mg PO DAILY 06/03/25 09/08/25 levetiracetam 750 mg tablet 750 mg PO BID #30 tabs 06/03/25 09/08/25 (Keppra) albuterol sulfate 90 mcg/actuation 2 inh inhalation Q4H PRN 09/08/25 09/08/25 aerosol inhaler (Ventolin HFA) amoxicillin 875 mg-potassium 1 tab PO BID #14 tabs 09/08/25 clavulanate 125 mg tablet amoxicillin 875 mg-potassium 1 tab PO BID #14 tabs 09/08/25 clavulanate 125 mg tablet erythromycin 5 mg/gram (0.5 %) eye 1 applic ophthalmic (eye) QID #3.5 09/08/25 ointment grams nystatin 100,000 unit/gram topical 1 applic topical DAILY 09/08/25 09/08/25 powder nystatin 100,000 unit/gram topical 1 applic topical TID #15 grams 09/08/25 powder nystatin 100,000 unit/gram topical 1 applic topical TID Right axilla 09/08/25 powder rash #15 grams polyethylene glycol 3350 17 17 g PO DAILY PRN 09/08/25 09/08/25 gram/dose oral powder (Miralax) polymyxin B sulfate 10,000 1 drp ophthalmic (eye) TID 09/08/25 09/08/25 unit-trimethoprim 1 mg/mL eye drops ropinirole 0.25 mg tablet 0.25 mg PO DAILY 09/08/25 09/08/25 sennosides 8.6 mg tablet (Martina-mary) 8.6 mg PO DAILY 09/08/25 09/08/25 Previous Rx's Medication Instructions Recorded cholecalciferol (vitamin D3) 50 50 mcg PO DAILY #90 caps 03/11/23 mcg (2,000 unit) capsule diaper,brief,adult,disposable #300 ea 04/01/23 (Undergarment misc) mirtazapine 15 mg tablet 15 mg PO QHS #90 tabs 04/15/23 food supplemt, lactose-reduced 237 ml PO DAILY #7,110 mL 01/02/24 (Ensure Original oral liquid) metoprolol tartrate 25 mg tablet 25 mg PO TID #90 tabs 02/06/24 levetiracetam 750 mg tablet 750 mg PO BID #30 tabs 06/03/25 (Keppra) amoxicillin 875 mg-potassium 1 tab PO BID #14 tabs 09/08/25 clavulanate 125 mg tablet amoxicillin 875 mg-potassium 1 tab PO BID #14 tabs 09/08/25 clavulanate 125 mg tablet erythromycin 5 mg/gram (0.5 %) eye 1 applic ophthalmic (eye) QID #3.5 09/08/25 ointment grams nystatin 100,000 unit/gram topical 1 applic topical TID #15 grams 09/08/25 powder nystatin 100,000 unit/gram topical 1 applic topical TID Right axilla 09/08/25 powder rash #15 grams Allergies Allergy/AdvReac Type Severity Reaction Status Date / Time No Known Allergies Allergy Unverified 09/08/25 11:33 General Stated Complaint: Arrhythmia DANAY: 2 Exam Narrative Exam Narrative: 1.Const: Well-nourished, Well-developed, appearing stated age 2.Eyes: PERRL, no conjunctival injection, and symmetrical lids. 3.ENT: Atraumatic external nose and ears. Moist MM. Neck: Symmetric, trachea midline, No thyromegaly. 4.CVS: +S1/S2, Peripheral pulses 2+ and equal in all extremities. Brisk capillary refill in all extremities. 5.RESP: Mild wheeze, no rales or rhonchi. 6.GI: Soft, Nontender/Nondistended, No hepatosplenomegaly. No guarding or rebound. 7.MSK: Normocephalic/Atraumatic, Extremities w/o deformity or ttp No cyanosis or clubbing, Normal movement of all extremities 8.Skin: Warm, Dry. No rashes or lesions. 10.Psych: (AAO) x0. Pleasant but confused Course Vital Signs Vital signs: Vital Signs Temperature 37.2 C 09/29/25 23:01 Pulse 147 H 09/29/25 23:01 Respiratory Rate 22 09/29/25 23:01 Blood Pressure 114/107 H 09/29/25 23:01 Pulse Oximetry 93 09/29/25 23:01 Temperature 37.2 C 09/29/25 23:01 Temperature Source Tympanic 09/29/25 23:01 Pulse 119 H 09/30/25 00:01 Respiratory Rate 22 09/30/25 00:02 Blood Pressure 80/58 L 09/30/25 00:01 Blood Pressure Mean 61 09/30/25 00:01 Blood Pressure Position Sitting 09/29/25 23:01 Pulse Oximetry 96 09/29/25 23:54 Oxygen Delivery Method Room Air 09/29/25 23:01 Oxygen Flow Rate 0 09/29/25 23:01 Pain Level 0 09/29/25 23:07 Lab/Test Results Lab/Test Results: Laboratory Tests Range/Units 09/29/25 09/29/25 23:05 23:33 WBC (4.4-10.8) 10^3/uL 21.79 H RBC (3.93-5.22) 10^6/uL 4.33 Hgb (11.2-15.7) g/dL 12.5 Hct (36.0-46.0) % 38.9 MCV (80-95) fL 90 MCH (27.0-33.0) pg 28.9 MCHC (32.0-36.0) % 32.1 RDW (11.7-14.6) % 13.3 Plt Count (130-400) 10^3/uL 361 MPV (8.0-11.0) fL 10.2 Immature Gran % % 0.0 Neutrophils % % 80.0 Lymphocytes % % 10.0 Monocytes % % 10.0 Eosinophils % % 0.0 Basophils % % 0.0 Nucleated RBC % (0.0-0.3) % 0.0 Absolute Neutrophils (1.2-6.7) 10^3/uL 17.43 H Absolute Lymphocytes (1.2-3.4) 10^3/uL 2.18 Absolute Monocytes (0.1-0.8) 10^3/uL 2.18 H Absolute Eosinophils (0.0-0.7) 10^3/uL 0.00 Absolute Basophils (0.0-0.2) 10^3/uL 0.00 RBC Morphology Normal PT (9.1-11.1) sec 10.7 INR (0.9-1.1) 1.1 APTT (20.6-30.2) sec 27.0 VBG pH Cancelled VBG pCO2 Cancelled VBG pO2 Cancelled VBG HCO3 Cancelled VBG Total CO2 Cancelled VBG O2 Saturation Cancelled VBG Base Excess Cancelled VBG Lactate Cancelled 5.1 H* Sodium (136-145) mmol/L 140 Potassium (3.5-5.1) mmol/L 4.4 Chloride (98-107) mmol/L 104 Carbon Dioxide (21.0-32.0) mmol/L 17.5 L Anion Gap (3-11) mmol/L 18.5 H BUN (7-18) mg/dL 26 H Creatinine (0.55-1.02) mg/dL 1.3 H Est GFR (CKD-EPI 2020) (mL/min/1.73m2) 41.31 Glucose (74-106) mg/dL 222 H Calcium (8.5-10.1) mg/dL 9.2 Total Bilirubin (0.2-1.0) mg/dL 0.6 AST (15-37) U/L 80 H ALT (14-59) U/L 27 Alkaline Phosphatase (46-116) U/L 119 H Troponin I (<or=51) ng/L 14871 H* Total Protein (6.4-8.2) g/dL 7.5 Albumin (3.4-5.0) g/dL 3.1 L TSH (0.36-3.74) uIU/mL 1.74 Procedure EJ/Peripheral IV/Phlebotomy Date of Procedure: 09/30/25 Time of Procedure: 00:29 Indication: Nursing/tech could not get IV Laterality: Right Insertion Site: Antecubital Size & Type: 20 ga. Number ofAttempts(See previous attempts in note section): 1 Dressing: IV Dressing Placed and Tegaderm Applied Ultrasound: Used/Image Saved Estimated Blood Loss: minimal Reason for Blood Draw by Provider: RN/lab unable and MD to place line Procedure Tolerated: No Complications and Patient tolerated well Procedure Outcome: Successful Medical Decision Making This is an 80-year-old female who resides at [facility] who is DNR/DNI by CODE STATUS, with an extensive past medical history of ruptured intracranial aneurysm, severe Alzheimer's dementia, blood clot and pulmonary embolism, seizures, who presents tonight difficulty breathing per health and rehab. It was noted this evening that the patient had some mild to moderate difficulty breathing. When her heart rate was noted to be in the 170s EMS was called. Upon EMSs arrival EKG was performed and the patient was found to be having a massive STEMI. STEMI alert was called and the patient was transition to the ED. Patient has severe Alzheimer's, and adds no components to history. Exam demonstrates slight wheezes, patient is notably tachycardic in the 170s to low 200s. Blood pressure in the 80s. EKG shows massive STEMI in the anterior and lateral components. Limited bedside echo was performed and shows extreme wall motion abnormalities in the anterior inferior and lateral aspects. Patient is not a candidate for TNK secondary to a ruptured intracranial aneurysm, she does not wish to have any interventional procedures per her COLST form. I did speak with [facility] and discussed the case with Dr. Chen, and unfortunately there are not many interventions that we can do. Will give a fluid bolus gently, we can give nitro cautiously, and heparinize and give aspirin and Plavix. Family was able to come to see the patient, we had a long discussion about the patient's wishes, the mortality and morbidity of her current situation, the bedside ultrasound findings, and what their mother would want. At this time through shared decision making process we have elected to transition to a comfort measures standpoint. We will keep the patient comfortable, gently rehydrate, and monitor any pain during these last stages of life. Discussed the case with the hospitalist, Dr. Rocha and he agrees with the assessment and plan. I have extensively reviewed the treatment plan with the patient. I have addressed all patient concerns at this time. I have also discussed the plan with the admitting physician and they agree with the current assessment and plan and have agreed to assume responsibility for the patient. All parties demonstrate verbal understanding and agreement with our assessment and plan at this time. The documentation in this chart was dictated using [employer] dictation software. Please excuse any dictation errors. Critical Care Time Critical Care Time Critical Care Time: Yes Total Critical Care Time: 45 Attestation: Upon my evaluation, this patient had a high probability of imminent or life-threatening deterioration, which required my direct attention, intervention, and personal management. I have personally provided 45 minutes of critical care time exclusive of time spent on separately billable procedures. Time includes review of laboratory data, radiology results, discussion with consultants, and monitoring for potential decompensation. Interventions were performed as documented. [facility] All Active Problems (Updated 09/30/25 @ 00:30 by Gustavo Wilhelm DO) ST elevation CO (STEMI) (Acute) Acute conjunctivitis of both eyes (Acute) Cellulitis of periorbital region of both eyes (Acute) Urinary retention with incomplete bladder emptying (Acute) Closed fracture of right proximal humerus (Acute) Malnutrition, calorie (Acute) Hearing loss (Acute) Sundowning (Acute) Pain, foot (Acute) Nail dystrophy (Acute) Urinary incontinence (Acute) Venous insufficiency (Acute) Fracture of base of fifth metatarsal bone of right foot (Acute) Right ankle pain (Acute) Seizure (Acute) Hand laceration (Acute) Contusion of head (Acute) Abnormal auditory perception (Acute) Bilateral sensorineural hearing loss (Acute) Vitamin D deficiency (Chronic) low level 2005; replacement, still marginal 08/2014 Osteoporosis, unspecified (Chronic) Pos DEXA 08/2003; alendronate therapy through 2010; Vit D def 2005, replaced; Dilantin therapy risk 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 ORIF of the patella of her left knee. b. Appendectomy and tubal ligation in the same surgery, according to her. c. Tonsillectomy and adenoidectomy. d. Aneurysm repair on two occasions, 1971 and 1982. She gets repeat scans every so often for these. e. Bilateral cataract surgery. Aneurysm (Chronic) a. Positive for multiple aneurysms. As stated, she has had surgery for these aneurysms. She has been followed quite closely in the past, and now has been able to spread out her appointments with the neurologist as there has been no change in her scan since 1982, according to her and her caregiver. History of seizure (Chronic) a. Due to previous CVA. b. She has not had any in upwards of 13 to 15 years. COPD (chronic obstructive pulmonary disease) (Chronic) a. Vague history as she was a previous smoker. 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) initial leak/procedure 1971; [place] [facility] [place] elect further watchful waiting Clipping 07/2015 Renal cell carcinoma of right kidney (08/30/16) Core needle bx, Dr Gottlieb, Clear cell, Lauren nuclear grade 2; cxr neg for pulmonary nodules Seizure disorder most recent seizure 01/2015 Deep vein thrombosis (DVT) of left lower extremity Pulmonary embolus, right Surgical History Fracture, intertrochanteric, left femur S/P IM nail fixation: 01/30/2024 cerebral aneurysm clipping (08/11/15) [facility] [place] & ovary (10/25/16) Dr Fong, [facility] [place], carcinoma kidney EGD and Colonoscopy (09/28/16) Extraction of cataract (12/18/15) Cataract extraction with lens implant, left eye. Wyatt Nazario MD. Family History Mother , CA at age 75. Neoplasm liver or kidney CA Father , fall at age 63. No problems noted. Brother , LUNG CA No problems noted. Brother , Stomach CA at age 85. No problems noted. Social History Smoking/Tobacco Use Status: Former Tobacco Use Smoking risk assessment performed?: Yes Alcohol Intake: never Drug use: Never Substance use type: does not use Caregiver/Support person: Yes Household members: family and other Details: lives with daughter Housing: care home Number of Children: 2 Communication Needs: Corrective Lenses current occupation: retired from [employer] What is your relationship status?: Panel score (0-1 are the most socially isolated patients): 0 What type of physical activity do you participate in: none Seatbelt use: always Drive intox or ride w/intox drivers' cash clerk: No Working smoke detector in home: Yes Carbon monox detector in home: Yes Do you feel safe at home: Yes Do you feel safe in your relationship?: Yes Additional Social history: st [facility]
--- NOTE | 2025-09-30 01:31 | W.PM.HP.N ---
Date of service: 09/30/25 Time of Service: 01:31 Assessment and Plan Assessment and plan (1) Comfort measures only status: Status: Acute Assessment and plan: Both son and daughter are at the bedside, and her INCIDENT HANDLER status was reviewed with them and Dr. Wilheml. We discussed the focus on symtpoms and role of morphine or similar medications as needed. She has responded well to 4mg morphine prn at this point, will continue with PRN, consider transition to drip if she is needing regular dosing. Anticipate hours to days prognosis. (2) ST elevation ME (STEMI): Status: Acute Assessment and plan: EKG, POCUS, troponins all indicate severe STEMI, managing symptoms as above. (3) Urinary incontinence: Status: Acute Assessment and plan: With dementia she gets agitated with interventions, so defer flaherty until unresponsive. (4) History of seizure: Status: Chronic Assessment and plan: h/o seizures after cerebral aneurysm, but none recently. Use benzodiazepines prn if any seizure activity. (5) COPD (chronic obstructive pulmonary disease): Status: Chronic Assessment and plan: Not active, has prn albuterol but rarely uses per family. History of Present Illness History of Present Illness Chief Complaint: SOB Narrative: 80 yo F with history of advanced dementia, COPD, renal cell carcinoma, seizure disorder, pulmonary embolus, and left ICA aneurysm who was sent from [facility]. She was noted by staff to have new dyspnea and a heart rate of 170. EKG was done by EMS and showed STEMI and she was transferred to the ED. EKG here confirmed STEMI and POCUS showed severe LV dilation and dysfunction. Case was reviewed with cardiology and the family and given her goals of care and the risks of bleeding in her aneurysm with thrombolysis or anticoagulation a decision was made to transition to comfort care status. Her shortness of breath did imrpove with 4mg of morphine IV per family. Review of Systems Narrative: h/o . Unobtainable due to mental condition Genitourinary Genitourinary: Reports urinary incontinence (at baseline, wears depends) PFSH All Active Problems Comfort measures only status (Acute) ST elevation ME (STEMI) (Acute) Acute conjunctivitis of both eyes (Acute) Cellulitis of periorbital region of both eyes (Acute) Urinary retention with incomplete bladder emptying (Acute) Closed fracture of right proximal humerus (Acute) Malnutrition, calorie (Acute) Hearing loss (Acute) Sundowning (Acute) Pain, foot (Acute) Nail dystrophy (Acute) Urinary incontinence (Acute) Venous insufficiency (Acute) Fracture of base of fifth metatarsal bone of right foot (Acute) Right ankle pain (Acute) Contusion of head (Acute) Hand laceration (Acute) Seizure (Acute) Abnormal auditory perception (Acute) Bilateral sensorineural hearing loss (Acute) Vitamin D deficiency (Chronic) low level 2005; replacement, still marginal 08/2014 Osteoporosis, unspecified (Chronic) Pos DEXA 08/2003; alendronate therapy through 2010; Vit D def 2005, replaced; Dilantin therapy risk 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 Vague history as she was a previous smoker. History of seizure (Chronic) a. Due to previous CVA. b. She has not had any in upwards of 13 to 15 years. Aneurysm (Chronic) a. Positive for multiple aneurysms. As stated, she has had surgery for these aneurysms. She has been followed quite closely in the past, and now has been able to spread out her appointments with the neurologist as there has been no change in her scan since 1982, according to her and her caregiver. History of Surgical Procedure (Chronic) a. ORIF of the patella of her left knee. b. Appendectomy and tubal ligation in the same surgery, according to her. c. Tonsillectomy and adenoidectomy. d. Aneurysm repair on two occasions, 1971 and 1982. She gets repeat scans every so often for these. e. Bilateral cataract surgery. 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 Wyatt Nazario MD. Family History Mother , CA at age 75. Neoplasm liver or kidney CA Father , fall at age 63. No problems noted. Brother , LUNG CA No problems noted. Brother , Stomach CA at age 85. No problems noted. Social History Smoking/Tobacco Use Status: Former Tobacco Use Smoking risk assessment performed?: Yes Alcohol Intake: never Drug use: Never Substance use type: does not use Caregiver/Support person: Yes Household members: family and other Details: lives with daughter Housing: halfway Number of Children: 2 Communication Needs: Corrective Lenses current occupation: retired from [employer] What is your relationship status?: Panel score (0-1 are the most socially isolated patients): 0 What type of physical activity do you participate in: none Seatbelt use: always Drive intox or ride w/intox class b truck driver: No Working smoke detector in home: Yes Carbon monox detector in home: Yes Do you feel safe at home: Yes Do you feel safe in your relationship?: Yes Additional Social history: [facility] Meds Allergies and Home Medications Allergies Allergy/AdvReac Type Severity Reaction Status Date / Time No Known Allergies Allergy Unverified 09/30/25 00:45 Home Medications Medication Instructions Recorded Confirmed Type acetaminophen 325 mg tablet 650 mg PO Q4H PRN 08/13/15 09/08/25 History (Tylenol) cholecalciferol (vitamin D3) 50 50 mcg PO DAILY #90 caps 03/11/23 09/30/25 Rx mcg (2,000 unit) capsule diaper,brief,adult,disposable #300 ea 04/01/23 09/30/25 Rx (Undergarment misc) mirtazapine 15 mg tablet 15 mg PO QHS #90 tabs 04/15/23 09/30/25 Rx food supplemt, lactose-reduced 237 ml PO DAILY #7,110 mL 01/02/24 09/30/25 Rx (Ensure Original oral liquid) multivitamin 1 tab PO DAILY 01/23/24 09/30/25 History Held on 09/30/25. Instructions: Pt Stopped/Never Started metoprolol tartrate 25 mg tablet 25 mg PO TID #90 tabs 02/06/24 09/30/25 Rx aspirin 81 mg chewable tablet 81 mg PO DAILY 06/03/25 09/30/25 History (Aspirin Childrens) atorvastatin 40 mg tablet 40 mg PO DAILY 06/03/25 09/30/25 History Held on 09/30/25. Instructions: Changed by Provider calcium carbonate 500 mg PO DAILY 06/03/25 09/08/25 History levetiracetam 750 mg tablet 750 mg PO BID #30 tabs 06/03/25 09/30/25 Rx (Keppra) Held on 09/30/25. Instructions: Changed by Provider albuterol sulfate 90 mcg/actuation 2 inh inhalation Q4H PRN 09/08/25 09/30/25 History aerosol inhaler (Ventolin HFA) amoxicillin 875 mg-potassium 1 tab PO BID #14 tabs 09/08/25 09/30/25 Rx clavulanate 125 mg tablet Held on 09/30/25. Instructions: Prescription Finished amoxicillin 875 mg-potassium 1 tab PO BID #14 tabs 09/08/25 09/30/25 Rx clavulanate 125 mg tablet Held on 09/30/25. Instructions: Prescription Finished erythromycin 5 mg/gram (0.5 %) eye 1 applic ophthalmic (eye) QID #3.5 09/08/25 09/30/25 Rx ointment grams nystatin 100,000 unit/gram topical 1 applic topical DAILY 09/08/25 09/30/25 History powder Held on 09/30/25. Instructions: Prescription Finished nystatin 100,000 unit/gram topical 1 applic topical TID #15 grams 09/08/25 09/30/25 Rx powder Held on 09/30/25. Instructions: Prescription Finished nystatin 100,000 unit/gram topical 1 applic topical TID Right axilla 09/08/25 09/30/25 Rx powder rash #15 grams Held on 09/30/25. Instructions: Prescription Finished polyethylene glycol 3350 17 17 g PO DAILY PRN 09/08/25 09/30/25 History gram/dose oral powder (Miralax) polymyxin B sulfate 10,000 1 drp ophthalmic (eye) TID 09/08/25 09/30/25 History unit-trimethoprim 1 mg/mL eye drops Held on 09/30/25. Instructions: Prescription Finished ropinirole 0.25 mg tablet 0.25 mg PO QHS 09/08/25 09/30/25 History sennosides 8.6 mg tablet (Martina-mary) 8.6 mg PO DAILY PRN 09/08/25 09/30/25 History atorvastatin 20 mg tablet 20 mg PO QHS 09/30/25 09/30/25 History bisacodyl 10 mg rectal suppository 10 mg TX DAILY PRN 09/30/25 09/30/25 History levetiracetam 100 mg/mL oral 750 mg PO BID 09/30/25 09/30/25 History solution Exam Narrative Exam Narrative: GEN: Resting breathing comfortably with mouth open, does make eye contact in response to voice, particularly her son and daughter. She is not verbally responsive, then drifts back into sleep with some irregular breathing. No acute distress. She swats examiner away when listening to her chest. HEENT: Head atraumatic. Conjunctiva clear, no icterus. no rhinorrhea. MMM. trachea midline LUNGS: mildly tachypeneic around 20 resp/min, normal effort CV: RRR, but exam limited ABD: active bowel sounds, nondistended. Ext: no cyanosis MSK: No joint redness or swelling NEURO: CN 2-12 grossly intact. Normal movement of 4 extremities. SKIN: No rashes or open wounds on visible skin. PSYCH: Non verbal as above, mildly agitated by exam, but then calms Results Imaging Chest x-ray: report reviewed and image reviewed EKG: report reviewed and image reviewed Labs 09/29/25 23:33 09/29/25 23:33 Labs: Laboratory Results - last 24 hr 09/29/25 09/29/25 09/30/25 23:05 23:33 00:05 WBC 21.79 H RBC 4.33 Hgb 12.5 Hct 38.9 MCV 90 MCH 28.9 MCHC 32.1 RDW 13.3 Plt Count 361 MPV 10.2 Immature Gran % 0.0 Neutrophils % 80.0 Lymphocytes % 10.0 Monocytes % 10.0 Eosinophils % 0.0 Basophils % 0.0 Nucleated RBC % 0.0 Absolute Neutrophils 17.43 H Absolute Lymphocytes 2.18 Absolute Monocytes 2.18 H Absolute Eosinophils 0.00 Absolute Basophils 0.00 RBC Morphology Normal PT 10.7 INR 1.1 APTT 27.0 VBG pH Cancelled VBG pCO2 Cancelled VBG pO2 Cancelled VBG HCO3 Cancelled VBG Total CO2 Cancelled VBG O2 Saturation Cancelled VBG Base Excess Cancelled VBG Lactate Cancelled 5.1 H* Sodium 140 Potassium 4.4 Chloride 104 Carbon Dioxide 17.5 L Anion Gap 18.5 H BUN 26 H Creatinine 1.3 H Est GFR (CKD-EPI 2020) 41.31 Glucose 222 H Calcium 9.2 Total Bilirubin 0.6 AST 80 H ALT 27 Alkaline Phosphatase 119 H Troponin I 75281 H* Cancelled NT-Pro-B Natriuret Pep 24047 H Total Protein 7.5 Albumin 3.1 L TSH 1.74 09/30/25 02:05 WBC RBC Hgb Hct MCV MCH MCHC RDW Plt Count MPV Immature Gran % Neutrophils % Lymphocytes % Monocytes % Eosinophils % Basophils % Nucleated RBC % Absolute Neutrophils Absolute Lymphocytes Absolute Monocytes Absolute Eosinophils Absolute Basophils RBC Morphology PT INR APTT VBG pH VBG pCO2 VBG pO2 VBG HCO3 VBG Total CO2 VBG O2 Saturation VBG Base Excess VBG Lactate Sodium Potassium Chloride Carbon Dioxide Anion Gap BUN Creatinine Est GFR (CKD-EPI 2020) Glucose Calcium Total Bilirubin AST ALT Alkaline Phosphatase Troponin I Cancelled NT-Pro-B Natriuret Pep Total Protein Albumin TSH Last Vital Signs Temp 37.2 C 09/29/25 23:01 Pulse 119 H 09/30/25 00:01 Resp 24 09/30/25 00:10 BP 80/58 L 09/30/25 00:01 Pulse Ox 96 09/29/25 23:54 Time Spent Time spent with Patient: 55-74 minutes Time was spent: preparing to see the patient(eg.review tests), obtaining and/or reviewing separately otained hiistory, referring, communicating with other health patient care specialist, indepentently interpreting results and care coordination
[2025-09-30] MEDS: MORPHine 4 MG/ML SYR IV/SC ×7 (01:46→23:07)
[2025-09-30] MEDS: Normal Saline Flush 10 ML SYR IVP ×4 (01:49→19:58)
[2025-09-30] MEDS: Scopolamine 1 MG/3 DAYS PATCH TD (02:50)
--- NOTE | 2025-09-30 03:31 | W.PC.ACHO ---
Registration Status: ADM IN Primary Language: Preferred Language: [place] ED Information & Data Chief Complaint Arrhythmia 09/30/25 00:25 Triage Note Pt BIBEMS from [facility] s/p 09/29/25 23:01 staff noticed she appeared to be having increased WOB. Tachycardic, wheezing. ST elevations noted by EMS and STEMI alert called. ASA given CLOTH TESTER. Pt roommate Flu A + several days ago, but Fluvid sent by rehab yesterday for pt was neg Medical / Surgical History (Last Reviewed 09/30/25 @ 01:39 by Justo Catalan) Nonruptured cerebral aneurysm (11/22/71) Renal cell carcinoma of right kidney (08/30/16) Seizure disorder Deep vein thrombosis (DVT) of left lower extremity Pulmonary embolus, right (Last Reviewed 09/30/25 @ 01:39 by Justo Catalan) Fracture, intertrochanteric, left femur cerebral aneurysm clipping (08/11/15) R nephrectomy & ovary (10/25/16) EGD and Colonoscopy (09/28/16) Extraction of cataract (12/18/15) Most Recent Vital Signs Temperature 37.2 C 09/29/25 23:01 Temperature Source Tympanic 09/29/25 23:01 Pulse 119 H 09/30/25 00:01 Respiratory Rate 24 09/30/25 00:10 Blood Pressure 80/58 L 09/30/25 00:01 Blood Pressure Mean 61 09/30/25 00:01 Blood Pressure Position Sitting 09/29/25 23:01 Pulse Oximetry 96 09/29/25 23:54 Oxygen Delivery Method Room Air 09/29/25 23:01 Oxygen Flow Rate 0 09/29/25 23:01 Pain Level 0 09/29/25 23:07 Allergies No Known Allergies Allergy (Unverified 09/30/25 00:45) Precautions Isolation Standard precaution 09/29/25 23:07 Active Medications Generic Name Dose Route Start Last Admin Trade Name Freq PRN Reason Stop Dose Admin Mirtazapine 15 mg 09/30/25 02:00 09/30/25 02:16 Mirtazapine 15 Mg Tab PO Not Given HS LINCOLN Morphine Sulfate 4 mg 09/30/25 01:30 09/30/25 01:46 Morphine 4 Mg/Ml Syr IV/SC 4 mg Q1H PRN PRN Administration Scopolamine HBr 1 mg 09/30/25 03:00 09/30/25 02:50 Scopolamine 1 Mg/3 Days Patch TD 1 mg Q72H LINCOLN Administration Sodium Chloride 0 ml 09/29/25 23:05 09/30/25 01:49 Normal Saline Flush 10 Ml Syr IVP 40 ml PRN PRN Administration IV IV Catheter Type [Right Peripheral IV Forearm] IV Catheter Gauge [Right 20 Forearm] Diet Orders Category Date Time Status Regular/Normal [DIET] Nutrition 09/30/25 Lunch Active Diagnostics 09/30/25 09/30/25 09/29/25 Range/Units 02:05 00:05 23:40 WBC (4.4-10.8) 10^3/uL RBC (3.93-5.22) 10^6/uL Hgb (11.2-15.7) g/dL Hct (36.0-46.0) % MCV (80-95) fL MCH (27.0-33.0) pg MCHC (32.0-36.0) % RDW (11.7-14.6) % Plt Count (130-400) 10^3/uL MPV (8.0-11.0) fL Immature Gran % % Neutrophils % % Lymphocytes % % Monocytes % % Eosinophils % % Basophils % % Nucleated RBC % (0.0-0.3) % Absolute Neutrophils (1.2-6.7) 10^3/uL Absolute Lymphocytes (1.2-3.4) 10^3/uL Absolute Monocytes (0.1-0.8) 10^3/uL Absolute Eosinophils (0.0-0.7) 10^3/uL Absolute Basophils (0.0-0.2) 10^3/uL RBC Morphology PT (9.1-11.1) sec INR (0.9-1.1) APTT (20.6-30.2) sec ABG Sample Site Pending ABG pH Pending ABG pCO2 Pending ABG pO2 Pending ABG HCO3 Pending ABG Total CO2 Pending ABG O2 Saturation Pending ABG Base Excess Pending VBG pH VBG pCO2 VBG pO2 VBG HCO3 VBG Total CO2 VBG O2 Saturation VBG Base Excess VBG Lactate Sodium (136-145) mmol/L Potassium (3.5-5.1) mmol/L Chloride (98-107) mmol/L Carbon Dioxide (21.0-32.0) mmol/L Anion Gap (3-11) mmol/L BUN (7-18) mg/dL Creatinine (0.55-1.02) mg/dL Est GFR (CKD-EPI 2020) (mL/min/1.73m2) Glucose (74-106) mg/dL Calcium (8.5-10.1) mg/dL Total Bilirubin (0.2-1.0) mg/dL AST (15-37) U/L ALT (14-59) U/L Alkaline Phosphatase (46-116) U/L Troponin I Cancelled Cancelled (<or=51) ng/L NT-Pro-B Natriuret Pep (<300) pg/mL Total Protein (6.4-8.2) g/dL Albumin (3.4-5.0) g/dL TSH (0.36-3.74) uIU/mL COVID-19 Source SARS-CoV-2 (PCR) Influenza Type A (PCR) Influenza Type B (PCR) RSV (PCR) 09/29/25 09/29/25 Range/Units 23:33 23:05 WBC 21.79 H (4.4-10.8) 10^3/uL RBC 4.33 (3.93-5.22) 10^6/uL Hgb 12.5 (11.2-15.7) g/dL Hct 38.9 (36.0-46.0) % MCV 90 (80-95) fL MCH 28.9 (27.0-33.0) pg MCHC 32.1 (32.0-36.0) % RDW 13.3 (11.7-14.6) % Plt Count 361 (130-400) 10^3/uL MPV 10.2 (8.0-11.0) fL Immature Gran % 0.0 % Neutrophils % 80.0 % Lymphocytes % 10.0 % Monocytes % 10.0 % Eosinophils % 0.0 % Basophils % 0.0 % Nucleated RBC % 0.0 (0.0-0.3) % Absolute Neutrophils 17.43 H (1.2-6.7) 10^3/uL Absolute Lymphocytes 2.18 (1.2-3.4) 10^3/uL Absolute Monocytes 2.18 H (0.1-0.8) 10^3/uL Absolute Eosinophils 0.00 (0.0-0.7) 10^3/uL Absolute Basophils 0.00 (0.0-0.2) 10^3/uL RBC Morphology Normal PT 10.7 (9.1-11.1) sec INR 1.1 (0.9-1.1) APTT 27.0 (20.6-30.2) sec ABG Sample Site ABG pH ABG pCO2 ABG pO2 ABG HCO3 ABG Total CO2 ABG O2 Saturation ABG Base Excess VBG pH Cancelled VBG pCO2 Cancelled VBG pO2 Cancelled VBG HCO3 Cancelled VBG Total CO2 Cancelled VBG O2 Saturation Cancelled VBG Base Excess Cancelled VBG Lactate 5.1 H* Cancelled Sodium 140 (136-145) mmol/L Potassium 4.4 (3.5-5.1) mmol/L Chloride 104 (98-107) mmol/L Carbon Dioxide 17.5 L (21.0-32.0) mmol/L Anion Gap 18.5 H (3-11) mmol/L BUN 26 H (7-18) mg/dL Creatinine 1.3 H (0.55-1.02) mg/dL Est GFR (CKD-EPI 2020) 41.31 (mL/min/1.73m2) Glucose 222 H (74-106) mg/dL Calcium 9.2 (8.5-10.1) mg/dL Total Bilirubin 0.6 (0.2-1.0) mg/dL AST 80 H (15-37) U/L ALT 27 (14-59) U/L Alkaline Phosphatase 119 H (46-116) U/L Troponin I 80991 H* (<or=51) ng/L NT-Pro-B Natriuret Pep 40724 H (<300) pg/mL Total Protein 7.5 (6.4-8.2) g/dL Albumin 3.1 L (3.4-5.0) g/dL TSH 1.74 (0.36-3.74) uIU/mL COVID-19 Source Pending SARS-CoV-2 (PCR) Pending Influenza Type A (PCR) Pending Influenza Type B (PCR) Pending RSV (PCR) Pending Intake and Output - 24 Hour Total 09/29/25 22:57 thru 09/30/25 01:03 Intake Total 1000 Balance 1000 Weight 52.7 kg Intake: IV 1000 Falls Risk Assessment History of Falls No History 09/29/25 23:07 Contributing Factors Impairments,Incontinence, 09/29/25 23:07 Medications Ambulatory Aids Uses ambulatory device + 09/29/25 23:07 Tubes/Lines None 09/29/25 23:07 Gait Evaluation W/any additional score 09/29/25 23:07 Cognition Cognitive impairment 09/29/25 23:07 Fall Total Score 74 09/29/25 23:07 Level of Risk High Risk 09/29/25 23:07 Problems (Last Reviewed 09/30/25 @ 01:39 by Justo Catalan) Comfort measures only status (Acute) ST elevation ME (STEMI) (Acute) Urinary incontinence (Acute) History of seizure (Chronic) COPD (chronic obstructive pulmonary disease) (Chronic) Notes 09/30/25 00:12 Nursing Notes by Payal Cordero 0012: Pt son & daughter at bedside after being updated on pt condition by MD Wilhelm. Per , OK to turn off monitor. Awaiting arrival of hospitalist at bedside. Pt appears comfortable. Initialized on 09/30/25 00:12 - END OF NOTE Attestation Statement: By documenting the first initial, last name, and credentials of the reporting nurse below, both parties acknowledge that all relevant information regarding the patient handoff has been communicated, and that all questions have been addressed to ensure continuity and safety of care. Additional Patient Information/Comments: Report Received From: Payal Cordero RN
[2025-09-30] MEDS: Midazolam 2 MG/2 ML VIAL 1 MG IVP ×2 (04:00→06:24)
--- NOTE | 2025-09-30 08:03 | PDOC.CMIN ---
Date of service: 09/30/25 Time of Service: 15:00 Care Management Initial Assmt Initial Assessment Reason for Hospitalization: STEMI, end-of-life care Functional Status/Living Situation Patient Presentation: Mei was alone and appeared to be resting comfortably when CM met with her. She resides at [facility] and is currently admitted to [facility] for end of life care following a STEMI. Mei has been accompanied by family intermittently throughout the day and was transferred to [place] from the ICU this afternoon. Hospice cart is set up in patients room. CM will follow. Town of Residence: [facility] Significant Other/Family: [facility] Employment Status: Retired Instrumental Activities of Daily Living (ADLs): Requires support Advance Directives Advance Directives: Do you have an Advance Directive: Y 10/31/14, 01:05 AD On File at [facility]: Y 10/31/14, 01:05 Date Asked 05/14/14 09/29/25, 12:50 AD Date Reviewed 09/29/25 09/29/25, 12:50 COLST On File at [facility] Yes 04/26/24, 15:16 COLST Date Scanned 04/24/24 04/26/24, 15:16 Code Status Resuscitation Status DNR/DNI Insurance Coverage/Financial Issues Insurance: Medicare Part A & B - [id number] Medicaid of [place] - [id number] Care Team Visit Care Team Role Provider Type Ketan Tamez, DO Primary Care Provider OSTEOPATHIC DOCTOR Gustavo Wilhelm, DO Emergency Provider [facility] STAFF PHYSICIAN Justo Catalan Admit Provider [facility] STAFF PHYSICIAN Attending Provider Discharge Plan: Mei transitioned to comfort measure care and will remain at [facility] care through end-of-life. CM will follow and offer support as needed during this difficult time. Social Determinants of Health Screening Social Determinants of health last assessed in clinic: 09/29/25 Will the Patient Participate in the Screening?: Unable to obtain Do you worry about having a steady place to live?: no Problems where you live: no known problems In the past 12 months, have you had to go without electric, gas, oil or water in your home?: no Has lack of transportation kept you from medical appointments or from doing things needed for daily living?: no Has anyone in your life made you feel unsafe or unsupported?: no How hard is it for you to pay for the very basics like food, housing, medical care, and heating? Would you say it is:: Not hard at all Do you want help finding or keeping work or a job?: I do not need or want help If for any reason you need help with day-to-day activities such as bathing, preparing meals, shopping, managing finances, etc., do you get the help you need?: I don’t need any help How often do you feel lonely or isolated from those around you?: Never Do you speak a language other than Finnish at home?: No Does the patient want assistance with any of the above?: No PFSH All Active Problems (Updated 09/30/25 @ 13:01 by Tesha Damian MD, DC) Advance care planning (Acute) Comfort measures only status (Acute) ST elevation GA (STEMI) (Acute) Acute conjunctivitis of both eyes (Acute) Cellulitis of periorbital region of both eyes (Acute) Urinary retention with incomplete bladder emptying (Acute) Closed fracture of right proximal humerus (Acute) Malnutrition, calorie (Acute) Hearing loss (Acute) Sundowning (Acute) Pain, foot (Acute) Nail dystrophy (Acute) Urinary incontinence (Acute) Venous insufficiency (Acute) Fracture of base of fifth metatarsal bone of right foot (Acute) Right ankle pain (Acute) Seizure (Acute) Hand laceration (Acute) Contusion of head (Acute) Abnormal auditory perception (Acute) Bilateral sensorineural hearing loss (Acute) Vitamin D deficiency (Chronic) low level 2005; replacement, still marginal 08/2014 Osteoporosis, unspecified (Chronic) Pos DEXA 08/2003; alendronate therapy through 2010; Vit D def 2005, replaced; Dilantin therapy risk 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 ORIF of the patella of her left knee. b. Appendectomy and tubal ligation in the same surgery, according to her. c. Tonsillectomy and adenoidectomy. d. Aneurysm repair on two occasions, 1971 and 1982. She gets repeat scans every so often for these. e. Bilateral cataract surgery. Aneurysm (Chronic) a. Positive for multiple aneurysms. As stated, she has had surgery for these aneurysms. She has been followed quite closely in the past, and now has been able to spread out her appointments with the neurologist as there has been no change in her scan since 1982, according to her and her caregiver. History of seizure (Chronic) a. Due to previous CVA. b. She has not had any in upwards of 13 to 15 years. COPD (chronic obstructive pulmonary disease) (Chronic) a. Vague history as she was a previous smoker. 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 Waytt Nazario MD. Family History Mother , CA at age 75. Neoplasm liver or kidney CA Father , fall at age 63. No problems noted. Brother , LUNG CA No problems noted. Brother , Stomach CA at age 85. No problems noted. Social History Smoking/Tobacco Use Status: Former Tobacco Use Smoking risk assessment performed?: Yes Alcohol Intake: never Drug use: Never Substance use type: does not use Caregiver/Support person: Yes Household members: family and other Details: lives with daughter Housing: senior care Number of Children: 2 Communication Needs: Corrective Lenses current occupation: retired from [employer], Dispatcher What is your relationship status?: Panel score (0-1 are the most socially isolated patients): 0 What type of physical activity do you participate in: none Seatbelt use: always Drive intox or ride w/intox local company flatbed truck driver: No Working smoke detector in home: Yes Carbon monox detector in home: Yes Do you feel safe at home: Yes Do you feel safe in your relationship?: Yes Additional Social history: st rehab
[2025-09-30] MEDS: Nystatin POWDER 15 GM JAR TP (10:41)
--- NOTE | 2025-09-30 11:49 | W.PALLCONSUL ---
Date of service: 09/30/25 Time of Service: 15:00 History of Present Illness History of Present Illness Chief Complaint: TRANSPORTATION EQUIPMENT PAINTER Narrative: From H and P 80 yo F with history of advanced dementia, COPD, renal cell carcinoma, seizure disorder, pulmonary embolus, and left ICA aneurysm who was sent from [facility]. She was noted by staff to have new dyspnea and a heart rate of 170. EKG was done by EMS and showed STEMI and she was transferred to the ED. EKG here confirmed STEMI and POCUS showed severe LV dilation and dysfunction. Case was reviewed with cardiology and the family and given her goals of care and the risks of bleeding in her aneurysm with thrombolysis or anticoagulation a decision was made to transition to comfort care status. Interim Hx: Mei is lying in her bed. Her niece is by her bedside. Her niece states that she seems comfortable. Mei is not communicative Assessment and Plan Assessment and plan (1) Comfort measures only status: Status: Acute Assessment and plan: Mei appears to be actively dying. I did tell her niece that it would be days most likely. She is not eating and drinking and is no longer conscious. Mei does look dry around the mouth. I spoke to the nursing staff. They are going to get the sponge swabs so that her mouth can be swabbed. Also they will be putting some cream on her lips so that they do not appear is dry. Discussed briefly with hospitalist (2) ST elevation ND (STEMI): Status: Acute (3) Advance care planning: Status: Acute PFSH All Active Problems Advance care planning (Acute) Comfort measures only status (Acute) ST elevation ND (STEMI) (Acute) Acute conjunctivitis of both eyes (Acute) Cellulitis of periorbital region of both eyes (Acute) Urinary retention with incomplete bladder emptying (Acute) Closed fracture of right proximal humerus (Acute) Malnutrition, calorie (Acute) Hearing loss (Acute) Sundowning (Acute) Pain, foot (Acute) Nail dystrophy (Acute) Urinary incontinence (Acute) Venous insufficiency (Acute) Fracture of base of fifth metatarsal bone of right foot (Acute) Right ankle pain (Acute) Contusion of head (Acute) Hand laceration (Acute) Seizure (Acute) Abnormal auditory perception (Acute) Bilateral sensorineural hearing loss (Acute) Vitamin D deficiency (Chronic) low level 2006; replacement, still marginal 08/2014 Osteoporosis, unspecified (Chronic) Pos DEXA 08/2003; alendronate therapy through 2010; Vit D def 2005, replaced; Dilantin therapy risk 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 Vague history as she was a previous smoker. History of seizure (Chronic) a. Due to previous CVA. b. She has not had any in upwards of 13 to 15 years. Aneurysm (Chronic) a. Positive for multiple aneurysms. As stated, she has had surgery for these aneurysms. She has been followed quite closely in the past, and now has been able to spread out her appointments with the neurologist as there has been no change in her scan since 1982, according to her and her caregiver. History of Surgical Procedure (Chronic) a. ORIF of the patella of her left knee. b. Appendectomy and tubal ligation in the same surgery, according to her. c. Tonsillectomy and adenoidectomy. d. Aneurysm repair on two occasions, 1971 and 1982. She gets repeat scans every so often for these. e. Bilateral cataract surgery. 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 Wyatt Nazario MD. Family History Mother , CA at age 75. Neoplasm liver or kidney CA Father , fall at age 63. No problems noted. Brother , LUNG CA No problems noted. Brother , Stomach CA at age 85. No problems noted. Social History Smoking/Tobacco Use Status: Former Tobacco Use Smoking risk assessment performed?: Yes Alcohol Intake: never Drug use: Never Substance use type: does not use Caregiver/Support person: Yes Household members: family and other Details: lives with daughter Housing: shelter Number of Children: 2 Communication Needs: Corrective Lenses current occupation: retired from [employer], Dispatcher What is your relationship status?: Panel score (0-1 are the most socially isolated patients): 0 What type of physical activity do you participate in: none Seatbelt use: always Drive intox or ride w/intox garbage truck driver: No Working smoke detector in home: Yes Carbon monox detector in home: Yes Do you feel safe at home: Yes Do you feel safe in your relationship?: Yes Additional Social history: [email or web address] Exam Narrative Exam Narrative: Mei's mouth is open. Her oral region appears dry. She is not tachypneic. She has shallow breathing and sometimes does have apneic breathing she has perioral early cyanosis. Her feet are warm. Her hands are warm. Results Last Vital Signs Temp 98.9 F 09/29/25 23:01 Pulse 119 H 09/30/25 00:01 Resp 24 09/30/25 00:10 BP 80/58 L 09/30/25 00:01 Pulse Ox 96 09/29/25 23:54 Labs 09/29/25 23:33 09/29/25 23:33 Labs: Laboratory Results - last 24 hr 09/29/25 09/29/25 09/29/25 23:05 23:33 23:40 WBC 21.79 H RBC 4.33 Hgb 12.5 Hct 38.9 MCV 90 MCH 28.9 MCHC 32.1 RDW 13.3 Plt Count 361 MPV 10.2 Immature Gran % 0.0 Neutrophils % 80.0 Lymphocytes % 10.0 Monocytes % 10.0 Eosinophils % 0.0 Basophils % 0.0 Nucleated RBC % 0.0 Absolute Neutrophils 17.43 H Absolute Lymphocytes 2.18 Absolute Monocytes 2.18 H Absolute Eosinophils 0.00 Absolute Basophils 0.00 RBC Morphology Normal PT 10.7 INR 1.1 APTT 27.0 ABG Sample Site Cancelled ABG pH Cancelled ABG pCO2 Cancelled ABG pO2 Cancelled ABG HCO3 Cancelled ABG Total CO2 Cancelled ABG O2 Saturation Cancelled ABG Base Excess Cancelled VBG pH Cancelled VBG pCO2 Cancelled VBG pO2 Cancelled VBG HCO3 Cancelled VBG Total CO2 Cancelled VBG O2 Saturation Cancelled VBG Base Excess Cancelled VBG Lactate Cancelled 5.1 H* Oxygen Liter Flow Cancelled FiO2 Cancelled Sodium 140 Potassium 4.4 Chloride 104 Carbon Dioxide 17.5 L Anion Gap 18.5 H BUN 26 H Creatinine 1.3 H Est GFR (CKD-EPI 2020) 41.31 Glucose 222 H Calcium 9.2 Total Bilirubin 0.6 AST 80 H ALT 27 Alkaline Phosphatase 119 H Troponin I [address]358 H* NT-Pro-B Natriuret Pep 82495 H Total Protein 7.5 Albumin 3.1 L TSH 1.74 COVID-19 Source Cancelled SARS-CoV-2 (PCR) Cancelled Influenza Type A (PCR) Cancelled Influenza Type B (PCR) Cancelled RSV (PCR) Cancelled 09/30/25 09/30/25 00:05 02:05 WBC RBC Hgb Hct MCV MCH MCHC RDW Plt Count MPV Immature Gran % Neutrophils % Lymphocytes % Monocytes % Eosinophils % Basophils % Nucleated RBC % Absolute Neutrophils Absolute Lymphocytes Absolute Monocytes Absolute Eosinophils Absolute Basophils RBC Morphology PT INR APTT ABG Sample Site ABG pH ABG pCO2 ABG pO2 ABG HCO3 ABG Total CO2 ABG O2 Saturation ABG Base Excess VBG pH VBG pCO2 VBG pO2 VBG HCO3 VBG Total CO2 VBG O2 Saturation VBG Base Excess VBG Lactate Oxygen Liter Flow FiO2 Sodium Potassium Chloride Carbon Dioxide Anion Gap BUN Creatinine Est GFR (CKD-EPI 2020) Glucose Calcium Total Bilirubin AST ALT Alkaline Phosphatase Troponin I Cancelled Cancelled NT-Pro-B Natriuret Pep Total Protein Albumin TSH COVID-19 Source SARS-CoV-2 (PCR) Influenza Type A (PCR) Influenza Type B (PCR) RSV (PCR) Laboratory Tests 09/29/25 23:33 Troponin I 19904 H* Time Spent Time Spent with Patient Time Spent(min): 18
--- NOTE | 2025-09-30 17:04 | W.PM.PROGNOT ---
Date of Service Date of service: 09/30/25 Time of Service: 08:00 Assessment and Plan Assessment and plan (1) Comfort measures only status: Status: Acute Assessment and plan: Both son and daughter are at the bedside, and her UNIFIED COMMUNICATIONS ENGINEER status was reviewed with them and Dr. Wilhelm. We discussed the focus on symtpoms and role of morphine or similar medications as needed. She has responded well to 4mg morphine prn at this point, will continue with PRN, consider transition to drip if she is needing regular dosing. Anticipate hours to days prognosis. September 30: appreciate palliative care support. Family questions answered. (2) ST elevation MT (STEMI): Status: Acute Assessment and plan: EKG, POCUS, troponins all indicate severe STEMI, managing symptoms as above. (3) Urinary incontinence: Status: Acute Assessment and plan: With dementia she gets agitated with interventions, so defer flaherty until unresponsive. (4) History of seizure: Status: Chronic Assessment and plan: h/o seizures after cerebral aneurysm, but none recently. Use benzodiazepines prn if any seizure activity. (5) COPD (chronic obstructive pulmonary disease): Status: Chronic Assessment and plan: Not active, has prn albuterol but rarely uses per family. Subjective Subjective Interval history since last seen: Ms. Ferreira is unresponsive but appears comfortable. Multiple family members at bedside. Exam Narrative Exam Narrative: General: This is a somnolent, poorly rousable elderly woman in no distress HEENT: Normocephalic, atraumatic CV: RRR Resp: CTAB Abd: soft, NTND MSK: voluntary motion x4 Neuro: poorly rousable on comfort care Objective Last Vital Signs Temp 37.2 C 09/29/25 23:01 Pulse 119 H 09/30/25 00:01 Resp 24 09/30/25 00:10 BP 80/58 L 09/30/25 00:01 Pulse Ox 96 09/29/25 23:54 Laboratory Results - last 24 hr 09/29/25 09/29/25 09/29/25 23:05 23:33 23:40 WBC 21.79 H RBC 4.33 Hgb 12.5 Hct 38.9 MCV 90 MCH 28.9 MCHC 32.1 RDW 13.3 Plt Count 361 MPV 10.2 Immature Gran % 0.0 Neutrophils % 80.0 Lymphocytes % 10.0 Monocytes % 10.0 Eosinophils % 0.0 Basophils % 0.0 Nucleated RBC % 0.0 Absolute Neutrophils 17.43 H Absolute Lymphocytes 2.18 Absolute Monocytes 2.18 H Absolute Eosinophils 0.00 Absolute Basophils 0.00 RBC Morphology Normal PT 10.7 INR 1.1 APTT 27.0 ABG Sample Site Cancelled ABG pH Cancelled ABG pCO2 Cancelled ABG pO2 Cancelled ABG HCO3 Cancelled ABG Total CO2 Cancelled ABG O2 Saturation Cancelled ABG Base Excess Cancelled VBG pH Cancelled VBG pCO2 Cancelled VBG pO2 Cancelled VBG HCO3 Cancelled VBG Total CO2 Cancelled VBG O2 Saturation Cancelled VBG Base Excess Cancelled VBG Lactate Cancelled 5.1 H* Oxygen Liter Flow Cancelled FiO2 Cancelled Sodium 140 Potassium 4.4 Chloride 104 Carbon Dioxide 17.5 L Anion Gap 18.5 H BUN 26 H Creatinine 1.3 H Est GFR (CKD-EPI 2020) 41.31 Glucose 222 H Calcium 9.2 Total Bilirubin 0.6 AST 80 H ALT 27 Alkaline Phosphatase 119 H Troponin I 25283 H* NT-Pro-B Natriuret Pep 04310 H Total Protein 7.5 Albumin 3.1 L TSH 1.74 COVID-19 Source Cancelled SARS-CoV-2 (PCR) Cancelled Influenza Type A (PCR) Cancelled Influenza Type B (PCR) Cancelled RSV (PCR) Cancelled 09/30/25 09/30/25 00:05 02:05 WBC RBC Hgb Hct MCV MCH MCHC RDW Plt Count MPV Immature Gran % Neutrophils % Lymphocytes % Monocytes % Eosinophils % Basophils % Nucleated RBC % Absolute Neutrophils Absolute Lymphocytes Absolute Monocytes Absolute Eosinophils Absolute Basophils RBC Morphology PT INR APTT ABG Sample Site ABG pH ABG pCO2 ABG pO2 ABG HCO3 ABG Total CO2 ABG O2 Saturation ABG Base Excess VBG pH VBG pCO2 VBG pO2 VBG HCO3 VBG Total CO2 VBG O2 Saturation VBG Base Excess VBG Lactate Oxygen Liter Flow FiO2 Sodium Potassium Chloride Carbon Dioxide Anion Gap BUN Creatinine Est GFR (CKD-EPI 2020) Glucose Calcium Total Bilirubin AST ALT Alkaline Phosphatase Troponin I Cancelled Cancelled NT-Pro-B Natriuret Pep Total Protein Albumin TSH COVID-19 Source SARS-CoV-2 (PCR) Influenza Type A (PCR) Influenza Type B (PCR) RSV (PCR) Time Spent with Patient Time Spent with Patient: 25-34 minutes Time was spent: preparing to see the patient(eg.review tests), obtaining and/or reviewing separately otained hiistory, ordering medications,tests, procedures, referring, communicating with other health child care center assistant director, indepentently interpreting results, counseling the patient and care coordination
--- NOTE | 2025-09-30 19:00 | W.PC.ACHO ---
Registration Status: ADM IN Primary Language: Preferred Language: Lithuanian ED Information & Data Chief Complaint Arrhythmia 09/30/25 00:25 Triage Note Pt BIBEMS from [facility] s/p 09/29/25 23:01 staff noticed she appeared to be having increased WOB. Tachycardic, wheezing. ST elevations noted by EMS and STEMI alert called. ASA given [facility]. 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) Renal cell carcinoma of right kidney (08/30/16) Seizure disorder Deep vein thrombosis (DVT) of left lower extremity Pulmonary embolus, right (Updated 04/09/24 @ 14:43 by BONI Shook) Fracture, intertrochanteric, left femur cerebral aneurysm clipping (08/11/15) R nephrectomy & ovary (10/25/16) EGD and Colonoscopy (09/28/16) Extraction of cataract (12/18/15) Most Recent Vital Signs Temperature 37.2 C 09/29/25 23:01 Temperature Source Tympanic 09/29/25 23:01 Pulse 119 H 09/30/25 00:01 Respiratory Rate 24 09/30/25 00:10 Blood Pressure 80/58 L 09/30/25 00:01 Blood Pressure Mean 61 09/30/25 00:01 Blood Pressure Position Sitting 09/29/25 23:01 Pulse Oximetry 96 09/29/25 23:54 Oxygen Delivery Method Room Air 09/29/25 23:01 Oxygen Flow Rate 0 09/29/25 23:01 Pain Level 0 09/29/25 23:07 Allergies No Known Allergies Allergy (Unverified 09/30/25 00:45) Precautions Isolation Standard precaution 09/29/25 23:07 Active Medications Generic Name Dose Route Start Last Admin Trade Name Freq PRN Reason Stop Dose Admin Midazolam HCl 1 mg 09/30/25 02:17 09/30/25 06:24 Midazolam 2 Mg/2 Ml Vial IVP 1 mg Q1H PRN PRN Administration Mirtazapine 15 mg 09/30/25 02:00 09/30/25 18:25 Mirtazapine 15 Mg Tab PO Not Given HS LINCOLN Morphine Sulfate 4 mg 09/30/25 01:30 09/30/25 10:38 Morphine 4 Mg/Ml Syr IV/SC 4 mg Q1H PRN PRN Administration Nystatin 0 gm 09/30/25 08:30 09/30/25 18:25 Nystatin Powder 15 Gm Jar TP Not Given TID LINCOLN Ropinirole HCl 0.25 mg 09/30/25 08:30 09/30/25 09:09 Ropinirole 0.25 Mg Tab PO Not Given DAILY LIN[place]N Scopolamine HBr 1 mg 09/30/25 03:00 09/30/25 02:50 Scopolamine 1 Mg/3 Days Patch TD 1 mg Q72H LIN[place]N Administration Sodium Chloride 0 ml 09/29/25 23:05 09/30/25 06:24 Normal Saline Flush 10 Ml Syr IVP 80 ml PRN PRN Administration Sodium Chloride 0 ml 09/30/25 08:30 09/30/25 10:38 Normal Saline Flush 10 Ml Syr IVP 10 ml BID LINCOLN Administration IV IV Catheter Type [Right Saline Lock Forearm] IV Catheter Gauge [Right 20 Forearm] Diet Orders Category Date Time Status Regular/Normal [DIET] Nutrition 09/30/25 Lunch Active Diagnostics 09/30/25 09/30/25 09/30/25 Range/Units 18:54 02:05 00:05 WBC (4.4-10.8) 10^3/uL RBC (3.93-5.22) 10^6/uL Hgb (11.2-15.7) g/dL Hct (36.0-46.0) % MCV (80-95) fL MCH (27.0-33.0) pg MCHC (32.0-36.0) % RDW (11.7-14.6) % Plt Count (130-400) 10^3/uL MPV (8.0-11.0) fL Immature Gran % % Neutrophils % % Lymphocytes % % Monocytes % % Eosinophils % % Basophils % % Nucleated RBC % (0.0-0.3) % Absolute Neutrophils (1.2-6.7) 10^3/uL Absolute Lymphocytes (1.2-3.4) 10^3/uL Absolute Monocytes (0.1-0.8) 10^3/uL Absolute Eosinophils (0.0-0.7) 10^3/uL Absolute Basophils (0.0-0.2) 10^3/uL RBC Morphology PT (9.1-11.1) sec INR (0.9-1.1) APTT (20.6-30.2) sec ABG Sample Site ABG pH ABG pCO2 ABG pO2 ABG HCO3 ABG Total CO2 ABG O2 Saturation ABG Base Excess VBG pH VBG pCO2 VBG pO2 VBG HCO3 VBG Total CO2 VBG O2 Saturation VBG Base Excess VBG Lactate Oxygen Liter Flow FiO2 Sodium (136-145) mmol/L Potassium (3.5-5.1) mmol/L Chloride (98-107) mmol/L Carbon Dioxide (21.0-32.0) mmol/L Anion Gap (3-11) mmol/L BUN (7-18) mg/dL Creatinine (0.55-1.02) mg/dL Est GFR (CKD-EPI 2020) (mL/min/1.73m2) Glucose (74-106) mg/dL Calcium (8.5-10.1) mg/dL Total Bilirubin (0.2-1.0) mg/dL AST (15-37) U/L ALT (14-59) U/L Alkaline Phosphatase (46-116) U/L Troponin I Cancelled Cancelled (<or=51) ng/L NT-Pro-B Natriuret Pep (<300) pg/mL Total Protein (6.4-8.2) g/dL Albumin (3.4-5.0) g/dL TSH (0.36-3.74) uIU/mL Urine Color Cancelled Urine Clarity Cancelled Urine pH Cancelled Ur Specific [place] Cancelled Urine Protein Cancelled Urine Ketones Cancelled Urine Blood Cancelled Urine Nitrite Cancelled Urine Bilirubin Cancelled Urine Urobilinogen Cancelled Ur Leukocyte Esterase Cancelled Urine Glucose Cancelled COVID-19 Source SARS-CoV-2 (PCR) Influenza Type A (PCR) Influenza Type B (PCR) RSV (PCR) 09/29/25 09/29/25 09/29/25 Range/Units 23:40 23:33 23:05 WBC 21.79 H (4.4-10.8) 10^3/uL RBC 4.33 (3.93-5.22) 10^6/uL Hgb 12.5 (11.2-15.7) g/dL Hct 38.9 (36.0-46.0) % MCV 90 (80-95) fL MCH 28.9 (27.0-33.0) pg MCHC 32.1 (32.0-36.0) % RDW 13.3 (11.7-14.6) % Plt Count 361 (130-400) 10^3/uL MPV 10.2 (8.0-11.0) fL Immature Gran % 0.0 % Neutrophils % 80.0 % Lymphocytes % 10.0 % Monocytes % 10.0 % Eosinophils % 0.0 % Basophils % 0.0 % Nucleated RBC % 0.0 (0.0-0.3) % Absolute Neutrophils 17.43 H (1.2-6.7) 10^3/uL Absolute Lymphocytes 2.18 (1.2-3.4) 10^3/uL Absolute Monocytes 2.18 H (0.1-0.8) 10^3/uL Absolute Eosinophils 0.00 (0.0-0.7) 10^3/uL Absolute Basophils 0.00 (0.0-0.2) 10^3/uL RBC Morphology Normal PT 10.7 (9.1-11.1) sec INR 1.1 (0.9-1.1) APTT 27.0 (20.6-30.2) sec ABG Sample Site Cancelled ABG pH Cancelled ABG pCO2 Cancelled ABG pO2 Cancelled ABG HCO3 Cancelled ABG Total CO2 Cancelled ABG O2 Saturation Cancelled ABG Base Excess Cancelled VBG pH Cancelled VBG pCO2 Cancelled VBG pO2 Cancelled VBG HCO3 Cancelled VBG Total CO2 Cancelled VBG O2 Saturation Cancelled VBG Base Excess Cancelled VBG Lactate 5.1 H* Cancelled Oxygen Liter Flow Cancelled FiO2 Cancelled Sodium 140 (136-145) mmol/L Potassium 4.4 (3.5-5.1) mmol/L Chloride 104 (98-107) mmol/L Carbon Dioxide 17.5 L (21.0-32.0) mmol/L Anion Gap 18.5 H (3-11) mmol/L BUN 26 H (7-18) mg/dL Creatinine 1.3 H (0.55-1.02) mg/dL Est GFR (CKD-EPI 2020) 41.31 (mL/min/1.73m2) Glucose 222 H (74-106) mg/dL Calcium 9.2 (8.5-10.1) mg/dL Total Bilirubin 0.6 (0.2-1.0) mg/dL AST 80 H (15-37) U/L ALT 27 (14-59) U/L Alkaline Phosphatase 119 H (46-116) U/L Troponin I 00829 H* (<or=51) ng/L NT-Pro-B Natriuret Pep 01993 H (<300) pg/mL Total Protein 7.5 (6.4-8.2) g/dL Albumin 3.1 L (3.4-5.0) g/dL TSH 1.74 (0.36-3.74) uIU/mL Urine Color Urine Clarity Urine pH Ur Specific [place] Urine Protein Urine Ketones Urine Blood Urine Nitrite Urine Bilirubin Urine Urobilinogen Ur Leukocyte Esterase Urine Glucose COVID-19 Source Cancelled SARS-CoV-2 (PCR) Cancelled Influenza Type A (PCR) Cancelled Influenza Type B (PCR) Cancelled RSV (PCR) Cancelled Intake and Output - 24 Hour Total 09/29/25 22:57 thru 09/30/25 07:57 Intake Total 1020 Balance 1020 Weight 52.7 kg Intake: IV 1020 Other: Comment Attempt to initiate catheter aborted. In positioning patient for placement, patient displays with significant contractures in legs (especially left sided), as well as is still waking. Falls Risk Assessment History of Falls No History 09/29/25 23:07 Contributing Factors Impairments,Incontinence, 09/29/25 23:07 Medications Ambulatory Aids Uses ambulatory device + 09/29/25 23:07 Tubes/Lines None 09/29/25 23:07 Gait Evaluation W/any additional score 09/29/25 23:07 Cognition Cognitive impairment 09/29/25 23:07 Fall Total Score 74 09/29/25 23:07 Level of Risk High Risk 09/29/25 23:07 Problems (Updated 09/30/25 @ 13:01 by Tesha Damian MD, DC) Advance care planning (Acute) Comfort measures only status (Acute) ST elevation [place] (STEMI) (Acute) Urinary incontinence (Acute) History of seizure (Chronic) COPD (chronic obstructive pulmonary disease) (Chronic) Notes 09/30/25 00:12 Nursing Notes by Payal Cordero 0012: Pt son & daughter at bedside after being updated on pt condition by MD Wilhelm. Per , OK to turn off monitor. Awaiting arrival of hospitalist at bedside. Pt appears comfortable. Initialized on 09/30/25 00:12 - END OF NOTE Attestation Statement: By documenting the first initial, last name, and credentials of the reporting nurse below, both parties acknowledge that all relevant information regarding the patient handoff has been communicated, and that all questions have been addressed to ensure continuity and safety of care. Additional Patient Information/Comments: Pt transferred to the unit at approx 1400 Report Received From: Lavonne in ICU at approx 1341
[2025-10-01] MEDS: MORPHine 4 MG/ML SYR IV/SC ×2 (02:26→04:45)
[2025-10-01] MEDS: Normal Saline Flush 10 ML SYR IVP ×6 (02:27→22:06)
[2025-10-01] MEDS: Hyoscyamine 0.125 MG SL/ORAL/CHEW SL (02:40)
[2025-10-01] MEDS: MORPHine 2 MG/ML SYR 4 MG IV/SC ×6 (09:18→22:04)
--- NOTE | 2025-10-01 10:07 | PHA.REVIEW2 ---
Pharmacy Admission Review Admission Clinical Review Admission Pharmacy Review: Advance care planning (Acute) Comfort measures only status (Acute) ST elevation [place] (STEMI) (Acute) Urinary incontinence (Acute) No Known Allergies Allergy (Unverified 09/30/25 00:45) Resuscitation Status DNR/DNI Height 5 ft Weight 52.7 kg Pharmacy Admission Review Renal Dosing Renal Dosing: BUN 26 mg/dL (7-18) H 09/29/25 23:33 Creatinine 1.3 mg/dL (0.55-1.02) H 09/29/25 23:33 Medications needing adjustments: Reviewed (CrCl 28.05 mL/min) Anticoagulation Anticoagulation: Hgb 12.5 g/dL (11.2-15.7) 09/29/25 23:33 Hct 38.9 % (36.0-46.0) 09/29/25 23:33 Plt Count 361 10^3/uL (130-400) 09/29/25 23:33 INR 1.1 (0.9-1.1) 09/29/25 23:33 Creatinine 1.3 mg/dL (0.55-1.02) H 09/29/25 23:33 DVT Prophylaxis: N/A (AREA OPERATIONS MANAGER) Opiate Usage Evaluate Pain Scale/Pains Meds: Reviewed (morphine 4mg IVP/SC q1h PRN - 20mg/24hrs) Scheduled Bowel Reg ordered if on Opiates?: No (PRN daily Senna) Relevant Labs Relevant Labs: Sodium 140 mmol/L (136-145) 09/29/25 23:33 Potassium 4.4 mmol/L (3.5-5.1) 09/29/25 23:33 Chloride 104 mmol/L (98-107) 09/29/25 23:33 Electrolytes, C-Reactive P, ESR: N/A (AREA OPERATIONS MANAGER) Cardiac Review Cardiac Review: Troponin I Cancelled 09/30/25 02:05 NT-Pro-B Natriuret Pep 53568 pg/mL (<300) H 09/29/25 23:33 BP, HR, EF%: N/A (AREA OPERATIONS MANAGER) QTc Review QTc: Reviewed (460 from 09/29/25) IV to PO Switch IV Medications: Reviewed Home Meds Home Med List reviewed: Reviewed Current Meds Current Medication Order Review: Intervened Comments: Added 2nd PRN to senna order per pharmacy protocol Changed morphine order from 4mg/mL syringe (backorder) to 2mg/mL syringe (in stock)
--- NOTE | 2025-10-01 10:31 | NUR.NOTE ---
Access chart to reconcile EKG orders with EKG's in [facility]. Duplicate order cancelled. Nursing Note:
--- NOTE | 2025-10-01 10:47 | CMPROGNOTE_ITS ---
Date of service: 10/01/25 Time of Service: 10:47 Care Management Progress Note Progress Note Text Progress Note Text: Mei lives at [facility], and admitted for end of life care following an STEMI and has been surrounded by family throughout her admission at [facility]. Mei was lying in bed with her eyes closed when CM entered the room, she appears comfortable and showing no signs of discomfort. Her daughter Bryanna and a Niece are present at the bedside and a Hospice cart is set up for family comfort. Bryanna shared with CM that she does not want to go into detail, but she had concerns earlier in the afternoon that have been addressed. CM provided a supportive presence and offered to be a resource if more concerns arise in the future. Bryanna was appreciative, and denies any concerns at this time. CM will follow. Discharge Plan: Mei transitioned to comfort measure care and will remain at [facility] care through end-of-life. CM will follow and offer support as needed during this difficult time. Social Determinants of Health Screening Social Determinants of health last assessed in clinic: 09/29/25 Will the Patient Participate in the Screening?: Unable to obtain Do you worry about having a steady place to live?: no Problems where you live: no known problems In the past 12 months, have you had to go without electric, gas, oil or water in your home?: no Has lack of transportation kept you from medical appointments or from doing things needed for daily living?: no Has anyone in your life made you feel unsafe or unsupported?: no How hard is it for you to pay for the very basics like food, housing, medical care, and heating? Would you say it is:: Not hard at all Do you want help finding or keeping work or a job?: I do not need or want help If for any reason you need help with day-to-day activities such as bathing, preparing meals, shopping, managing finances, etc., do you get the help you need?: I don’t need any help How often do you feel lonely or isolated from those around you?: Never Do you speak a language other than [place] at home?: No Does the patient want assistance with any of the above?: No
--- NOTE | 2025-10-01 15:09 | PGE_ITS ---
Date of Service Date of service: 10/01/25 Time of Service: 08:00 Assessment and Plan Assessment and plan (1) Comfort measures only status: Status: Acute Assessment and plan: Both son and daughter are at the bedside, and her SENIOR STAFF CONSULTANT status was reviewed with them and Dr. Wilhelm. We discussed the focus on symtpoms and role of morphine or similar medications as needed. She has responded well to 4mg morphine prn at this point, will continue with PRN, consider transition to drip if she is needing regular dosing. Anticipate hours to days prognosis. September 30: appreciate palliative care support. Family questions answered. October 01: patient responsive to pain with head movement. Continue comfort care measures. (2) ST elevation NC (STEMI): Status: Acute Assessment and plan: EKG, POCUS, troponins all indicate severe STEMI, managing symptoms as above. (3) Urinary incontinence: Status: Acute Assessment and plan: With dementia she gets agitated with interventions, so defer flaherty until unresponsive. (4) History of seizure: Status: Chronic Assessment and plan: h/o seizures after cerebral aneurysm, but none recently. Use benzodiazepines prn if any seizure activity. (5) COPD (chronic obstructive pulmonary disease): Status: Chronic Assessment and plan: Not active, has prn albuterol but rarely uses per family. Subjective Subjective Interval history since last seen: Ms. Ferreira appears comfortable. Family at bedside. Exam Narrative Exam Narrative: General: This is a somnolent, poorly rousable elderly woman in no distress HEENT: Normocephalic, atraumatic CV: RRR Resp: CTAB Abd: soft, NTND MSK: voluntary motion x4 Neuro: poorly rousable on comfort care Objective Last Vital Signs Temp 37.2 C 09/29/25 23:01 Pulse 119 H 09/30/25 00:01 Resp 24 09/30/25 00:10 BP 80/58 L 09/30/25 00:01 Pulse Ox 96 09/29/25 23:54 Laboratory Results - last 24 hr 09/30/25 18:54 Urine Color Cancelled Urine Clarity Cancelled Urine pH Cancelled Ur Specific [place] Cancelled Urine Protein Cancelled Urine Ketones Cancelled Urine Blood Cancelled Urine Nitrite Cancelled Urine Bilirubin Cancelled Urine Urobilinogen Cancelled Ur Leukocyte Esterase Cancelled Urine Glucose Cancelled Time Spent with Patient Time Spent with Patient: 25-34 minutes Time was spent: preparing to see the patient(eg.review tests), obtaining and/or reviewing separately otained hiistory, ordering medications,tests, procedures, referring, communicating with other health health care liaison, indepentently interpreting results, counseling the patient and care coordination
--- NOTE | 2025-10-01 15:27 | CHAPLAIN ---
Mei is here on comfort measures and will remain here for end of life care. I visited this morning to bring Mei a comfort shawl. She was not responsive and appeared comfortable. I checked back in the afternoon to introduce myself to Mei's daughter Bryanna who has been with her most of the time. I explained my role and offered support. Bryanna declined a request earlier for logistics operations manager support so I stayed only a few minutes.
[2025-10-02] MEDS: MORPHine 2 MG/ML SYR 4 MG IV/SC ×3 (00:24→04:39)
[2025-10-02] MEDS: Normal Saline Flush 10 ML SYR IVP ×2 (00:25→04:42)
--- NOTE | 2025-10-02 07:10 | W.PM.DDS ---
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 She was noted by staff to have new dyspnea and a heart rate of 170. EKG showed STEMI with troponin >[id number] and POCUS showed severe LV dilation and dysfunction. Case was reviewed with cardiology and her son and daughter who were present. Given her goals of care and the risks of bleeding in her aneurysm with thrombolysis or anticoagulation a decision was made to transition to comfort care status. She was treated with morphine with good effect on her dyspnea. Patient remained on CHANNEL PROGRAM MANAGER with family at bedside being kept comfortable over about 2 days. She peacefully with family in room. Body was released to the [facility]. Discharge Data Cause of : Myocardial infarction Discharge Sum: Prov Provider Primary care physician: Ketan Tamez DO Admitting clinician: Justo Catalan Consults: 09/30/25 00:38 Java Application Engineer Consult [CONS] Routine Consultation Status:: Follow-up needed Clarification:: Manage/follow per spec. Reason for consult:: admitted with massive [place] 09/30/25 07:28 Palliative Care Consult [CONS] Routine Consultation Status:: Follow-up needed Clarification:: Manage/follow per spec. Reason for consult:: patient admitted CHANNEL PROGRAM MANAGER from SNF with massive STEMI. complex history. Any suggestions for adjusting management? Discharge Sum: Diag PCOD Cause of : Myocardial infarction Contributing Factors (1) Comfort measures only status: (2) ST elevation [place] (STEMI): (3) Urinary incontinence: (4) History of seizure: (5) COPD (chronic obstructive pulmonary disease): Discharge Sum: Summary Date and Time Admission Date: 09/30/25 Date of : 10/02/25 Time of : 05:59 Summary Details: As per hospital course, patient at 05:59 with family at bedside. She was pronounced at 06:19. Because of this was a consequence of a nontreated STEMI at the patient and family request. Additional Data Confirmation of as documented by pronouncing clinician: no pulse, no respirations, no heart sounds and pupils fixed and dilated Family: at bedside Attending/PCP notified?: No Attending Physician: Justo Catalan Was code activated?: No Autopsy requested?: No bar examiner notified?: No Organ bank notified?: Yes Advance directives: Yes Hospice patient?: No
== END 2025-10-02 07:33 | disposition expired ==
LOC: ER 09-30 00:30 → ICU 09-30 01:29 → MS 09-30 14:27
PROVIDERS: Admitting Provider Family Medicine; Emergency Provider Student in an Organized Health Care Education/Training Program; PCP Family Medicine; Responsible Provider Family Medicine; Visit Provider Family Medicine
DX: I21.3 ST elevation (STEMI) myocardial infarction of unspecified site (principal); Z51.5 Encounter for palliative care; R32 Unspecified urinary incontinence; J44.9 Chronic obstructive pulmonary disease, unspecified; C64.1 Malignant neoplasm of right kidney, except renal pelvis; E46 Unspecified protein-calorie malnutrition; F03.90 Unspecified dementia, unspecified severity, without behavioral disturbance, psychotic disturbance, mood disturbance, and anxiety; Z86.711 Personal history of pulmonary embolism; Z86.718 Personal history of other venous thrombosis and embolism; G40.909 Epilepsy, unspecified, not intractable, without status epilepticus; K52.9 Noninfective gastroenteritis and colitis, unspecified; D50.0 Iron deficiency anemia secondary to blood loss (chronic); M81.0 Age-related osteoporosis without current pathological fracture; E55.9 Vitamin D deficiency, unspecified; H90.3 Sensorineural hearing loss, bilateral; I87.8 Other specified disorders of veins; R41.3 Other amnesia; R33.9 Retention of urine, unspecified; Z68.22 Body mass index [BMI] 22.0-22.9, adult
CPT/HCPCS: 00123; 36415; 36573; 76942; 80053; 82805; 87637; 93005; 94640; 96361; 96374; 99291; 71045; 81003; 83605; 83880; 84443; 84484; 85025; 85610; 85730; 93010; 99223; 99232; J2250; J2270; J3490; J7614